=== PATIENT | male | born 1960 ===

== ENCOUNTER 2020-08-31 17:11 | Outpatient (REF) | payer OTHER, SELFPAY ==
[2020-08-31 17:37] LABS: COVID-19 Test Negative (Negative)
== END 2020-08-31 17:12 | disposition home or self-care (01) ==
LOC: HO.LAB 17:11
PROVIDERS: Visit Provider Internal Medicine
DX: Z20.828 Contact with and (suspected) exposure to other viral communicable diseases (principal)
CPT/HCPCS: 87635

== ENCOUNTER → 2020-09-28 10:26 | Outpatient (BNVA) | payer OTHER, SELFPAY | PROVIDERS: PCP Internal Medicine; Referring Provider Internal Medicine; Visit Provider Surgery | DX: K64.8 Other hemorrhoids (principal); K64.4 Residual hemorrhoidal skin tags | CPT/HCPCS: 46600 ==

== ENCOUNTER 2020-09-28 14:41 | Outpatient (REF) | payer OTHER, SELFPAY ==
[2020-09-28 16:36] LABS: Free T4 (Free Thyroxine) 0.94 ng/dL (0.71-1.85)
== END 2020-09-28 14:42 | disposition home or self-care (01) ==
LOC: HO.LAB 14:41
PROVIDERS: Visit Provider Internal Medicine
DX: E03.9 Hypothyroidism, unspecified (principal)
CPT/HCPCS: 84439; 84443

== ENCOUNTER 2020-10-20 07:32 | Day surgery (SDC) | payer OTHER, SELFPAY ==
[2020-10-16 16:02] VITALS: BMI 25.8
--- NOTE | 2020-10-19 10:18 | HO.ANESPROP2 ---
Documented by User: Loan Guevara 10/19/20 10:19 HPI - Anesthesia Eval Consult details Narrative: 59yo M for Colonoscopy [facility] Past Medical History Medical History Colon cancer screening Hypothyroid Prolapsed hemorrhoids Surgical History Surgical History History of amputation of finger Hx of hemorrhoidectomy Social History Social History Alcohol intake: never Smoking Status: Former smoker Smoking Quit Date: 1999 Use of substances other than those prescribed or required for medical reasons: No Advance Directives: No Advance Directives Information Provided: No Advance Directives on File: No Meds Allergies Allergy/AdvReac Type Severity Reaction Status Date / Time No Known Allergies Allergy Mild N/A Verified 10/16/20 16:01 Exam Exam Date and Time: October 19, 2020 1018 Height,Weight and Vital Signs: Height 5 ft 6 in Weight 72.575 kg Assessment and Plan Assessment Anesthesia Assessment: Chart Reviewed Documented by User: Brooke Bush 10/20/20 08:17 [facility] Past Medical History Medical History Colon cancer screening Hypothyroid Prolapsed hemorrhoids Surgical History Surgical History History of amputation of finger Hx of hemorrhoidectomy Social History Social History Alcohol intake: never Smoking Status: Former smoker Smoking Quit Date: 1999 Use of substances other than those prescribed or required for medical reasons: No Advance Directives: No Advance Directives Information Provided: No Advance Directives on File: No Meds Allergies Allergy/AdvReac Type Severity Reaction Status Date / Time No Known Allergies Allergy Mild N/A Verified 10/16/20 16:01 Exam Airway Mallampati Class: II TM Dist: >3cm Neck ROM: Full Assessment and Plan Assessment Anesthesia Assessment: Anesthesia Plan Discussed and Chart Reviewed Final Anesthetic Review NPO: Yes ASA Class: II Final Preanesthetic Review: No Changes in Pt Med Stat, Meds/Allgs Chart Reviewed, Consent Obtained/Reviewed and Anes Risks/Benef Reviewed Patient Risk: Low Procedure Risk: Low Assessment/Block/Sedation in SS: Assess/Block/Sedation-SS Anesthetic Plan Anesthetic Plan: MAC: Disposition: Standard PACU
[2020-10-20 07:47] VITALS: BP 112/69; PULSE 70; RESP 16; TEMP 36.4; O2SAT 99
--- NOTE | 2020-10-20 08:00 | MHC.SHP ---
Pre-Procedural Eval Section B Chief Complaint: Prolapsed hemorrhoids,Colon cancer screening Allergies: Allergies Allergy/AdvReac Type Severity Reaction Status Date / Time No Known Allergies Allergy Mild N/A Verified 10/16/20 16:01 Plan Patient has been examined and remains a candidate for the planned procedure
[2020-10-20 08:55] VITALS: BP 102/52; PULSE 74; RESP 16; TEMP 37; O2SAT 95
--- NOTE | 2020-10-20 08:59 | PM.OP ---
Brief Operative Note Date of Service: 10/20/20 Pre-op diagnosis: rectal bleed, screening Post-op diagnosis: other (multiple polyps; rectal mass) Procedure: colonoscopy, polypectomy with hot snare, colonoscopies with forceps, bx of rectal mass Surgeon: Mack Michel MD Anesthesia: MAC Estimated blood loss (mL): 3 Pathology: other (polyp in trasnverse; polyps at level 18. rectal mass bx) Condition: stable Disposition: PACU
[2020-10-20 09:10] VITALS: BP 105/69; PULSE 66; RESP 16; TEMP 37; O2SAT 96
--- NOTE | 2020-10-20 09:28 | HO.POSTANES ---
Post Anesthesia Evaluation Post Anesthesia Evaluation Vital Signs: Vital Signs Temp Pulse Resp BP Pulse Ox 10/20/20 09:10 98.6 F 66 16 105/69 96 10/20/20 08:55 98.6 F 74 16 102/52 L 95 10/20/20 07:47 97.5 F 70 16 112/69 99 Anesthesia: Monitored Mental Status: Awake Pain Control: Satisfactory Nausea/Vomiting: None Hydration: Adequate Anesthesia-Related Issues: No Anes. Related Issues
--- NOTE | 2020-10-20 10:04 | OP_ITS ---
SURGEON: Mack Michel MD INDICATIONS: The patient is a 59-year-old male, who has had bright red blood per rectum. I have seen him in the office because of what he says was his hemorrhoids coming up. He said he did not have blood per rectum. He wanted his hemorrhoids removed. However, I had told him that since he has never had any colonoscopy, it would be best to proceed this with his age. He understood the technique of procedure. He was aware of the risks, benefits, and alternatives. PREOPERATIVE DIAGNOSIS: POSTOPERATIVE DIAGNOSIS: PROCEDURE PERFORMED: Colonoscopy, with polypectomy using hot snare x1 and polypectomy using cold forceps x3, and biopsy of the rectal mass. ESTIMATED BLOOD LOSS: COMPLICATIONS: ANESTHESIA: ASSISTANTS: SPECIMENS: PREOPERATIVE DIAGNOSES: Colon cancer screening, rectal bleeding. POSTOPERATIVE DIAGNOSES: 1. Polyp 1 cm in the proximal transverse colon, removed using hot snare. 2. Multiple small polyps about 2 to 3 mm, about 3 of these are at level 18 cm. 3. Rectal mass, fungating from about level 8 to 11 cm. 4. Internal and external hemorrhoids. DESCRIPTION OF PROCEDURE: He was brought to the operating room and placed in left lateral decubitus position under monitored anesthesia care. A full digital rectal exam was done. Did have some prominent internal and external hemorrhoids. Otherwise, I did not feel any mass or induration in the anal canal. I proceeded to gently insert the scope through the anal orifice and advanced this with insufflation all the way to the cecum. We immediately had noticed a fungating mass in the rectum. We bypassed this until we were able to reach all the way to the cecum. The cecal mucosa was examined carefully. The cecum was identified by visualization of the ileocecal valve as well as the appendiceal orifice. The cecal mucosa was unremarkable. The scope was gradually withdrawn with careful examination of the entire colonic mucosa being done with scope withdrawal. The patient had good bowel prep, so it was unlikely that any lesion may have been missed. In the proximal transverse colon, there was note of a 1 cm polyp on a small stalk and this was removed using hot snare. This was retrieved by pulling this out via suctioning. We inserted the scope back through the anal orifice all the way to the cecum again. I proceeded to continue to withdraw the scope with careful examination of the entire colonic mucosa being done with scope withdrawal. At level 18 cm, there was note of multiple small polyps about 2 to 3 mm each, but these noted adjacent to each other. These were all removed using multiple bites of cold forceps. At level in the rectum, again was note of the large fungating lesion, friable. This seemed to be starting from around level 8 to 11 cm. Multiple biopsies were done using cold forceps. The appearance of this lesion is consistent with an invasive adenocarcinoma. There were no other lesions in the anal canal except for internal and external hemorrhoids. The scope was then withdrawn completely. The patient tolerated the procedure well. There were no complications noted. I will see him in the office to discuss these findings and plan on managing his care, including workup with imaging. MD GISSELLE Ball/YUSUF / [id number]
== END 2020-10-20 09:27 | disposition home or self-care (01) ==
PROVIDERS: PCP Internal Medicine; Visit Provider Surgery
PROC: 0DJD8ZZ Inspection of Lower Intestinal Tract, Via Natural or Artificial Opening Endoscopic (ICD-10-PCS; CPT 45378; principal; 2020-10-20 08:30)
DX: Z12.11 Encounter for screening for malignant neoplasm of colon (principal); C20 Malignant neoplasm of rectum; D12.3 Benign neoplasm of transverse colon; K63.5 Polyp of colon; K64.8 Other hemorrhoids; K64.4 Residual hemorrhoidal skin tags
CPT/HCPCS: 45385; 45380; 88305; 88341; 88342; J2405; J3010

== ENCOUNTER → 2020-10-31 14:27 | Outpatient (BNVA) | payer OTHER, SELFPAY | PROVIDERS: PCP Internal Medicine; Visit Provider Surgery | DX: Z76.89 Persons encountering health services in other specified circumstances (principal) ==

== ENCOUNTER 2020-11-06 15:14 | Outpatient (REF) | payer OTHER, SELFPAY ==
[2020-11-06 18:14] LABS: Blood Urea Nitrogen 16 mg/dL (9-16); Estimated Glomerular Filt Rate 56
[2020-11-06 18:32] LABS: Free T4 (Free Thyroxine) 0.95 ng/dL (0.71-1.85); Thyroid Stimulating Hormone 42.75 uIU/mL (0.32-4.0)
== END 2020-11-06 15:15 | disposition home or self-care (01) ==
LOC: HO.LAB 15:14
PROVIDERS: PCP Internal Medicine; Visit Provider Surgery
DX: C20 Malignant neoplasm of rectum (principal); E03.9 Hypothyroidism, unspecified
CPT/HCPCS: 82565; 84439; 84443; 84520

== ENCOUNTER 2020-11-16 08:14 | Outpatient (REF) | payer OTHER, SELFPAY ==
--- NOTE | 2020-11-16 08:17 | MR_ITS ---
EXAMINATION: MR PELVIS WITHOUT AND WITH CONTRAST CLINICAL INFORMATION: Rectal cancer. COMPARISON: None TECHNIQUE: Sagittal, axial and coronal sequences through the pelvis with and without contrast. The patient received 7 mL of intravenous Gadavist. FINDINGS: There is mild circumferential wall thickening of the upper rectum. This area is best appreciated on sagittal T2-weighted sequences, for example image 14, 15, 16 series 7, and extends over a length of 5 cm. This is approximately 7.5 cm above the anal verge. No definite signal abnormality in the wall of the bowel is seen. There is question of minimal increased signal in the perirectal fat, greatest to the left and posteriorly from 3:00 - 7:00 o'clock. This would be suggestive of a T2 or possibly very early T3 stage. There are 2 small perirectal lymph nodes measuring 5 mm on the left anterior to the sacrum, for example image 19 postcontrast, and measuring 3 mm posteriorly and on the right, axial image 18 series 9. No enlarged lymph nodes are seen. There is no ascites. The bladder is unremarkable. The prostate gland does not appear enlarged. There are small bilateral inguinal lymph nodes. No hernia is appreciated. Bony structures are unremarkable. MR/MR pelvis wo/w con IMPRESSION: Circumferential wall thickening of the upper rectum extending over a 5 cm length 7.5 cm above the anal verge. There is question of mild infiltration or abnormal signal in the perirectal fat. This is seen greatest to the left and posteriorly. It would be suggestive of a T2 lesion or possibly very early T3 stage lesion.
== END 2020-11-16 08:15 | disposition home or self-care (01) ==
LOC: HO.MRI 08:14
PROVIDERS: Visit Provider Surgery
DX: C20 Malignant neoplasm of rectum (principal)
CPT/HCPCS: 72197; A9585

== ENCOUNTER → 2020-11-27 10:25 | Outpatient (BNVA) | payer OTHER, SELFPAY | PROVIDERS: PCP Internal Medicine; Visit Provider Surgery ==

== ENCOUNTER 2020-11-28 11:57 | Outpatient (REF) | payer OTHER, SELFPAY ==
--- NOTE | 2020-11-28 11:59 | CT_ITS ---
EXAMINATION: CT ABDOMEN AND PELVIS WITH CONTRAST CLINICAL INFORMATION: Malignant neoplasm of rectum COMPARISON: None TECHNIQUE: Multidetector volumetric images were obtained from the superior aspect of the liver through the pubic symphysis following administration 85 mL of Omnipaque 350 intravenous contrast. Sagittal and coronal reformatted images were obtained on the technologist's workstation. Oral contrast: No This CT examination was performed using dose optimization techniques as appropriate, variously including the following: *Automated exposure control *Adjustment of mA and/or kV according to patient size (this includes techniques or standardized protocols for targeted exams where dose is matched to indication/reason for exam; i.e. extremities or head) *Use of iterative reconstruction technique DLP: 394 mGy-cm FINDINGS: LUNG BASES: The visualized lung bases are unremarkable. LIVER, GALLBLADDER, AND BILIARY TREE: The liver is normal in size, shape, and attenuation. There is a small 5 mm low-attenuation lesion in the right lobe of the liver adjacent to the gallbladder axial image 28 series 3. This is difficult to characterize due to small size but probably represents a small cyst. No other focal liver lesion is seen. There is no biliary duct dilatation.. The gallbladder is unremarkable with no evidence of radiopaque gallstones, gallbladder wall thickening, or obvious pericholecystic inflammatory changes. PANCREAS: Unremarkable. SPLEEN: Unremarkable. ADRENAL GLANDS: Unremarkable. KIDNEYS AND URETERS: There is a 1.3 x 1.7 cm minimally complex cyst in the lower pole of the right kidney with a thin septation. There is a 1 cm peripelvic cyst in the upper pole of the right kidney. The kidneys are otherwise unremarkable. BLADDER: Not optimally distended. GASTROINTESTINAL TRACT: There is focal wall thickening of the distal sigmoid colon/rectum from the S2 to S5 levels. A discrete mass is not appreciated. It is difficult to exclude subtle infiltration of the adjacent fat. There is linear high attenuation seen inferiorly along the anterior wall of the rectum to the left of midline questionable for possible biopsy clip. Small and large bowel is otherwise unremarkable. The appendix is unremarkable. The stomach is unremarkable. ABDOMINAL WALL: No significant hernia is appreciated. LYMPH NODES: There are no enlarged lymph nodes. There is no ascites. VASCULAR: There is evidence of mild atherosclerotic disease. No aneurysm is seen. PELVIC VISCERA: Unremarkable. OSSEOUS STRUCTURES: Unremarkable. CT/CT abdomen pelvis w con IMPRESSION: Focal wall thickening of the distal sigmoid colon-rectum. No discrete mass is appreciated. It is difficult to exclude mild infiltration of the adjacent fat. No adenopathy seen. Small liver lesion adjacent to the gallbladder is difficult to definitively characterize size but probably represents a cyst. Small right renal cyst.
== END 2020-11-28 11:58 | disposition home or self-care (01) ==
LOC: HO.CT 11:57
PROVIDERS: Visit Provider Surgery
DX: C20 Malignant neoplasm of rectum (principal)
CPT/HCPCS: 74177

== ENCOUNTER → 2020-11-30 12:54 | Outpatient (BNV) | payer OTHER, SELFPAY | PROVIDERS: PCP Internal Medicine; Referring Provider Surgery; Visit Provider Internal Medicine Medical Oncology | DX: C20 Malignant neoplasm of rectum (principal); Z92.21 Personal history of antineoplastic chemotherapy | CPT/HCPCS: 99204; 99213; 99214 ==

== ENCOUNTER 2020-12-08 06:54 | Day surgery (SDC) | payer OTHER, SELFPAY ==
--- NOTE | 2020-12-08 | IR_ITS ---
PROCEDURE: IR INSERTION OF TUNNEL CATHETER CLINICAL INFORMATION: Colon/rectal cancer COMPARISON: None TECHNIQUE: Procedure and risks and benefits including bleeding, infection and pneumothorax were discussed with the patient and informed consent was obtained. All elements of maximal sterile barrier technique followed including use of cap, mask, sterile gown, sterile gloves, a sterile full body drape and hand hygiene. Also followed skin preparation with 2% chlorhexidine for cutaneous antisepsis, and sterile ultrasound preparation with sterile gel and probe cover when applicable. The right neck and upper chest were prepped and draped in usual sterile fashion. The skin and soft tissues of the right lower neck were anesthetized with 1% lidocaine with epinephrine. A small incision was made. Using ultrasound guidance, and a 5-Northern Irish micropuncture system, right internal jugular vein access was obtained. 5-Northern Irish dilator was positioned in the SVC. The skin and soft tissues of the upper anterior chest were anesthetized with 1% lidocaine with epinephrine. A small incision was made. Using blunt dissection, subcutaneous pocket was created. A subcutaneous tunnel from the chest to the neck incision was anesthetized with 1% lidocaine with epinephrine. Using a tunneler, a 6.6-[place] Irish single-lumen catheter was tunneled from the chest to the neck incision. The catheter was attached to the port. The port and catheter were flushed. The port was positioned in the subcutaneous pocket using two 2-0 nonabsorbable sutures. An 0.035 inch guidewire was advanced through the 5-Northern Irish dilator into the right atrium. 5-Northern Irish dilator was exchanged for a 7-Northern Irish peel-away sheath. Using bent wire technique, catheter length was estimated and the catheter was cut. Catheter length is 22 cm. The catheter was fed through the peel-away sheath. Catheter tip is at the cavoatrial junction. The neck incision was closed using a 4-0 absorbable subcuticular suture. Chest incision was closed using three 3-0 absorbable interrupted sutures followed by a 4-0 running absorbable subcuticular suture. The port was accessed. The port had good blood return, flushed easily and was instilled with 5 mL heparin 100 unit per mL solution. Real-time ultrasound guidance was used to document vein patency and for needle entry. A formal ultrasound picture was recorded. The patient received Versed 1.5 mg and fentanyl 75 mcg intravenously during the procedure. Total sedation time was 35 minutes. 1 fluoroscopic image. Fluoroscopy time 1.9 minutes. FINDINGS: There is a right 6.6-Northern Irish dignity single-lumen Port-A-Cath with tip projecting over the cavoatrial junction. IR/IR cvc insert tunnel w prt/audio visual design engineer IMPRESSION: Right internal jugular 6.6-Northern Irish single-lumen Port-A-Cath placement.
--- NOTE | 2020-12-08 | IR_ITS ---
PROCEDURE: IR INSERTION OF TUNNEL CATHETER CLINICAL INFORMATION: Colon/rectal cancer COMPARISON: None TECHNIQUE: Procedure and risks and benefits including bleeding, infection and pneumothorax were discussed with the patient and informed consent was obtained. All elements of maximal sterile barrier technique followed including use of cap, mask, sterile gown, sterile gloves, a sterile full body drape and hand hygiene. Also followed skin preparation with 2% chlorhexidine for cutaneous antisepsis, and sterile ultrasound preparation with sterile gel and probe cover when applicable. The right neck and upper chest were prepped and draped in usual sterile fashion. The skin and soft tissues of the right lower neck were anesthetized with 1% lidocaine with epinephrine. A small incision was made. Using ultrasound guidance, and a 5-Mongolian micropuncture system, right internal jugular vein access was obtained. 5-Mongolian dilator was positioned in the SVC. The skin and soft tissues of the upper anterior chest were anesthetized with 1% lidocaine with epinephrine. A small incision was made. Using blunt dissection, subcutaneous pocket was created. A subcutaneous tunnel from the chest to the neck incision was anesthetized with 1% lidocaine with epinephrine. Using a tunneler, a 6.6-Mongolian single-lumen catheter was tunneled from the chest to the neck incision. The catheter was attached to the port. The port and catheter were flushed. The port was positioned in the subcutaneous pocket using two 2-0 nonabsorbable sutures. An 0.035 inch guidewire was advanced through the 5-Mongolian dilator into the right atrium. 5-Mongolian dilator was exchanged for a 7-Mongolian peel-away sheath. Using bent wire technique, catheter length was estimated and the catheter was cut. Catheter length is 22 cm. The catheter was fed through the peel-away sheath. Catheter tip is at the cavoatrial junction. The neck incision was closed using a 4-0 absorbable subcuticular suture. Chest incision was closed using three 3-0 absorbable interrupted sutures followed by a 4-0 running absorbable subcuticular suture. The port was accessed. The port had good blood return, flushed easily and was instilled with 5 mL heparin 100 unit per mL solution. Real-time ultrasound guidance was used to document vein patency and for needle entry. A formal ultrasound picture was recorded. The patient received Versed 1.5 mg and fentanyl 75 mcg intravenously during the procedure. Total sedation time was 35 minutes. 1 fluoroscopic image. Fluoroscopy time 1.9 minutes. FINDINGS: There is a right 6.6-Mongolian dignity single-lumen Port-A-Cath with tip projecting over the cavoatrial junction. IR/IR us guide venous access IMPRESSION: Right internal jugular 6.6-Mongolian single-lumen Port-A-Cath placement.
[2020-12-08 07:15] VITALS: BP 117/68; PULSE 59; RESP 14; TEMP 36.9; O2SAT 97; BMI 25.0
[2020-12-08 07:23] LABS: MANUAL DIFF FLAG NO
[2020-12-08 07:25] LABS: Basophils Percent Auto 0.5 % (0-2); Hematocrit 40.4 % (42-52); Hemoglobin 13.3 g/dl (14.0-18.0); Imm Gran Abs Auto 0.01 X10*3/uL (0.00-0.03); Imm Gran Pct Auto 0.1 % (0.0-0.4); Lymphocytes Absolute Auto 1.9 X10*3/uL (1.2-4.9); Lymphocytes Percent Auto 26.4 % (20-40); Mean Corpuscular HGB Conc 32.9 g/dl (31.0-36.0); Mean Corpuscular Hemoglobin 29.8 pg (27.0-33.0); Mean Corpuscular Volume 90.6 fL (80-98); Monocytes Absolute Auto 0.7 X10*3/uL (0.1-1.2); Neutrophils Absolute Auto 3.6 X10*3/uL (2.0-8.3); Platelet Count 329 X10*3/uL (160-400); Red Blood Count 4.46 X10*6/uL (4.60-5.80); Red Cell Distribution Width 13.2 % (11.0-16.0); White Blood Count 7.3 X10*3/uL (4.8-10.8)
[2020-12-08 07:33] LABS: Prothrombin Time 11.9 SEC (10.8-13.0)
[2020-12-08 07:36] LABS: Partial Thromboplastin Time 36.1 SEC (24.1-38.0)
[2020-12-08 07:48] LABS: Anion Gap 10 (12-20); Carbon Dioxide 28 mmol/L (22-29); Chloride 108 mmol/L (96-108); Potassium 4.1 mmol/l (3.3-5.1); Sodium 142 mmol/L (135-145)
[2020-12-08] MEDS: Lidocaine HCl 1 % MPF 5 ML VIAL 10 ML SUBCUT (10:01)
[2020-12-08 10:10] VITALS: BP 126/73; PULSE 54; RESP 16; TEMP 36.6; O2SAT 97
[2020-12-08 10:25] VITALS: BP 111/67; PULSE 55; RESP 16; O2SAT 97
[2020-12-08 10:40] VITALS: BP 118/69; PULSE 63; RESP 16; O2SAT 97
--- NOTE | 2020-12-08 10:42 | HO.RADPN ---
RADIOLOGY Narrative Narrative: Right IJ 6.6 Fr Dingity portacath placed. Tip at cavoatrial junction
[2020-12-08 10:55] VITALS: BP 118/63; PULSE 58; RESP 16; O2SAT 97
[2020-12-08 11:10] VITALS: BP 123/67; PULSE 62; RESP 16; O2SAT 97
== END 2020-12-08 11:00 | disposition home or self-care (01) ==
LOC: HO.SSS 06:55
PROVIDERS: PCP Internal Medicine; Visit Provider Radiology Diagnostic Radiology
DX: C20 Malignant neoplasm of rectum (principal); Z87.891 Personal history of nicotine dependence
CPT/HCPCS: 36415; 36561; 76937; 80051; 85025; 85610; 85730; 99152; 99153; C1769; C1788; J0690; J1642; J2250; J3010

== ENCOUNTER 2020-12-08 22:00 | Emergency (ER) | payer OTHER, SELFPAY ==
[2020-12-08 22:14] VITALS: BP 151/85; PULSE 94; RESP 18; TEMP 38.4; O2SAT 98
--- NOTE | 2020-12-08 23:12 | ECG_ITS ---
Test Reason : CHEST PAIN Blood Pressure : / mmHG Vent. Rate : 094 BPM Atrial Rate : 094 BPM P-R Int : 166 ms QRS Dur : 088 ms QT Int : 328 ms P-R-T Axes : 074 053 071 degrees QTc Int : 410 ms Normal sinus rhythm Normal ECG When compared with ECG of 13-AUG-2013 17:48, T wave amplitude has decreased in Anterior leads Referred By: Zita Hawkins Electronically Signed By:Jony Newton
== END 2020-12-09 00:05 | disposition left against medical advice (07) ==
PROVIDERS: Emergency Provider Emergency Medicine
DX: R07.9 Chest pain, unspecified (principal); R50.9 Fever, unspecified
CPT/HCPCS: 93005; 99281

== ENCOUNTER 2020-12-19 10:28 | Outpatient (REF) | payer OTHER, SELFPAY ==
--- NOTE | ~2020-12-19 | US_ITS ---
EXAMINATION: US ABDOMEN COMPLETE CLINICAL INFORMATION: Liver disease. COMPARISON: Ultrasound abdomen 06/23/2017. TECHNIQUE: Real-time imaging of the abdominal viscera. FINDINGS: PANCREAS: Normal. ABDOMINAL AORTA: The proximal, mid, and distal segments are normal in caliber. INFERIOR VENA CAVA: Visualized portions are normal. LIVER: The liver is normal in size. The liver contour is normal. Parenchymal echogenicity is increased. There is an anechoic cyst in the right hepatic lobe measuring 0.41 x 0.30 x 0.44 cm. There is no intrahepatic biliary duct dilatation seen. GALLBLADDER: The gallbladder is physiologically distended without evidence of stones, sludge, polyps, wall thickening or pericholecystic fluid. COMMON BILE DUCT: Normal in caliber measuring 0.60 cm in diameter. RIGHT KIDNEY: There is an anechoic cyst in the midpole measuring 1.0 x 0.90 x 0.80 cm. The is an anechoic cyst with echogenic anterior wall in the midpole measuring 1.8 x 1.7 x 1.3 cm. No hydronephrosis. No renal calculi or focal parenchymal lesions. The kidney measures 11.1 cm in maximum dimension. LEFT KIDNEY: Normal. No hydronephrosis. No renal calculi or focal parenchymal lesions. The kidney measures 11.6 cm in maximum dimension. SPLEEN: Normal. The spleen measures 8.5 cm in maximum dimension. FREE FLUID: None. US/US abdomen complete IMPRESSION: Simple cyst and a complex cyst midpole right kidney. Anechoic cysts right hepatic lobe. Diffuse hepatic steatosis.
== END 2020-12-19 10:29 | disposition home or self-care (01) ==
LOC: HO.HMGCX 10:28
PROVIDERS: Visit Provider Internal Medicine Medical Oncology
DX: K76.9 Liver disease, unspecified (principal)
CPT/HCPCS: 76700

== ENCOUNTER → 2021-01-03 11:40 | Outpatient (BNVA) | payer OTHER, SELFPAY | PROVIDERS: Visit Provider Surgery | DX: C20 Malignant neoplasm of rectum (principal) ==

== ENCOUNTER 2021-03-07 14:20 | Outpatient (REF) | payer OTHER, SELFPAY ==
--- NOTE | ~2021-03-07 | CT_ITS ---
EXAMINATION: CT ABDOMEN AND PELVIS WITH CONTRAST CLINICAL INFORMATION: Rectal cancer post 3 cycles of chemotherapy. COMPARISON: Previous CT of the abdomen and pelvis November 2020 and MR of the pelvis November 2020 TECHNIQUE: Multidetector volumetric images were obtained from the superior aspect of the liver through the pubic symphysis following administration 85 mL of Omnipaque 350 intravenous contrast. 03/07/2021 Oral contrast: Yes This CT examination was performed using dose optimization techniques as appropriate, variously including the following: *Automated exposure control *Adjustment of mA and/or kV according to patient size (this includes techniques or standardized protocols for targeted exams where dose is matched to indication/reason for exam; i.e. extremities or head) *Use of iterative reconstruction technique DLP: 443 mGy-cm FINDINGS: LUNG BASES: The visualized lung bases are unremarkable. LIVER, GALLBLADDER, AND BILIARY TREE: The liver is normal in size, shape, and attenuation. There is a small 4 mm low-attenuation lesion in the right lobe of the liver adjacent to the gallbladder axial image 27 series 3. This is difficult to characterize due to small size. This is similar to previous exam. No other focal liver lesion is seen. No biliary ductal dilatation is present. The gallbladder is unremarkable with no evidence of radiopaque gallstones, gallbladder wall thickening, or obvious pericholecystic inflammatory changes. PANCREAS: Unremarkable. SPLEEN: Unremarkable. ADRENAL GLANDS: Unremarkable. KIDNEYS AND URETERS: There are right renal cysts that are unchanged. The kidneys are otherwise unremarkable. BLADDER: Unremarkable. GASTROINTESTINAL TRACT: There is interval decrease in wall thickening of the distal sigmoid colon/upper rectum. There is still some stranding of the adjacent pericolic fat. No enlarged lymph nodes are seen. ABDOMINAL WALL: No significant hernia is appreciated. LYMPH NODES: Normal. VASCULAR: Unremarkable. PELVIC VISCERA: Unremarkable. OSSEOUS STRUCTURES: There are mild degenerative changes of the spine. CT/CT abdomen pelvis w con IMPRESSION: There is interval decrease in the wall thickening of the distal sigmoid colon/upper rectum. There is still some stranding of the pericolic fat. No enlarged lymph nodes are seen.
[2021-03-07] MEDS: iohexoL 350 MG/ML 100 ML INFUS..BTL IV (17:18)
[2021-03-07] MEDS: Barium Sulfate Oral (Vanilla) 450 ML ORAL.SUSP 900 ML PO (17:19)
== END 2021-03-07 14:21 | disposition home or self-care (01) ==
LOC: HO.CT 14:20
PROVIDERS: PCP Internal Medicine; Visit Provider Internal Medicine Medical Oncology
DX: C20 Malignant neoplasm of rectum (principal)
CPT/HCPCS: 74177; Q9967

== ENCOUNTER → 2021-04-16 11:41 | Outpatient (BNVA) | payer OTHER, SELFPAY | PROVIDERS: PCP Internal Medicine; Referring Provider Internal Medicine; Visit Provider Surgery ==

== ENCOUNTER → 2021-05-21 11:27 | Outpatient (BNVA) | payer OTHER, SELFPAY | PROVIDERS: PCP Internal Medicine; Referring Provider Internal Medicine; Visit Provider Surgery ==

== ENCOUNTER 2021-06-12 06:52 | Day surgery (SDC) | payer OTHER, SELFPAY ==
[2021-06-05 14:22] VITALS: BMI 29.2
--- NOTE | 2021-06-12 07:26 | MHC.SHP ---
Pre-Procedural Eval Section A Date of Service: 06/12/21 Section B Chief Complaint: Rectal Cancer Allergies: Allergies Allergy/AdvReac Type Severity Reaction Status Date / Time No Known Allergies Allergy Mild N/A Verified 05/21/21 11:29 Plan I have reviewed the history and physical and performed a pertinent physical examination on my patient. No changes have occurred unless specified.
[2021-06-12 07:35] VITALS: BP 116/64; PULSE 64; RESP 16; TEMP 36; O2SAT 97
--- NOTE | 2021-06-12 07:45 | PC.NURSE ---
offerred to access patient port or do an iv and patient verbalized it was ok to use the hand for an iv insertion.
[2021-06-12] MEDS: Sodium Phosphate,Mono-Dibasic 133 ML ENEMA PR (07:46)
--- NOTE | 2021-06-12 07:46 | P.CONAN_ITS ---
HPI - Anesthesia Eval Consult details Narrative: 60 yo male patient for Flexible Sigmoidoscopy PMFSH Active Problems Active Problems: All Active Problems (Updated 06/05/21 @ 14:25 by Jenny Devries) Hypercholesterolemia (Acute) Hypothyroid (Acute) Rectal cancer (Acute) Prolapsed hemorrhoids (Acute) Past Medical History Medical History (Updated 06/05/21 @ 14:25 by Jenny Devries) COVID-19 vaccine administered History of chemotherapy Hx of radiation therapy Hypercholesterolemia Hypothyroid Port-A-Cath in place Prolapsed hemorrhoids Rectal cancer Vitamin D deficiency Family History Family History Father CVD (cardiovascular disease) Mother No problems noted. Family history of problems with anesthesia: No Surgical History Surgical History (Updated 06/05/21 @ 14:18 by Jenny Devries) H/O colonoscopy History of amputation of finger Hx of hemorrhoidectomy History of Problems with Anesthesia: No Social History Social History Household Members: Spouse Housing: House Are you a primary day care center director to a significant other at home: No Alcohol intake: former Patient Tobacco Use Status: Current everyday Tobacco user Tobacco use type: Cigarette Cigarette Packs Per Day: 0.5 Cigarettes Per Day: 10 Advance Directives Information Provided: No Meds Allergies Allergy/AdvReac Type Severity Reaction Status Date / Time No Known Allergies Allergy Mild N/A Verified 05/21/21 11:29 Active Medications: Current Medications Generic Name Dose Route Start Last Admin Trade Name Freq PRN Reason Stop Dose Admin Sodium Biphosphate/Sodium Phosphate 133 ml 06/12/21 07:30 06/12/21 07:46 Sodium Phosphate,[place]-Dibasic 133 Ml Enema AR 133 ml ONCE CHRISTINE Administration Home Medications Medication Instructions Recorded Confirmed Last Taken Type Colace 1 caplet PO DAILY 12/15/20 06/05/21 Unknown History docusate sodium 100 mg capsule 100 mg PO BID PRN 01/29/21 06/05/21 Unknown History (Colace) Exam Exam Date and Time: June 12, 2021 0746 Height,Weight and Vital Signs: Height 5 ft 6 in Weight 82.3 kg Last Vital Signs Temp 96.8 F 06/12/21 07:35 Pulse 64 06/12/21 07:35 Resp 16 06/12/21 07:35 BP 116/64 06/12/21 07:35 Pulse Ox 97 06/12/21 07:35 Airway Mallampati Class: II TM Dist: >3cm Neck ROM: Full Denture: Upper and Lower Heart: RRR Lungs: CTAB Assessment and Plan Assessment Anesthesia Assessment: Anesthesia Plan Discussed and Chart Reviewed Final Anesthetic Review Family History of Problems with Anesthesia: No History of Problems with Anesthesia: No NPO: Yes ASA Class: II Final Preanesthetic Review: No Changes in Pt Med Stat, Meds/Allgs Chart Reviewed, Consent Obtained/Reviewed and Anes Risks/Benef Reviewed Patient Risk: Low Procedure Risk: Low Assessment/Block/Sedation in SS: Assess/Block/Sedation-SS Anesthetic Plan Anesthetic Plan: MAC: Disposition: Standard PACU
--- NOTE | 2021-06-12 07:56 | PC.NURSE ---
fleet enema administered layin on left side marcella well.
[2021-06-12] MEDS: Lactated Ringers 1,000 ML 100 ML IVCONT (08:08)
--- NOTE | 2021-06-12 08:08 | PC.NURSE ---
output yellow with no solids
--- NOTE | 2021-06-12 08:48 | W.PM.OPN ---
Operative Note Operative Note Date of Service: 06/12/21 Narrative: Preop diagnosis: Rectal cancer, status post neoadjuvant chemotherapy and radiation Postop diagnosis: As above, with good response, residual erythema and abnormal mucosa at level 9 cm Procedure: Flexible sigmoidoscopy to 20 cm Surgeon: Mack Michel MD Patient is a 60-year-old male who had been diagnosed to have rectal cancer. He had undergone chemotherapy and radiation as neoadjuvant treatment. I had scheduled him for flexible sigmoidoscopy to determine response He understood the technique of the procedure and he was aware of the risks, benefits, and alternatives. He was brought to the operating room and placed in left lateral decubitus position under monitored anesthesia care. A surgical time-out was done. A full digital rectal was done in the were no palpable anal lesions except for small hemorrhoids. The tip of the Olympus colonoscope was then gently introduced through the anal orifice and advanced with insufflation all the way to about 20 cm. I then proceeded to withdraw the scope withcareful examination of distal sigmoid mucosa and rectal mucosa done with scope withdrawal. I did not see any significant size mass but there was note of residual redness and abdominal mucosa in a short segment of the rectum at level 8-9 cm. This appeared to be represent the area of the previous mass. He therefore had very good response to neoadjuvant treatment. The rest of the distal rectum in the anal canal were unremarkable. The anal shelf did not reveal any lesions. He did have some internal hemorrhoids. The scope was then withdrawn completely. The patient tolerated well. There were no complications noted. I will see him in the office to discuss findings and schedule him for low anterior resection.
[2021-06-12 08:51] VITALS: BP 121/76; PULSE 72; RESP 16; TEMP 36.1; O2SAT 97
--- NOTE | 2021-06-12 08:52 | P.BOP_ITS ---
Brief Operative Note Date of Service: 06/12/21 Pre-op diagnosis: Rectal cancer Status post neoadjuvant chemotherapy and radiation Post-op diagnosis: same Procedure: Flexible sigmoidoscopy Surgeon: Mack Michel MD Anesthesia: MAC Was an Recreation Attendant used for this Procedure?: No Estimated blood loss (mL): 0 Pathology: none sent Condition: stable Disposition: PACU
[2021-06-12 09:06] VITALS: BP 118/71; PULSE 58; RESP 16; TEMP 36.1; O2SAT 95
== END 2021-06-12 09:30 | disposition home or self-care (01) ==
PROVIDERS: PCP Internal Medicine; Visit Provider Surgery
PROC: 0DJD8ZZ Inspection of Lower Intestinal Tract, Via Natural or Artificial Opening Endoscopic (ICD-10-PCS; CPT 45330; principal; 2021-06-12 08:20)
DX: C20 Malignant neoplasm of rectum (principal); Z92.21 Personal history of antineoplastic chemotherapy; Z92.3 Personal history of irradiation; K64.8 Other hemorrhoids; E78.00 Pure hypercholesterolemia, unspecified; E03.9 Hypothyroidism, unspecified; E55.9 Vitamin D deficiency, unspecified; Z87.891 Personal history of nicotine dependence; Z79.1 Long term (current) use of non-steroidal anti-inflammatories (NSAID); Z79.899 Other long term (current) drug therapy
CPT/HCPCS: 45330

== ENCOUNTER → 2021-06-22 14:55 | Outpatient (BNVA) | payer OTHER, SELFPAY | PROVIDERS: PCP Internal Medicine; Visit Provider Surgery ==

== ENCOUNTER 2021-07-24 14:39 | Inpatient (IN) | payer OTHER, SELFPAY ==
--- NOTE | 2021-07-17 13:52 | HO.ANESPROP2 ---
Documented by User: Loan Guevara NP 07/17/21 14:19 HPI - Anesthesia Eval Consult details Narrative: 60yo M for Hand Assisted Laparoscopic Lower Anterior Resection with Diverting Loop Ileostomy, Poss Flexible Sigmoid Intraop Rectal CA s/p chemo and rad Had colo 10/2020 and flex sig 06/2021 with MAC [facility] Active Problems Active Problems: All Active Problems (Updated 07/17/21 @ 09:32 by Stacia Davenoprt MD) Hypercholesterolemia (Acute) Hypothyroid (Acute) Rectal cancer (Acute) Prolapsed hemorrhoids (Acute) Past Medical History Medical History COVID-19 vaccine administered History of chemotherapy History of flexible sigmoidoscopy Hx of radiation therapy Hypercholesterolemia Hypothyroid Port-A-Cath in place Prolapsed hemorrhoids Rectal cancer Vitamin D deficiency Family History Family History Father CVD (cardiovascular disease) Mother No problems noted. Family history of problems with anesthesia: No Surgical History Surgical History H/O colonoscopy History of amputation of finger Hx of hemorrhoidectomy History of Problems with Anesthesia: No Social History Social History Household Members: Spouse Housing: House Are you a primary customer care professional to a significant other at home: No Do you presently have visiting nurse or other home services: No Alcohol intake: former Patient Tobacco Use Status: Former Tobacco user Tobacco use type: Cigarette Years Smoked: 20 yrs ago Second Hand Smoke Exposure: No Use of substances other than those prescribed or required for medical reasons: No Have you been hit, kicked, punched, or otherwise hurt by someone within the past year? If so, by whom?: No Do you feel safe in your current relationship?: No Sabianist Healthcare Practices: Christianity Recently lost weight without trying: No Nutrition Risks: No Nutritional Risk Poor oral hygiene: No Meds Allergies Allergy/AdvReac Type Severity Reaction Status Date / Time No Known Allergies Allergy Mild N/A Verified 07/17/21 14:00 Exam Exam Date and Time: July 17, 2021 1352 Pertinent Lab Results Pertinent Lab Results: Laboratory Tests 07/17/21 07/17/21 09:48 09:48 WBC 5.1 Hgb 14.2 D Hct 41.4 L D Plt Count 245 D Sodium 141 Potassium 4.2 D Chloride 108 Carbon Dioxide 27 BUN 13 Creatinine 1.09 Narrative Narrative: EKG 11/2020 Vent. Rate : 094 BPM ? ? Atrial Rate : 094 BPM ?? P-R Int : 166 ms? QRS Dur : 088 ms ? ? QT Int : 328 ms ? ? ? P-R-T Axes : 074 053 071 degrees ?? QTc Int : 410 ms ? Normal sinus rhythm Normal ECG When compared with ECG of 13-AUG-2013 17:48, T wave amplitude has decreased in Anterior leads Airway Neck ROM: Full Denture: Upper and Lower Heart: RRR Lungs: CTAB Assessment and Plan Final Anesthetic Review Family History of Problems with Anesthesia: No History of Problems with Anesthesia: No Documented by User: Ama Escobar MD 07/24/21 07:24 [facility] Past Medical History Medical History COVID-19 vaccine administered History of chemotherapy History of flexible sigmoidoscopy Hx of radiation therapy Hypercholesterolemia Hypothyroid Port-A-Cath in place Prolapsed hemorrhoids Rectal cancer Vitamin D deficiency Functional capacity: independent ambulation Family History Family History Father CVD (cardiovascular disease) Mother No problems noted. Surgical History Surgical History H/O colonoscopy History of amputation of finger Hx of hemorrhoidectomy Social History Social History Household Members: Spouse Housing: House Are you a primary customer care professional to a significant other at home: No Do you presently have visiting nurse or other home services: No Alcohol intake: former Patient Tobacco Use Status: Former Tobacco user Tobacco use type: Cigarette Years Smoked: 20 yrs ago Second Hand Smoke Exposure: No Use of substances other than those prescribed or required for medical reasons: No Have you been hit, kicked, punched, or otherwise hurt by someone within the past year? If so, by whom?: No Do you feel safe in your current relationship?: No Sabianist Healthcare Practices: Christianity Recently lost weight without trying: No Nutrition Risks: No Nutritional Risk Poor oral hygiene: No Meds Allergies Allergy/AdvReac Type Severity Reaction Status Date / Time No Known Allergies Allergy Mild N/A Verified 07/17/21 14:00 Exam Airway Mallampati Class: II TM Dist: >3cm Neck ROM: Limited Denture: Upper and Lower Loose/Missing/Broken Teeth: No
[2021-07-17 14:01] VITALS: BMI 27.7
[2021-07-17 14:04] VITALS: BP 136/82; PULSE 72; RESP 20; O2SAT 97
[2021-07-24] VITALS (20 sets, daily range): BP systolic 120–162; BP diastolic 64–85; PULSE 55–78; RESP 12–18; TEMP 36.1–37.1; O2SAT 95–100
--- NOTE | ~2021-07-24 | XR_ITS ---
EXAMINATION: XR CHEST CLINICAL INFORMATION: Nasogastric tube placement COMPARISON: Previous chest x-ray August 2013 TECHNIQUE: Frontal view of the chest was obtained. FINDINGS: There is a nasogastric tube that projects over the stomach. There is a right jugular port with tip projecting over the cavoatrial junction. The cardiac and mediastinal contours are stable. There is minimal subsegmental atelectasis at the lung bases. The lungs are otherwise clear. There is no pleural effusion or pneumothorax. No free air is seen. No acute bone abnormality is seen. XR/XR chest 1V IMPRESSION: Nasogastric tube projects over stomach.
--- NOTE | ~2021-07-24 | XR_ITS ---
EXAMINATION: XR CHEST CLINICAL INFORMATION: NG tube COMPARISON: Chest x-ray July 28, 2021 TECHNIQUE: Frontal portable view of the chest was obtained. 11:28 PM FINDINGS: Tubes and lines: 1. Nasogastric tube in stomach. 2. Left PICC line catheter tip in superior vena cava. 3. Right IJ central port catheter tip at cavoatrial junction in superior vena cava. Lungs are normally aerated. There is no pulmonary vascular congestion. There is no pleural effusion. No focal consolidation. Heart size is normal. Cardiac and mediastinal contours are normal. XR/XR chest 1V IMPRESSION: 1. Nasogastric tube in stomach. 2. Left PICC line catheter tip in superior vena cava. 3. Right IJ central port catheter tip at cavoatrial junction in superior vena cava. 4. No acute abnormality of the chest.
--- NOTE | ~2021-07-24 | XR_ITS ---
EXAMINATION: XR ABDOMEN KUB CLINICAL INDICATION: Post low anterior resection. Question ileus. COMPARISON: Previous CT of the abdomen and pelvis February 2021 TECHNIQUE: AP view of the abdomen. FINDINGS: There are distended loops of small and large bowel suggestive of an ileus. There is a nasogastric tube that is partially visualized and projects over the stomach. No definite free air is seen. There are skin kraig over the abdomen and pelvis. No calcifications are seen. There are mild degenerative changes of the spine and hip joints. XR/XR KUB IMPRESSION: Distended small and large bowel probably representing an ileus.
--- NOTE | ~2021-07-24 | CT_ITS ---
EXAMINATION: CT ABDOMEN AND PELVIS WITH CONTRAST CLINICAL INFORMATION: Abdominal distention status post surgery COMPARISON: March 07, 2021 TECHNIQUE: Multidetector volumetric images were obtained from the superior aspect of the liver through the pubic symphysis following administration 85 mL of Omnipaque 350 intravenous contrast. Sagittal and coronal reformatted images were obtained on the technologist's workstation. Oral contrast: No This CT examination was performed using dose optimization techniques as appropriate, variously including the following: *Automated exposure control *Adjustment of mA and/or kV according to patient size (this includes techniques or standardized protocols for targeted exams where dose is matched to indication/reason for exam; i.e. extremities or head) *Use of iterative reconstruction technique DLP: 584 mGy-cm FINDINGS: LUNG BASES: There is bibasilar atelectasis with minimal pleural effusions. Heart normal size. No pericardial effusion. LIVER, GALLBLADDER, AND BILIARY TREE: There is again noted to be a subcentimeter cyst adjacent to the gallbladder. No suspicious focal hepatic mass identified. No intrahepatic bile duct dilatation. The gallbladder is unremarkable with no evidence of radiopaque gallstones, gallbladder wall thickening, or obvious pericholecystic inflammatory changes. PANCREAS: Unremarkable. SPLEEN: Unremarkable. ADRENAL GLANDS: Unremarkable. KIDNEYS AND URETERS: The kidneys are normal in size, shape, and attenuation. No hydronephrosis, hydroureter, or calculi seen. There is perinephric stranding. There are some bilateral renal cysts present. BLADDER: Decompressed with Guallpa catheter in place. GASTROINTESTINAL TRACT: There is small amount of free air present consistent with being recently postop. There is small amount of free fluid seen. Patient status post sigmoid colon surgery. There is a right sided ileostomy. There is an enteric tube seen within the stomach. There is distention of multiple loops of small bowel to greater than 3 cm in diameter. The distal ileum is decompressed with transition point in site of what appears to be ileostomy meeting with mucus fistula without parastomal hernia. The colon is decompressed with stranding about the sigmoid colon wall likely related to recent surgery. Appendix appears unremarkable. ABDOMINAL WALL: There is some postoperative intramuscular and subcutaneous air present. Right sided ostomy. Anterior staple line in place. LYMPH NODES: No lymphadenopathy appreciated. VASCULAR: Mild aortoiliac calcified plaque. No abdominal aortic aneurysm. PELVIC VISCERA: Free pelvic fluid. Postsurgical change. No abnormal mass. OSSEOUS STRUCTURES: No suspicious destructive bony lesions. CT/CT abdomen pelvis w con IMPRESSION: Status post recent surgery with transition in size of distended small bowel at the level of what appears to be ileostomy with mucus fistula in the right anterior abdominal wall. Postoperative air and fluid present within the abdomen.
[2021-07-24 07:00] LABS: COVID-19 Test Negative (Negative)
[2021-07-24] MEDS: Lactated Ringers 1,000 ML 100 ML IVCONT (07:10)
--- NOTE | 2021-07-24 08:57 | MHC.SHP ---
Pre-Procedural Eval Section A Date of Service: 07/24/21 Section B Chief Complaint: Rectal Cancer Allergies: Allergies Allergy/AdvReac Type Severity Reaction Status Date / Time No Known Allergies Allergy Mild N/A Verified 07/17/21 14:00 Plan I have reviewed the history and physical and performed a pertinent physical examination on my patient. No changes have occurred unless specified.
--- NOTE | 2021-07-24 14:32 | P.OP_ITS ---
Operative Note Operative Note Date of Service: 07/24/21 Narrative: Preop Diagnosis: Low rectal cancer, status post neoadjuvant chemotherapy and radiation Postop diagnosis: The same Procedure: Hand assisted laparoscopic low anterior resection, with intraop flexiblesigmoidoscopy, diverting loop ileostomy Surgeon: Mack Michel MD merchandising assistant: STEVEN Mccabe The patient is a 60-year-old male who had been diagnosed late last year with rectal cancer at about level 8 cm. He underwent neoadjuvant chemotherapy and radiation. He I then I had done a repeat flexible sigmoidoscopy last month which showed that there was good response to neoadjuvant chemotherapy and radia tion and the cancer was clearly visible. He understood the technique of hand assisted laparoscopic low anterior resection and he was aware of the risks, benefits, and alternatives. He had given consent Was brought to the operating room placed in modified lithotomy position under general anesthesia via endotracheal tube. The abdomen and the perineum were prepped and draped usual sterile fashion. A surgical time-out was done. The patient received Cefotan 2 g IV preoperatively. I made a low midline incision using blade 15. And through this incision be positioned an Eb wound retractor and the GelPort. With laparoscopic visualization through the GelPort, proceeded to insert a 5/12 mm port in the epigastric area. Removed the laparoscopic with this port. Therefore was able to place my hand through the GelPort and position another 5 status well report and right lower quadrant With laparoscopic mobilization proceeded to then reflect all the small bowel loops away from the pelvis. The patient is placed in a steep Trendelenburg position and right side down. Doing so was able to visualize the sigmoid and file doing this, stable to see the rectum. The left colon is also seen and there were no other palpable lesions. I have asked actually unable to palpate any mass in the rectum either I proceeded to incise the peritoneum of the meso rectum on the right side i using the LigaSure. With this was extended all the way towards the right side with the perirectal area. I then proceeded to also extended into the medial sigmoid. I then proceeded to divide the peritoneum of the reflection anteriorly at the rectum. I then also did same incision on the left side of the rectal area and proceeded to continue to dissect through the peritoneum to connect with the anterior incision I also extended the incision on the left towards the sigmoid and divided some of the attachments of the sigmoid to the left sidewall. By doing so I was able to achieve adequate mobilization the sigmoid more than enough length as there is sigmoid was redundant I proceeded to then pull the sigmoid doing so was able to clearly define the of the rectum I continued to use the LigaSure to gently dissect the mesosigmoid, combining this was blunt dissection to separate the rest of the connective tissues of the mesosigmoid. I was eventually able to find the plane of the medial sigmoid and I followed this with a combination of blunt dissection with the tip of the finger as well as sharp dissection with LigaSure. I proceeded to then extend my dissection on the proximally towards the sigmoid. I then proceeded to choose a point of dissection in the sigmoid. I created a mesenteric window. I used an Endo-ODIN 60 mm stapler to divide this. With the sigmoid divided I proceeded then divided the mesosigmoid using the LigaSure and continued to do the dissection distally all the way to the mesorectum. I continued to circumferentially dissect the mesorectum using the LigaSure, carrying the dissection laterally on both the left and right side and posteriorly to follow the curve of the sacrum to include the name node basin. I continued to do this dissection all the way to just the pelvic floor. Again dissection was achieved using the LigaSure carefully trying to keep the mesorectum intact all around the posterior, left and right surfaces. I also dissected through the planes anteriorly and deepened this division of the mesorectum to the pelvic floor. We were mindful of the area of the ureters on both the left and right side to make sure that we were avoiding these during the entire dissection. Anteriorly, we were also careful about the planed was the prostate as well as the bladder. I then felt that we were low into the pelvic floor. I could actually feel that we were right on the floor of the pelvis. I continued to further define the rectum and then thinned out the distal rectum to allow as to divide this. I initially attempted to divide this with the radial stapler but a with despite multiple maneuvers to get through the rectum, the radial meant stapler could not locked in and fire. I also attempted to use the black, thick tissue 5 Endo-ODIN. We had no success initially with dividing the rectum in view of the poor angle, and the thick tissue. The patient also had of very narrow male pelvis so optimal positioning of the stapler apparatus was difficult. I therefore continued to dissect all the way distally to reach the pelvic floor. At this point I then proceeded to do a flexible sigmoidoscopy to see if we can identify the lesion. We could not see any lesion grossly but I marked the area where it appeared that we were at the level 8 cm. I then proceeded to make sure that we were past this level with transection. Again I attempted to divide the rectum with the very staplers without any initial success because of the angulation. Eventually, I used the do GI 45 mm thick tissue and we were able to reach lower enough by pulling up the rectum and dividing the thick tissue including the mesorectum with multiple firings of the Endo-ODIN stapler to allow transection with a difficult angle. After full transection of the rectum, were able to eventually deliver the rectosigmoid in the rectum and the sent as a specimen. I observed for hemostasis. I then proceeded to open up the staple line of the sigmoid and excised this. I dilated this to 28 mm and a proceeded to do a pursestring stitch using Prolene 2-0 suture. I therefore tightened the pursestring around the anvil of the 28 mm stapler I then proceeded to we placed the GelPort and re-insufflated. With laparoscopic visualization, proceeded to then advance the EEA apparatus through the rectum. This was advanced to the end of the staple line. The spike was activated. I attached the anvil to the spike and this was locked in place. We tightened the EEA apparatus and fired this. We removed the EEA practice and examined the anastomotic rings which appeared to be intact. We then tested the anastomosis by insufflating this multiple times and observing the staple line under a pool of irrigation fluid. There was no bubbling seen. There was no tension on the staple line as well. I therefore then desufflated and suction out all the irrigant fluid. Proceeded to do our diverting loop ileostomy by selecting the segment mobile enough at the distal ileum. This was pulled through a opening on the right lower quadrant where the previous port site was. A [place] drain was used into the field and the stoma bridge was applied We proceeded to then examined the small bowel loops starting from the proximal jejunum all the way to the terminal ileum and there was no evidence of any bowel injury I replaced all the bowel loops to the Eb wound retractor I then proceeded to close the fascia of the low midline incision with a running Maxon 1 stitch I then proceeded to mature the stoma by dividing the anterior wall of the loop of ileum using electrocautery and securing the full-thickness of the wall to the subdermal layer circumferentially using Dexon 3-0 sutures I was able to palpate with the finger through the fascial defect and this was patent on both sides. We examined laparoscopically and there was no bowel wall caught with the sutures. There was no twisting of the stoma. There was note of good hemostasis. I then proceeded to remove all the remaining ports. Skin closure was achieved on all incisions using skin kraig. All incisions were infiltrated with Marcaine 0.5% for postop analgesia. Dressings and a stoma appliance were then applied. Initial and final counts of sponges and instruments were correct. Estimated blood loss was about 300 cc There was note of good urine output throughout the procedure. The urine output was a little blood-tinged towards the end likely from blunt trauma to the bladder with our dissection. The procedure was completed. The patient was then extubated and transferred to the recovery room with stable vital signs
--- NOTE | 2021-07-24 14:45 | P.BOP_ITS ---
Brief Operative Note Date of Service: 07/24/21 <Paulina Mccabe PA-C - Last Filed: 07/24/21 14:49> Pre-op diagnosis: rectal cancer <Paulina Mccabe PA-C - Last Filed: 07/24/21 14:49> Post-op diagnosis: same <Paulina Mccabe PA-C - Last Filed: 07/24/21 14:49> Procedure: hand assisted laparoscopic low anterior resection with diverting loop ileostomy <Paulina Mccabe PA-C - Last Filed: 07/24/21 14:49> Surgeon: ISAMAR CORDERO MD <Paulina Mccabe PA-C - Last Filed: 07/24/21 14:49> Anesthesia: GETA <Paulina Mccabe PA-C - Last Filed: 07/24/21 14:49> Was an Habitat Biologist used for this Procedure?: Yes <Paulina Mccabe PA-C - Last Filed: 07/24/21 14:49> No <Isamar Cordero MD - Last Filed: 07/25/21 09:43> Habitat Biologist: Paulina Mccabe <Paulina Mccabe PA-C - Last Filed: 07/24/21 14:49> Estimated blood loss (mL): 200 <Paulina Mccabe PA-C - Last Filed: 07/24/21 14:49> IV fluids (mL): 1,100 <Paulina Mccabe PA-C - Last Filed: 07/24/21 14:49> Urine output (mL): 600 <Paulina Mccabe PA-C - Last Filed: 07/24/21 14:49> Pathology: other (RECTOSIGMOID; MARGINS) <Paulina Mccabe PA-C - Last Filed: 07/24/21 14:49> Condition: stable <Paulina Mccabe PA-C - Last Filed: 07/24/21 14:49> Disposition: PACU <KATHY Overton Last Filed: 07/24/21 14:49>
[2021-07-24] MEDS: HYDROmorphone HCl 0.5 MG/0.5 ML SYRINGE 0.25 MG IVPUSH ×2 (14:50→14:55)
[2021-07-24] MEDS: fentaNYL citrate/PF 100 MCG/2 ML VIAL 25 MCG IVPUSH ×4 (15:00→15:21)
[2021-07-24] MEDS: HYDROmorphone HCl 0.5 MG/0.5 ML SYRINGE IVPUSH ×3 (15:18→15:40)
[2021-07-24] MEDS: Morphine Sulfate/NS 100 MG/100 ML PLAST..BAG 6 MG IVCONT (15:43)
[2021-07-24] MEDS: Lactated Ringers 1,000 ML 80 ML IVCONT (15:54)
--- NOTE | 2021-07-24 16:41 | P.EN_ITS ---
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
--- NOTE | 2021-07-24 18:18 | PC.NURSE ---
Pt arrived to unit in the bed , Pt has MACHINE CAPTAIN set up by pacu , this rn and Danya Lamb verified MACHINE CAPTAIN when arrival to unit . Pt states pain tolerable at this time
[2021-07-25] VITALS (8 sets, daily range): BP systolic 131–165; BP diastolic 71–86; PULSE 67–78; RESP 16–18; TEMP 36.2–36.9; O2SAT 93–99; BMI 27.7
[2021-07-25] MEDS: Lactated Ringers 1,000 ML 80 ML IVCONT ×2 (04:12→15:20)
[2021-07-25 05:49] LABS: MANUAL DIFF FLAG NO
[2021-07-25 05:53] LABS: Basophils Percent Auto 0.1 % (0-2); Eosinophils Percent Auto 0.1 % (0-4); Hematocrit 42.2 % (42-52); Hemoglobin 14.6 g/dl (14.0-18.0); Imm Gran Abs Auto 0.04 X10*3/uL (0.00-0.03); Imm Gran Pct Auto 0.4 % (0.0-0.4); Lymphocytes Absolute Auto 1.3 X10*3/uL (1.2-4.9); Lymphocytes Percent Auto 13.9 % (20-40); Mean Corpuscular HGB Conc 34.6 g/dl (31.0-36.0); Mean Corpuscular Hemoglobin 30.9 pg (27.0-33.0); Mean Corpuscular Volume 89.4 fL (80-98); Mean Platelet Volume 8.9 fL (9.4-12.4); Monocytes Absolute Auto 0.8 X10*3/uL (0.1-1.2); Monocytes Percent Auto 8.4 % (2-11); Neutrophils Absolute Auto 7.2 X10*3/uL (2.0-8.3); Neutrophils Percent Auto 77.1 % (45-73); Platelet Count 231 X10*3/uL (160-400); Red Blood Count 4.72 X10*6/uL (4.60-5.80); Red Cell Distribution Width 12.9 % (11.0-16.0); White Blood Count 9.3 X10*3/uL (4.8-10.8)
[2021-07-25 06:22] LABS: Anion Gap 13 (12-20); Blood Urea Nitrogen 8 mg/dL (9-16); Calcium 9.1 mg/dL (8.4-10.2); Carbon Dioxide 28 mmol/L (22-29); Chloride 103 mmol/L (96-108); Creatinine Clr Calc Pharmacy 78.1; Estimated Glomerular Filt Rate > 60; Glucose Random 113 mg/dL (60-115); Potassium 4.5 mmol/L (3.3-5.1); Sodium 139 mmol/L (135-145)
--- NOTE | 2021-07-25 06:46 | HO.POSTANES ---
Post Anesthesia Evaluation Post Anesthesia Evaluation Vital Signs: Vital Signs Temp Pulse Resp BP Pulse Ox 07/25/21 03:31 98.5 F 68 17 131/71 96 07/24/21 23:37 98.7 F 67 17 131/68 95 07/24/21 19:26 97 F 70 15 120/64 95 Anesthesia: General Endotracheal-GETA Mental Status: Awake Pain Control: Satisfactory Nausea/Vomiting: None Hydration: Adequate Anesthesia-Related Issues: No Anes. Related Issues
--- NOTE | 2021-07-25 07:47 | P.PNGS_ITS ---
Subjective Subjective Date of Service: 07/25/21 <Paulina Mccabe PA-C - Last Filed: 07/25/21 07:52> 07/25/21 <Mack Michel MD - Last Filed: 07/25/21 09:44> Interval history: Sore this morning at incision sites. Was not able to sleep last night. C/o back pain. <Paulina Mccabe PA-C - Last Filed: 07/25/21 07:52> Physical Exam Vital Signs: Vital Signs: Last Vital Signs Temp 98.3 F 07/25/21 07:41 Pulse 67 07/25/21 07:41 Resp 18 07/25/21 07:41 BP 136/71 07/25/21 07:41 Pulse Ox 96 07/25/21 07:41 Body Mass Index 27.7 <KATHY Overton Last Filed: 07/25/21 07:52> Const: General: healthy appearing, comfortable, no acute distress and alert <Paluina Mccabe PA-C - Last Filed: 07/25/21 07:52> Orientation/consciousness: patient oriented x3 <KATHY Overton Last Filed: 07/25/21 07:52> Limitations: no limitations <KATHY Overton Last Filed: 07/25/21 07:52> Resp: Effort & Inspection: normal respiratory effort <Paulina Mccabe PA-C - Last Filed: 07/25/21 07:52> Cardio: Rate: regular rate <Paulina Mccabe PA-C - Last Filed: 07/25/21 07:52> GI: Other: ileostomy pink, bilious output in appliance, bridge in place <KATHY Overton Last Filed: 07/25/21 07:52> Inspection: Yes distended (mild) and Yes incision (dressing c/d/i) <KATHY Overton Last Filed: 07/25/21 07:52> Palpation (GI): Soft to palpation, Tenderness to palpation present (GI) (mild incisional tenderness), no guarding and not rigid <KATHY Overton Last Filed: 07/25/21 07:52> Percussion: Yes tympanic to percussion <Paulina Mccabe PA-C - Last Filed: 07/25/21 07:52> Skin: General skin exam: no rashes or lesions noted <KATHY Overton Last Filed: 07/25/21 07:52> Neuro: General: patient oriented x3 <Paulina Mccabe PA-C - Last Filed: 07/25/21 07:52> Extrem: General: Yes no clubbing, cyanosis or edema <Paulina Mccabe PA-C - Last Filed: 07/25/21 07:52> Procedures Date of Service Date of Service: 07/25/21 <KATHY Overton Last Filed: 07/25/21 07:52> Progress Note: A&P Assessment and plan (1) Rectal cancer: Status: Acute <KATHY Overton Last Filed: 07/25/21 07:52> (2) Hypothyroid: Status: Acute <KATHY Overton Last Filed: 07/25/21 07:52> Assessment and Plan: Looks well Good pain control Stoma functioning well Will keep Guallpa in place today in view of extensive dissection of the pelvis Diet as tolerated Seen and examined - agree with STEVEN Mccabe <Mack Michel MD - Last Filed: 07/25/21 09:44> Assessment and Plan: 60 year old male with rectal CA now POD #1 s/p TIN low anterior resection with loop ileostomy. He is doing well post op. Pain controlled. Abd benign with appropriate post op tenderness. Ostomy viable appearing with some enteric output. AM labs reviewed. Continue [employer]. Continue clear liquids. Encouraged OOB/ambulation and IS use. Begin ostomy education and care. <Paulina Mccabe PA-C - Last Filed: 07/25/21 07:52> Fall Risk Details Current Medications: Current Medications Generic Name Dose Route Start Last Admin Trade Name Freq PRN Reason Stop Dose Admin Heparin Sodium (Porcine) 5,000 unit 07/25/21 14:45 Heparin Sodium,Porcine 5,000 Unit/Ml Vial SUBCUT Q8H CHRISTINE Hydromorphone HCl 0.5 mg 07/24/21 15:37 07/24/21 15:40 Hydromorphone Hcl 0.5 Mg/0.5 Ml Syringe IVPUSH 0.5 mg Q5M PRN Administration Pain, Severe (Pain Scale 7-10) Protocol Morphine Sulfate 100 mg in 100 mls @ 0 mls/hr 07/24/21 14:45 07/24/21 15:43 IVCONT 6 mg/hr .Q0M CHRISTINE 6 mls/hr Administration Protocol Per Protocol Acetaminophen 1,000 mg in 100 mls @ 400 mls/hr 07/24/21 14:39 07/24/21 17:30 Ofirmev IV Infused Q6H PRN Infusion Pain, Severe (Pain Scale 7-10) Lactated Ringer's 1,000 mls @ 80 mls/hr 07/24/21 14:45 07/25/21 04:12 Lr IVCONT 80 mls/hr .[id number] CHRISTINE Administration Naloxone HCl 0.2 mg 07/24/21 14:39 Naloxone Hcl 0.4 Mg/Ml Vial IVPUSH Q2M PRN Excessive sedation or RR < 8 Ondansetron HCl 4 mg 07/24/21 14:39 Ondansetron Hcl 4 Mg/2 Ml Vial IVPUSH Q8H PRN Nausea and Vomiting Sodium Chloride 3 ml 07/24/21 16:00 07/24/21 20:46 0.9 % Sodium Chloride Flush 3 Ml Syringe IVFLUSH Not Given QSHIFT [facility]RISTINE <Paulina Mccabe PA-C - Last Filed: 07/25/21 07:52> Time Spent With Patient Time: Total time spent is greater than 50% in coordination of care (as documented) at patient's floor/unit and/or counseling patient: <Paulina Mccabe PA-C - Last Filed: 07/25/21 07:52> Time with patient: 15 - 24 minutes <Paulina Mccabe PA-C - Last Filed: 07/25/21 07:52> Quality Stroke Does the patient have a stroke diagnosis?: No <Paulina Mccabe PA-C - Last Filed: 07/25/21 07:52> VTE Prior VTE?: No <Paulina Mccabe PA-C - Last Filed: 07/25/21 07:52> VTE Risk Level:: Surgical - high <KATHY Overton Last Filed: 07/25/21 07:52> VTE Device Contraindication: N/A - Device Ordered <KATHY Overton Last Filed: 07/25/21 07:52> VTE Drug Contraindication: N/A - Med Ordered <KATHY Overton Last Filed: 07/25/21 07:52>
--- NOTE | 2021-07-25 09:54 | MHC.CM.PN ---
pt lives c his in their home . he reports that he is active and independent in his care. 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 during the day he says his will be at work while he recovers, but he says he can manage on his own. he also denies the need for vna svcs despite having a fresh ileostomy c appliance. again he says he can manage this on his own. dc plan is home no svcs. cm to cont. to follow.
[2021-07-25] MEDS: Heparin Sodium,Porcine 5,000 UNIT/ML VIAL 5000 UNIT SUBCUT ×2 (14:05→23:03)
[2021-07-25] MEDS: Morphine Sulfate/NS 100 MG/100 ML PLAST..BAG 6 MG IVCONT (14:14)
--- NOTE | 2021-07-25 19:09 | PC.NURSE ---
PAIN MANAGED WILL WITH MORPHINE B[facility]. VSS. PT WAS UP TO CHAIR DURING THE DAY. AMB IN [facility] LATE AFTERNOON. [place] CATH MAINTAINED PER DR CORDERO
[2021-07-25] MEDS: ondansetron HCL 4 MG/2 ML VIAL IVPUSH (21:07)
[2021-07-25] MEDS: Zolpidem Tartrate 5 MG TABLET PO (21:46)
[2021-07-26] VITALS (8 sets, daily range): BP systolic 128–173; BP diastolic 78–93; PULSE 69–81; RESP 16–19; TEMP 36.1–37.9; O2SAT 93–96
[2021-07-26] MEDS: Lactated Ringers 1,000 ML 80 ML IVCONT ×2 (03:57→15:06)
[2021-07-26] MEDS: ondansetron HCL 4 MG/2 ML VIAL IVPUSH (04:40)
[2021-07-26] MEDS: Levothyroxine Sodium 200 MCG TABLET PO (05:48)
[2021-07-26] MEDS: HYDROmorphone HCl 0.5 MG/0.5 ML SYRINGE IVPUSH ×7 (08:07→22:32)
[2021-07-26 08:17] LABS: MANUAL DIFF FLAG NO
[2021-07-26 08:21] LABS: Basophils Percent Auto 0.2 % (0-2); Hematocrit 45.5 % (42-52); Hemoglobin 15.6 g/dl (14.0-18.0); Imm Gran Abs Auto 0.08 X10*3/uL (0.00-0.03); Imm Gran Pct Auto 0.7 % (0.0-0.4); Lymphocytes Absolute Auto 1.1 X10*3/uL (1.2-4.9); Lymphocytes Percent Auto 9.7 % (20-40); Mean Corpuscular HGB Conc 34.3 g/dl (31.0-36.0); Mean Corpuscular Hemoglobin 31.1 pg (27.0-33.0); Mean Corpuscular Volume 90.6 fL (80-98); Mean Platelet Volume 8.8 fL (9.4-12.4); Monocytes Absolute Auto 0.8 X10*3/uL (0.1-1.2); Monocytes Percent Auto 6.6 % (2-11); Neutrophils Absolute Auto 9.6 X10*3/uL (2.0-8.3); Neutrophils Percent Auto 82.8 % (45-73); Platelet Count 249 X10*3/uL (160-400); Red Blood Count 5.02 X10*6/uL (4.60-5.80); Red Cell Distribution Width 13.2 % (11.0-16.0); White Blood Count 11.6 X10*3/uL (4.8-10.8)
--- NOTE | 2021-07-26 08:29 | PM.PNGS ---
Subjective Subjective Date of Service: 07/26/21 <Paulina Young PA-C - Last Filed: 07/26/21 08:36> 07/26/21 <Mack Michel MD - Last Filed: 07/26/21 10:41> Interval history: Patient complaining of significant pain this morning. SAP PAYROLL CONSULTANT not relieving pain. C/o nausea and bloating. Vomited a little. Has not passed flatus from ostomy. OOB yesterday to chair. <Paulina Young PA-C - Last Filed: 07/26/21 08:36> Physical Exam Vital Signs: Vital Signs: Last Vital Signs Temp 97.0 F 07/26/21 08:00 Pulse 70 07/26/21 08:00 Resp 19 07/26/21 08:00 BP 150/90 H 07/26/21 08:00 Pulse Ox 95 07/26/21 08:00 Body Mass Index 27.7 <KATHY Overton Last Filed: 07/26/21 08:36> Const: General: no acute distress, alert and other (in pain) <Paulina Young PA-C - Last Filed: 07/26/21 08:36> Nutritional Appearance: well nourished <KATHY Overton Last Filed: 07/26/21 08:36> Orientation/consciousness: patient oriented x3 <KATHY Overton Last Filed: 07/26/21 08:36> Resp: Effort & Inspection: normal respiratory effort <Paulina Young PA-C - Last Filed: 07/26/21 08:36> Cardio: Rate: regular rate <KATHY Overton Last Filed: 07/26/21 08:36> GI: Other: ostomy pink, small amount of bilious output in appliance, no gas <KATHY Overton Last Filed: 07/26/21 08:36> Inspection: Yes distended and Yes incision (dressing c/d/i) <KATHY Overton Last Filed: 07/26/21 08:36> Palpation (GI): Soft to palpation, Tenderness to palpation present (GI) (diffuse, incisional), no guarding and not rigid <Paulina Young PA-C - Last Filed: 07/26/21 08:36> Percussion: Yes tympanic to percussion <Paulina Young PA-C - Last Filed: 07/26/21 08:36> Auscultation: Absent bowel sounds <Paulina Young PA-C - Last Filed: 07/26/21 08:36> Skin: General skin exam: no rashes or lesions noted <KATHY Overton Last Filed: 07/26/21 08:36> Neuro: General: patient oriented x3 <Paulina Young PA-C - Last Filed: 07/26/21 08:36> Extrem: General: Yes no clubbing, cyanosis or edema <Paulina Young PA-C - Last Filed: 07/26/21 08:36> Procedures Date of Service Date of Service: 07/26/21 <Paulina Young PA-C - Last Filed: 07/26/21 08:36> Progress Note: A&P Assessment and plan (1) Rectal cancer: Status: Acute <Paulina Young PA-C - Last Filed: 07/26/21 08:36> Assessment and Plan: complaining of uncontrolled pain and distension abd distended but soft I inserted NGT - pt felt some relief SAP PAYROLL CONSULTANT switched to prn meds West - some blood with urine; urine clear yesteday; will consult KUB c/w ileus pain mgt check labs continue IVF, West, NGT to LWS seen and examined with STEVEN Young <Mack Michel MD - Last Filed: 07/26/21 10:41> (2) Hypothyroid: Status: Acute <Paulina Young PA-C - Last Filed: 07/26/21 08:36> Assessment and Plan: 60 year old male with rectal CA now POD #2 s/p TIN low anterior resection with loop ileostomy. Now having significant amount of pain associated with nausea and distention. VSS. Abdomen is distended and tympanitic with absent bowel sounds. Ostomy viable appearing with some bilious output, no gas. Likely developed post op ileus. NGT inserted. KUB, CXR to be obtained. D/c SAP PAYROLL CONSULTANT and changed to dilaudid PRN for pain control. Zofran as needed for nausea. Continue NPO status, IVF. He has also began to have bloody urine. Repeat CBC, BMP today. Keep west. Encouraged OOB/ambulation and IS use. ? <Paulina Young PA-C - Last Filed: 07/26/21 08:36> Fall Risk Details Current Medications: Current Medications Generic Name Dose Route Start Last Admin Trade Name Freq PRN Reason Stop Dose Admin Heparin Sodium (Porcine) 5,000 unit 07/25/21 14:45 07/26/21 06:44 Heparin Sodium,Porcine 5,000 Unit/Ml Vial SUBCUT Not Given Q8H CHRISTINE Hydromorphone HCl 0.5 mg 07/26/21 07:50 07/26/21 08:07 Hydromorphone Hcl 0.5 Mg/0.5 Ml Syringe IVPUSH 0.5 mg Q3H PRN Administration Pain, Severe (Pain Scale 7-10) Protocol Hydromorphone HCl 0.25 mg 07/26/21 07:47 Hydromorphone Hcl 0.5 Mg/0.5 Ml Syringe IVPUSH Q4H PRN Pain, Moderate (Pain Scale 4-6 Protocol Acetaminophen 1,000 mg in 100 mls @ 400 mls/hr 07/24/21 14:39 07/26/21 08:06 Ofirmev IV 400 mls/hr Q6H PRN Administration Pain, Severe (Pain Scale 7-10) Lactated Ringer's 1,000 mls @ 80 mls/hr 07/24/21 14:45 07/26/21 03:57 Lr IVCONT 80 mls/hr .[id number] CHRISTINE Administration Levothyroxine Sodium 200 mcg 07/26/21 06:00 07/26/21 05:48 Levothyroxine Sodium 200 Mcg Tablet PO 200 mcg DAILY@0600 CHRISTINE Administration Naloxone HCl 0.2 mg 07/24/21 14:39 Naloxone Hcl 0.4 Mg/Ml Vial IVPUSH Q2M PRN Excessive sedation or RR < 8 Ondansetron HCl 4 mg 07/24/21 14:39 07/26/21 04:40 Ondansetron Hcl 4 Mg/2 Ml Vial IVPUSH 4 mg Q8H PRN Administration Nausea and Vomiting Sodium Chloride 3 ml 07/24/21 16:00 07/26/21 00:55 0.9 % Sodium Chloride Flush 3 Ml Syringe IVFLUSH Not Given QSHIFT [facility] Zolpidem Tartrate 5 mg 07/25/21 07:47 07/25/21 21:46 Zolpidem Tartrate 5 Mg Tablet PO 5 mg BEDTIME PRN Administration Insomnia <Paulina Young PA-C - Last Filed: 07/26/21 08:36> Time Spent With Patient Time: Total time spent is greater than 50% in coordination of care (as documented) at patient's floor/unit and/or counseling patient: <Paulina Young PA-C - Last Filed: 07/26/21 08:36> Time with patient: 25 - 35 minutes <Paulina Young PA-C - Last Filed: 07/26/21 08:36> Quality Stroke Does the patient have a stroke diagnosis?: No <Paulina Young PA-C - Last Filed: 07/26/21 08:36> VTE Prior VTE?: No <Paulina Young PA-C - Last Filed: 07/26/21 08:36> VTE Risk Level:: Surgical - high <Paulina Young PA-C - Last Filed: 07/26/21 08:36> VTE Device Contraindication: N/A - Device Ordered <KATHY Overton Last Filed: 07/26/21 08:36> VTE Drug Contraindication: N/A - Med Ordered <KATHY Overton Last Filed: 07/26/21 08:36>
[2021-07-26 09:09] LABS: Anion Gap 12 (12-20); Blood Urea Nitrogen 8 mg/dL (9-16); Calcium 8.9 mg/dL (8.4-10.2); Carbon Dioxide 25 mmol/L (22-29); Chloride 101 mmol/L (96-108); Estimated Glomerular Filt Rate > 60; Glucose Fasting 147 mg/dL (60-99); Potassium 3.9 mmol/L (3.3-5.1); Sodium 134 mmol/L (135-145)
--- NOTE | 2021-07-26 13:49 | PM.EVENT ---
Event Note Date of Service: 07/26/21 Event Note: Seen multiple times today He had good pain control after the loaded an NG tube Was sleeping earlier This afternoon, he says that his pain is severe again Abdomen distended Urine output good but bloody Will do stat CT scan Otherwise stable vital signs
[2021-07-26] MEDS: iohexoL 350 MG/ML 100 ML INFUS..BTL 85 ML IV (14:29)
--- NOTE | 2021-07-26 16:04 | P.EN_ITS ---
Event Note Date of Service: 07/26/21 Event Note: CT scan reviewed - dilatation of the stomach and small bowel consi stent with ileus Minimal free fluid NG tube in place but there is still a lot of air and fluid in the stomach itself I repositioned the NG tube to make sure that this is working He has poor pain control - increased Dilaudid to q.2 hours p.r.n. On Ofirmev Await Urology input regarding hematuria - BUN creatinine okay, good urine output otherwise
--- NOTE | 2021-07-26 16:28 | MHC.HEMONC ---
PT IN MORE PAIN TODAY. WAS EVALUATED BY DR CORDERO SEVERAL TIMES. NGT WAS PLACED FOR ILEUS MORPHINE FRANCHISE FIELD CONSULTANT WAS DC'D. DILAUDID 0.5MG Q3HR ORDERED AND GIVEN. PT HAD GOOD PAIN RELIEF X1. BY NOON HE WAS WRITHING IN PAIN BREAKTHROUGH DOSE OF DILAUDID WAS GIVE, ABD VERY FIRM. CT SCAN WAS DONE. NGT WAS ADJUSTED BY . DILAUDID CHANGED TO Q2HR.
[2021-07-26] MEDS: Throat Lozenge, Medicated LOZENGE 1 LOZENGE MUCOUS MEM (23:46)
[2021-07-26] MEDS: Lactated Ringers 1,000 ML 100 ML IVCONT (23:47)
[2021-07-27] VITALS (11 sets, daily range): BP systolic 132–164; BP diastolic 81–91; PULSE 69–85; RESP 16–22; TEMP 34.7–36.6; O2SAT 93–97; BMI 27.3
[2021-07-27] MEDS: HYDROmorphone HCl 0.5 MG/0.5 ML SYRINGE IVPUSH ×4 (00:16→07:32)
--- NOTE | 2021-07-27 09:17 | PM.PNGS ---
Subjective Subjective Date of Service: 07/27/21 <Paulina Mccabe PA-C - Last Filed: 07/27/21 09:25> 07/27/21 <Mack Michel MD - Last Filed: 07/27/21 13:18> Interval history: Continues to c/o significant abdominal pain, distention and throat pain. Now having moderate amount of bilious output from ostomy but no real gas. Has not been OOB. <Paulina Mccabe PA-C - Last Filed: 07/27/21 09:25> Physical Exam Vital Signs: Vital Signs: Last Vital Signs Temp 97.2 F 07/27/21 07:38 Pulse 74 07/27/21 07:38 Resp 18 07/27/21 07:38 BP 145/84 H 07/27/21 07:38 Pulse Ox 95 07/27/21 07:38 Body Mass Index 27.7 <Paulina Mccabe PA-C - Last Filed: 07/27/21 09:25> Const: General: no acute distress, alert and other (uncomfortable appearing) <Paulina Mccabe PA-C - Last Filed: 07/27/21 09:25> Orientation/consciousness: patient oriented x3 <KATHY Overton Last Filed: 07/27/21 09:25> HENMT: Other: NGT in place <Paulina Mccabe PA-C - Last Filed: 07/27/21 09:25> Resp: Effort & Inspection: normal respiratory effort <Paulina Mccabe PA-C - Last Filed: 07/27/21 09:25> Cardio: Rate: regular rate <KATHY Overton Last Filed: 07/27/21 09:25> GI: Other: ileostomy red appearing, a little dusky appearing at inferior aspect; large amount of bilious output <KATHY Overton Last Filed: 07/27/21 09:25> Inspection: Yes distended and Yes incision (clean) <KATHY Overton Last Filed: 07/27/21 09:25> Palpation (GI): Soft to palpation, Tenderness to palpation present (GI) (diffuse), no guarding and not rigid <Pauilna Mccabe PA-C - Last Filed: 07/27/21 09:25> Percussion: Yes tympanic to percussion <Paulina Mccabe PA-C - Last Filed: 07/27/21 09:25> Skin: General skin exam: no rashes or lesions noted <Paulina Mccabe PA-C - Last Filed: 07/27/21 09:25> Neuro: General: patient oriented x3 <KATHY Overton Last Filed: 07/27/21 09:25> Extrem: General: Yes no clubbing, cyanosis or edema <Paulina Mccabe PA-C - Last Filed: 07/27/21 09:25> Procedures Date of Service Date of Service: 07/27/21 <KATHY Overton Last Filed: 07/27/21 09:25> Progress Note: A&P Assessment and plan (1) Rectal cancer: Status: Acute <KATHY Overton Last Filed: 07/27/21 09:25> Assessment and Plan: Status post low anterior resection, ileostomy Still with poor pain control overnight Abdomen still distended Keep NG tube in place Labs okay Switch to AIR TRAFFIC CONTROL SUPERVISOR Dilaudid CT from yesterday reviewed - aside from postop changes, no significant intra-abdominal pathology; no fluid collection. Urine output still blood-tinged although seems wet end supervisor compared to yesterday BUN creatinine okay - awaiting input from Dr. Quijano Patient seen and examined multiple times today - agree with STEVEN the but <Mack Michel MD - Last Filed: 07/27/21 13:18> Assessment and Plan: 60 year old male with rectal CA now POD #3 s/p TIN low anterior resection with loop ileostomy. NGT inserted yesterday for presumed post op ileus with improvement in symptoms. Confirmed via AXR but redeveloped pain later in the day. F/u CT scan yesterday to reeval which showed dilatation of the stomach and small bowel consistent with ileus, minimal free fluid. NG tube in place but there is still a lot of air and fluid in the stomach itself- tube was repositioned to ensure it was working. Patient continues with pain and distention this morning. NGT output moderate but bloody. VSS. Abdomen remains soft but distended and tympanitic with absent bowel sounds. Ostomy viable appearing with bilious output, no gas. No current explanation for continued pain other then distention from ileus. Cont NGT decompression. Will change to dilaudid AIR TRAFFIC CONTROL SUPERVISOR for pain control. Add ativan PRN. Encouraged OOB/ambulation. Will obtain PICC line to begin TPN tomorrow for nutrition. Repeat labs today. Hold heparin given hematuria. Await urology consult for input, keep west in place. Protonix for bloody NGT output. Continue to monitor closely. <Paulina Mccabe PA-C - Last Filed: 07/27/21 09:25> Fall Risk Details Current Medications: Current Medications Generic Name Dose Route Start Last Admin Trade Name Freq PRN Reason Stop Dose Admin Benzocaine 1 lozenge 07/26/21 13:02 07/26/21 23:46 Throat Lozenge, Medicated Lozenge MUCOUS MEM 1 lozenge Q2H PRN Administration Sore Throat Acetaminophen 1,000 mg in 100 mls @ 400 mls/hr 07/24/21 14:39 07/27/21 05:56 Ofirmev IV Infused Q6H PRN Infusion Pain, Severe (Pain Scale 7-10) Lactated Ringer's 1,000 mls @ 100 mls/hr 07/24/21 14:45 07/26/21 23:47 Lr IVCONT 100 mls/hr .Q10H CHRISTINE Administration Hydromorphone HCl 10 mg in 50 mls @ 0 mls/hr 07/27/21 09:15 Dilaudid IV .Q0M [facility] Protocol Per Protocol Levothyroxine Sodium 200 mcg 07/26/21 06:00 07/27/21 05:25 Levothyroxine Sodium 200 Mcg Tablet PO Not Given DAILY@0600 [facility] Naloxone HCl 0.2 mg 07/24/21 14:39 Naloxone Hcl 0.4 Mg/Ml Vial IVPUSH Q2M PRN Excessive sedation or RR < 8 Ondansetron HCl 4 mg 07/24/21 14:39 07/26/21 04:40 Ondansetron Hcl 4 Mg/2 Ml Vial IVPUSH 4 mg Q8H PRN Administration Nausea and Vomiting Pantoprazole Sodium 40 mg 07/27/21 09:15 Pantoprazole Sodium 40 Mg/10 Ml Vial IVPUSH BID@[id number] CHRISTINE Sodium Chloride 3 ml 07/24/21 16:00 07/27/21 07:24 0.9 % Sodium Chloride Flush 3 Ml Syringe IVFLUSH Not Given QSHIFT [facility] Zolpidem Tartrate 5 mg 07/25/21 07:47 07/25/21 21:46 Zolpidem Tartrate 5 Mg Tablet PO 5 mg BEDTIME PRN Administration Insomnia <Paulina Mccabe PA-C - Last Filed: 07/27/21 09:25> Time Spent With Patient Time: Total time spent is greater than 50% in coordination of care (as documented) at patient's floor/unit and/or counseling patient: <Paulina Mccabe PA-C - Last Filed: 07/27/21 09:25> Time with patient: 25 - 35 minutes <Paulina Mccabe PA-C - Last Filed: 07/27/21 09:25> Quality Stroke Does the patient have a stroke diagnosis?: No <Paulina Mccabe PA-C - Last Filed: 07/27/21 09:25> VTE Prior VTE?: No <Paulina Mccabe PA-C - Last Filed: 07/27/21 09:25> VTE Risk Level:: Surgical - high <Paulina Mccabe PA-C - Last Filed: 07/27/21 09:25> VTE Device Contraindication: N/A - Device Ordered <KATHY Overton Last Filed: 07/27/21 09:25> VTE Drug Contraindication: N/A - Med Ordered <KATHY Overton Last Filed: 07/27/21 09:25>
[2021-07-27] MEDS: LORazepam 2 MG/ML VIAL 0.25 MG IVPUSH (09:42)
[2021-07-27] MEDS: Pantoprazole Sodium 40 MG/10 ML VIAL IVPUSH ×2 (09:42→15:33)
[2021-07-27] MEDS: Lactated Ringers 1,000 ML 100 ML IVCONT (09:47)
[2021-07-27 09:57] LABS: MANUAL DIFF FLAG NO
[2021-07-27 10:03] LABS: Basophils Percent Auto 0.1 % (0-2); Eosinophils Percent Auto 0.3 % (0-4); Hematocrit 48.7 % (42-52); Hemoglobin 16.7 g/dl (14.0-18.0); Imm Gran Abs Auto 0.02 X10*3/uL (0.00-0.03); Imm Gran Pct Auto 0.2 % (0.0-0.4); Lymphocytes Absolute Auto 1.9 X10*3/uL (1.2-4.9); Lymphocytes Percent Auto 16.9 % (20-40); Mean Corpuscular HGB Conc 34.3 g/dl (31.0-36.0); Mean Corpuscular Hemoglobin 30.9 pg (27.0-33.0); Mean Platelet Volume 8.8 fL (9.4-12.4); Monocytes Absolute Auto 0.9 X10*3/uL (0.1-1.2); Monocytes Percent Auto 7.8 % (2-11); Neutrophils Absolute Auto 8.2 X10*3/uL (2.0-8.3); Neutrophils Percent Auto 74.7 % (45-73); Platelet Count 299 X10*3/uL (160-400); Red Blood Count 5.41 X10*6/uL (4.60-5.80); Red Cell Distribution Width 13.4 % (11.0-16.0)
[2021-07-27 10:09] LABS: INTERNATIONAL NORM RATIO 1.1 (0.9-1.1); Prothrombin Time 12.2 SEC (9.9-13.0)
[2021-07-27 10:20] LABS: Anion Gap 13 (12-20); Blood Urea Nitrogen 15 mg/dL (9-16); Calcium 9.7 mg/dL (8.4-10.2); Carbon Dioxide 31 mmol/L (22-29); Chloride 98 mmol/L (96-108); Creatinine Clr Calc Pharmacy 75.8; Estimated Glomerular Filt Rate > 60; Glucose Random 139 mg/dL (60-115); Magnesium 2.3 mg/dL (1.6-2.6); Phosphorus 2.9 mg/dL (2.7-4.5); Potassium 4.4 mmol/L (3.3-5.1); Sodium 138 mmol/L (135-145); Triglycerides 150 mg/dL
[2021-07-27] MEDS: HYDROmorphone HCl/NS 10 MG/50 ML PIGGYBACK IV (11:23)
--- NOTE | 2021-07-27 11:40 | MHC.CLN ---
F/U DAY 4 OF NPO OR CLEAR LIQUID DIET. HAS NG TUBE FOR OUTPUT. CONTINUE TO FOLLOW FOR DIET ADVANCEMENT.
--- NOTE | 2021-07-27 13:11 | HO.PICC ---
PICC Line Insertion NPICC Diagnosis: ILEUS, PROLONGED NPO Indication: NEEDS TPN Pertinent Labs: REVIEWED Technique: Following informed consent including risks, benefits and alternatives and using sterile technique including cap and mask, sterile gown, glove and drape, the LEFT arm was prepped and draped in the usual sterile fashion of full barrier technique with CHG. Following completion of [place] Protocol the skin and soft tissues were anesthetized with 1% Lidocaine plain. Using ultrasound guidance, BASILIC vein access was obtained IN SINGLE ATTEMPT BY THIS RN. Over an 0.018 wire through peel-away sheath, a 5-BENINESE, PASV, TRIPLE LUMEN PICC line was positioned. Catheter length is 45 CM internal length, 0 CM external length, for a total trimmed length of 45 CM. The procedure was performed in [place] [address]. Tip verification was performed by Charlotte Austin with Camron 3CG. Tip located in SVC. Ultrasound was used to document vein patency and for needle entry. A formal ultrasound picture and cardiac rhythm strip was recorded. [employer] has released the line for use and it is currently dressed with a StatLock, Tegaderm, and CHG disc. Verification has been performed for blood return and line patency. Arm Circumference: 29.5 CM Equipment: [facility] POWERPICC SOLO Catheter Type: 5-BENINESE, PASV, TRIPLE LUMEN, 45 CM Lot #: [id number]
--- NOTE | 2021-07-27 14:32 | MHC.CLN ---
TPN RECOMMENDATION PICC LINE INSERTED 07/27/21. TPN TO START 07/28. DAY 1: 55 ML/HOUR D15AA5% (937 KCAL, 66 G PROTEIN) REPLETE LYTES NEEDED. DAY 2: 75 ML/HOUR D15AA5% (1278 KCAL, 90 G PROTEIN) REPLETE LYTES NEEDED. CHECK TRIGLYCERIDES. DAY 3: MAX GOAL RATE 95 ML/HOUR D15AA5% (1619 KCAL, 114 G PROTEIN) WITH 28 ML OF 20% LIPIDS (2291 TOTAL KCAL, 114 G PROTEIN) TPN AT MAX GOAL OF 95 ML PER HOUR PLUS LIPIDS PROVIDES 27.8 KCAL/KG; 1.48 G/KG PROTEIN.
[2021-07-27] MEDS: 0.9 % Sodium Chloride Flush 10 ML SYRINGE 5 ML IVFLUSH (15:33)
--- NOTE | 2021-07-27 15:51 | P.EN_ITS ---
Event Note Date of Service: 07/27/21 Event Note: pt seen periodically during the day was able to sleep for a few hours earlier PICC line in abd distended but soft stoma with output good UO, still with blood tinge seems to have better pain control with SENIOR QUALITY ASSURANCE ENGINEER dilaudid was OOB to chair earlier keep NGT KETURAH romero pending
[2021-07-28] VITALS (18 sets, daily range): BP systolic 132–157; BP diastolic 72–89; PULSE 68–86; RESP 16–20; TEMP 36.3–36.9; O2SAT 93–98; BMI 28.7
[2021-07-28] MEDS: LORazepam 2 MG/ML VIAL 0.25 MG IVPUSH ×2 (01:15→23:15)
[2021-07-28] MEDS: Lactated Ringers 1,000 ML 100 ML IVCONT (05:59)
[2021-07-28 06:06] LABS: Calcium 9.2 mg/dL (8.4-10.2)
[2021-07-28] MEDS: Pantoprazole Sodium 40 MG/10 ML VIAL IVPUSH ×2 (06:09→17:11)
[2021-07-28 06:17] LABS: Albumin Level 3.8 g/dL (3.5-5.0); Anion Gap 13 (12-20); Blood Urea Nitrogen 19 mg/dL (9-16); Carbon Dioxide 28 mmol/L (22-29); Chloride 102 mmol/L (96-108); Estimated Glomerular Filt Rate > 60; Magnesium 2.4 mg/dL (1.6-2.6); Phosphorus 3.7 mg/dL (2.7-4.5); Potassium 3.9 mmol/L (3.3-5.1); Sodium 139 mmol/L (135-145); Triglycerides 150 mg/dL
[2021-07-28 09:33] LABS: Glucose, Whole Blood 115 mg/dL (60-115)
[2021-07-28] MEDS: 0.9 % Sodium Chloride Flush 10 ML SYRINGE 5 ML IVFLUSH ×2 (10:03→21:55)
--- NOTE | 2021-07-28 10:51 | PM.PNGS ---
Subjective Subjective Date of Service: 07/28/21 Interval history: Did much better overnight Says he feels much better now Less pain Stoma functioning - liquid output Physical Exam Vital Signs: Vital Signs: Last Vital Signs Temp 98.4 F 07/28/21 07:48 Pulse 76 07/28/21 10:00 Resp 18 07/28/21 10:00 BP 145/86 H 07/28/21 10:00 Pulse Ox 97 07/28/21 10:00 Body Mass Index 28.7 PT 12.2 SEC (9.9-13. 0) 07/27/21 09:52 Const: Other: Appears much more comfortable General: no acute distress Resp: Effort & Inspection: normal respiratory effort Cardio: Rate: regular rate GI: Other: Softer, less distended, stoma with thin liquid output, incisions dry : Other: Urine now clear bloody Procedures Date of Service Date of Service: 07/28/21 Progress Note: A&P Assessment and plan (1) Rectal cancer: Status: Acute Assessment and Plan: Status post low anterior resection, stoma Had severe ileus No much improved Follow NG tube output, see if NG tube can be pulled out tomorrow or later today Stoma has output Keep on DIORAMA MODEL MAKER for now Keep Guallpa in for now Out of bed to chair Much improved since the past 2 days Hold off on TPN for now Fall Risk Details Current Medications: Current Medications Benzocaine (Throat Lozenge, Medicated Lozenge) 1 lozenge MUCOUS MEM Q2H PRN PRN Reason: Sore Throat Last Admin: 07/26/21 23:46 Dose: 1 lozenge Documented by: Acetaminophen (Ofirmev) 1,000 mg in 100 mls @ 400 mls/hr IV Q6H PRN PRN Reason: Pain, Severe (Pain Scale 7-10) Last Infusion: 07/28/21 06:34 Dose: Infused Documented by: Lactated Ringer's (Lr) 1,000 mls @ 100 mls/hr IVCONT .Q10H [facility] Last Admin: 07/28/21 09:47 Dose: Not Given Documented by: Hydromorphone HCl (Dilaudid) 10 mg in 50 mls @ 0 mls/hr IV .Q0M [facility]; Protocol Last Admin: 07/27/21 11:23 Dose: 0.2 mg/hr, 1 mls/hr Documented by: Multivitamins 15 ml/ Trace Metals 1.5 ml/ Amino Acids/Electrolytes 1,320 mls @ 55 mls/hr IV DAILY@1800 [facility] Stop: 07/29/21 17:59 Levothyroxine Sodium (Levothyroxine Sodium 200 Mcg Tablet) 200 mcg PO DAILY@0600 [facility] Last Admin: 07/28/21 06:16 Dose: Not Given Documented by: Lorazepam (Lorazepam 2 Mg/Ml Vial) 0.25 mg IVPUSH Q4H PRN PRN Reason: anxiety Last Admin: 07/28/21 01:15 Dose: 0.25 mg Documented by: Naloxone HCl (Naloxone Hcl 0.4 Mg/Ml Vial) 0.2 mg IVPUSH Q2M PRN PRN Reason: Excessive sedation or RR < 8 Ondansetron HCl (Ondansetron Hcl 4 Mg/2 Ml Vial) 4 mg IVPUSH Q8H PRN PRN Reason: Nausea and Vomiting Last Admin: 07/26/21 04:40 Dose: 4 mg Documented by: Pantoprazole Sodium (Pantoprazole Sodium 40 Mg/10 Ml Vial) 40 mg IVPUSH BID@0630,1630 [facility] Last Admin: 07/28/21 06:09 Dose: 40 mg Documented by: Sodium Chloride (0.9 % Sodium Chloride Flush 3 Ml Syringe) 3 ml IVFLUSH QSHIFT [facility] Last Admin: 07/28/21 09:47 Dose: Not Given Documented by: Sodium Chloride (0.9 % Sodium Chloride Flush 10 Ml Syringe) 5 ml IVFLUSH TID [facility] Last Admin: 07/28/21 10:03 Dose: 5 ml Documented by: Zolpidem Tartrate (Zolpidem Tartrate 5 Mg Tablet) 5 mg PO BEDTIME PRN PRN Reason: Insomnia Last Admin: 07/25/21 21:46 Dose: 5 mg Documented by: Time Spent With Patient Time: Total time spent is greater than 50% in coordination of care (as documented) at patient's floor/unit and/or counseling patient: Time with patient: 15 - 24 minutes Quality Stroke Does the patient have a stroke diagnosis?: No VTE Prior VTE?: No VTE Risk Level:: Surgical - high VTE Device Contraindication: N/A - Device Ordered VTE Drug Contraindication: N/A - Med Ordered
[2021-07-28] MEDS: HYDROmorphone HCl/NS 10 MG/50 ML PIGGYBACK 1.5 MG IV (11:35)
[2021-07-28] MEDS: Throat Lozenge, Medicated LOZENGE 1 LOZENGE MUCOUS MEM (11:53)
[2021-07-28] MEDS: 0.9 % Sodium Chloride Flush 3 ML SYRINGE IVFLUSH (17:15)
--- NOTE | 2021-07-28 20:50 | PM.EVENT ---
Event Note Date of Service: 07/28/21 Event Note: seen earlier tonight he had pulled out NGT, saying his throat was too sore I had explained to him the possibility of abdl bloating and more pain he says he understood
[2021-07-28] MEDS: ondansetron HCL 4 MG/2 ML VIAL IVPUSH (21:55)
[2021-07-29] VITALS (17 sets, daily range): BP systolic 140–150; BP diastolic 77–86; PULSE 64–76; RESP 16–20; TEMP 36.3–37; O2SAT 93–98; BMI 27.6
[2021-07-29] MEDS: Lactated Ringers 1,000 ML 100 ML IVCONT ×3 (01:02→22:24)
[2021-07-29] MEDS: Pantoprazole Sodium 40 MG/10 ML VIAL IVPUSH ×2 (05:53→16:28)
[2021-07-29 06:25] LABS: Hematocrit 41.8 % (42-52); Mean Corpuscular HGB Conc 33.5 g/dl (31.0-36.0); Mean Corpuscular Hemoglobin 30.8 pg (27.0-33.0); Mean Corpuscular Volume 91.9 fL (80-98); Mean Platelet Volume 8.8 fL (9.4-12.4); Platelet Count 265 X10*3/uL (160-400); Red Blood Count 4.55 X10*6/uL (4.60-5.80); Red Cell Distribution Width 13.3 % (11.0-16.0); White Blood Count 3.3 X10*3/uL (4.8-10.8)
[2021-07-29 06:50] LABS: Anion Gap 9 (12-20); Blood Urea Nitrogen 21 mg/dL (9-16); Calcium 8.6 mg/dL (8.4-10.2); Carbon Dioxide 31 mmol/L (22-29); Chloride 104 mmol/L (96-108); Creatinine Clr Calc Pharmacy 91.2; Estimated Glomerular Filt Rate > 60; Glucose Random 119 mg/dL (60-115); Potassium 4.4 mmol/L (3.3-5.1); Sodium 140 mmol/L (135-145)
[2021-07-29 08:06] LABS: Glucose, Whole Blood 133 mg/dL (60-115)
[2021-07-29 08:29] LABS: Albumin Level 3.4 g/dL (3.5-5.0); Magnesium 2.4 mg/dL (1.6-2.6); Triglycerides 128 mg/dL
[2021-07-29] MEDS: 0.9 % Sodium Chloride Flush 10 ML SYRINGE 5 ML IVFLUSH ×2 (08:33→22:26)
--- NOTE | 2021-07-29 12:02 | PM.PNGS ---
Subjective Subjective Date of Service: 08/01/21 Interval history: Patient had complained of distension again last night after he pulled out his NG tube NG tube was therefore reinserted Feels better this morning Much less pain Still using CLE[employer] RICE BROKER although less frequent Complains of discomfort with NG tube Physical Exam Vital Signs: Vital Signs: Last Vital Signs Temp 97.8 F 07/29/21 11:57 Pulse 70 07/29/21 11:57 Resp 16 07/29/21 11:57 BP 141/84 H 07/29/21 11:57 Pulse Ox 95 07/29/21 11:57 Body Mass Index 27.6 Const: Other: Chemistry 07/27/21 07/28/21 07/28/21 09:52 05:09 05:09 Sodium 138 139 Potassium 4.4 3.9 Carbon Dioxide 31 H 28 BUN 15 D 19 H Creatinine 1.03 0.80 Calcium 9.7 D 9.2 Phosphorus 2.9 3.7 07/29/21 07/29/21 05:42 05:42 Sodium Cancelled 140 Potassium Cancelled 4.4 Carbon Dioxide Cancelled 31 H BUN Cancelled 21 H Creatinine Cancelled 0.87 Calcium Cancelled 8.6 D Phosphorus 3.0 Hematology 07/27/21 07/29/21 09:52 05:42 WBC 11.0 H 3.3 L Hgb 16.7 14.0 Plt Count 299 265 General: comfortable and no acute distress Resp: Effort & Inspection: normal respiratory effort Cardio: Rate: regular rate GI: Other: Distended but soft, no guarding rebound, incision clean cane stoma with some thin output and some gas Procedures Date of Service Date of Service: 07/29/21 Progress Note: A&P Assessment and plan (1) Rectal cancer: Status: Acute Assessment and Plan: Status post low anterior resection, stoma Stoma with some output (2) Postoperative ileus: Status: Acute Assessment and Plan: NG tube inserted last night after patient pull it out yesterday Feels better this morning Pain level much improved Labs okay Encourage out of bed and ambulation TPN for nutrition Fall Risk Details Current Medications: Current Medications Benzocaine (Throat Lozenge, Medicated Lozenge) 1 lozenge MUCOUS MEM Q2H PRN PRN Reason: Sore Throat Last Admin: 07/28/21 11:53 Dose: 1 lozenge Documented by: Acetaminophen (Ofirmev) 1,000 mg in 100 mls @ 400 mls/hr IV Q6H PRN PRN Reason: Pain, Severe (Pain Scale 7-10) Last Infusion: 07/28/21 06:34 Dose: Infused Documented by: Lactated Ringer's (Lr) 1,000 mls @ 100 mls/hr IVCONT .Q10H [facility] Last Infusion: 07/29/21 11:57 Dose: Infused Documented by: Hydromorphone HCl (Dilaudid) 10 mg in 50 mls @ 0 mls/hr IV .Q0M [facility]; Protocol Last Admin: 07/28/21 11:35 Dose: 0.3 mg/hr, 1.5 mls/hr Documented by: Multivitamins 15 ml/ Trace Metals 1.5 ml/ Amino Acids/Electrolytes 1,320 mls @ 55 mls/hr IV DAILY@1800 [facility] Stop: 07/29/21 17:59 Last Admin: 07/28/21 18:28 Dose: 55 mls/hr Documented by: Multivitamins 11 ml/ Trace Metals 1.1 ml/ Amino Acids/Electrolytes 1,800 mls @ 75 mls/hr IV DAILY@1800 [facility] Stop: 07/30/21 17:59 Levothyroxine Sodium (Levothyroxine Sodium 200 Mcg Tablet) 200 mcg PO DAILY@0600 [facility] Last Admin: 07/29/21 06:17 Dose: Not Given Documented by: Lorazepam (Lorazepam 2 Mg/Ml Vial) 0.25 mg IVPUSH Q4H PRN PRN Reason: anxiety Last Admin: 07/28/21 23:15 Dose: 0.25 mg Documented by: Naloxone HCl (Naloxone Hcl 0.4 Mg/Ml Vial) 0.2 mg IVPUSH Q2M PRN PRN Reason: Excessive sedation or RR < 8 Ondansetron HCl (Ondansetron Hcl 4 Mg/2 Ml Vial) 4 mg IVPUSH Q8H PRN PRN Reason: Nausea and Vomiting Last Admin: 07/28/21 21:55 Dose: 4 mg Documented by: Pantoprazole Sodium (Pantoprazole Sodium 40 Mg/10 Ml Vial) 40 mg IVPUSH BID@0630,1630 [facility] Last Admin: 07/29/21 05:53 Dose: 40 mg Documented by: Sodium Chloride (0.9 % Sodium Chloride Flush 3 Ml Syringe) 3 ml IVFLUSH QSHIFT [facility] Last Admin: 07/29/21 08:36 Dose: Not Given Documented by: Sodium Chloride (0.9 % Sodium Chloride Flush 10 Ml Syringe) 5 ml IVFLUSH TID [facility] Last Admin: 07/29/21 08:33 Dose: 5 ml Documented by: Zolpidem Tartrate (Zolpidem Tartrate 5 Mg Tablet) 5 mg PO BEDTIME PRN PRN Reason: Insomnia Last Admin: 07/25/21 21:46 Dose: 5 mg Documented by: Time Spent With Patient Time: Total time spent is greater than 50% in coordination of care (as documented) at patient's floor/unit and/or counseling patient: Time with patient: 15 - 24 minutes Quality Stroke Does the patient have a stroke diagnosis?: No VTE Prior VTE?: No VTE Risk Level:: Surgical - high VTE Device Contraindication: N/A - Device Ordered VTE Drug Contraindication: N/A - Med Ordered
[2021-07-29] MEDS: HYDROmorphone HCl/NS 10 MG/50 ML PIGGYBACK 1.5 MG IV (12:23)
--- NOTE | 2021-07-29 16:04 | PM.EVENT ---
Event Note Date of Service: 07/29/21 Event Note: still requiring pain meds periodically Remains distended Pain however much better controlled compared to before Stoma with some gas output and thin liquids Stoma bridge removed Postop ileus - continue NG tube, TPN Labs okay
[2021-07-29] MEDS: 0.9 % Sodium Chloride Flush 3 ML SYRINGE IVFLUSH (16:28)
[2021-07-29] MEDS: LORazepam 2 MG/ML VIAL 0.25 MG IVPUSH ×2 (16:45→22:18)
[2021-07-30] VITALS (13 sets, daily range): BP systolic 130–182; BP diastolic 64–92; PULSE 73–84; RESP 14–20; TEMP 36.3–37.3; O2SAT 94–99; BMI 27.6
[2021-07-30] MEDS: LORazepam 2 MG/ML VIAL 0.25 MG IVPUSH (02:15)
[2021-07-30] MEDS: Pantoprazole Sodium 40 MG/10 ML VIAL IVPUSH ×2 (06:33→16:26)
[2021-07-30] MEDS: HYDROmorphone HCl/NS 10 MG/50 ML PIGGYBACK 1.5 MG IV (07:02)
--- NOTE | 2021-07-30 08:14 | P.PNGS_ITS ---
Subjective Subjective Date of Service: 07/30/21 <Paulina Mccabe PA-C - Last Filed: 07/30/21 08:19> 07/30/21 <Mack Michel MD - Last Filed: 07/30/21 12:56> Interval history: Feels a little better this morning. Had difficulty overnight as NGT stopped working- patient turned the suction up and now functioning again. Pain better controlled. Ostomy passing a little more flatus, continues with liquid output. <Paulina Mccabe PA-C - Last Filed: 07/30/21 08:19> Physical Exam Vital Signs: Vital Signs: Last Vital Signs Temp 98.2 F 07/30/21 04:00 Pulse 80 07/30/21 06:00 Resp 18 07/30/21 06:00 BP 144/85 H 07/30/21 06:00 Pulse Ox 94 07/30/21 06:00 Body Mass Index 27.6 <Paulina Mccabe PA-C - Last Filed: 07/30/21 08:19> Const: General: no acute distress and alert <Paulina Mccabe PA-C - Last Filed: 07/30/21 08:19> Orientation/consciousness: patient oriented x3 <KATHY Overton Last Filed: 07/30/21 08:19> Resp: Effort & Inspection: normal respiratory effort <Paulina Mccabe PA-C - Last Filed: 07/30/21 08:19> GI: Inspection: Yes distended and Yes incision (clean) <Paulina Mccabe PA-C - Last Filed: 07/30/21 08:19> Palpation (GI): Soft to palpation, Tenderness to palpation present (GI) (diffuse, incisional), no guarding and not rigid <KATHY Overton Last Filed: 07/30/21 08:19> Percussion: Yes tympanic to percussion <KATHY Overton Last Filed: 07/30/21 08:19> Skin: General skin exam: no rashes or lesions noted <KATHY Overton Last Filed: 07/30/21 08:19> Neuro: General: patient oriented x3 <Paulina Mccabe PA-C - Last Filed: 07/30/21 08:19> Procedures Date of Service Date of Service: 07/30/21 <Paulina Mccabe PA-C - Last Filed: 07/30/21 08:19> Progress Note: A&P Assessment and plan (1) Postoperative ileus: Status: Acute <Paulina Mccabe PA-C - Last Filed: 07/30/21 08:19> Assessment and Plan: Still distended but abdomen remains soft Pain control better today NG tube output still high Stoma with some gas and liquid Encouraged to ambulate as he has not gotten out of bed at all Urine output clear - okay to DC TPN NG tube Slow improvement Seen and examined with STEVEN Mccabe <Mack Michel MD - Last Filed: 07/30/21 12:56> (2) Rectal cancer: Status: Acute <Paulina Mccabe PA-C - Last Filed: 07/30/21 08:19> Assessment and Plan: 60 year old male with rectal CA now POD #6 s/p TIN low anterior resection with loop ileostomy. Developed post op ileus- NGT remains in place for decompression, PICC line in place and on TPN. Still having pain but a little better, abdomen remains distended. NGT output remains high. Ostomy functioning with slightly more gas output. Cont NGT, NPO, TPN. Strongly encouraged OOB/ambulation today. Await more flatus, resolution of abdominal distention. 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 Hematuria resolved- will double check with urology if ok to d/c west. <Paulina Mccabe PA-C - Last Filed: 07/30/21 08:19> Fall Risk Details Current Medications: Current Medications Benzocaine (Throat Lozenge, Medicated Lozenge) 1 lozenge MUCOUS MEM Q2H PRN PRN Reason: Sore Throat Last Admin: 07/28/21 11:53 Dose: 1 lozenge Documented by: Acetaminophen (Ofirmev) 1,000 mg in 100 mls @ 400 mls/hr IV Q6H PRN PRN Reason: Pain, Severe (Pain Scale 7-10) Last Infusion: 07/28/21 06:34 Dose: Infused Documented by: Lactated Ringer's (Lr) 1,000 mls @ 60 mls/hr IVCONT .[id number] [facility] Last Admin: 07/29/21 22:24 Dose: 100 mls/hr Documented by: Hydromorphone HCl (Dilaudid) 10 mg in 50 mls @ 0 mls/hr IV .Q0M [facility]; Protocol Last Admin: 07/30/21 07:02 Dose: 0.3 mg/hr, 1.5 mls/hr Documented by: Multivitamins 11 ml/ Trace Metals 1.1 ml/ Amino Acids/Electrolytes 1,800 mls @ 75 mls/hr IV DAILY@1800 [facility] Stop: 07/30/21 17:59 Last Admin: 07/29/21 18:01 Dose: 75 mls/hr Documented by: Levothyroxine Sodium (Levothyroxine Sodium 200 Mcg Tablet) 200 mcg PO DAILY@0600 [facility] Last Admin: 07/30/21 06:32 Dose: Not Given Documented by: Lorazepam (Lorazepam 2 Mg/Ml Vial) 0.25 mg IVPUSH Q4H PRN PRN Reason: anxiety Last Admin: 07/30/21 02:15 Dose: 0.25 mg Documented by: Naloxone HCl (Naloxone Hcl 0.4 Mg/Ml Vial) 0.2 mg IVPUSH Q2M PRN PRN Reason: Excessive sedation or RR < 8 Ondansetron HCl (Ondansetron Hcl 4 Mg/2 Ml Vial) 4 mg IVPUSH Q8H PRN PRN Reason: Nausea and Vomiting Last Admin: 07/28/21 21:55 Dose: 4 mg Documented by: Pantoprazole Sodium (Pantoprazole Sodium 40 Mg/10 Ml Vial) 40 mg IVPUSH BID@0630,1630 [facility] Last Admin: 07/30/21 06:33 Dose: 40 mg Documented by: Sodium Chloride (0.9 % Sodium Chloride Flush 3 Ml Syringe) 3 ml IVFLUSH QSHIFT [facility] Last Admin: 07/30/21 00:05 Dose: Not Given Documented by: Sodium Chloride (0.9 % Sodium Chloride Flush 10 Ml Syringe) 5 ml IVFLUSH TID [facility] Last Admin: 07/29/21 22:26 Dose: 5 ml Documented by: Carlitos Mccabe PA-C - Last Filed: 07/30/21 08:19> Time Spent With Patient Time: Total time spent is greater than 50% in coordination of care (as documented) at patient's floor/unit and/or counseling patient: <Paulina Mccabe PA-C - Last Filed: 07/30/21 08:19> Time with patient: 15 - 24 minutes <Paulina Mccabe PA-C - Last Filed: 07/30/21 08:19> Quality Stroke Does the patient have a stroke diagnosis?: No <Paulina Mccabe PA-C - Last Filed: 07/30/21 08:19> VTE Prior VTE?: No <Paulina Mccabe PA-C - Last Filed: 07/30/21 08:19> VTE Risk Level:: Surgical - high <Paulina Mccabe PA-C - Last Filed: 07/30/21 08:19> VTE Device Contraindication: N/A - Device Ordered <Paulina Mccabe PA-C - Last Filed: 07/30/21 08:19> VTE Drug Contraindication: N/A - Med Ordered <Paulina Mccabe PA-C - Last Filed: 07/30/21 08:19>
[2021-07-30 08:29] LABS: Glucose, Whole Blood 127 mg/dL (60-115)
[2021-07-30 08:56] LABS: Alanine Aminotransferase 12 U/L (0-40); Albumin Level 3.6 g/dL (3.5-5.0); Alkaline Phosphatase 51 U/L (39-117); Anion Gap 13 (12-20); Aspartate Amino Transferase 13 U/L (5-37); Bilirubin Total 0.5 mg/dL (0.0-1.0); Blood Urea Nitrogen 18 mg/dL (9-16); Calcium 8.7 mg/dL (8.4-10.2); Carbon Dioxide 26 mmol/L (22-29); Chloride 104 mmol/L (96-108); Creatinine Clr Calc Pharmacy 99.9; Estimated Glomerular Filt Rate > 60; Glucose Random 121 mg/dL (60-115); Magnesium 2.3 mg/dL (1.6-2.6); Phosphorus 3.5 mg/dL (2.7-4.5); Sodium 139 mmol/L (135-145); Total Protein 5.7 g/dL (6.5-8.0)
[2021-07-30] MEDS: Famotidine/PF 20 MG/2 ML VIAL IVPUSH (09:36)
[2021-07-30] MEDS: 0.9 % Sodium Chloride Flush 3 ML SYRINGE IVFLUSH (09:36)
--- NOTE | 2021-07-30 09:44 | MHC.CLN ---
TPN F/U CALLED PHARMACY WITH RECOMMENDATION OF TPN DAY 3 TO MAX GOAL RATE WITH LIPIDS. DAY 3: MAX GOAL RATE 95 ML/HOUR D15AA5% (1619 KCAL, 114 G PROTEIN) WITH 28 ML OF 20% LIPIDS (2291 TOTAL KCAL, 114 G PROTEIN) REPLETE LYTES NEEDED AND CHECK TRIGLYCERIDES. TPN AT MAX GOAL OF 95 ML PER HOUR PLUS LIPIDS PROVIDES 29.5 KCAL/KG; 1.47 G/KG PROTEIN. LABS REVIEWED WITH HYBJA=[id number] 07/29.
[2021-07-30] MEDS: Lactated Ringers 1,000 ML 100 ML IVCONT (11:05)
[2021-07-30] MEDS: ondansetron HCL 4 MG/2 ML VIAL IVPUSH (12:06)
--- NOTE | 2021-07-30 12:18 | MHC.CM.PN ---
EMR REVIEWED, PT IS P/O DAY 6, PT'S NG TUBE NOT WORKING OVER W/E, IS WORKING NOW, PT TO CONT ON NG TUBE, NPO AND TPN, PT ALSO ON STATION TENDER AND PER SURGICAL WILL MOST LIKELY BE D/C'D TOMORROW, CM WILL CONT TO FOLLOW.
--- NOTE | 2021-07-30 15:49 | PM.EVENT ---
Event Note Date of Service: 07/30/21 Event Note: He still had ambulated down the hallway for a long time. He has stayed on the recliner as well He says today was much better day Abdomen remains distended although soft Some gas seen on the ileostomy Await resolution of ileus Continue pain medications Guallpa had been removed Continue current care including TPN
[2021-07-30 16:08] LABS: Glucose, Whole Blood 120 mg/dL (60-115)
[2021-07-30] MEDS: Metoclopramide HCl 10 MG/2 ML VIAL 5 MG IVPUSH (16:26)
--- NOTE | 2021-07-30 16:29 | PC.NURSE ---
P patient c/o heartburn I-positioned patient upright,Dr. Michel notified,Protonix IV reordered and administered E will monitor
[2021-07-30 20:21] LABS: Glucose, Whole Blood 128 mg/dL (60-115)
[2021-07-30] MEDS: 0.9 % Sodium Chloride Flush 10 ML SYRINGE 5 ML IVFLUSH (20:49)
[2021-07-31] VITALS (10 sets, daily range): BP systolic 128–155; BP diastolic 72–83; PULSE 81–90; RESP 15–18; TEMP 36.1–36.5; O2SAT 95–98; BMI 27.6
[2021-07-31] MEDS: Metoclopramide HCl 10 MG/2 ML VIAL 5 MG IVPUSH ×2 (00:27→22:37)
[2021-07-31] MEDS: LORazepam 2 MG/ML VIAL 0.25 MG IVPUSH (02:37)
[2021-07-31] MEDS: Pantoprazole Sodium 40 MG/10 ML VIAL IVPUSH ×2 (05:31→15:45)
[2021-07-31] MEDS: HYDROmorphone HCl/NS 10 MG/50 ML PIGGYBACK 1.5 MG IV (05:45)
[2021-07-31] MEDS: 0.9 % Sodium Chloride Flush 10 ML SYRINGE 5 ML IVFLUSH (07:21)
[2021-07-31 07:30] LABS: Glucose, Whole Blood 132 mg/dL (60-115)
--- NOTE | 2021-07-31 08:27 | P.PNGS_ITS ---
Subjective Subjective Date of Service: 07/31/21 <Paulina Mccabe PA-C - Last Filed: 07/31/21 08:31> 07/31/21 <Mack Michel MD - Last Filed: 07/31/21 12:24> Interval history: Denies incisional pain, only having occasional gas pains. Thinks he has been passing more flatus via ostomy. Was OOB and ambulating halls yesterday. <Paulina Mccabe PA-C - Last Filed: 07/31/21 08:31> Physical Exam Vital Signs: Vital Signs: Last Vital Signs Temp 97.5 F 07/31/21 07:16 Pulse 90 07/31/21 07:16 Resp 17 07/31/21 07:16 BP 151/77 H 07/31/21 07:16 Pulse Ox 96 07/31/21 07:16 Body Mass Index 27.6 <Paulina Mccabe PA-C - Last Filed: 07/31/21 08:31> Const: General: no acute distress and alert <Paulina Mccabe PA-C - Last Filed: 07/31/21 08:31> Orientation/consciousness: patient oriented x3 <Paulina Mccabe PA-C - Last Filed: 07/31/21 08:31> HENMT: Other: NGT in place right nare <KATHY Overton Last Filed: 07/31/21 08:31> Resp: Effort & Inspection: normal respiratory effort <KATHY Overton Last Filed: 07/31/21 08:31> GI: Other: stoma beefy red, gas and liquid bilious output in bag <Paulina Mccabe PA-C - Last Filed: 07/31/21 08:31> Inspection: Yes distended and Yes incision (clean) <KATHY Overton Last Filed: 07/31/21 08:31> Palpation (GI): Soft to palpation, nontender, no guarding and not rigid <KATHY Overton Last Filed: 07/31/21 08:31> Percussion: Yes tympanic to percussion <KATHY Overton Last Filed: 07/31/21 08:31> Skin: General skin exam: no rashes or lesions noted <KATHY Overton Last Filed: 07/31/21 08:31> Neuro: General: patient oriented x3 <KATHY Overton Last Filed: 07/31/21 08:31> Extrem: General: Yes no clubbing, cyanosis or edema <Paulina Mccabe PA-C - Last Filed: 07/31/21 08:31> Procedures Date of Service Date of Service: 07/31/21 <KATHY Overton Last Filed: 07/31/21 08:31> Progress Note: A&P Assessment and plan (1) Postoperative ileus: Status: Acute <KATHY Overton Last Filed: 07/31/21 08:31> Assessment and Plan: more output, bilious and aleisah from stoma pain continues to improve although he still asks for 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 Developed post op ileus- NGT remains in place for decompression, PICC line in place and on TPN. Pain improved. Spirits seem a little better today. NGT output remains high. Ostomy functioning with slightly more gas output but abdomen remains distended and tympanitic. Cont NGT, NPO, TPN. Strongly encouraged OOB/ambulation today. Await more flatus, resolution of abdominal distention. D/c ELECTRICAL TECH/PROJECT MANAGER-transition to PRN analgesics. ? <KATHY Overton Last Filed: 07/31/21 08:31> Fall Risk Details Current Medications: Current Medications Benzocaine (Throat Lozenge, Medicated Lozenge) 1 lozenge MUCOUS MEM Q2H PRN PRN Reason: Sore Throat Last Admin: 07/28/21 11:53 Dose: 1 lozenge Documented by: Famotidine (Famotidine/Pf 20 Mg/2 Ml Vial) 20 mg IVPUSH ONCE ONE Stop: 07/31/21 08:27 Multivitamins 10 ml/ Trace Metals 1 ml/ Amino Acids/Electrolytes 2,011 mls @ 95 mls/hr IV DAILY@1800 [facility] Stop: 07/31/21 15:11 Last Admin: 07/30/21 18:55 Dose: 95 mls/hr Documented by: Fat Emulsion Intravenous (Intralipid) 336 mls @ 28 mls/hr IV DAILY@1800 [facility] Stop: 07/31/21 17:59 Last Admin: 07/31/21 04:10 Dose: 28 mls/hr Documented by: Acetaminophen (Ofirmev) 1,000 mg in 100 mls @ 400 mls/hr IV Q6H PRN PRN Reason: abdominal pain Levothyroxine Sodium (Levothyroxine Sodium 200 Mcg Tablet) 200 mcg PO DAILY@0600 [facility] Last Admin: 07/31/21 05:29 Dose: Not Given Documented by: Lorazepam (Lorazepam 2 Mg/Ml Vial) 0.25 mg IVPUSH Q4H PRN PRN Reason: anxiety Last Admin: 07/31/21 02:37 Dose: 0.25 mg Documented by: Metoclopramide HCl (Metoclopramide Hcl 10 Mg/2 Ml Vial) 5 mg IVPUSH Q6H PRN PRN Reason: Hiccups Last Admin: 07/31/21 00:27 Dose: 5 mg Documented by: Morphine Sulfate (Morphine Sulfate 4 Mg/Ml Cartridge) 4 mg IVPUSH Q4H PRN; Protocol PRN Reason: Pain, Severe (Pain Scale 7-10) Naloxone HCl (Naloxone Hcl 0.4 Mg/Ml Vial) 0.2 mg IVPUSH Q2M PRN PRN Reason: Excessive sedation or RR < 8 Ondansetron HCl (Ondansetron Hcl 4 Mg/2 Ml Vial) 4 mg IVPUSH Q8H PRN PRN Reason: Nausea and Vomiting Last Admin: 07/30/21 12:06 Dose: 4 mg Documented by: Oxycodone HCl (Oxycodone Hcl Immed Release 5 Mg Tablet) 5 mg PO Q4H PRN PRN Reason: Pain, Moderate (Pain Scale 4-6 Pantoprazole Sodium (Pantoprazole Sodium 40 Mg/10 Ml Vial) 40 mg IVPUSH BID@0630,1630 [facility] Last Admin: 07/31/21 05:31 Dose: 40 mg Documented by: Sodium Chloride (0.9 % Sodium Chloride Flush 3 Ml Syringe) 3 ml IVFLUSH QSHIFT [facility] Last Admin: 07/31/21 07:22 Dose: Not Given Documented by: Sodium Chloride (0.9 % Sodium Chloride Flush 10 Ml Syringe) 5 ml IVFLUSH TID [facility] Last Admin: 07/31/21 07:21 Dose: 5 ml Documented by: Zolpidem Tartrate (Zolpidem Tartrate 5 Mg Tablet) 5 mg PO BEDTIME PRN PRN Reason: Insomnia <Paulina Mccabe PA-C - Last Filed: 07/31/21 08:31> Time Spent With Patient Time: Total time spent is greater than 50% in coordination of care (as documented) at patient's floor/unit and/or counseling patient: <Paulina Mccabe PA-C - Last Filed: 07/31/21 08:31> Time with patient: 15 - 24 minutes <Paulina Mccabe PA-C - Last Filed: 07/31/21 08:31> Quality Stroke Does the patient have a stroke diagnosis?: No <Paulina Mccabe PA-C - Last Filed: 07/31/21 08:31> VTE Prior VTE?: No <Paulina Mccabe PA-C - Last Filed: 07/31/21 08:31> VTE Risk Level:: Surgical - high <Paulina Mccabe PA-C - Last Filed: 07/31/21 08:31> VTE Device Contraindication: N/A - Device Ordered <Paulina Mccabe PA-C - Last Filed: 07/31/21 08:31> VTE Drug Contraindication: N/A - Med Ordered <KATHY Overton Last Filed: 07/31/21 08:31>
[2021-07-31] MEDS: Famotidine/PF 20 MG/2 ML VIAL IVPUSH (08:44)
--- NOTE | 2021-07-31 08:55 | PC.NURSE ---
dilaudid PILE DRIVING SUPERINTENDENT pump discontinued by this rn and Rick brown RN , wasted 46mls
[2021-07-31] MEDS: ondansetron HCL 4 MG/2 ML VIAL IVPUSH (10:43)
--- NOTE | 2021-07-31 11:46 | MHC.CLN ---
F/U PT RECEIVING D15AA5% AT 95ML/HR WITH 28 ML OF 20% LIPIDS X12 HRS PROVIDES 2291 TOTAL KCALS (29.5 KCAL/KG), 114 G PROTEIN (1.47 G/KG) REVIEWED LABS, DISCUSSED WITH PHARMACY REPLETE LYTES NEEDED
[2021-07-31] MEDS: Morphine Sulfate 4 MG/ML CARTRIDGE IVPUSH ×3 (12:12→20:33)
[2021-07-31] MEDS: 0.9 % Sodium Chloride Flush 3 ML SYRINGE IVFLUSH (15:52)
[2021-07-31] MEDS: Fat Emulsions 20% 250 ML 28 ML IV (16:42)
[2021-07-31] MEDS: Throat Lozenge, Medicated LOZENGE 1 LOZENGE MUCOUS MEM (20:34)
[2021-07-31] MEDS: Heparin Sodium,Porcine 5,000 UNIT/ML VIAL 5000 UNIT SUBCUT (22:38)
[2021-08-01] MEDS: Morphine Sulfate 4 MG/ML CARTRIDGE IVPUSH ×5 (01:03→22:22)
[2021-08-01] MEDS: Throat Lozenge, Medicated LOZENGE 1 LOZENGE MUCOUS MEM ×2 (01:03→23:31)
[2021-08-01] MEDS: LORazepam 2 MG/ML VIAL 0.25 MG IVPUSH ×2 (03:13→07:50)
[2021-08-01] MEDS: ondansetron HCL 4 MG/2 ML VIAL IVPUSH (03:14)
[2021-08-01] MEDS: Fat Emulsions 20% 250 ML 28 ML IV ×2 (03:14→18:35)
[2021-08-01 04:00] VITALS: BP 125/73; PULSE 88; RESP 16; TEMP 36.1; O2SAT 96
[2021-08-01] MEDS: Pantoprazole Sodium 40 MG/10 ML VIAL IVPUSH ×2 (05:58→16:00)
[2021-08-01] MEDS: Levothyroxine Sodium 200 MCG TABLET PO (05:58)
[2021-08-01 07:30] LABS: Glucose, Whole Blood 146 mg/dL (60-115)
[2021-08-01 07:33] VITALS: BP 133/78; PULSE 85; RESP 18; TEMP 36.4; O2SAT 96
--- NOTE | 2021-08-01 07:39 | PM.PNGS ---
Subjective Subjective Date of Service: 08/01/21 <Paulina Mccabe PA-C - Last Filed: 08/01/21 07:42> 08/01/21 <Mack Michel MD - Last Filed: 08/01/21 15:22> Interval history: Had difficulty with pain overnight due to not receiving pain medication. Also had a little nausea. <Paulina Mccabe PA-C - Last Filed: 08/01/21 07:42> Physical Exam Vital Signs: Vital Signs: Last Vital Signs Temp 97.5 F 08/01/21 07:33 Pulse 85 08/01/21 07:33 Resp 18 08/01/21 07:33 BP 133/78 08/01/21 07:33 Pulse Ox 96 08/01/21 07:33 Body Mass Index 27.6 <Paulina Mccabe PA-C - Last Filed: 08/01/21 07:42> Const: General: comfortable, no acute distress and alert <Paulina Mccabe PA-C - Last Filed: 08/01/21 07:42> Orientation/consciousness: patient oriented x3 <Paulina Mccabe PA-C - Last Filed: 08/01/21 07:42> Resp: Effort & Inspection: normal respiratory effort <Paulina Mccabe PA-C - Last Filed: 08/01/21 07:42> GI: Other: ostomy beefy red, liquid stool in bag <Paulina Mccabe PA-C - Last Filed: 08/01/21 07:42> Inspection: Yes distended and Yes incision (clean) <Paulina Mccabe PA-C - Last Filed: 08/01/21 07:42> Palpation (GI): Soft to palpation, nontender, no guarding and not rigid <Paulina Mccabe PA-C - Last Filed: 08/01/21 07:42> Skin: General skin exam: no rashes or lesions noted <KATHY Overton Last Filed: 08/01/21 07:42> Neuro: General: patient oriented x3 <KATHY Overton Last Filed: 08/01/21 07:42> Extrem: General: Yes no clubbing, cyanosis or edema <Paulina Mccabe PA-C - Last Filed: 08/01/21 07:42> Procedures Date of Service Date of Service: 08/01/21 <Paulina Mccabe PA-C - Last Filed: 08/01/21 07:42> Progress Note: A&P Assessment and plan (1) Postoperative ileus: Status: Acute <Paulina Mccabe PA-C - Last Filed: 08/01/21 07:42> Assessment and Plan: Says he is comfortable today Asking for less pain meds Abdomen distended but soft Seemed to have increasing output from his stoma NG tube remains high Will put on a trial of NG tube clamping today and release after 4 hours Ambulate Improving slowly TPN Seen and examined - agree with STEVEN Mccabe <Mack Michel MD - Last Filed: 08/01/21 15:22> (2) Rectal cancer: Status: Acute <Paulina Mccabe PA-C - Last Filed: 08/01/21 07:42> Assessment and Plan: 60 year old male with rectal CA now POD #8 s/p TIN low anterior resection with loop ileostomy. Developed post op ileus- NGT remains in place for decompression, PICC line in place and on TPN. Persistent ileus- ostomy output appears to be more stool appearing this morning and was passing more flatus yesterday. NGT output remains high. Abdomen remains distended and tympanitic. Cont NGT, NPO, TPN. Strongly encouraged OOB/ambulation today. Await more flatus, resolution of abdominal distention. Continue pain control. <Paulina Mccabe PA-C - Last Filed: 08/01/21 07:42> Fall Risk Details Current Medications: Current Medications Benzocaine (Throat Lozenge, Medicated Lozenge) 1 lozenge MUCOUS MEM Q2H PRN PRN Reason: Sore Throat Last Admin: 08/01/21 01:03 Dose: 1 lozenge Documented by: Heparin Sodium (Porcine) (Heparin Sodium,Porcine 5,000 Unit/Ml Vial) 5,000 unit SUBCUT Q12H [facility] Last Admin: 07/31/21 22:38 Dose: 5,000 unit Documented by: Acetaminophen (Ofirmev) 1,000 mg in 100 mls @ 400 mls/hr IV Q6H PRN PRN Reason: abdominal pain Last Infusion: 07/31/21 16:38 Dose: Infused Documented by: Trace Metals 1 ml/ Amino Acids (/Electrolytes) 2,001 mls @ 95 mls/hr IV DAILY@1600 [facility] Stop: 08/01/21 13:04 Last Admin: 07/31/21 16:42 Dose: 95 mls/hr Documented by: Levothyroxine Sodium (Levothyroxine Sodium 200 Mcg Tablet) 200 mcg PO DAILY@0600 [facility] Last Admin: 08/01/21 05:58 Dose: 200 mcg Documented by: Lorazepam (Lorazepam 2 Mg/Ml Vial) 0.25 mg IVPUSH Q4H PRN PRN Reason: anxiety Last Admin: 08/01/21 03:13 Dose: 0.25 mg Documented by: Metoclopramide HCl (Metoclopramide Hcl 10 Mg/2 Ml Vial) 5 mg IVPUSH Q6H PRN PRN Reason: Hiccups Last Admin: 07/31/21 22:37 Dose: 5 mg Documented by: Morphine Sulfate (Morphine Sulfate 4 Mg/Ml Cartridge) 4 mg IVPUSH Q4H PRN; Protocol PRN Reason: Pain, Severe (Pain Scale 7-10) Last Admin: 08/01/21 06:13 Dose: 4 mg Documented by: Naloxone HCl (Naloxone Hcl 0.4 Mg/Ml Vial) 0.2 mg IVPUSH Q2M PRN PRN Reason: Excessive sedation or RR < 8 Ondansetron HCl (Ondansetron Hcl 4 Mg/2 Ml Vial) 4 mg IVPUSH Q8H PRN PRN Reason: Nausea and Vomiting Last Admin: 08/01/21 03:14 Dose: 4 mg Documented by: Oxycodone HCl (Oxycodone Hcl Immed Release 5 Mg Tablet) 5 mg PO Q4H PRN PRN Reason: Pain, Moderate (Pain Scale 4-6 Pantoprazole Sodium (Pantoprazole Sodium 40 Mg/10 Ml Vial) 40 mg IVPUSH BID@0630,1630 [facility] Last Admin: 08/01/21 05:58 Dose: 40 mg Documented by: Sodium Chloride (0.9 % Sodium Chloride Flush 3 Ml Syringe) 3 ml IVFLUSH QSHIFT [facility] Last Admin: 08/01/21 01:02 Dose: Not Given Documented by: Sodium Chloride (0.9 % Sodium Chloride Flush 10 Ml Syringe) 5 ml IVFLUSH TID [facility] Last Admin: 07/31/21 22:19 Dose: Not Given Documented by: Zolpidem Tartrate (Zolpidem Tartrate 5 Mg Tablet) 5 mg PO BEDTIME PRN PRN Reason: Insomnia <Paulina Mccabe PA-C - Last Filed: 08/01/21 07:42> Time Spent With Patient Time: Total time spent is greater than 50% in coordination of care (as documented) at patient's floor/unit and/or counseling patient: <Paulina Mccabe PA-C - Last Filed: 08/01/21 07:42> Time with patient: 15 - 24 minutes <Paulina Mccabe PA-C - Last Filed: 08/01/21 07:42> Quality Stroke Does the patient have a stroke diagnosis?: No <Paulina Mccabe PA-C - Last Filed: 08/01/21 07:42> VTE Prior VTE?: No <Paulina Mccabe PA-C - Last Filed: 08/01/21 07:42> VTE Risk Level:: Surgical - high <Paulina Mccabe PA-C - Last Filed: 08/01/21 07:42> VTE Device Contraindication: N/A - Device Ordered <Paulina Mccabe PA-C - Last Filed: 08/01/21 07:42> VTE Drug Contraindication: N/A - Med Ordered <Paulina Mccabe PA-C - Last Filed: 08/01/21 07:42>
[2021-08-01 08:00] VITALS: BMI 27.7
[2021-08-01 09:13] LABS: Anion Gap 13 (12-20); Blood Urea Nitrogen 19 mg/dL (9-16); Calcium 8.5 mg/dL (8.4-10.2); Carbon Dioxide 25 mmol/L (22-29); Chloride 101 mmol/L (96-108); Estimated Glomerular Filt Rate > 60; Glucose Random 110 mg/dL (60-115); Sodium 135 mmol/L (135-145)
[2021-08-01 09:51] LABS: Albumin Level 3.7 g/dL (3.5-5.0); Magnesium 2.3 mg/dL (1.6-2.6); Phosphorus 3.5 mg/dL (2.7-4.5); Triglycerides 236 mg/dL
--- NOTE | 2021-08-01 10:23 | MHC.CLN ---
TPN F/U LABS REVIEWED WITH LCIAW=375. CONTINUE TPN D15AA5% AT MAX GOAL RATE OF 95 ML PER HOUR WITH 28 ML OF 20% LIPIDS (2291 TOTAL KCAL, 114 G PROTEIN). COMMUNICATED WITH PHARMACIST. CONTINUE TO FOLLOW.
[2021-08-01] MEDS: 0.9 % Sodium Chloride Flush 10 ML SYRINGE 5 ML IVFLUSH ×3 (11:26→22:35)
[2021-08-01] MEDS: Heparin Sodium,Porcine 5,000 UNIT/ML VIAL 5000 UNIT SUBCUT ×2 (11:27→22:23)
[2021-08-01 11:46] VITALS: BP 118/69; PULSE 76; RESP 16; TEMP 36.2; O2SAT 95
[2021-08-01 15:18] VITALS: BP 157/81; PULSE 75; RESP 20; TEMP 36.3; O2SAT 96
--- NOTE | 2021-08-01 15:22 | PM.EVENT ---
Event Note Date of Service: 08/01/21 Event Note: His NG tube was clamped the most of the day He said he had been doing well, had been ambulating a lot more However, he threw up this afternoon He said he had been comfortable throughout NG tube back to suction Abdomen distended but softer Stoma seemed to have increasing output, bilious Continue NG tube TPN Ambulate Improving slowly with regards to ileus
[2021-08-01] MEDS: 0.9 % Sodium Chloride Flush 3 ML SYRINGE IVFLUSH (16:00)
[2021-08-01 19:07] VITALS: BP 127/75; PULSE 80; RESP 18; TEMP 36.3; O2SAT 95
[2021-08-01 23:46] VITALS: BP 124/76; PULSE 80; RESP 14; TEMP 36.2; O2SAT 95
[2021-08-02] MEDS: Morphine Sulfate 4 MG/ML CARTRIDGE IVPUSH ×3 (02:25→18:30)
[2021-08-02 04:00] VITALS: BP 128/66; PULSE 78; RESP 14; TEMP 36.6; O2SAT 94
[2021-08-02] MEDS: Levothyroxine Sodium 200 MCG TABLET PO (06:14)
[2021-08-02] MEDS: Pantoprazole Sodium 40 MG/10 ML VIAL IVPUSH ×2 (06:27→16:28)
[2021-08-02] MEDS: ondansetron HCL 4 MG/2 ML VIAL IVPUSH ×2 (06:33→18:33)
[2021-08-02 07:46] VITALS: BP 113/71; PULSE 75; RESP 16; TEMP 36.1; O2SAT 97
--- NOTE | 2021-08-02 08:14 | P.PNGS_ITS ---
Subjective Subjective Date of Service: 08/02/21 <Paulina Mccabe PA-C - Last Filed: 08/02/21 08:19> 08/02/21 <Mack Michel MD - Last Filed: 08/02/21 09:04> Interval history: Had trial clamping of NGT yesterday- ended up vomiting. Had nausea overnight with worsening distention. NGT was flushed and began functioning again and he reported improvement. He thinks he is less bloated this morning and ostomy continues with increasing output. <Paulina Mccabe PA-C - Last Filed: 08/02/21 08:19> Physical Exam Vital Signs: Vital Signs: Last Vital Signs Temp 96.9 F 08/02/21 07:46 Pulse 75 08/02/21 07:46 Resp 16 08/02/21 07:46 BP 113/71 08/02/21 07:46 Pulse Ox 97 08/02/21 07:46 Body Mass Index 27.7 <Paulina Mccabe PA-C - Last Filed: 08/02/21 08:19> Const: General: no acute distress and alert <Paulina Mccabe PA-C - Last Filed: 08/02/21 08:19> Orientation/consciousness: patient oriented x3 <Paulina Mccabe PA-C - Last Filed: 08/02/21 08:19> Eyes: Sclerae: sclerae normal <Paulina Mccabe PA-C - Last Filed: 08/02/21 08:19> Resp: Effort & Inspection: normal respiratory effort <Paulina Mccabe PA-C - Last Filed: 08/02/21 08:19> GI: Inspection: Yes distended and Yes incision (clean) <KATHY Overton Last Filed: 08/02/21 08:19> Palpation (GI): Soft to palpation, nontender, no guarding and not rigid <KATHY Overton Last Filed: 08/02/21 08:19> Percussion: Yes tympanic to percussion <KATHY Overton Last Filed: 08/02/21 08:19> Skin: General skin exam: no rashes or lesions noted <Paulina Mccabe PA-C - Last Filed: 08/02/21 08:19> Neuro: General: patient oriented x3 <Paulina Mccabe PA-C - Last Filed: 08/02/21 08:19> Extrem: General: Yes no clubbing, cyanosis or edema <Paulina Mccabe PA-C - Last Filed: 08/02/21 08:19> Procedures Date of Service Date of Service: 08/02/21 <KATHY Overton Last Filed: 08/02/21 08:19> Progress Note: A&P Assessment and plan (1) Postoperative ileus: Status: Acute <KATHY Overton Last Filed: 08/02/21 08:19> Assessment and Plan: Failed clamping trial yesterday Comfortable today Abdomen softer Less need for pain medications Stoma with increasing output, more bilious looking now NG tube TPN Ileus slow to improve but he has made a lot of progress Seen and examined - agree with STEVEN Mccabe <Mack Michel MD - Last Filed: 08/02/21 09:04> (2) Rectal cancer: Status: Acute <KATHY Overton Last Filed: 08/02/21 08:19> Assessment and Plan: 60 year old male with rectal CA now POD #9 s/p TIN low anterior resection with loop ileostomy. Developed post op ileus- NGT remains in place for decompression, PICC line in place and on TPN. Persistent ileus but slowly improving- ostomy output appears to be more stool appearing and continues to increase in volume. He however failed NGT trial clamping yesterday. Abdomen remains distended and tympanitic. Cont NGT, NPO, TPN. On reglan. Strongly encouraged OOB/ambulation today. Await improvement of abdominal distention, decreased NGT output.? ? <Paulina Mccabe PA-C - Last Filed: 08/02/21 08:19> Fall Risk Details Current Medications: Current Medications Benzocaine (Throat Lozenge, Medicated Lozenge) 1 lozenge MUCOUS MEM Q2H PRN PRN Reason: Sore Throat Last Admin: 08/01/21 23:31 Dose: 1 lozenge Documented by: Heparin Sodium (Porcine) (Heparin Sodium,Porcine 5,000 Unit/Ml Vial) 5,000 unit SUBCUT Q12H [facility] Last Admin: 08/01/21 22:23 Dose: 5,000 unit Documented by: Acetaminophen (Ofirmev) 1,000 mg in 100 mls @ 400 mls/hr IV Q6H PRN PRN Reason: abdominal pain Last Infusion: 08/01/21 10:59 Dose: Infused Documented by: Multivitamins 10 ml/ Trace Metals 1 ml/ Amino Acids/Electrolytes 2,011 mls @ 95 mls/hr IV DAILY@1400 [facility] Stop: 08/02/21 11:11 Last Admin: 08/01/21 16:00 Dose: 95 mls/hr Documented by: Fat Emulsion Intravenous (Intralipid) 336 mls @ 28 mls/hr IV DAILY@1800 [facility] Stop: 08/03/21 05:59 Last Infusion: 08/02/21 06:35 Dose: Infused Documented by: Promethazine HCl 12.5 mg/ (Sodium Chloride) 50.5 mls @ 202 mls/hr IV Q6H PRN PRN Reason: Nausea Levothyroxine Sodium (Levothyroxine Sodium 200 Mcg Tablet) 200 mcg PO DAILY@0600 [facility] Last Admin: 08/02/21 06:14 Dose: 200 mcg Documented by: Metoclopramide HCl (Metoclopramide Hcl 10 Mg/2 Ml Vial) 5 mg IVPUSH Q6H PRN PRN Reason: Hiccups Last Admin: 07/31/21 22:37 Dose: 5 mg Documented by: Morphine Sulfate (Morphine Sulfate 4 Mg/Ml Cartridge) 4 mg IVPUSH Q4H PRN; Protocol PRN Reason: Pain, Severe (Pain Scale 7-10) Last Admin: 08/02/21 06:27 Dose: 4 mg Documented by: Naloxone HCl (Naloxone Hcl 0.4 Mg/Ml Vial) 0.2 mg IVPUSH Q2M PRN PRN Reason: Excessive sedation or RR < 8 Ondansetron HCl (Ondansetron Hcl 4 Mg/2 Ml Vial) 4 mg IVPUSH Q8H PRN PRN Reason: Nausea and Vomiting Last Admin: 08/02/21 06:33 Dose: 4 mg Documented by: Oxycodone HCl (Oxycodone Hcl Immed Release 5 Mg Tablet) 5 mg PO Q4H PRN PRN Reason: Pain, Moderate (Pain Scale 4-6 Pantoprazole Sodium (Pantoprazole Sodium 40 Mg/10 Ml Vial) 40 mg IVPUSH BID@0630,1630 [facility] Last Admin: 08/02/21 06:27 Dose: 40 mg Documented by: Sodium Chloride (0.9 % Sodium Chloride Flush 3 Ml Syringe) 3 ml IVFLUSH QSHIFT [facility] Last Admin: 08/02/21 00:11 Dose: Not Given Documented by: Sodium Chloride (0.9 % Sodium Chloride Flush 10 Ml Syringe) 5 ml IVFLUSH TID [facility] Last Admin: 08/01/21 22:35 Dose: 5 ml Documented by: Zolpidem Tartrate (Zolpidem Tartrate 5 Mg Tablet) 5 mg PO BEDTIME PRN PRN Reason: Insomnia <Paulina Mccabe PA-C - Last Filed: 08/02/21 08:19> Time Spent With Patient Time: Total time spent is greater than 50% in coordination of care (as documented) at patient's floor/unit and/or counseling patient: <Paulina Mccabe PA-C - Last Filed: 08/02/21 08:19> Time with patient: 15 - 24 minutes <Paulina Mccabe PA-C - Last Filed: 08/02/21 08:19> Quality Stroke Does the patient have a stroke diagnosis?: No <Paulina Mccabe PA-C - Last Filed: 08/02/21 08:19> VTE Prior VTE?: No <Paulina Mccabe PA-C - Last Filed: 08/02/21 08:19> VTE Risk Level:: Surgical - high <KATHY Overton Last Filed: 08/02/21 08:19> VTE Device Contraindication: N/A - Device Ordered <Paulina Mccabe PA-C - Last Filed: 08/02/21 08:19> VTE Drug Contraindication: N/A - Med Ordered <KATHY Overton Last Filed: 08/02/21 08:19>
[2021-08-02] MEDS: 0.9 % Sodium Chloride Flush 10 ML SYRINGE 5 ML IVFLUSH ×3 (09:47→20:41)
[2021-08-02] MEDS: Heparin Sodium,Porcine 5,000 UNIT/ML VIAL 5000 UNIT SUBCUT ×2 (09:50→20:39)
[2021-08-02] MEDS: Metoclopramide HCl 10 MG/2 ML VIAL 5 MG IVPUSH (09:50)
[2021-08-02 11:06] LABS: Albumin Level 3.7 g/dL (3.5-5.0); Anion Gap 13 (12-20); Blood Urea Nitrogen 22 mg/dL (9-16); Calcium 8.7 mg/dL (8.4-10.2); Carbon Dioxide 26 mmol/L (22-29); Chloride 98 mmol/L (96-108); Creatinine Clr Calc Pharmacy 100.2; Estimated Glomerular Filt Rate > 60; Glucose Random 111 mg/dL (60-115); Magnesium 2.4 mg/dL (1.6-2.6); Phosphorus 3.6 mg/dL (2.7-4.5); Potassium 4.1 mmol/L (3.3-5.1); Sodium 133 mmol/L (135-145); Triglycerides 153 mg/dL
[2021-08-02 11:42] LABS: Glucose, Whole Blood 150 mg/dL (60-115)
[2021-08-02 11:48] VITALS: BP 131/80; PULSE 73; RESP 16; TEMP 36.9; O2SAT 96
--- NOTE | 2021-08-02 12:50 | MHC.CLN ---
F/U PT CONTINUES TO RECEIVE D15AA5% AT 95ML/HR WITH 28 ML OF 20% LIPIDS X12 HRS PROVIDES 2291 TOTAL KCALS (29.5 KCAL/KG), 114 G PROTEIN (1.47 G/KG) REVIEWED LABS NOTED TRIGS 153, DISCUSSED WITH PHARMACY REPLETE LYTES NEEDED
[2021-08-02] MEDS: oxyCODONE HCl Immed Release 5 MG TABLET PO ×2 (13:40→22:56)
[2021-08-02 15:29] VITALS: BP 125/76; PULSE 71; RESP 18; TEMP 36.5; O2SAT 96
[2021-08-02] MEDS: Fat Emulsions 20% 250 ML 28 ML IV (19:04)
[2021-08-02 19:55] VITALS: BP 145/75; PULSE 74; RESP 18; TEMP 36.4; O2SAT 96
[2021-08-02 20:08] LABS: Glucose, Whole Blood 129 mg/dL (60-115)
[2021-08-02 23:17] VITALS: BP 130/86; PULSE 74; RESP 16; TEMP 35.9; O2SAT 96
[2021-08-03] VITALS (7 sets, daily range): BP systolic 127–142; BP diastolic 70–84; PULSE 72–80; RESP 14–18; TEMP 36–36.4; O2SAT 96–97; BMI 26.6
[2021-08-03] MEDS: Metoclopramide HCl 10 MG/2 ML VIAL 5 MG IVPUSH (01:23)
[2021-08-03] MEDS: Morphine Sulfate 4 MG/ML CARTRIDGE IVPUSH ×3 (01:24→20:25)
[2021-08-03] MEDS: ondansetron HCL 4 MG/2 ML VIAL IVPUSH (06:43)
[2021-08-03 08:08] LABS: Glucose, Whole Blood 104 mg/dL (60-115)
[2021-08-03] MEDS: Heparin Sodium,Porcine 5,000 UNIT/ML VIAL 5000 UNIT SUBCUT ×2 (09:24→19:52)
[2021-08-03] MEDS: 0.9 % Sodium Chloride Flush 3 ML SYRINGE IVFLUSH (09:24)
[2021-08-03] MEDS: 0.9 % Sodium Chloride Flush 10 ML SYRINGE 5 ML IVFLUSH ×3 (09:25→20:26)
--- NOTE | 2021-08-03 09:33 | PM.PNGS ---
Subjective Subjective Date of Service: 08/03/21 <Paulina Mccabe PA-C - Last Filed: 08/03/21 09:37> 08/03/21 <Mack Michel MD - Last Filed: 08/03/21 15:17> Interval history: Feels better this morning. Ileostomy continues to put out increasing amounts. NGT output decreasing. Feels a lot less bloated, denies abdominal pain. <Paulina Mccabe PA-C - Last Filed: 08/03/21 09:37> Physical Exam Vital Signs: Vital Signs: Last Vital Signs Temp 97.2 F 08/03/21 07:53 Pulse 74 08/03/21 07:53 Resp 16 08/03/21 07:53 BP 128/70 08/03/21 07:53 Pulse Ox 96 08/03/21 07:53 Body Mass Index 27.7 <Paulina Mccabe PA-C - Last Filed: 08/03/21 09:37> Const: General: comfortable, no acute distress and alert <Paulina Mccabe PA-C - Last Filed: 08/03/21 09:37> Orientation/consciousness: patient oriented x3 <Paulina Mccabe PA-C - Last Filed: 08/03/21 09:37> HENMT: Other: NGT in place right nare <Paulina Mccabe PA-C - Last Filed: 08/03/21 09:37> Resp: Effort & Inspection: normal respiratory effort <Paulina Mccabe PA-C - Last Filed: 08/03/21 09:37> GI: Other: ileostomy with large amount of bilious output <Paulina Mccabe PA-C - Last Filed: 08/03/21 09:37> Inspection: No distended <KATHY Overton Last Filed: 08/03/21 09:37> Palpation (GI): Soft to palpation and nontender <KATHY Overton Last Filed: 08/03/21 09:37> Percussion: Yes normal to percussion <KATHY Overton Last Filed: 08/03/21 09:37> Skin: General skin exam: no rashes or lesions noted <Paulina Mccabe PA-C - Last Filed: 08/03/21 09:37> Neuro: General: patient oriented x3 <Paulina Mccabe PA-C - Last Filed: 08/03/21 09:37> Extrem: General: Yes no clubbing, cyanosis or edema <KATHY Overton Last Filed: 08/03/21 09:37> Procedures Date of Service Date of Service: 08/03/21 <Paulina Mccabe PA-C - Last Filed: 08/03/21 09:37> Progress Note: A&P Assessment and plan (1) Postoperative ileus: Status: Acute <Paulina Mccabe PA-C - Last Filed: 08/03/21 09:37> Assessment and Plan: Feels well No nausea or vomiting Large output from the stoma Abdomen soft NG tube clamped and likely Seen and examined -agree with STEVEN Mccabe <Mack Michel MD - Last Filed: 08/03/21 15:17> (2) Rectal cancer: Status: Acute <Paulina Mccabe PA-C - Last Filed: 08/03/21 09:37> Assessment and Plan: ?60 year old male with rectal CA now POD #10 s/p TIN low anterior resection with loop ileostomy. Developed post op ileus- NGT remains in place for decompression, PICC line in place and on TPN. Ileus seems to be slowly resolving now- ostomy output appears to be more stool appearing and continues to increase in volume. His abdomen is decreasingly distended and non tympanitic today. Clamp NGT for 4 hrs, check residual. Strongly encouraged OOB/ambulation today. Cont TPN until NGT removed and PO intake adequate. <KATHY Overton Last Filed: 08/03/21 09:37> Fall Risk Details Current Medications: Current Medications Benzocaine (Throat Lozenge, Medicated Lozenge) 1 lozenge MUCOUS MEM Q2H PRN PRN Reason: Sore Throat Last Admin: 08/01/21 23:31 Dose: 1 lozenge Documented by: Heparin Sodium (Porcine) (Heparin Sodium,Porcine 5,000 Unit/Ml Vial) 5,000 unit SUBCUT Q12H [facility] Last Admin: 08/03/21 09:24 Dose: 5,000 unit Documented by: Promethazine HCl 12.5 mg/ (Sodium Chloride) 50.5 mls @ 202 mls/hr IV Q6H PRN PRN Reason: Nausea Trace Metals 1 ml/ Amino Acids (/Electrolytes) 2,000 mls @ 83 mls/hr IV DAILY@1800 [facility] Stop: 08/03/21 17:59 Last Admin: 08/02/21 19:04 Dose: 83 mls/hr Documented by: Levothyroxine Sodium (Levothyroxine Sodium 200 Mcg Tablet) 200 mcg PO DAILY@0600 [facility] Last Admin: 08/03/21 06:56 Dose: Not Given Documented by: Metoclopramide HCl (Metoclopramide Hcl 10 Mg/2 Ml Vial) 5 mg IVPUSH Q6H PRN PRN Reason: Hiccups Last Admin: 08/03/21 01:23 Dose: 5 mg Documented by: Morphine Sulfate (Morphine Sulfate 4 Mg/Ml Cartridge) 4 mg IVPUSH Q4H PRN; Protocol PRN Reason: Pain, Severe (Pain Scale 7-10) Last Admin: 08/03/21 06:37 Dose: 4 mg Documented by: Multi-Ingred Medicated Throat [place] (Throat [place], Medicated 20 Ml Bottle) 1 spray MUCOUS MEM Q2H PRN PRN Reason: Dry Mouth Last Admin: 08/02/21 16:25 Dose: 1 spray Documented by: Naloxone HCl (Naloxone Hcl 0.4 Mg/Ml Vial) 0.2 mg IVPUSH Q2M PRN PRN Reason: Excessive sedation or RR < 8 Ondansetron HCl (Ondansetron Hcl 4 Mg/2 Ml Vial) 4 mg IVPUSH Q8H PRN PRN Reason: Nausea and Vomiting Last Admin: 08/03/21 06:43 Dose: 4 mg Documented by: Oxycodone HCl (Oxycodone Hcl Immed Release 5 Mg Tablet) 5 mg PO Q4H PRN PRN Reason: Pain, Moderate (Pain Scale 4-6 Last Admin: 08/02/21 22:56 Dose: 5 mg Documented by: Sodium Chloride (0.9 % Sodium Chloride Flush 3 Ml Syringe) 3 ml IVFLUSH QSHIFT [facility] Last Admin: 08/03/21 09:24 Dose: 3 ml Documented by: Sodium Chloride (0.9 % Sodium Chloride Flush 10 Ml Syringe) 5 ml IVFLUSH TID [facility] Last Admin: 08/03/21 09:25 Dose: 5 ml Documented by: Zolpidem Tartrate (Zolpidem Tartrate 5 Mg Tablet) 5 mg PO BEDTIME PRN PRN Reason: Insomnia <Paulina Mccabe PA-C - Last Filed: 08/03/21 09:37> Time Spent With Patient Time: Total time spent is greater than 50% in coordination of care (as documented) at patient's floor/unit and/or counseling patient: <Paulina Mccabe PA-C - Last Filed: 08/03/21 09:37> Time with patient: 15 - 24 minutes <Paulina Mccabe PA-C - Last Filed: 08/03/21 09:37> Quality Stroke Does the patient have a stroke diagnosis?: No <Paulina Mccabe PA-C - Last Filed: 08/03/21 09:37> VTE Prior VTE?: No <Paulina Mccabe PA-C - Last Filed: 08/03/21 09:37> VTE Risk Level:: Surgical - high <KATHY Overton Last Filed: 08/03/21 09:37> VTE Device Contraindication: N/A - Device Ordered <Paulina Mccabe PA-C - Last Filed: 08/03/21 09:37> VTE Drug Contraindication: N/A - Med Ordered <Paulina Mccabe PA-C - Last Filed: 08/03/21 09:37>
[2021-08-03 09:43] LABS: Hemoglobin 15.1 g/dl (14.0-18.0); Mean Corpuscular HGB Conc 33.6 g/dl (31.0-36.0); Mean Corpuscular Hemoglobin 30.4 pg (27.0-33.0); Mean Corpuscular Volume 90.5 fL (80-98); Mean Platelet Volume 9.1 fL (9.4-12.4); Platelet Count 438 X10*3/uL (160-400); Red Blood Count 4.97 X10*6/uL (4.60-5.80); Red Cell Distribution Width 13.5 % (11.0-16.0); White Blood Count 9.7 X10*3/uL (4.8-10.8)
--- NOTE | 2021-08-03 09:47 | MHC.CLN ---
TPN F/U ORDER CHANGED TO D15AA5% AT 83 ML/HR WITH 28 ML OF 20% LIPIDS X12 HRS. PROVIDES 2092 TOTAL KCALS (29.9 KCAL/KG [facility]), 100 G PROTEIN (1.4 G/KG [facility]) REVIEWED LABS NOTED TRIGS 153. DISCUSSED WITH PHARMACY. REPLETE LYTES NEEDED.
[2021-08-03 09:52] LABS: Prothrombin Time 11.2 SEC (9.9-13.0)
[2021-08-03 09:54] LABS: Triglycerides 172 mg/dL
[2021-08-03 10:01] LABS: Anion Gap 15 (12-20); Blood Urea Nitrogen 21 mg/dL (9-16); Calcium 9.5 mg/dL (8.4-10.2); Carbon Dioxide 28 mmol/L (22-29); Chloride 97 mmol/L (96-108); Estimated Glomerular Filt Rate > 60; Glucose Random 107 mg/dL (60-115); Potassium 4.4 mmol/L (3.3-5.1); Sodium 136 mmol/L (135-145)
[2021-08-03 10:30] LABS: Albumin Level 4.4 g/dL (3.5-5.0); Magnesium 2.5 mg/dL (1.6-2.6); Phosphorus 4.2 mg/dL (2.7-4.5)
[2021-08-03 10:42] LABS: Band Neutrophils Percent 10 % (3-5); Eosinophils Absolute Manual 0.2 X10*3/UL (0.0-0.8); Eosinophils Percent Manual 2 % (0-4); Lymphocytes Absolute Manual 1.3 X10*3/uL (0.6-4.8); Lymphocytes Percent Manual 13 % (20-40); Monocytes Absolute Manual 1.7 X10*3/uL (0.0-1.2); Monocytes Percent Manual 18 % (2-11); Neutrophils Absolute Manual 6.5 X10*3/uL (2.2-7.9); Neutrophils Percent Manual 57 % (45-73)
[2021-08-03 10:43] LABS: Platelet Estimate SLIGHTLY INCREASED (NORMAL); Platelet Morphology Comment NORMAL; RBC Morphology NORMAL
--- NOTE | 2021-08-03 12:54 | MHC.CM.PN ---
Addendum entered by Zehra Bergeron RN 08/03/21 15:08: pt possible d/c over w/e, referral to [facility] sent for new ileostomy, script for supplies in green d/c folder on chart. Original Note: EMR REVIEWED, PT REMAINS ON NPO, PT NGT OUTPUT DECREASING AND ILEOSTOMY OUPUT INCREASING, NO PLAN FOR D/C TODAY.
--- NOTE | 2021-08-03 15:17 | PM.EVENT ---
Event Note Date of Service: 08/03/21 Event Note: NG tube clamped all day No nausea or vomiting Abdomen remained soft Stoma with good bilious output NG-tube placed on suction with minimal output NG tube therefore removed Okay to start on sips of clear liquids and slowly advance as tolerated Clinically looks well
[2021-08-03] MEDS: Fat Emulsions 20% 250 ML 28 ML IV (18:35)
[2021-08-03] MEDS: oxyCODONE HCl Immed Release 5 MG TABLET PO (19:50)
[2021-08-03] MEDS: Zolpidem Tartrate 5 MG TABLET PO (19:51)
[2021-08-04] VITALS (8 sets, daily range): BP systolic 114–160; BP diastolic 76–97; PULSE 76–100; RESP 16–24; TEMP 36–36.9; O2SAT 95–98; BMI 26.7
[2021-08-04] MEDS: Morphine Sulfate 4 MG/ML CARTRIDGE IVPUSH ×4 (00:08→22:43)
[2021-08-04] MEDS: ondansetron HCL 4 MG/2 ML VIAL IVPUSH ×2 (00:15→09:00)
[2021-08-04 08:59] LABS: Glucose, Whole Blood 142 mg/dL (60-115)
[2021-08-04] MEDS: 0.9 % Sodium Chloride Flush 10 ML SYRINGE 5 ML IVFLUSH ×3 (09:00→20:03)
[2021-08-04] MEDS: Heparin Sodium,Porcine 5,000 UNIT/ML VIAL 5000 UNIT SUBCUT ×2 (09:00→20:03)
[2021-08-04] MEDS: Metoclopramide HCl 10 MG/2 ML VIAL 5 MG IVPUSH (12:31)
--- NOTE | 2021-08-04 13:06 | PM.PNGS ---
Subjective Subjective Date of Service: 08/04/21 Interval history: feeling nauseate, only taking in little liquids, getting tpn, did not vomit Physical Exam Vital Signs: Vital Signs: Last Vital Signs Temp 97.0 F 08/04/21 11:35 Pulse 99 08/04/21 11:35 Resp 18 08/04/21 11:35 BP 134/83 08/04/21 11:35 Pulse Ox 95 08/04/21 11:35 Body Mass Index 26.6 Const: General: cooperative, healthy appearing and in distress mild GI: Other: abdo distended, tympanitic, quiet, great ostomy output of stools and gas, nontender Procedures Date of Service Date of Service: 08/04/21 Progress Note: A&P Assessment and plan (1) Postoperative ileus: Status: Acute Assessment and Plan: going on just slow progress on ileus pt understands and agrees with plan Assessment and Plan: pt pod#11 sp LAR with diverting loop ileostomy and ileus- maybe slight improvement as no vomit but is nauseated. quiet BS, abdo distended - plan cont with liquids as tolerated, ambulate, decrease pain meds, cont tpn, check labs/lytes tomorrow, doubt anything bad going on just slow progress on ileus pt understands and agrees with plan Fall Risk Details Current Medications: Current Medications Benzocaine (Throat Lozenge, Medicated Lozenge) 1 lozenge MUCOUS MEM Q2H PRN PRN Reason: Sore Throat Last Admin: 08/01/21 23:31 Dose: 1 lozenge Documented by: Heparin Sodium (Porcine) (Heparin Sodium,Porcine 5,000 Unit/Ml Vial) 5,000 unit SUBCUT Q12H [facility] Last Admin: 08/04/21 09:00 Dose: 5,000 unit Documented by: Promethazine HCl 12.5 mg/ (Sodium Chloride) 50.5 mls @ 202 mls/hr IV Q6H PRN PRN Reason: Nausea Multivitamins 10 ml/ Trace Metals 1 ml/ Amino Acids/Electrolytes 1,999.92 mls @ 83.33 mls/hr IV DAILY@1800 [facility] Stop: 08/04/21 17:59 Last Admin: 08/03/21 18:35 Dose: 83.33 mls/hr Documented by: Trace Metals 1 ml/ Amino Acids (/Electrolytes) 1,999.2 mls @ 83.33 mls/hr IV DAILY@1800 [facility] Stop: 08/05/21 17:59 Fat Emulsion Intravenous (Intralipid) 336 mls @ 28 mls/hr IV DAILY@1800 [facility] Stop: 08/05/21 05:59 Levothyroxine Sodium (Levothyroxine Sodium 200 Mcg Tablet) 200 mcg PO DAILY@0600 [facility] Last Admin: 08/04/21 06:17 Dose: Not Given Documented by: Metoclopramide HCl (Metoclopramide Hcl 10 Mg/2 Ml Vial) 5 mg IVPUSH Q6H PRN PRN Reason: Hiccups Last Admin: 08/04/21 12:31 Dose: 5 mg Documented by: Morphine Sulfate (Morphine Sulfate 4 Mg/Ml Cartridge) 4 mg IVPUSH Q4H PRN; Protocol PRN Reason: Pain, Severe (Pain Scale 7-10) Last Admin: 08/04/21 03:43 Dose: 4 mg Documented by: Multi-Ingred Medicated Throat [place] (Throat [place], Medicated 20 Ml Bottle) 1 spray MUCOUS MEM Q2H PRN PRN Reason: Dry Mouth Last Admin: 08/02/21 16:25 Dose: 1 spray Documented by: Naloxone HCl (Naloxone Hcl 0.4 Mg/Ml Vial) 0.2 mg IVPUSH Q2M PRN PRN Reason: Excessive sedation or RR < 8 Ondansetron HCl (Ondansetron Hcl 4 Mg/2 Ml Vial) 4 mg IVPUSH Q8H PRN PRN Reason: Nausea and Vomiting Last Admin: 08/04/21 09:00 Dose: 4 mg Documented by: Oxycodone HCl (Oxycodone Hcl Immed Release 5 Mg Tablet) 5 mg PO Q4H PRN PRN Reason: Pain, Moderate (Pain Scale 4-6 Last Admin: 08/03/21 19:50 Dose: 5 mg Documented by: Sodium Chloride (0.9 % Sodium Chloride Flush 3 Ml Syringe) 3 ml IVFLUSH QSHIFT [facility] Last Admin: 08/04/21 09:00 Dose: Not Given Documented by: Sodium Chloride (0.9 % Sodium Chloride Flush 10 Ml Syringe) 5 ml IVFLUSH TID [facility] Last Admin: 08/04/21 09:00 Dose: 5 ml Documented by: Zolpidem Tartrate (Zolpidem Tartrate 5 Mg Tablet) 5 mg PO BEDTIME PRN PRN Reason: Insomnia Last Admin: 08/03/21 19:51 Dose: 5 mg Documented by: Time Spent With Patient Time: Total time spent is greater than 50% in coordination of care (as documented) at patient's floor/unit and/or counseling patient: Time with patient: 25 - 35 minutes Quality Stroke Does the patient have a stroke diagnosis?: No VTE Prior VTE?: No VTE Risk Level:: Surgical - high VTE Device Contraindication: N/A - Device Ordered VTE Drug Contraindication: N/A - Med Ordered
[2021-08-04] MEDS: Fat Emulsions 20% 250 ML 28 ML IV (18:17)
[2021-08-05] MEDS: ondansetron HCL 4 MG/2 ML VIAL IVPUSH ×3 (02:03→22:42)
[2021-08-05] MEDS: Morphine Sulfate 4 MG/ML CARTRIDGE IVPUSH ×2 (02:16→05:52)
[2021-08-05] MEDS: Levothyroxine Sodium 200 MCG TABLET PO (05:52)
[2021-08-05 06:27] LABS: Alanine Aminotransferase 209 U/L (0-40); Albumin Level 4.3 g/dL (3.5-5.0); Alkaline Phosphatase 374 U/L (39-117); Anion Gap 15 (12-20); Aspartate Amino Transferase 72 U/L (5-37); Bilirubin Total 0.7 mg/dL (0.0-1.0); Blood Urea Nitrogen 32 mg/dL (9-16); Calcium 9.6 mg/dL (8.4-10.2); Carbon Dioxide 30 mmol/L (22-29); Chloride 91 mmol/L (96-108); Creatinine Clr Calc Pharmacy 63.5; Estimated Glomerular Filt Rate > 60; Glucose Random 132 mg/dL (60-115); Magnesium 2.8 mg/dL (1.6-2.6); Phosphorus 4.7 mg/dL (2.7-4.5); Potassium 4.2 mmol/L (3.3-5.1); Sodium 132 mmol/L (135-145); Total Protein 7.7 g/dL (6.5-8.0)
[2021-08-05 08:00] VITALS: BP 148/93; PULSE 86; RESP 18; TEMP 36.2; O2SAT 96; BMI 26.8
[2021-08-05 08:10] LABS: Glucose, Whole Blood 149 mg/dL (60-115)
[2021-08-05] MEDS: 0.9 % Sodium Chloride Flush 10 ML SYRINGE 5 ML IVFLUSH ×3 (10:12→20:56)
[2021-08-05] MEDS: Heparin Sodium,Porcine 5,000 UNIT/ML VIAL 5000 UNIT SUBCUT ×2 (10:13→20:53)
[2021-08-05] MEDS: Metoclopramide HCl 10 MG/2 ML VIAL IVPUSH ×3 (10:13→20:53)
[2021-08-05 12:00] VITALS: BP 134/86; PULSE 94; RESP 18; TEMP 36.1; O2SAT 97
[2021-08-05] MEDS: Lactated Ringers 500 ML IV (12:48)
[2021-08-05] MEDS: Scopolamine 1.5 MG PATCH.TD.3 EAR-BEHIND (12:48)
[2021-08-05 15:17] VITALS: BP 142/77; PULSE 76; RESP 18; TEMP 36.6; O2SAT 97
[2021-08-05] MEDS: Fat Emulsions 20% 250 ML 28 ML IVCONT (18:02)
[2021-08-05] MEDS: Haloperidol Lactate 5 MG/ML VIAL IV (18:10)
[2021-08-05 20:00] VITALS: BP 149/92; PULSE 73; RESP 18; TEMP 36.3; O2SAT 96
[2021-08-05] MEDS: 0.9 % Sodium Chloride Flush 3 ML SYRINGE IVFLUSH (20:53)
--- NOTE | 2021-08-05 22:54 | P.PNGS_ITS ---
Subjective Subjective Date of Service: 08/05/21 Interval history: feeling nauseated and later in the day feeling pain, hungry though, ostomy working, nausea is very troublesome to him Physical Exam Vital Signs: Vital Signs: Last Vital Signs Temp 97.4 F 08/05/21 20:00 Pulse 73 08/05/21 20:00 Resp 18 08/05/21 20:00 BP 149/92 H 08/05/21 20:00 Pulse Ox 96 08/05/21 20:00 Body Mass Index 26.8 GI: Other: abdo soft mild distension positive bowel sounds, ostomy with gas and stool material incisions are fine Procedures Date of Service Date of Service: 08/05/21 Progress Note: A&P Assessment and plan (1) Postoperative ileus: Status: Acute Assessment and Plan: pt s/p LAR and diverting ileiostomy - postop course complicated by ileus - bowel function returning with good output from ileostomy but intense nausea today -- ? etiology on round the clock reglan, increased zofran to 8 mg, pheneragan prn, trial of haldol (case discussed with anesthesia) tpn ladjusted as labs off and agree with correction of electrolytes bolus of ivf tried iv protonix added doubt any significant problem but frustrating for pt iv toradol for pain and trying to stay away from narcotics (2) Rectal cancer: Status: Acute Fall Risk Details Current Medications: Current Medications Benzocaine (Throat Lozenge, Medicated Lozenge) 1 lozenge MUCOUS MEM Q2H PRN PRN Reason: Sore Throat Last Admin: 08/01/21 23:31 Dose: 1 lozenge Documented by: Heparin Sodium (Porcine) (Heparin Sodium,Porcine 5,000 Unit/Ml Vial) 5,000 unit SUBCUT Q12H [facility] Last Admin: 08/05/21 20:53 Dose: 5,000 unit Documented by: Promethazine HCl 12.5 mg/ (Sodium Chloride) 50.5 mls @ 202 mls/hr IV Q6H PRN PRN Reason: Nausea Last Infusion: 08/05/21 20:16 Dose: Infused Documented by: Potassium Chloride 60 meq/Sodium Chloride 90 meq/Calcium Gluconate 9.3 meq/Trace Metals 1 ml/ Amino Acids /Dextrose 1,999.92 mls @ 83.33 mls/hr IVCONT DAILY@1800 [facility] Stop: 08/06/21 17:59 Last Admin: 08/05/21 18:02 Dose: 83.33 mls/hr Documented by: Fat Emulsion Intravenous (Intralipid) 336 mls @ 28 mls/hr IVCONT DAILY@1800 [facility] Stop: 08/06/21 05:59 Last Admin: 08/05/21 18:02 Dose: 28 mls/hr Documented by: Ketorolac Tromethamine (Ketorolac Tromethamine 15 Mg/Ml Vial) 15 mg IVPUSH Q6H PRN PRN Reason: Pain, Severe (Pain Scale 7-10) Levothyroxine Sodium (Levothyroxine Sodium 200 Mcg Tablet) 200 mcg PO DAILY@0600 [facility] Last Admin: 08/05/21 05:52 Dose: 200 mcg Documented by: Metoclopramide HCl (Metoclopramide Hcl 10 Mg/2 Ml Vial) 5 mg IVPUSH Q6H PRN PRN Reason: Hiccups Last Admin: 08/04/21 12:31 Dose: 5 mg Documented by: Metoclopramide HCl (Metoclopramide Hcl 10 Mg/2 Ml Vial) 10 mg IVPUSH Q6H [facility] Last Admin: 08/05/21 20:53 Dose: 10 mg Documented by: Multi-Ingred Medicated Throat [place] (Throat [place], Medicated 20 Ml Bottle) 1 spray MUCOUS MEM Q2H PRN PRN Reason: Dry Mouth Last Admin: 08/02/21 16:25 Dose: 1 spray Documented by: Naloxone HCl (Naloxone Hcl 0.4 Mg/Ml Vial) 0.2 mg IVPUSH Q2M PRN PRN Reason: Excessive sedation or RR < 8 Ondansetron HCl (Ondansetron Hcl 4 Mg/2 Ml Vial) 4 mg IVPUSH Q8H PRN PRN Reason: Nausea and Vomiting Last Admin: 08/05/21 22:42 Dose: 4 mg Documented by: Pantoprazole Sodium (Pantoprazole Sodium 40 Mg/10 Ml Vial) 40 mg IVPUSH BID@0630,1630 [facility] Sodium Chloride (0.9 % Sodium Chloride Flush 3 Ml Syringe) 3 ml IVFLUSH QSHIFT [facility] Last Admin: 08/05/21 20:53 Dose: 3 ml Documented by: Sodium Chloride (0.9 % Sodium Chloride Flush 10 Ml Syringe) 5 ml IVFLUSH TID [facility] Last Admin: 08/05/21 20:56 Dose: 5 ml Documented by: Time Spent With Patient Time: Total time spent is greater than 50% in coordination of care (as documented) at patient's floor/unit and/or counseling patient: Time with patient: Greater than 35 minutes Quality Stroke Does the patient have a stroke diagnosis?: No VTE Prior VTE?: No VTE Risk Level:: Surgical - high VTE Device Contraindication: N/A - Device Ordered VTE Drug Contraindication: N/A - Med Ordered
[2021-08-05] MEDS: Ketorolac Tromethamine 15 MG/ML VIAL IVPUSH (22:56)
[2021-08-05] MEDS: Pantoprazole Sodium 40 MG/10 ML VIAL IVPUSH (22:56)
--- NOTE | 2021-08-05 23:39 | PC.NURSE ---
pt c/0 nausea and abd pain.pain medication was not renewed so discontinued in pharmacy.Dr.Rambissoon arango ordered toradal 15mg iv given at 2300 also started pt on iv protonix 40mg iv first dose given at 2300.pt was also given phenergan 12.5mg iv at 1930 and zofran 4mg iv at 2245.resting quietly in bed at present time.colostomy emptied at 1930 for 300cc liquid green stool and again at 2300 for 200cc liquid green stool.
[2021-08-05 23:41] VITALS: BP 146/79; PULSE 87; RESP 16; TEMP 36.2; O2SAT 96
[2021-08-06] MEDS: Metoclopramide HCl 10 MG/2 ML VIAL IVPUSH ×4 (03:54→20:17)
[2021-08-06 04:00] VITALS: BP 129/74; PULSE 79; RESP 16; TEMP 36.2; O2SAT 96
[2021-08-06 05:25] LABS: Anion Gap 17 (12-20); Blood Urea Nitrogen 38 mg/dL (9-16); Calcium 9.4 mg/dL (8.4-10.2); Carbon Dioxide 23 mmol/L (22-29); Chloride 93 mmol/L (96-108); Creatinine Clr Calc Pharmacy 52.7; Estimated Glomerular Filt Rate 54; Glucose Random 131 mg/dL (60-115); Potassium 4.4 mmol/L (3.3-5.1); Sodium 129 mmol/L (135-145)
[2021-08-06] MEDS: Levothyroxine Sodium 200 MCG TABLET PO (06:21)
[2021-08-06] MEDS: Pantoprazole Sodium 40 MG/10 ML VIAL IVPUSH ×2 (06:21→16:07)
[2021-08-06 07:59] LABS: Magnesium 2.6 mg/dL (1.6-2.6); Phosphorus 3.6 mg/dL (2.7-4.5)
[2021-08-06 08:00] VITALS: BP 144/86; PULSE 81; RESP 17; TEMP 36.1; O2SAT 97; BMI 27.3
[2021-08-06] MEDS: Ketorolac Tromethamine 15 MG/ML VIAL IVPUSH (08:32)
[2021-08-06] MEDS: Heparin Sodium,Porcine 5,000 UNIT/ML VIAL 5000 UNIT SUBCUT ×2 (08:33→20:17)
[2021-08-06] MEDS: 0.9 % Sodium Chloride Flush 10 ML SYRINGE 5 ML IVFLUSH ×3 (08:33→20:17)
[2021-08-06 08:55] LABS: Glucose, Whole Blood 155 mg/dL (60-115)
--- NOTE | 2021-08-06 09:23 | MHC.CLN ---
TPN F/U ON 08/03 , NG TUBE REMOVED AND PER MD NOTE OK TO START ON SIPS OF CLEAR LIQUIDS. ON 08/05, NAUSEA AND PAIN REPORTED. OSTOMY WORKING. TPN ADJUSTED FOR ELECTROLYTES. CONTINUE TPN D15AA5% AT 83.33 ML/HR WITH 28 ML OF 20% LIPIDS X 12 HRS. PROVIDES 2092 TOTAL KCALS (29.9 KCAL/KG CMW), 100 G PROTEIN (1.4 G/KG CMW) DISCUSSED WITH PHARMACY. REPLETE LYTES NEEDED AND MONITOR TRIGS. .
[2021-08-06 09:40] LABS: Triglycerides 308 mg/dL
--- NOTE | 2021-08-06 10:50 | P.PNGS_ITS ---
Subjective Subjective Date of Service: 08/06/21 <Paulina Mccabe PA-C - Last Filed: 08/06/21 10:54> 08/06/21 <Mack Michel MD - Last Filed: 08/06/21 11:55> Interval history: NGT removed Friday afternoon. He developed nausea over the weekend and vomited this morning. Nausea still present but a little better. Continues to pass flatus, stool from ostomy. Able to tolerate broth. <DEBORAH Overton - Last Filed: 08/06/21 10:54> Physical Exam Vital Signs: Vital Signs: Last Vital Signs Temp 96.9 F 08/06/21 08:00 Pulse 81 08/06/21 08:00 Resp 17 08/06/21 08:00 BP 144/86 H 08/06/21 08:00 Pulse Ox 97 08/06/21 08:00 Body Mass Index 27.3 <KATHY Overton Last Filed: 08/06/21 10:54> Const: General: no acute distress, well developed and alert <Paulina Mccabe PA-C - Last Filed: 08/06/21 10:54> Orientation/consciousness: patient oriented x3 <KATHY Overton Last Filed: 08/06/21 10:54> Resp: Effort & Inspection: normal respiratory effort <KATHY Overton Last Filed: 08/06/21 10:54> GI: Other: ileostomy- gas and bilious output in bag <DEBORAH Overton Last Filed: 08/06/21 10:54> Inspection: Yes distended and Yes incision (clean) <KATHY Overton Last Filed: 08/06/21 10:54> Palpation (GI): Soft to palpation, nontender, no guarding and not rigid <KATHY Overton Last Filed: 08/06/21 10:54> Skin: General skin exam: no rashes or lesions noted <KATHY Overton Last Filed: 08/06/21 10:54> Neuro: General: patient oriented x3 <KATHY Overton Last Filed: 08/06/21 10:54> Extrem: General: Yes no clubbing, cyanosis or edema <Paulina Mccabe PA-C - Last Filed: 08/06/21 10:54> Procedures Date of Service Date of Service: 08/06/21 <Paulina Mccabe PA-C - Last Filed: 08/06/21 10:54> Progress Note: A&P Assessment and plan (1) Postoperative ileus: Status: Acute <Paulina Mccabe PA-C - Last Filed: 08/06/21 10:54> Assessment and Plan: Continues to have periodic nausea Vomited this morning Pain is however much improved Stoma continues to work well with good output, bilious contents as well as gas Clinically not obstructed - question gastroparesis Continue Reglan, TPN He wants to restart diet - I told him we will stay with sips of clears for now Encourage out of bed and ambulation Abdomen remained soft Seen and examined -agree with STEVEN Mccabe <Mack Michel MD - Last Filed: 08/06/21 11:55> (2) Rectal cancer: Status: Acute <KATHY Overton Last Filed: 08/06/21 10:54> Assessment and Plan: ??60 year old male with rectal CA now POD #13 s/p TIN low anterior resection with loop ileostomy. Developed prolonged post op ileus- NGT removed friday, he however has since developed nausea with some abdominal distention. Continue antiemetics PRN, TPN. Encouraged OOB/ambulation of halls a lot today. Clear liquids as tolerated. May require NGT reinsertion if nausea/vomiting/distention persists, possible repeat CT scan. Will hold off for now. <Paulina Mccabe PA-C - Last Filed: 08/06/21 10:54> Fall Risk Details Current Medications: Current Medications Benzocaine (Throat Lozenge, Medicated Lozenge) 1 lozenge MUCOUS MEM Q2H PRN PRN Reason: Sore Throat Last Admin: 08/01/21 23:31 Dose: 1 lozenge Documented by: Heparin Sodium (Porcine) (Heparin Sodium,Porcine 5,000 Unit/Ml Vial) 5,000 unit SUBCUT Q12H [facility] Last Admin: 08/06/21 08:33 Dose: 5,000 unit Documented by: Promethazine HCl 12.5 mg/ (Sodium Chloride) 50.5 mls @ 202 mls/hr IV Q6H PRN PRN Reason: Nausea Last Infusion: 08/06/21 03:07 Dose: Infused Documented by: Potassium Chloride 60 meq/Sodium Chloride 90 meq/Calcium Gluconate 9.3 meq/Trace Metals 1 ml/ Amino Acids /Dextrose 1,999.92 mls @ 83.33 mls/hr IVCONT DAILY@1800 [facility] Stop: 08/06/21 17:59 Last Admin: 08/05/21 18:02 Dose: 83.33 mls/hr Documented by: Ketorolac Tromethamine (Ketorolac Tromethamine 15 Mg/Ml Vial) 15 mg IVPUSH Q6H PRN PRN Reason: Pain, Severe (Pain Scale 7-10) Last Admin: 08/06/21 08:32 Dose: 15 mg Documented by: Levothyroxine Sodium (Levothyroxine Sodium 200 Mcg Tablet) 200 mcg PO MARIA INES Y@0600 [facility] Last Admin: 08/06/21 06:21 Dose: 200 mcg Documented by: Metoclopramide HCl (Metoclopramide Hcl 10 Mg/2 Ml Vial) 5 mg IVPUSH Q6H PRN PRN Reason: Hiccups Last Admin: 08/04/21 12:31 Dose: 5 mg Documented by: Metoclopramide HCl (Metoclopramide Hcl 10 Mg/2 Ml Vial) 10 mg IVPUSH Q6H [facility] Last Admin: 08/06/21 08:32 Dose: 10 mg Documented by: Multi-Ingred Medicated Throat [place] (Throat [place], Medicated 20 Ml Bottle) 1 spray MUCOUS MEM Q2H PRN PRN Reason: Dry Mouth Last Admin: 08/02/21 16:25 Dose: 1 spray Documented by: Naloxone HCl (Naloxone Hcl 0.4 Mg/Ml Vial) 0.2 mg IVPUSH Q2M PRN PRN Reason: Excessive sedation or RR < 8 Ondansetron HCl (Ondansetron Hcl 4 Mg/2 Ml Vial) 4 mg IVPUSH Q8H PRN PRN Reason: Nausea and Vomiting Last Admin: 08/05/21 22:42 Dose: 4 mg Documented by: Pantoprazole Sodium (Pantoprazole Sodium 40 Mg/10 Ml Vial) 40 mg IVPUSH BID@0630,6920 [facility] Last Admin: 08/06/21 06:21 Dose: 40 mg Documented by: Sodium Chloride (0.9 % Sodium Chloride Flush 3 Ml Syringe) 3 ml IVFLUSH QSHIFT [facility] Last Admin: 08/06/21 08:33 Dose: Not Given Documented by: Sodium Chloride (0.9 % Sodium Chloride Flush 10 Ml Syringe) 5 ml IVFLUSH TID [facility] Last Admin: 08/06/21 08:33 Dose: 5 ml Documented by: <Paulina Mccabe PA-C - Last Filed: 08/06/21 10:54> Time Spent With Patient Time: Total time spent is greater than 50% in coordination of care (as documented) at patient's floor/unit and/or counseling patient: <Paulina Mccabe PA-C - Last Filed: 08/06/21 10:54> Time with patient: 15 - 24 minutes <Paulina Mccabe PA-C - Last Filed: 08/06/21 10:54> Quality Stroke Does the patient have a stroke diagnosis?: No <Paulina Mccabe PA-C - Last Filed: 08/06/21 10:54> VTE Prior VTE?: No <Paulina Mccabe PA-C - Last Filed: 08/06/21 10:54> VTE Risk Level:: Surgical - high <Paulina Mccabe PA-C - Last Filed: 08/06/21 10:54> VTE Device Contraindication: N/A - Device Ordered <Paulina Mccabe PA-C - Last Filed: 08/06/21 10:54> VTE Drug Contraindication: N/A - Med Ordered <Paulina Mccabe PA-C - Last Filed: 08/06/21 10:54>
[2021-08-06 12:00] VITALS: BP 137/84; PULSE 80; RESP 16; TEMP 36.1; O2SAT 96
[2021-08-06] MEDS: ondansetron HCL 4 MG/2 ML VIAL IVPUSH (12:27)
[2021-08-06 15:32] VITALS: BP 126/74; PULSE 74; RESP 18; TEMP 36.2; O2SAT 97
[2021-08-06] MEDS: Throat Lozenge, Medicated LOZENGE 1 LOZENGE MUCOUS MEM (16:17)
[2021-08-06] MEDS: Fat Emulsions 20% 250 ML 28 ML IV (18:22)
[2021-08-06 19:18] VITALS: BP 124/79; PULSE 83; RESP 16; TEMP 36.4; O2SAT 95
[2021-08-06] MEDS: 0.9 % Sodium Chloride Flush 3 ML SYRINGE IVFLUSH (20:18)
[2021-08-06 23:56] VITALS: BP 124/83; PULSE 85; RESP 16; TEMP 36.1; O2SAT 96
[2021-08-07] MEDS: Metoclopramide HCl 10 MG/2 ML VIAL IVPUSH ×3 (03:15→15:14)
[2021-08-07 03:20] VITALS: BP 129/86; PULSE 88; RESP 16; TEMP 36.2; O2SAT 97
[2021-08-07] MEDS: Ketorolac Tromethamine 15 MG/ML VIAL IVPUSH ×3 (04:08→23:13)
[2021-08-07] MEDS: Levothyroxine Sodium 200 MCG TABLET PO (05:37)
[2021-08-07] MEDS: Pantoprazole Sodium 40 MG/10 ML VIAL IVPUSH ×2 (05:37→15:13)
[2021-08-07] MEDS: ondansetron HCL 4 MG/2 ML VIAL IVPUSH (06:05)
[2021-08-07 07:14] VITALS: BP 120/76; PULSE 85; RESP 18; TEMP 36.6; O2SAT 98
[2021-08-07 07:48] LABS: Glucose, Whole Blood 165 mg/dL (60-115)
[2021-08-07 08:00] VITALS: BMI 26.3
[2021-08-07] MEDS: Heparin Sodium,Porcine 5,000 UNIT/ML VIAL 5000 UNIT SUBCUT ×2 (08:40→19:46)
[2021-08-07] MEDS: 0.9 % Sodium Chloride Flush 3 ML SYRINGE IVFLUSH (08:51)
[2021-08-07] MEDS: 0.9 % Sodium Chloride Flush 10 ML SYRINGE 5 ML IVFLUSH (08:52)
[2021-08-07 11:22] VITALS: BP 121/75; PULSE 89; RESP 18; TEMP 36.6; O2SAT 97
[2021-08-07 12:17] LABS: Albumin Level 4.9 g/dL (3.5-5.0); Anion Gap 19 (12-20); Blood Urea Nitrogen 62 mg/dL (9-16); Calcium 9.9 mg/dL (8.4-10.2); Carbon Dioxide 23 mmol/L (22-29); Chloride 92 mmol/L (96-108); Creatinine Clr Calc Pharmacy 36.8; Estimated Glomerular Filt Rate 35; Glucose Random 109 mg/dL (60-115); Phosphorus 6.3 mg/dL (2.7-4.5); Potassium 4.9 mmol/L (3.3-5.1); Sodium 129 mmol/L (135-145); Triglycerides 177 mg/dL
--- NOTE | 2021-08-07 14:01 | PM.PNGS ---
Subjective Subjective Date of Service: 08/07/21 Interval history: was asking for toast says he does not have abdominal pain does not like clear broth - says this actually makes him nauseous stoma with very good output says he has cramps on arms,legs and back Physical Exam Vital Signs: Vital Signs: Last Vital Signs Temp 97.8 F 08/07/21 11:22 Pulse 89 08/07/21 11:22 Resp 18 08/07/21 11:22 BP 121/75 08/07/21 11:22 Pulse Ox 97 08/07/21 11:22 Body Mass Index 26.3 Const: Other: anxious General: no acute distress Resp: Effort & Inspection: normal respiratory effort Cardio: Rate: regular rate GI: Other: sto,a with good bilious output and gas Palpation (GI): Soft to palpation, not firm, nontender and no guarding Procedures Date of Service Date of Service: 08/07/21 Progress Note: A&P Assessment and plan (1) Postoperative ileus: Status: Acute Assessment and Plan: s/p LAR with prolonged ileus stoma has been functioning well pt still with occasional nausea clinically not obstructed - gastroparesis? try erythromycin TID OOB give extra NS - Na 129, creatinine and BUn elevated ok to have toast Fall Risk Details Current Medications: Current Medications Benzocaine (Throat Lozenge, Medicated Lozenge) 1 lozenge MUCOUS MEM Q2H PRN PRN Reason: Sore Throat Last Admin: 08/06/21 16:17 Dose: 1 lozenge Documented by: Heparin Sodium (Porcine) (Heparin Sodium,Porcine 5,000 Unit/Ml Vial) 5,000 unit SUBCUT Q12H [facility] [place] Last Admin: 08/07/21 08:40 Dose: 5,000 unit Documented by: Promethazine HCl 12.5 mg/ (Sodium Chloride) 50.5 mls @ 202 mls/hr IV Q6H PRN PRN Reason: Nausea Last Infusion: 08/07/21 10:16 Dose: Infused Documented by: Multivitamins 10 ml/ Trace Metals 1 ml/ Amino Acids/Electrolytes 1,999.92 mls @ 83.33 mls/hr IV DAILY@1800 [facility] Stop: 08/07/21 17:59 Last Admin: 08/06/21 18:17 Dose: 83.33 mls/hr Documented by: Potassium Chloride 20 meq/Sodium Chloride 90 meq/Calcium Gluconate 9.3 meq/Trace Metals 1.4 ml/ Amino Acids/Dextrose 1,440 mls @ 60 mls/hr IVCONT DAILY@1800 [facility] Stop: 08/08/21 17:59 Fat Emulsion Intravenous (Intralipid) 336 mls @ 28 mls/hr IVCONT DAILY@1800 [facility] [place] Stop: 08/09/21 05:59 Sodium Chloride (Ns) 1,000 mls @ 75 mls/hr IVCONT .[id number] [facility] [place] Ketorolac Tromethamine (Ketorolac Tromethamine 15 Mg/Ml Vial) 15 mg IVPUSH Q6H PRN PRN Reason: Pain, Severe (Pain Scale 7-10) Last Admin: 08/07/21 04:08 Dose: 15 mg Documented by: Levothyroxine Sodium (Levothyroxine Sodium 200 Mcg Tablet) 200 mcg PO DAILY@0600 [facility] Last Admin: 08/07/21 05:37 Dose: 200 mcg Documented by: Metoclopramide HCl (Metoclopramide Hcl 10 Mg/2 Ml Vial) 5 mg IVPUSH Q6H PRN PRN Reason: Hiccups Last Admin: 08/04/21 12:31 Dose: 5 mg Documented by: Metoclopramide HCl (Metoclopramide Hcl 10 Mg/2 Ml Vial) 10 mg IVPUSH Q6H [facility] Last Admin: 08/07/21 08:42 Dose: 10 mg Documented by: Multi-Ingred Medicated Throat [place] (Throat [place], Medicated 20 Ml Bottle) 1 spray MUCOUS MEM Q2H PRN PRN Reason: Dry Mouth Last Admin: 08/02/21 16:25 Dose: 1 spray Documented by: Naloxone HCl (Naloxone Hcl 0.4 Mg/Ml Vial) 0.2 mg IVPUSH Q2M PRN PRN Reason: Excessive sedation or RR < 8 Ondansetron HCl (Ondansetron Hcl 4 Mg/2 Ml Vial) 4 mg IVPUSH Q8H PRN PRN Reason: Nausea and Vomiting Last Admin: 08/07/21 06:05 Dose: 4 mg Documented by: Pantoprazole Sodium (Pantoprazole Sodium 40 Mg/10 Ml Vial) 40 mg IVPUSH BID@0630,1630 [facility] [place] Last Admin: 08/07/21 05:37 Dose: 40 mg Documented by: Sodium Chloride (0.9 % Sodium Chloride Flush 3 Ml Syringe) 3 ml IVFLUSH QSHIFT [facility] [place] Last Admin: 08/07/21 08:51 Dose: 3 ml Documented by: Sodium Chloride (0.9 % Sodium Chloride Flush 10 Ml Syringe) 5 ml IVFLUSH TID [facility] Last Admin: 08/07/21 08:52 Dose: 5 ml Documented by: Time Spent With Patient Time: Total time spent is greater than 50% in coordination of care (as documented) at patient's floor/unit and/or counseling patient: Time with patient: 15 - 24 minutes Quality Stroke Does the patient have a stroke diagnosis?: No VTE Prior VTE?: No VTE Risk Level:: Surgical - high VTE Device Contraindication: N/A - Device Ordered VTE Drug Contraindication: N/A - Med Ordered
--- NOTE | 2021-08-07 14:14 | MHC.CLN ---
F/U PT CONTINUES WITH CLEAR LIQUID DIET REVIEWED LABS AND DISCUSSED WITH PHARMACY NOTED INCREASE IN RENAL INDICES RECOMMEND TO DECREASE TPN D15AA5% AT 60ML/HR WITH 28 ML OF 20% LIPIDS X 12 HRS TO PROVIDE 1694 TOTAL KCALS (24 KCAL/KG BASED ON CMW), 72G PROTEIN (1.03 G/KG BASED ON CMW) REPLETE LYTES NEEDED .
[2021-08-07] MEDS: 0.9 % Sodium Chloride 1,000 ML 75 ML IVCONT (14:19)
[2021-08-07 15:31] VITALS: BP 118/76; PULSE 83; RESP 17; TEMP 36.2; O2SAT 97
[2021-08-07] MEDS: Fat Emulsions 20% 250 ML 28 ML IVCONT (18:17)
[2021-08-07 19:19] VITALS: BP 131/73; PULSE 88; RESP 18; TEMP 36.1; O2SAT 97
[2021-08-07 23:23] VITALS: BP 106/81; PULSE 87; RESP 17; TEMP 36.4; O2SAT 96
[2021-08-08] MEDS: 0.9 % Sodium Chloride 1,000 ML 75 ML IVCONT (02:31)
[2021-08-08 04:00] VITALS: BP 124/68; PULSE 75; RESP 17; TEMP 36.2; O2SAT 95
[2021-08-08] MEDS: Pantoprazole Sodium 40 MG/10 ML VIAL IVPUSH ×2 (05:50→18:24)
[2021-08-08] MEDS: Levothyroxine Sodium 200 MCG TABLET PO (05:50)
[2021-08-08 06:40] LABS: Glucose Random 260 mg/dL (60-115)
[2021-08-08 06:51] LABS: Anion Gap 11 (12-20); Blood Urea Nitrogen 62 mg/dL (9-16); Calcium 7.9 mg/dL (8.4-10.2); Carbon Dioxide 17 mmol/L (22-29); Chloride 90 mmol/L (96-108); Creatinine Clr Calc Pharmacy 32.1; Estimated Glomerular Filt Rate 30; Magnesium 2.1 mg/dL (1.6-2.6); Potassium 4.2 mmol/L (3.3-5.1); Sodium 114 mmol/L (135-145)
[2021-08-08 07:28] VITALS: BP 132/76; PULSE 78; RESP 18; TEMP 36.6; O2SAT 98
[2021-08-08 08:10] LABS: Glucose, Whole Blood 213 mg/dL (60-115)
--- NOTE | 2021-08-08 08:10 | P.PNGS_ITS ---
Subjective Subjective Date of Service: 08/08/21 Interval history: Continues to feel better he states Wants to have more food today Tolerated toast yesterday Stoma functioning well I was called for critical lab of Na 114 this morning Patient says he feels well and denies significant complaints Says he had a good night Physical Exam Vital Signs: Vital Signs: Last Vital Signs Temp 97.9 F 08/08/21 07:28 Pulse 78 08/08/21 07:28 Resp 18 08/08/21 07:28 BP 132/76 08/08/21 07:28 Pulse Ox 98 08/08/21 07:28 Body Mass Index 26.3 Chemistry 08/06/21 08/07/21 08/08/21 04:37 11:30 05:32 Sodium 129 L 129 L 114 L* Potassium 4.4 4.9 4.2 Carbon Dioxide 23 23 17 L BUN 38 H 62 H D 62 H Creatinine 1.36 1.95 H 2.23 H Calcium 9.4 9.9 7.9 L D Phosphorus 3.6 6.3 H Const: Other: Looks well General: comfortable and no acute distress Resp: Effort & Inspection: normal respiratory effort Cardio: Rate: regular rate GI: Other: Stoma functioning well, good output Palpation (GI): Soft to palpation, not firm, nontender and no guarding Procedures Date of Service Date of Service: 08/08/21 Progress Note: A&P Assessment and plan (1) Postoperative ileus: Status: Acute Assessment and Plan: Status post low anterior resection Stoma functioning well now Patient feels much better Likely advance diet later today Repeat sodium - may be falsely low, probably drawn near infusion site Hold TPN temporarily Continue normal saline Clinically much improved Hyponatremia discussed with hospitalist and Nephrology Service Fall Risk Details Current Medications: Current Medications Benzocaine (Throat Lozenge, Medicated Lozenge) 1 lozenge MUCOUS MEM Q2H PRN PRN Reason: Sore Throat Last Admin: 08/06/21 16:17 Dose: 1 lozenge Documented by: Heparin Sodium (Porcine) (Heparin Sodium,Porcine 5,000 Unit/Ml Vial) 5,000 unit SUBCUT Q12H [facility] Last Admin: 08/07/21 19:46 Dose: 5,000 unit Documented by: Promethazine HCl 12.5 mg/ (Sodium Chloride) 50.5 mls @ 202 mls/hr IV Q6H PRN PRN Reason: Nausea Last Infusion: 08/07/21 10:16 Dose: Infused Documented by: Potassium Chloride 20 meq/Sodium Chloride 90 meq/Calcium Gluconate 9.3 meq/Trace Metals 1.4 ml/ Amino Acids/Dextrose 1,440 mls @ 60 mls/hr IVCONT DAILY@1800 [facility] Stop: 08/08/21 17:59 Last Admin: 08/07/21 18:19 Dose: 60 mls/hr Documented by: Fat Emulsion Intravenous (Intralipid) 336 mls @ 28 mls/hr IVCONT DAILY@1800 [facility] Stop: 08/09/21 05:59 Last Infusion: 08/08/21 05:25 Dose: 0 mls/hr Documented by: Sodium Chloride (Ns) 1,000 mls @ 75 mls/hr IVCONT .[id number] [facility] Last Admin: 08/08/21 02:31 Dose: 75 mls/hr Documented by: Ketorolac Tromethamine (Ketorolac Tromethamine 15 Mg/Ml Vial) 15 mg IVPUSH Q6H PRN PRN Reason: Pain, Severe (Pain Scale 7-10) Last Admin: 08/07/21 23:13 Dose: 15 mg Documented by: Levothyroxine Sodium (Levothyroxine Sodium 200 Mcg Tablet) 200 mcg PO DAILY@0600 [facility] Last Admin: 08/08/21 05:50 Dose: 200 mcg Documented by: Metoclopramide HCl (Metoclopramide Hcl 10 Mg/2 Ml Vial) 10 mg IVPUSH Q6H PRN PRN Reason: nausea Last Admin: 08/07/21 15:14 Dose: 10 mg Documented by: Multi-Ingred Medicated Throat [place] (Throat [place], Medicated 20 Ml Bottle) 1 spray MUCOUS MEM Q2H PRN PRN Reason: Dry Mouth Last Admin: 08/02/21 16:25 Dose: 1 spray Documented by: Naloxone HCl (Naloxone Hcl 0.4 Mg/Ml Vial) 0.2 mg IVPUSH Q2M PRN PRN Reason: Excessive sedation or RR < 8 Ondansetron HCl (Ondansetron Hcl 4 Mg/2 Ml Vial) 4 mg IVPUSH Q8H PRN PRN Reason: Nausea and Vomiting Last Admin: 08/07/21 06:05 Dose: 4 mg Documented by: Pantoprazole Sodium (Pantoprazole Sodium 40 Mg/10 Ml Vial) 40 mg IVPUSH BID@0630,1630 [facility] Last Admin: 08/08/21 05:50 Dose: 40 mg Documented by: Sodium Chloride (0.9 % Sodium Chloride Flush 3 Ml Syringe) 3 ml IVFLUSH QSHIFT [facility] Last Admin: 08/08/21 02:15 Dose: Not Given Documented by: Sodium Chloride (0.9 % Sodium Chloride Flush 10 Ml Syringe) 5 ml IVFLUSH TID [facility] Last Admin: 08/07/21 23:41 Dose: Not Given Documented by: Time Spent With Patient Time: Total time spent is greater than 50% in coordination of care (as documented) at patient's floor/unit and/or counseling patient: Time with patient: 15 - 24 minutes Quality Stroke Does the patient have a stroke diagnosis?: No VTE Prior VTE?: No VTE Risk Level:: Surgical - high VTE Device Contraindication: N/A - Device Ordered VTE Drug Contraindication: N/A - Med Ordered
[2021-08-08 08:21] LABS: Anion Gap 15 (12-20); Blood Urea Nitrogen 71 mg/dL (9-16); Calcium 9.2 mg/dL (8.4-10.2); Carbon Dioxide 26 mmol/L (22-29); Chloride 93 mmol/L (96-108); Creatinine Clr Calc Pharmacy 37.7; Estimated Glomerular Filt Rate 36; Glucose Random 112 mg/dL (60-115); Potassium 4.7 mmol/L (3.3-5.1); Sodium 129 mmol/L (135-145)
[2021-08-08 08:57] LABS: Osmolality, Serum 298 mosm/kg (281-305)
[2021-08-08] MEDS: Heparin Sodium,Porcine 5,000 UNIT/ML VIAL 5000 UNIT SUBCUT ×2 (10:00→20:22)
[2021-08-08] MEDS: 0.9 % Sodium Chloride Flush 10 ML SYRINGE 5 ML IVFLUSH ×2 (10:01→18:25)
[2021-08-08 10:46] LABS: Sodium Urine Random < 20.0 mmol/L
--- NOTE | 2021-08-08 11:12 | MHC.CLN ---
Addendum entered by Deanne Sigala, ZOFIA 08/08/21 11:48: VISITED WITH PATIENT. WILLING TO TRY ENSURE CLEAR TID. WILL PROVIDE 720 KCAL, 24 G PROTEIN. Original Note: F/U PT CONTINUES WITH CLEAR LIQUID DIET AND TAKING 50-100%. REVIEWED LABS AND DISCUSSED WITH PHARMACY. CONTINUES WITH ELEVATED BUN/Cr. RECOMMEND D15AA5% AT 50 ML/HR WITH 11 ML OF 20% LIPIDS X 12 HRS TO PROVIDE 1116 TOTAL KCALS (15.08 KCAL/KG BASED ON ABW), 59 G PROTEIN (.81 G/KG BASED ON ABW). REPLETE LYTES NEEDED . REDUCED CALORIE AND PROTEIN GOALS DUE TO LABS AND TAKING PO. CONTINUE TO MONITOR DIET UPGRADE, LABS, TPN.
[2021-08-08 11:30] VITALS: BP 119/71; PULSE 84; RESP 18; TEMP 36.3; O2SAT 96
[2021-08-08 12:01] LABS: Phosphorus 4.5 mg/dL (2.7-4.5)
--- NOTE | 2021-08-08 12:53 | MHC.CLN ---
F/U COMMUNICATED WITH Gm BETANCOURT. SURGEON WOULD LIKE TO STOP TPN. THIS FREELANCE DESIGNER COMMUNICATED WITH PHARMACY.
[2021-08-08] MEDS: Throat Lozenge, Medicated LOZENGE 1 LOZENGE MUCOUS MEM (13:30)
[2021-08-08] MEDS: 0.9 % Sodium Chloride 1,000 ML 125 ML IVCONT ×2 (14:13→22:19)
[2021-08-08 15:05] VITALS: BP 125/75; PULSE 75; RESP 18; TEMP 36.3; O2SAT 96
--- NOTE | 2021-08-08 17:15 | CONS_ITS ---
DATE OF SERVICE: 08/08/2021 REASON FOR CONSULTATION: I was asked to see patient to assist in evaluation and management of patient's hyponatremia with a serum sodium this morning of 114, but it was drawn off his TPN line, along with acute kidney injury with an increase in his serum creatinine. HISTORY OF PRESENT ILLNESS: In summary, the patient is a 60-year-old gentleman, status post bowel surgery for rectal cancer and has an ileostomy loop, which was done on July 24. He has been getting TPN and actually he has been advanced to some p.o. food as well. Nurses report high output from his ileostomy. PAST MEDICAL HISTORY: Notable for hyperlipidemia, hypothyroidism, hemorrhoids, rectal cancer. As mentioned, his serum sodium this morning was 114, but that was drawn off the TPN line, and a repeat stat serum sodium is 129. He is also noted to have an increase in serum creatinine this morning at 2.23, a repeat was 1.90. In reviewing his serum creatinines, they typically run 0.8 to 1.0, but were noted to have increased yesterday up to 1.95. His past medical history as mentioned includes rectal cancer, hyperlipidemia, hypothyroidism. MEDICATIONS: Include Synthroid, subcutaneous heparin. He is on TPN and Protonix. ALLERGIES: HE HAS NO KNOWN DRUG ALLERGIES. SOCIAL HISTORY: He is a nonsmoker, nondrinker. No illicit drug use. REVIEW OF SYSTEMS: As noted above. PHYSICAL EXAMINATION: VITAL SIGNS: Blood pressure of 120/70 with a heart rate in the 80s. He is afebrile. HEENT: Head is atraumatic and normocephalic. LUNGS: Clear. CARDIAC: Regular rate and rhythm. ABDOMEN: Soft. EXTREMITIES: Show no edema. LABORATORY DATA: Labs from the show a hemoglobin of 15.1, hematocrit 45, white blood cell count 9.7. From this morning at 8 a.m., sodium 129, potassium 4.7, chloride 93, bicarb 26, BUN 71, creatinine 1.90. As mentioned, there was a sodium of 114, but that was drawn off the TPN line. His serum sodiums have been in the 129-133 range. His creatinines, as mentioned, typically have been in the 0.7 to 1.0 range; just in the past 48 hours, it has increased up to 1.9. IMPRESSION: Acute kidney injury in a patient status post bowel surgery with an ileostomy and high output from his ileostomy. 1. Acute kidney injury. This is most consistent with renal hypoperfusion. He most likely has gotten dehydrated from high output from his ileostomy. Other possibilities seem less likely given his clinical presentation. We have a urine sodium already back that was less than 20, consistent with decreased renal perfusion from intravascular volume depletion. 2. Hyponatremia. This is multifactorial. His blood sugars have been running a bit on the high side, so there is a component of pseudohyponatremia. He most likely has a component of hyponatremia. SUGGESTIONS: At this time include increase his fluids with some normal saline. May need to adjust his TPN, so fluids which can worsen the hyponatremia. We will follow the patient closely with the team. MD ISHAN Strickland/YUSUF / [id number]
[2021-08-08 18:56] VITALS: BP 141/78; PULSE 79; RESP 18; TEMP 36.2; O2SAT 99
[2021-08-08 23:43] VITALS: BP 115/67; PULSE 71; RESP 17; TEMP 36.2; O2SAT 96
[2021-08-09] MEDS: ondansetron HCL 4 MG/2 ML VIAL IVPUSH (01:08)
[2021-08-09 02:38] LABS: MANUAL DIFF FLAG NO
[2021-08-09 02:39] LABS: Basophils Percent Auto 0.4 % (0-2); Eosinophils Absolute Auto 0.2 X10*3/uL (0.0-0.4); Eosinophils Percent Auto 1.5 % (0-4); Hematocrit 42.2 % (42-52); Hemoglobin 14.6 g/dl (14.0-18.0); Imm Gran Abs Auto 0.51 X10*3/uL (0.00-0.03); Imm Gran Pct Auto 4.9 % (0.0-0.4); Lymphocytes Absolute Auto 1.8 X10*3/uL (1.2-4.9); Lymphocytes Percent Auto 16.8 % (20-40); Mean Corpuscular HGB Conc 34.6 g/dl (31.0-36.0); Mean Corpuscular Hemoglobin 30.8 pg (27.0-33.0); Mean Platelet Volume 8.7 fL (9.4-12.4); Monocytes Absolute Auto 0.8 X10*3/uL (0.1-1.2); Monocytes Percent Auto 7.6 % (2-11); Neutrophils Absolute Auto 7.2 X10*3/uL (2.0-8.3); Neutrophils Percent Auto 68.8 % (45-73); Platelet Count 475 X10*3/uL (160-400); Red Blood Count 4.74 X10*6/uL (4.60-5.80); Red Cell Distribution Width 13.8 % (11.0-16.0); White Blood Count 10.5 X10*3/uL (4.8-10.8)
[2021-08-09 02:56] LABS: Anion Gap 17 (12-20); Blood Urea Nitrogen 47 mg/dL (9-16); Carbon Dioxide 18 mmol/L (22-29); Chloride 101 mmol/L (96-108); Creatinine Clr Calc Pharmacy 56.9; Estimated Glomerular Filt Rate 59; Potassium 4.1 mmol/L (3.3-5.1); Sodium 132 mmol/L (135-145)
[2021-08-09 03:48] VITALS: BP 109/65; PULSE 73; RESP 18; TEMP 36.5; O2SAT 96
[2021-08-09] MEDS: 0.9 % Sodium Chloride 1,000 ML 125 ML IVCONT ×2 (04:46→14:10)
[2021-08-09] MEDS: Levothyroxine Sodium 200 MCG TABLET PO (06:31)
[2021-08-09] MEDS: 0.9 % Sodium Chloride Flush 10 ML SYRINGE 5 ML IVFLUSH ×3 (07:53→20:38)
[2021-08-09] MEDS: 0.9 % Sodium Chloride Flush 3 ML SYRINGE IVFLUSH (07:53)
[2021-08-09 07:57] VITALS: BP 109/70; PULSE 71; RESP 18; TEMP 36.5; O2SAT 97
[2021-08-09 08:00] VITALS: BMI 27.0
[2021-08-09 08:13] LABS: Glucose, Whole Blood 112 mg/dL (60-115)
--- NOTE | 2021-08-09 09:04 | PM.PNGS ---
Subjective Subjective Date of Service: 08/09/21 <Paulina Mccabe PA-C - Last Filed: 08/09/21 09:10> 08/09/21 <Mack Michel MD - Last Filed: 08/09/21 12:15> Interval history: Feeling better- tolerated dinner and breakfast this morning without nausea/vomiting or worsening abdominal pain/bloating. Does have some throat discomfort that has been present for multiple days. <Paulina Mccabe PA-C - Last Filed: 08/09/21 09:10> Physical Exam Vital Signs: Vital Signs: Last Vital Signs Temp 97.7 F 08/09/21 07:57 Pulse 71 08/09/21 07:57 Resp 18 08/09/21 07:57 BP 109/70 08/09/21 07:57 Pulse Ox 97 08/09/21 07:57 Body Mass Index 27.0 <Paulina Mccabe PA-C - Last Filed: 08/09/21 09:10> Const: General: comfortable, no acute distress and alert <Paulina Mccabe PA-C - Last Filed: 08/09/21 09:10> Orientation/consciousness: patient oriented x3 <Paulina Mccabe PA-C - Last Filed: 08/09/21 09:10> Resp: Effort & Inspection: normal respiratory effort <Paulina Mccabe PA-C - Last Filed: 08/09/21 09:10> GI: Other: ileostomy beefy red, enteric output in appliance <Paulina Mccabe PA-C - Last Filed: 08/09/21 09:10> Inspection: Yes distended (mild) and Yes incision (clean) <Paulina Mccabe PA-C - Last Filed: 08/09/21 09:10> Skin: General skin exam: no rashes or lesions noted <KATHY Overton Last Filed: 08/09/21 09:10> Neuro: General: patient oriented x3 <KATHY Overton Last Filed: 08/09/21 09:10> Extrem: General: Yes no clubbing, cyanosis or edema <Paulina Mccabe PA-C - Last Filed: 08/09/21 09:10> Procedures Date of Service Date of Service: 08/09/21 <Paulina Mccabe PA-C - Last Filed: 08/09/21 09:10> Progress Note: A&P Assessment and plan (1) Postoperative ileus: Status: Acute <Paulina Mccabe PA-C - Last Filed: 08/09/21 09:10> Assessment and Plan: now with good GI function tolerating diet abd remains soft no pain Na, creatinine much better ileostomy output a little high push PO fluids dc planning when lytes remain stable seen and examined - agree with STEVEN Mccabe <Mack Michel MD - Last Filed: 08/09/21 12:15> (2) Rectal cancer: Status: Acute <Paulina Mccabe PA-C - Last Filed: 08/09/21 09:10> (3) Hyponatremia: Status: Acute <Paulina Mccabe PA-C - Last Filed: 08/09/21 09:10> Assessment and Plan: 60 year old male who is 16 days s/p TIN low anterior resection with loop ileostomy for rectal CA. Had prolonged ileus which is now resolved. He has had electrolyte abnormalties- seen by renal who started on 0.9% NS IVF with improvement in hyponatremia and Cr this morning. He is tolerating a solid diet. His ostomy is functioning well but with high output. VSS. Abd exam benign- decreasingly distended, NT, kraig removed yesterday. Will start on metamucil to bulk up stools as the high output may be contributing to his electrolyte abnl. TPN has been stopped. Hopefully ready for discharge with VNA in the next 1-2 days when electrolytes remain stable. Appreciate nephrology and hospitalist input. <Paulina Mccabe PA-C - Last Filed: 08/09/21 09:10> Fall Risk Details Current Medications: Current Medications Acetaminophen (Acetaminophen 325 Mg Tablet) 650 mg PO Q6H PRN PRN Reason: Pain, Mild (Pain Scale 1-3) Benzocaine (Throat Lozenge, Medicated Lozenge) 1 lozenge MUCOUS MEM Q2H PRN PRN Reason: Sore Throat Last Admin: 08/08/21 13:30 Dose: 1 lozenge Documented by: Heparin Sodium (Porcine) (Heparin Sodium,Porcine 5,000 Unit/Ml Vial) 5,000 unit SUBCUT Q12H [facility] Last Admin: 08/08/21 20:22 Dose: 5,000 unit Documented by: Promethazine HCl 12.5 mg/ (Sodium Chloride) 50.5 mls @ 202 mls/hr IV Q6H PRN PRN Reason: Nausea Last Infusion: 08/07/21 10:16 Dose: Infused Documented by: Sodium Chloride (Ns) 1,000 mls @ 125 mls/hr IVCONT .Q8H [facility] Last Admin: 08/09/21 04:46 Dose: 125 mls/hr Documented by: Levothyroxine Sodium (Levothyroxine Sodium 200 Mcg Tablet) 200 mcg PO DAILY@0600 [facility] Last Admin: 08/09/21 06:31 Dose: 200 mcg Documented by: Metoclopramide HCl (Metoclopramide Hcl 10 Mg/2 Ml Vial) 10 mg IVPUSH Q6H PRN PRN Reason: nausea Last Admin: 08/07/21 15:14 Dose: 10 mg Documented by: Multi-Ingred Medicated Throat [place] (Throat [place], Medicated 20 Ml Bottle) 1 spray MUCOUS MEM Q2H PRN PRN Reason: Dry Mouth Last Admin: 08/02/21 16:25 Dose: 1 spray Documented by: Naloxone HCl (Naloxone Hcl 0.4 Mg/Ml Vial) 0.2 mg IVPUSH Q2M PRN PRN Reason: Excessive sedation or RR < 8 Ondansetron HCl (Ondansetron Hcl 4 Mg/2 Ml Vial) 4 mg IVPUSH Q8H PRN PRN Reason: Nausea and Vomiting Last Admin: 08/09/21 01:08 Dose: 4 mg Documented by: Oxycodone HCl (Oxycodone Hcl Immed Release 5 Mg Tablet) 5 mg PO Q4H PRN PRN Reason: Pain, Moderate (Pain Scale 4-6 Sodium Chloride (0.9 % Sodium Chloride Flush 3 Ml Syringe) 3 ml IVFLUSH QSHIFT [facility] Last Admin: 08/09/21 07:53 Dose: 3 ml Documented by: Sodium Chloride (0.9 % Sodium Chloride Flush 10 Ml Syringe) 5 ml IVFLUSH TID [facility] Last Admin: 08/09/21 07:53 Dose: 5 ml Documented by: <Paulina Mccabe PA-C - Last Filed: 08/09/21 09:10> Time Spent With Patient Time: Total time spent is greater than 50% in coordination of care (as documented) at patient's floor/unit and/or counseling patient: <Paulina Mccabe PA-C - Last Filed: 08/09/21 09:10> Time with patient: 15 - 24 minutes <Paulina Mccabe PA-C - Last Filed: 08/09/21 09:10> Quality Stroke Does the patient have a stroke diagnosis?: No <Paulina Mccabe PA-C - Last Filed: 08/09/21 09:10> VTE Prior VTE?: No <Paulina Mccabe PA-C - Last Filed: 08/09/21 09:10> VTE Risk Level:: Surgical - high <Paulina Mccabe PA-C - Last Filed: 08/09/21 09:10> VTE Device Contraindication: N/A - Device Ordered <Paulina Mccabe PA-C - Last Filed: 08/09/21 09:10> VTE Drug Contraindication: N/A - Med Ordered <Paulina Mccabe PA-C - Last Filed: 08/09/21 09:10>
[2021-08-09] MEDS: Heparin Sodium,Porcine 5,000 UNIT/ML VIAL 5000 UNIT SUBCUT ×2 (09:37→20:37)
[2021-08-09 11:36] VITALS: BP 110/70; PULSE 74; RESP 17; TEMP 36.2; O2SAT 98
--- NOTE | 2021-08-09 14:07 | PM.PNNEP ---
Subjective Subjective Date of Service: 08/09/21 Principal diagnosis: truman Interval history: seen and examined, events noted Physical Exam Vital Signs: Vital Signs: Last Vital Signs Temp 97.1 F 08/09/21 11:36 Pulse 74 08/09/21 11:36 Resp 17 08/09/21 11:36 BP 110/70 08/09/21 11:36 Pulse Ox 98 08/09/21 11:36 Body Mass Index 27.0 Const: Other: Looks well General: cooperative, healthy appearing, comfortable, no acute distress, well developed, alert, in distress mild and other (uncomfortable appearing) Nutritional Appearance: well nourished Orientation/consciousness: patient oriented x3 Limitations: no limitations and No language barrier HENMT: Other: NGT in place right nare Eyes: Sclerae: sclerae normal Resp: Effort & Inspection: normal respiratory effort Cardio: Rate: regular rate GI: Other: ileostomy beefy red, enteric output in appliance Inspection: Yes distended (mild) and Yes incision (clean) Palpation (GI): Soft to palpation, not firm, nontender, no guarding and not rigid Percussion: Yes normal to percussion and Yes tympanic to percussion Auscultation: Absent bowel sounds : Other: Urine now clear bloody Skin: General skin exam: no rashes or lesions noted Neuro: General: patient oriented x3 Extrem: General: Yes no clubbing, cyanosis or edema Objective Data Labs CBC & Chem 7: 08/09/21 02:33 08/09/21 02:33 Labs: Laboratory Results - last 24 hr 08/09/21 08/09/21 08/09/21 02:33 02:33 08:00 WBC 10.5 RBC 4.74 Hgb 14.6 Hct 42.2 MCV 89.0 MCH 30.8 MCHC 34.6 RDW 13.8 Plt Count 475 H MPV 8.7 L Immature Gran % (Auto) 4.9 H Neut % (Auto) 68.8 Lymph % (Auto) 16.8 L [place] % (Auto) 7.6 Eos % (Auto) 1.5 Baso % (Auto) 0.4 Lymph # (Auto) 1.8 [place] # (Auto) 0.8 Eos # (Auto) 0.2 Baso # (Auto) 0.0 Abs Immat Gran (auto) 0.51 H Absolute Neuts (auto) 7.2 Absolute Nucleated RBC 0.000 Nucleated RBC % (auto) 0.0 Sodium 132 L Potassium 4.1 Chloride 101 Carbon Dioxide 18 L Anion Gap 17 BUN 47 H Creatinine 1.26 Estim Creat Clear Calc 56.9 Estimated GFR 59 POC Glucose 112 Procedures Date of Service Date of Service: 08/09/21 Assessment & Plan Assessment and plan (1) Rectal cancer: Status: Acute (2) Hyponatremia: Start date: 08/09/21 Start time: 14:09 Status: Acute Assessment and Plan: 1. TRUMAN: resovedwIVF c/w dehydration/pre-renal 2. HypoNA: lab erro for the 114; SNaimprovingwith IV NS REC: decr IVF to 50 ml/hrandd/c once taking adequate PO Time Spent With Patient Time: Total time spent is greater than 50% in coordination of care (as documented) at patient's floor/unit and/or counseling patient: Progress Note: Quality Stroke Does the patient have a stroke diagnosis?: No
[2021-08-09 15:24] VITALS: BP 118/68; PULSE 74; RESP 18; TEMP 36.8; O2SAT 97
[2021-08-09] MEDS: 0.9 % Sodium Chloride 1,000 ML 50 ML IVCONT (16:00)
[2021-08-09 19:24] VITALS: BP 134/73; PULSE 74; RESP 18; TEMP 36.7; O2SAT 99
[2021-08-09] MEDS: Famotidine/PF 20 MG/2 ML VIAL IVPUSH (21:10)
[2021-08-09 23:27] VITALS: BP 115/71; PULSE 70; RESP 17; TEMP 36.2; O2SAT 97
[2021-08-10 03:34] VITALS: BP 103/63; PULSE 69; RESP 17; TEMP 36.2; O2SAT 97
[2021-08-10] MEDS: Levothyroxine Sodium 200 MCG TABLET PO (05:39)
[2021-08-10 06:43] LABS: Anion Gap 13 (12-20); Blood Urea Nitrogen 26 mg/dL (9-16); Calcium 8.8 mg/dL (8.4-10.2); Carbon Dioxide 20 mmol/L (22-29); Chloride 106 mmol/L (96-108); Creatinine Clr Calc Pharmacy 72.5; Estimated Glomerular Filt Rate > 60; Glucose Fasting 95 mg/dL (60-99); Potassium 4.6 mmol/L (3.3-5.1); Sodium 134 mmol/L (135-145)
[2021-08-10 08:00] VITALS: BP 135/73; PULSE 71; RESP 16; TEMP 36.4; O2SAT 98
[2021-08-10 08:45] LABS: Glucose, Whole Blood 95 mg/dL (60-115)
[2021-08-10] MEDS: Heparin Sodium,Porcine 5,000 UNIT/ML VIAL 5000 UNIT SUBCUT (10:20)
[2021-08-10] MEDS: 0.9 % Sodium Chloride Flush 10 ML SYRINGE 5 ML IVFLUSH (10:21)
--- NOTE | 2021-08-10 11:06 | P.PNNP_ITS ---
Subjective Subjective Date of Service: 08/10/21 Principal diagnosis: truman Interval history: seen and examined, events noted Physical Exam Vital Signs: Vital Signs: Last Vital Signs Temp 97.6 F 08/10/21 08:00 Pulse 71 08/10/21 08:00 Resp 16 08/10/21 08:00 BP 135/73 08/10/21 08:00 Pulse Ox 98 08/10/21 08:00 Body Mass Index 27.0 Const: Other: Looks well General: cooperative, healthy appearing, comfort able, no acute distress, well developed, alert, in distress mild and other (uncomfortable appearing) Nutritional Appearance: well nourished Orientation/consciousness: patient oriented x3 Limitations: no limitations and No language barrier HENMT: Other: NGT in place right nare Eyes: Sclerae: sclerae normal Resp: Effort & Inspection: normal respiratory effort Cardio: Rate: regular rate GI: Other: ileostomy beefy red, enteric output in appliance Inspection: Yes distended (mild) and Yes incision (clean) Palpation (GI): Soft to palpation, not firm, nontender, no guarding and not rigid Percussion: Yes normal to percussion and Yes tympanic to percussion Auscultation: Absent bowel sounds : Other: Urine now clear bloody Skin: General skin exam: no rashes or lesions noted Neuro: General: patient oriented x3 Extrem: General: Yes no clubbing, cyanosis or edema Objective Data Labs CBC & Chem 7: 08/09/21 02:33 08/10/21 05:49 Labs: Laboratory Results - last 24 hr 08/10/21 08/10/21 05:49 08:07 Sodium 134 L Potassium 4.6 Chloride 106 Carbon Dioxide 20 L Anion Gap 13 BUN 26 H Creatinine 0.99 Estim Creat Clear Calc 72.5 Estimated GFR > 60 POC Glucose 95 Fasting Glucose 95 D Calcium 8.8 Procedures Date of Service Date of Service: 08/10/21 Assessment & Plan Assessment and plan (1) Hyponatremia: Status: Acute Assessment and Plan: 1. TRUMAN: resovedwIVF c/w dehydration/pre-renal 2. HypoNA: lab erro for the 114; SNa improved now and incr BS causing a component of psuedohypoNa REC: d/c ivf; ok tod/c from renal standpoint now that he is taking po; get labs next week; I will arrange f/u with me in 3-4 monthsfor ques risk of CKD given h/o TRUMAN event Time Spent With Patient Time: Total time spent is greater than 50% in coordination of care (as documented) at patient's floor/unit and/or counseling patient: Progress Note: Quality Stroke Does the patient have a stroke diagnosis?: No
--- NOTE | 2021-08-10 11:11 | P.PNGS_ITS ---
Subjective Subjective Date of Service: 08/10/21 <Paulina Mccabe PA-C - Last Filed: 08/10/21 11:17> 08/10/21 <Mack Michel MD - Last Filed: 08/10/21 13:01> Interval history: Feels well. Tolerating solid food. Denies nausea, vomiting, increased abdominal pain or bloating. Ostomy output bulking up. OOB and ambulating. <Paulina Mccabe PA-C - Last Filed: 08/10/21 11:17> Physical Exam Vital Signs: Vital Signs: Last Vital Signs Temp 97.6 F 08/10/21 08:00 Pulse 71 08/10/21 08:00 Resp 16 08/10/21 08:00 BP 135/73 08/10/21 08:00 Pulse Ox 98 08/10/21 08:00 Body Mass Index 27.0 <KATHY Overton Last Filed: 08/10/21 11:17> Const: General: comfortable, no acute distress and alert <Paulina Mccabe PA-C - Last Filed: 08/10/21 11:17> Orientation/consciousness: patient oriented x3 <KATHY Overton Last Filed: 08/10/21 11:17> Eyes: Sclerae: sclerae normal <KATHY Overton Last Filed: 08/10/21 11:17> Resp: Effort & Inspection: normal respiratory effort <Paulina Mccabe PA-C - Last Filed: 08/10/21 11:17> Cardio: Rate: regular rate <KATHY Overton Last Filed: 08/10/21 11:17> GI: Other: ostomy beefy red, output becoming less liquidy <KATHY Overton Last Filed: 08/10/21 11:17> Inspection: No distended and Yes incision (clean) <KATHY Overton Last Filed: 08/10/21 11:17> Palpation (GI): Soft to palpation, nontender, no guarding and not rigid <KATHY Overton Last Filed: 08/10/21 11:17> Percussion: Yes normal to percussion <Paulina Mccabe PA-C - Last Filed: 08/10/21 11:17> Skin: General skin exam: no rashes or lesions noted <Paulina Mccabe PA-C - Last Filed: 08/10/21 11:17> Neuro: General: patient oriented x3 <KATHY Overton Last Filed: 08/10/21 11:17> Extrem: General: Yes no clubbing, cyanosis or edema <Paulina Mccabe PA-C - Last Filed: 08/10/21 11:17> Procedures Date of Service Date of Service: 08/10/21 <Paulina Mccabe PA-C - Last Filed: 08/10/21 11:17> Progress Note: A&P Assessment and plan (1) Hyponatremia: Status: Acute <KATHY Overton Last Filed: 08/10/21 11:17> (2) Postoperative ileus: Status: Acute <KATHY Overton Last Filed: 08/10/21 11:17> (3) Rectal cancer: Status: Acute <KATHY Overton Last Filed: 08/10/21 11:17> Assessment and Plan: 60 year old male who is over two weeks s/p TIN low anterior resection with loop ileostomy for rectal CA. Had prolonged ileus which is now resolved. He had electrolyte abnormalties- seen by renal who started on 0.9% NS IVF with improvement in hyponatremia and Cr. He is tolerating a solid diet. His ostomy is functioning well- output slowing. VSS. Abd exam benign- NTND, kraig removed. Continue metamucil for ileostomy output. Na improved and almost normal. Stable for discharge to home with repeat labs next week per nephrology. Discharge with VNA services. Patient comfortable with plan. <Paulina Mccabe PA-C - Last Filed: 08/10/21 11:17> 60 year old male who is over two weeks s/p TIN low anterior resection with loop ileostomy for rectal CA. Had prolonged ileus which is now resolved. He had electrolyte abnormalties- seen by renal who started on 0.9% NS IVF with improvement in hyponatremia and Cr. He is tolerating a solid diet. His ostomy is functioning well- output slowing. VSS. Abd exam benign- NTND, kraig removed. Continue metamucil for ileostomy output. Na improved and almost normal. Stable for discharge to home with repeat labs next week per nephrology. Discharge with VNA services. Patient comfortable with plan. Patient remains comfortable Good p.o. intake Tolerating diet well Stoma functioning well - less watery Abdomen remained soft Patient doing very well Okay to DC home Repeat lytes next week Discussed with nephrology Discharge instructions explained Seen and examined independently <Mack Michel MD - Last Filed: 08/10/21 13:01> Fall Risk Details Current Medications: Current Medications Acetaminophen (Acetaminophen 325 Mg Tablet) 650 mg PO Q6H PRN PRN Reason: Pain, Mild (Pain Scale 1-3) Benzocaine (Throat Lozenge, Medicated Lozenge) 1 lozenge MUCOUS MEM Q2H PRN PRN Reason: Sore Throat Last Admin: 08/08/21 13:30 Dose: 1 lozenge Documented by: Heparin Sodium (Porcine) (Heparin Sodium,Porcine 5,000 Unit/Ml Vial) 5,000 unit SUBCUT Q12H [facility] Last Admin: 08/10/21 10:20 Dose: 5,000 unit Documented by: Promethazine HCl 12.5 mg/ (Sodium Chloride) 50.5 mls @ 202 mls/hr IV Q6H PRN PRN Reason: Nausea Last Infusion: 08/07/21 10:16 Dose: Infused Documented by: Sodium Chloride (Ns) 1,000 mls @ 50 mls/hr IVCONT .Q20H [facility] Last Admin: 08/10/21 10:31 Dose: Not Given Documented by: Levothyroxine Sodium (Levothyroxine Sodium 200 Mcg Tablet) 200 mcg PO DAILY@0600 [facility] Last Admin: 08/10/21 05:39 Dose: 200 mcg Documented by: Metoclopramide HCl (Metoclopramide Hcl 10 Mg/2 Ml Vial) 10 mg IVPUSH Q6H PRN PRN Reason: nausea Last Admin: 08/07/21 15:14 Dose: 10 mg Documented by: Multi-Ingred Medicated Throat Miller (Throat Miller, Medicated 20 Ml Bottle) 1 spray MUCOUS MEM Q2H PRN PRN Reason: Dry Mouth Last Admin: 08/02/21 16:25 Dose: 1 spray Documented by: Naloxone HCl (Naloxone Hcl 0.4 Mg/Ml Vial) 0.2 mg IVPUSH Q2M PRN PRN Reason: Excessive sedation or RR < 8 Ondansetron HCl (Ondansetron Hcl 4 Mg/2 Ml Vial) 4 mg IVPUSH Q8H PRN PRN Reason: Nausea and Vomiting Last Admin: 08/09/21 01:08 Dose: 4 mg Documented by: Oxycodone HCl (Oxycodone Hcl Immed Release 5 Mg Tablet) 5 mg PO Q4H PRN PRN Reason: Pain, Moderate (Pain Scale 4-6 Psyllium Hydrophilic Mucilloid (Psyllium Seed 3.4 Gm Powd.Pack) 3.4 gm PO DAILY [facility] Last Admin: 08/10/21 10:20 Dose: 3.4 gm Documented by: Sodium Chloride (0.9 % Sodium Chloride Flush 3 Ml Syringe) 3 ml IVFLUSH QSHIFT [facility] Last Admin: 08/10/21 09:29 Dose: Not Given Documented by: Sodium Chloride (0.9 % Sodium Chloride Flush 10 Ml Syringe) 5 ml IVFLUSH TID [facility] Last Admin: 08/10/21 10:21 Dose: 5 ml Documented by: <Paulina Mccabe PA-C - Last Filed: 08/10/21 11:17> Time Spent With Patient Time: Total time spent is greater than 50% in coordination of care (as documented) at patient's floor/unit and/or counseling patient: <Paulina Mccabe PA-C - Last Filed: 08/10/21 11:17> Time with patient: 15 - 24 minutes <Paulina Mccabe PA-C - Last Filed: 08/10/21 11:17> Quality Stroke Does the patient have a stroke diagnosis?: No <Paulina Mccabe PA-C - Last Filed: 08/10/21 11:17> VTE Prior VTE?: No <KATHY Overton Last Filed: 08/10/21 11:17> VTE Risk Level:: Surgical - high <Paulina Mccabe PA-C - Last Filed: 08/10/21 11:17> VTE Device Contraindication: N/A - Device Ordered <Paulina Mccabe PA-C - Last Filed: 08/10/21 11:17> VTE Drug Contraindication: N/A - Med Ordered <Paulina Mccabe PA-C - Last Filed: 08/10/21 11:17>
--- NOTE | 2021-08-10 11:18 | P.DS_ITS ---
DS: Providers Provider Date of Service: 08/10/21 Date of admission: 07/24/21 14:39 Primary care physician: Chica Law MD Attending physician on admission: Mack Michel Consults: 07/26/21 08:21 Consult to Urology Routine Consulting Provider: Julian Quijano Reason for consultation: hematuria postop 07/27/21 09:17 Consult to Urology Routine Consulting Provider: Julian Quijano Reason for consultation: hematuria 08/08/21 07:30 Consult to Nephrology Routine Consulting Provider: Jayesh Bernal Reason for consultation: hyponatremia Has provider been notified: No DS: Diagnosis Discharge Diagnosis (1) Hyponatremia: Status: Acute (2) Postoperative ileus: Status: Acute (3) Rectal cancer: Status: Acute DS: Summary Hospital Course Hospital Course: BRIEF HPI: The patient is a 60-year-old male who had been diagnosed last year with rectal cancer at about level 8 cm.? He underwent neoadjuvant chemotherapy and radiation.? He had a repeat flexible sigmoidoscopy last month which showed that there was good response to neoadjuvant chemotherapy and radiation.? He now presents for hand assisted laparoscopic low anterior resection with possible loop ileostomy. HOSPITAL COURSE: On 07/24/21, a hand assisted laparoscopic low anterior resection, with intraop flexible sigmoidoscopy, diverting loop ileostomy was performed by Dr. Mack Michel without complication. The patient tolerated the procedure well and completed routine recovery in PACU. He was admitted to the medical/surgical floor for observation. The patient had a long recovery course complicated by a prolonged post operative ileus, hyponatremia and TRUMAN. 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 He did have some bilious output from his ileostomy even on POD #1. From there, his pain worsened along with nausea/vomiting and increasing abdominal distention on POD#2. An NGT was inserted and placed on low intermittent suction with improvement in symptoms. ABD Xray showed dilated small bowel loops consistent with post operative ileus. He was kept NPO with NGT decompression for over a week due to persistent distention. He however did have ileostomy output during this time but only a small amount of flatus from the ostomy. Also during the first few post operative days, his west was kept in place as he had hematuria. Heparin was held and this eventually resolved on its own. Urology was consulted and said it was ok to remove west and it was discontinued. He began to void on his own. His ileostomy output gradually increased and NGT output gradually decreased. A PICC line was placed and TPN initiated given the prolonged NPO. His NGT was eventually removed and started on sips of clears. He however had persistent nausea for a couple days but was tolerating a small amount of clear liquids. His nausea and distention improved and his ostomy output became high. He was advanced to a low residue diet. He developed an TRUMAN and hyponatremia. Nephrology was consulted and at this point his TPN was discontinued and started on NS IVF. It was possibly secondary to hypovolemia due to the high ostomy output and pseudohyponatremia with an elevated blood glucose. His labs improved and Cr normalized and sodium almost normalized at the time of discharge. He was started on metamucil to bulk up his ostomy output and his output began to decrease. On the day of discharge, he was tolerating a solid diet without N/V, worsening abdominal pain or distention and ambulating without difficulty. His abdomen was benign with clean incision (kraig removed), NTND, viable ostomy with good output. HE was discharged to home on 08/10/21 in stable condition with VNA services. He is to follow up with Dr. Bernal of nephrology in 3-[address] Michel in the office in 1 week. He is to have an outpatient BMP next week. Status at Discharge Functional status at discharge: independent ambulation Overall status at discharge: patient is progressing back to baseline Time Spent with Patient Time attestation: Total time spent providing and/or coordinating discharge services: Discharge coordination time: Greater than 30 minutes Quality: Stroke Does the patient have a stroke diagnosis?: No Physical Exam Vital Signs: Vital Signs: Last Vital Signs Temp 97.6 F 08/10/21 08:00 Pulse 71 08/10/21 08:00 Resp 16 08/10/21 08:00 BP 135/73 08/10/21 08:00 Pulse Ox 98 08/10/21 08:00 Body Mass Index 27.0 Const: General: comfortable, no acute distress and alert Orientation/consciousness: patient oriented x3 Resp: Effort & Inspection: normal respiratory effort GI: Other: ostomy beefy red, large amount of enteric output Inspection: No distended and Yes incision (clean) Palpation (GI): Soft to palpation, nontender, no guarding and not rigid Skin: General skin exam: no rashes or lesions noted Neuro: General: patient oriented x3 Extrem: General: Yes no clubbing, cyanosis or edema DS: Data Data Completed and Pending Completed studies during hospitalization [Text1]: 07/24/21 13:34 Surgical [PTH] Routine A.? Colon, rectosigmoid, resection: - Colonic tissue with patchy ulceration and architectural changes consistent with neoadjuvant treatment. - No residual adenocarcinoma seen. - One lymph node negative for metastatic carcinoma. B.? Rectum, distal margin, excision: - Benign fibrovascular and adipose tissue; no carcinoma seen. - One lymph node negative for metastatic carcinoma. Labs on day of discharge: Laboratory Results - last 24 hr 08/10/21 08/10/21 05:49 08:07 Sodium 134 L Potassium 4.6 Chloride 106 Carbon Dioxide 20 L Anion Gap 13 BUN 26 H Creatinine 0.99 Estim Creat Clear Calc 72.5 Estimated GFR > 60 POC Glucose 95 Fasting Glucose 95 D Calcium 8.8 Discharge Plan Discharge Patient Disposition: Home Health Service Discharge Diagnosis: s/p TIN low anterior resection with loop ileostomy Referrals: [facility] [Outside] - 1 Day Mack Michel MD [Physician] - 08/13/21 Po,Chica Howard MD [Primary Care Provider] - 1 Week Jayesh Bernal MD [Physician] - 3 Months Discharge Medications: New oxycodone 5 mg tablet 5 mg PO Q4H PRN (Reason: pain (scale score 7-10)) Qty: 24 RF: 0 Metamucil 3.4 gram/5.4 gram powder 3.4 g PO DAILY Qty: 660 RF: 0 Continued levothyroxine 200 mcg tablet 200 mcg PO DAILY Qty: 90 RF: 1 Discharge Orders: Discharge Order (Routine); Ordered 08/10/21 Ordered By: Paulina Mccabe Diet: other Activity on Discharge: No heavy lifting Stand Alone Forms: Patient Portal Discharge page Other Ambulatory Orders: Basic Metabolic Panel (Routine) Timeframe: [id number] Facility: [facility] - Location: Laboratory Ordered By: Paulina Mccabe Activity Restrictions/Additional Instructions: If the incision area is tender, you may apply an ice pack for short intervals (No more than 20 minutes on, followed by at least 20 minutes off). Do not apply heat. Do not use creams, lotions, or topical antibiotics unless instructed to do so by your surgeon. These can cause infection or allergic reaction. Ok to shower. NO HEAVY LIFTING (>10lbs). Follow up in office. ([phone]) Appointment on 08/13. COLOSTOMY APPLIANCE: [facility] #[id number] Call Your Doctor If: -Your temperature exceeds 101.5? F -You experience excessive pain or swelling -You have an unexpected reaction to medication -You have excessive bleeding -You experience continued vomiting/nausea -Your incision begins to separate -Your incision shows signs of infection such as increased redness, swelling, excessive pain, drainage (light blood or clear fluid is normal) or heat Care Plan Goals: Return to baseline health and gradual return to activity following recovery period. Health Concerns: s/p TIN low anterior resection with loop ileostomy Plan of Treatment: discharge to home with VNA services, f/u in office Assessment: Doing well post op Discharge Date/Time: 08/10/21 13:10
--- NOTE | 2021-08-10 11:37 | W.MHC.F2F ---
Documented by User: Paulina Mccabe PA-C 08/10/21 11:39 Service Date Service Date: 08/10/21 Encounter Date of encounter: 08/10/21 Reasons for Services Signs and symptoms assessed: Abdominal pain, ileostomy output, electrolytes Reason for shelter: other (ileostomy care) Homebound: Leaving the home is medically contraindicated at this time without the asist of a device and/or another person due the the listed conditions above and below. Reason homebound: weakness related to hospital stay and unable to drive Homebound supporting statement: Mr. Juan is two weeks s/p TIN low anterior resection with diverting loop ileostomy. His recovery course was complicated by a prolonged post op ileus, electrolyte abnormalities and TRUMAN. He is weak due to the prolonged hospital stay and will need home services to assist in his ileostomy care. Certification: Based on the above findings, I certify that this patient is confined to the home and needs intermittent shelter care, physical therapy and/or speech therapy, or continues to need occupational therapy. The patient is under my care, and I have initiated the establishment of the plan of care. The patient will be followed by a physician who will periodically review the plan of care.
--- NOTE | 2021-08-10 12:12 | HO.PICC ---
PICC Line Insertion Removal of NPICC Diagnosis: [Ileus prolonged NPO] Indication: [Needs TPN] Pertinent Labs: [Reviewed] Removal Of Picc Line DATE: 08/10/21 REASON OF REMOVAL: NO LONGER NEEDED INSERTED LENGTH: 45CM TRIPLE LUMEN PICC REMOVAL LENGTH: 45CM INTACT TRIPLE LUMEN PICC A DRESSING OF 2X2 GAUZE WITH XEROFORM AND TEGADERM WAS APPLIED TO THE LEFT UPPER ARM. NO BLEEDING,EDEMATOUS OR S/S OF INFECTION WERE NOTED.
--- NOTE | 2021-08-10 12:39 | MHC.CM.PN ---
PT DISCHARGING HOME TODAY W/[facility] FOR NEW ILEOSTOMY, PT WILL BE SENT HOME W/SUPPLIES, FAMILY FOR TRANSPORT
--- NOTE | 2021-08-14 15:26 | MHC.CM.PN ---
CM was informed by Residential Property Tax Appraiser that Patient was dc last week and left w/o his dc paperwork/green folder. CM attempted to reach Patient at [phone], but was only able to leave a detailed message, encouraging Patient to call CM to set up a plan for Patient to get his dc paperwork. CM attempted to reach Spouse/Laine at [phone] but the mailbox is full.
== END 2021-08-10 13:10 | disposition home health service (06) | DRG 221 ==
LOC: HO.SSSA 14:53 → HO.S3 16:49
PROVIDERS: Hospitalist; Internal Medicine Nephrology; Physician Assistant Surgical; Surgery; Urology; Admitting Provider Surgery; PCP Internal Medicine; Visit Provider Surgery
PROC: 0DBP0ZZ Excision of Rectum, Open Approach (ICD-10-PCS; principal; 2021-07-24 08:20)
DX: C20 Malignant neoplasm of rectum (principal); N17.9 Acute kidney failure, unspecified; K56.7 Ileus, unspecified; E87.1 Hypo-osmolality and hyponatremia; E86.0 Dehydration; Z20.822 Contact with and (suspected) exposure to COVID-19; Z79.890 Hormone replacement therapy; Z87.891 Personal history of nicotine dependence
CPT/HCPCS: 36415; 36573; 71045; 74018; 74177; 80048; 80051; 80053; 82040; 82310; 82565; 82947; 83735; 83930; 84100; 84300; 84478; 84520; 85007; 85025; 85027; 85610; 86850; 86900; 86901; 87635; 88305; 88309; 99024; C1751; C1758; J0131; J0610; J0690; J1100; J1170; J1885; J2060; J2250; J2270; J2405; J2550; J2765; J3010; Q9967

== ENCOUNTER 2021-08-13 10:03 | Outpatient (REF) | payer OTHER, SELFPAY ==
[2021-08-13 10:21] LABS: MANUAL DIFF FLAG NO
[2021-08-13 10:39] LABS: Basophils Percent Auto 0.4 % (0-2); Eosinophils Absolute Auto 0.2 X10*3/uL (0.0-0.4); Eosinophils Percent Auto 1.5 % (0-4); Hematocrit 40.6 % (42-52); Hemoglobin 13.8 g/dl (14.0-18.0); Imm Gran Abs Auto 0.12 X10*3/uL (0.00-0.03); Imm Gran Pct Auto 1.2 % (0.0-0.4); Lymphocytes Absolute Auto 1.9 X10*3/uL (1.2-4.9); Lymphocytes Percent Auto 19.4 % (20-40); Mean Corpuscular Hemoglobin 30.5 pg (27.0-33.0); Mean Corpuscular Volume 89.6 fL (80-98); Mean Platelet Volume 8.6 fL (9.4-12.4); Monocytes Absolute Auto 0.6 X10*3/uL (0.1-1.2); Neutrophils Percent Auto 71.5 % (45-73); Platelet Count 393 X10*3/uL (160-400); Red Blood Count 4.53 X10*6/uL (4.60-5.80); White Blood Count 9.8 X10*3/uL (4.8-10.8)
[2021-08-13 11:02] LABS: Alanine Aminotransferase 46 U/L (0-40); Albumin Level 4.2 g/dL (3.5-5.0); Alkaline Phosphatase 189 U/L (39-117); Anion Gap 12 (12-20); Aspartate Amino Transferase 18 U/L (5-37); Bilirubin Total 0.4 mg/dL (0.0-1.0); Blood Urea Nitrogen 15 mg/dL (9-16); Calcium 9.5 mg/dL (8.4-10.2); Carbon Dioxide 18 mmol/L (22-29); Chloride 113 mmol/L (96-108); Estimated Glomerular Filt Rate > 60; Glucose Random 117 mg/dL (60-115); Potassium 4.4 mmol/L (3.3-5.1); Sodium 139 mmol/L (135-145); Total Protein 7.1 g/dL (6.5-8.0)
[2021-08-13 11:03] LABS: Anion Gap 12 (12-20); Blood Urea Nitrogen 15 mg/dL (9-16); Calcium 9.4 mg/dL (8.4-10.2); Carbon Dioxide 19 mmol/L (22-29); Chloride 111 mmol/L (96-108); Estimated Glomerular Filt Rate > 60; Glucose Random 114 mg/dL (60-115); Potassium 4.4 mmol/L (3.3-5.1); Sodium 138 mmol/L (135-145)
[2021-08-13 11:25] LABS: Free T4 (Free Thyroxine) 0.99 ng/dL (0.71-1.85); Prostate Specific Antigen Scr 0.16 ng/mL (<0.05-4.0); Thyroid Stimulating Hormone 60.25 uIU/mL (0.32-4.0)
[2021-08-13 11:46] LABS: Folate 11.6 ng/mL (> or = 4.0); Vitamin B12 411 pg/mL (200-900)
== END 2021-08-13 10:04 | disposition home or self-care (01) ==
LOC: HO.LAB 10:03
PROVIDERS: PCP Internal Medicine; Visit Provider Physician Assistant Surgical
DX: Z12.5 Encounter for screening for malignant neoplasm of prostate (principal); E87.1 Hypo-osmolality and hyponatremia; E03.9 Hypothyroidism, unspecified; E78.00 Pure hypercholesterolemia, unspecified; C20 Malignant neoplasm of rectum
CPT/HCPCS: 36415; 80048; 80053; 82378; 82607; 82746; 84153; 84439; 84443; 85025

== ENCOUNTER 2021-08-14 06:52 | Outpatient (REF) | payer OTHER, SELFPAY ==
[2021-08-14 07:58] LABS: Cholesterol 161 mg/dL; HDL Cholesterol 33 mg/dL; LDL Cholesterol Calculated 104 mg/dl; Triglycerides 122 mg/dL
[2021-08-14 08:25] LABS: Free T4 (Free Thyroxine) 0.81 ng/dL (0.71-1.85)
[2021-08-14 11:51] LABS: Thyroid Stimulating Hormone < 100.00 uIU/mL (0.32-4.0)
== END 2021-08-14 06:53 | disposition home or self-care (01) ==
LOC: HO.LAB 06:52
PROVIDERS: PCP Internal Medicine; Visit Provider Internal Medicine
DX: E78.00 Pure hypercholesterolemia, unspecified (principal); E03.9 Hypothyroidism, unspecified
CPT/HCPCS: 36415; 80061; 84439; 84443

== ENCOUNTER → 2021-08-22 11:28 | Outpatient (BNVA) | payer OTHER, SELFPAY | PROVIDERS: PCP Internal Medicine; Referring Provider Internal Medicine; Visit Provider Surgery ==

== ENCOUNTER → 2021-09-24 11:46 | Outpatient (BNVA) | payer OTHER, SELFPAY | PROVIDERS: PCP Internal Medicine; Referring Provider Internal Medicine; Visit Provider Surgery ==

== ENCOUNTER 2021-09-27 12:45 | Outpatient (REF) | payer OTHER, SELFPAY ==
--- NOTE | ~2021-09-27 | FL_ITS ---
EXAMINATION: XR FLUOROSCOPY CLINICAL INFORMATION: Port check. No blood return. COMPARISON: None TECHNIQUE: Port check. FINDINGS: Informed consent was obtained from the patient prior to the procedure. During this process, the procedure and potential alternatives were explained, along with the intended outcome and benefits. The risks of the procedure, as well as the risk of not doing the procedure, were discussed. The patient was given the opportunity to ask questions regarding the procedure and appeared competent to make medical decisions. A signed consent form which documents this discussion was placed in the medical record. The right internal jugular port catheter was accessed sterilely. No blood could be aspirated. Contrast injection demonstrated a fibrin sheath about the distal few centimeters of the catheter but with the catheter being patent and would flow into the superior vena cava and right atrium. No extravasation of contrast was identified. The port was flushed and locked with Heparin Lock Solution of 100 units of heparin per millimeter. FLUOROSCOPY TIME: 0.2 minutes DOSE AREA PRODUCT: 0.512 Gy-cm2 (corrigan-centimeter squared) FL/FL fluoroscopy <1hr IMPRESSION: Fibrin sheath on port catheter without ability to aspirate blood but with ability to inject port.
== END 2021-09-27 12:46 | disposition home or self-care (01) ==
LOC: HO.XRAY 12:45
PROVIDERS: PCP Internal Medicine; Visit Provider Internal Medicine Medical Oncology
DX: Z45.2 Encounter for adjustment and management of vascular access device (principal)
CPT/HCPCS: 76000

== ENCOUNTER 2021-10-30 06:01 | Day surgery (SDC) | payer OTHER, SELFPAY ==
--- NOTE | 2021-10-29 11:37 | P.CONAN_ITS ---
Documented by User: Loan Guevara NP 10/29/21 11:39 HPI - Anesthesia Eval Consult details Narrative: 60yo M for Sigmoidoscopy Flexible rectal ca - chemo and rad completed 03/2021, ileostomy in situ PMFSH Active Problems Active Problems: All Active Problems (Updated 10/08/21 @ 14:46 by Debo Hammer PA-C) Hyponatremia (Acute) Postoperative ileus (Acute ~07/2021) Hypercholesterolemia (Acute) Hypothyroid (Acute) Rectal cancer (Acute ~10/2020) Prolapsed hemorrhoids (Acute) Past Medical History Medical History COVID-19 vaccine administered History of chemotherapy (~2020) History of radiation therapy (~2020) Hypercholesterolemia Hypothyroid Port-A-Cath in place Postoperative ileus (~07/2021) Prolapsed hemorrhoids Rectal cancer (~10/2020) Vitamin D deficiency Family History Family History Father CVD (cardiovascular disease) Mother No problems noted. Family history of problems with anesthesia: No Surgical History Surgical History History of amputation of finger History of colon resection History of colonoscopy History of flexible sigmoidoscopy History of hemorrhoidectomy History of Problems with Anesthesia: No Social History Social History Household Members: Spouse Housing: House Are you a primary nurse behavioral health care to a significant other at home: No Do you presently have visiting nurse or other home services: No Alcohol intake: former Patient Tobacco Use Status: Former Tobacco user Tobacco use type: Cigarette Cigarettes Per Day: 10 Years Smoked: 20 yrs ago Second Hand Smoke Exposure: No Use of substances other than those prescribed or required for medical reasons: No Are you DNR?: No Advance Directives: No Advance Directives Information Provided: No service: No Current occupational status: employed Meds Allergies Allergy/AdvReac Type Severity Reaction Status Date / Time No Known Allergies Allergy Mild N/A Verified 10/23/21 12:26 Exam Exam Date and Time: October 29, 2021 1137 Pertinent Lab Results Pertinent Lab Results: Laboratory Tests 09/24/21 09/24/21 16:05 16:05 WBC 7.5 Hgb 13.6 L Hct 40.1 L Plt Count 350 Sodium 141 Potassium 4.1 Chloride 108 Carbon Dioxide 26 BUN 16 Creatinine 1.17 Narrative Narrative: EKG 11/2020 Vent. Rate : 094 BPM ? ? Atrial Rate : 094 BPM ?? P-R Int : 166 ms? QRS Dur : 088 ms ? ? QT Int : 328 ms ? ? ? P-R-T Axes : 074 053 071 degrees ?? QTc Int : 410 ms ? Normal sinus rhythm Normal ECG When compared with ECG of 13-AUG-2013 17:48, T wave amplitude has decreased in Anterior leads Assessment and Plan Assessment Anesthesia Assessment: Chart Reviewed Final Anesthetic Review Family History of Problems with Anesthesia: No History of Problems with Anesthesia: No Documented by User: Ama Escobar MD 10/30/21 07:20 [facility] Past Medical History Medical History COVID-19 vaccine administered History of chemotherapy (~2020) History of radiation therapy (~2020) Hypercholesterolemia Hypothyroid Port-A-Cath in place Postoperative ileus (~07/2021) Prolapsed hemorrhoids Rectal cancer (~10/2020) Vitamin D deficiency Functional capacity: independent ambulation Family History Family History Father CVD (cardiovascular disease) Mother No problems noted. Surgical History Surgical History History of amputation of finger History of colon resection History of colonoscopy History of flexible sigmoidoscopy History of hemorrhoidectomy History of Problems with Anesthesia: No Social History Social History Household Members: Spouse Housing: House Are you a primary nurse behavioral health care to a significant other at home: No Do you presently have visiting nurse or other home services: No Alcohol intake: former Patient Tobacco Use Status: Former Tobacco user Tobacco use type: Cigarette Cigarettes Per Day: 10 Years Smoked: 20 yrs ago Second Hand Smoke Exposure: No Use of substances other than those prescribed or required for medical reasons: No Are you DNR?: No Advance Directives: No Advance Directives Information Provided: No service: No Current occupational status: employed Meds Allergies Allergy/AdvReac Type Severity Reaction Status Date / Time No Known Allergies Allergy Mild N/A Verified 10/23/21 12:26 Exam Airway Mallampati Class: II TM Dist: >3cm Neck ROM: Full Heart: RRR Lungs: CTA Assessment and Plan Assessment Anesthesia Assessment: Anesthesia Plan Discussed Final Anesthetic Review History of Problems with Anesthesia: No ASA Class: II Final Preanesthetic Review: No Changes in Pt Med Stat Patient Risk: Low Procedure Risk: Low Anesthetic Plan Anesthetic Plan: MAC: Disposition: Standard PACU
[2021-10-30 06:16] VITALS: BP 121/75; PULSE 62; RESP 16; TEMP 36.7; O2SAT 99; BMI 26.1
[2021-10-30] MEDS: Lactated Ringers 1,000 ML 100 ML IVCONT (06:54)
--- NOTE | 2021-10-30 07:18 | MHC.SHP ---
Pre-Procedural Eval Section A Date of Service: 10/30/21 Section B Chief Complaint: Ileostomy status Details of Present Illness: hx of low anterior resection , ileostomy for rectal cancer; now for flex sig prior to planned reversal of stoma Relevant Family History (Specify if Yes): No Relevant Social History: None Present Medications: see Short Stay Collaborative assessment Medical History: Significant History (thyroid ds) History of Previous Operations: Relevant previous surgery/procedure and date(s) (low anterior resection, 07/31) Allergies: Allergies Allergy/AdvReac Type Severity Reaction Status Date / Time No Known Allergies Allergy Mild N/A Verified 10/23/21 12:26 Review of Systems Sugical H&P ROS: Negative: Constitution, Cardiovascular, Respiratory, Neurological, Psychiatric, Hem-Onc, Allergic/Immunologic, Gastrointestinal, Genitourinary, Musculoskeletal, Integumentary, Endocrine and Eyes/Ears/Nose/Throat Exam Surgical H&P Exam: Normal: HEENT, Normal: Heart, Normal: Lungs, Normal: Extremities, Normal: Skin and Normal: Neurological and Significant Findings: Abdomen (has ileostomy) Plan Diagnosis/Plan: Unchanged I have reviewed the history and physical and performed a pertinent physical examination on my patient. No changes have occurred unless specified.
[2021-10-30 07:55] VITALS: BP 101/65; PULSE 75; RESP 16; TEMP 36.2; O2SAT 95
--- NOTE | 2021-10-30 07:59 | P.OP_ITS ---
Operative Note Operative Note Date of Service: 10/30/21 Narrative: Preop diagnosis: History of rectal cancer, status post neoadjuvant therapy and radiation, and low anterior resection Postop diagnosis: The same, with patent anastomosis although tight, is still with diffuse erythema of the rectum the way to the anus Procedure: Flexible sigmoidoscopy surgeon: Mack Michel MD The patient is a 60-year-old male who had recently undergone low anterior resection in July, for rectal cancer after neoadjuvant chemotherapy and radiation. I did not see any lesion grossly on intraop flexible sigmoidoscopy. Path report showed radiation changes without cancer, suggestive of complete pathologic response. He is here for flexible sigmoidoscopy to evaluate the anastomotic site prior to reversal of his ileostomy. He understood the technique of the procedure as well as the risks, benefits, and alternatives. He was brought to the operating room placed in left lateral decubitus position under monitored anesthesia care. Full digital rectal was done and there were no palpable anal lesions or rectal lesions within reach of the index finger. I proceeded to gently introduced the colonoscope through the anal orifice and advanced with insufflation there was note of some diffuse erythema of the anal canal all the way to what appeared to be the anastomotic site. Anastomotic site appeared to be tight but is very beta eventually passed the scope through. I a dvanced the scope all the way to level 25 cm. I then proceeded to withdraw the slowly to examine the rest of the distal sigmoid and rectum. I examined the anastomotic site carefully. Note of some edema of the area along with redness but no obvious present lesion. The staple line appeared intact without visual defect but again there seemed to be tightness and stricture ring of the area. I continued to withdraw the scope carefully examine most distal some anal canal and there was note of some diffuse erythema All the way to the anus. I then withdrew the scope completely The patient tolerated procedure well. There were no complication noted. Have to schedule him for study to check for the tightness of the anastomosis.
[2021-10-30 08:12] VITALS: BP 129/76; PULSE 72; RESP 16; O2SAT 96
--- NOTE | 2021-10-30 10:36 | HO.POSTANES ---
Post Anesthesia Evaluation Post Anesthesia Evaluation Vital Signs: Vital Signs Temp Pulse Resp BP Pulse Ox 10/30/21 08:12 72 16 129/76 96 10/30/21 07:55 97.2 F 75 16 101/65 95 10/30/21 06:16 98.1 F 62 16 121/75 99 Anesthesia: Monitored Mental Status: Awake Pain Control: Satisfactory Nausea/Vomiting: None Hydration: Adequate Anesthesia-Related Issues: No Anes. Related Issues
== END 2021-10-30 09:18 | disposition home or self-care (01) ==
PROVIDERS: PCP Internal Medicine; Visit Provider Surgery
PROC: 0DJD8ZZ Inspection of Lower Intestinal Tract, Via Natural or Artificial Opening Endoscopic (ICD-10-PCS; CPT 45330; principal; 2021-10-30 07:30)
DX: Z12.12 Encounter for screening for malignant neoplasm of rectum (principal); Z85.048 Personal history of other malignant neoplasm of rectum, rectosigmoid junction, and anus; Z93.2 Ileostomy status; Z92.21 Personal history of antineoplastic chemotherapy; Z92.3 Personal history of irradiation; Z98.0 Intestinal bypass and anastomosis status; K62.89 Other specified diseases of anus and rectum; E55.9 Vitamin D deficiency, unspecified; Z90.49 Acquired absence of other specified parts of digestive tract
CPT/HCPCS: 45330

== ENCOUNTER → 2021-11-12 14:29 | Outpatient (BNVA) | payer OTHER, SELFPAY | PROVIDERS: PCP Internal Medicine; Visit Provider Surgery ==

== ENCOUNTER 2021-11-14 03:24 | Inpatient (IN) | payer OTHER, SELFPAY ==
[2021-11-14] VITALS (7 sets, daily range): BP systolic 109–145; BP diastolic 78–88; PULSE 65–98; RESP 14–20; TEMP 37.1; O2SAT 95–100; BMI 26.1
--- NOTE | ~2021-11-14 | XR_ITS ---
EXAMINATION: XR CHEST CLINICAL INFORMATION: Covid COMPARISON: 07.28.2021 TECHNIQUE: Frontal view of the chest was obtained. FINDINGS: Normal symmetric lung volumes. No parenchymal consolidation. No pleural effusion. No pneumothorax. Cardiomediastinal silhouette and pulmonary vascularity are within normal limits. Right chest wall Mediport catheter stably positioned. No acute osseous abnormalities. XR/XR chest 1V IMPRESSION: No acute findings
--- NOTE | ~2021-11-14 | CT_ITS ---
EXAMINATION: CT ABDOMEN AND PELVIS WITHOUT CONTRAST CLINICAL INFORMATION: Abdominal pain and overflying colostomy COMPARISON: Multiple priors, most recently 07/26/2021 TECHNIQUE: Multidetector volumetric imaging was performed from the superior aspect of the liver through the pubic symphysis. Sagittal and coronal reformatted images were obtained on the technologist's workstation. This CT examination was performed using dose optimization techniques as appropriate, variously including the following: *Automated exposure control *Adjustment of mA and/or kV according to patient size (this includes techniques or standardized protocols for targeted exams where dose is matched to indication/reason for exam; i.e. extremities or head) *Use of iterative reconstruction technique DLP: 445 mGy-cm FINDINGS: LUNG BASES: The visualized lung bases are unremarkable. LIVER, GALLBLADDER, AND BILIARY TREE: The liver is normal in size, shape, and attenuation. Stable subcentimeter cyst within the gallbladder fossa. No suspicious liver lesions. No intra or extrahepatic biliary ductal dilatation is present. Gallbladder unremarkable. PANCREAS: Unremarkable. SPLEEN: Unremarkable. ADRENAL GLANDS: Unremarkable. KIDNEYS AND URETERS: The kidneys are normal in size, shape, and attenuation. Benign right renal cyst requires no further follow-up. No hydronephrosis, hydroureter, or calculi seen. No perinephric stranding. BLADDER: Unremarkable. GASTROINTESTINAL TRACT: Rectosigmoid anastomosis within the pelvis. Remainder of the colon largely collapsed. Normal appendix. Submucosal fat deposition throughout the colon is nonspecific but unchanged. Diverting loop ileostomy present in the right lower quadrant. No dilated loops of small bowel. Stomach unremarkable. ABDOMINAL WALL: No significant hernia is appreciated. LYMPH NODES: Normal. VASCULAR: Aorta mildly atherosclerotic but normal caliber. PELVIC VISCERA: Unremarkable. OSSEOUS STRUCTURES: Unremarkable. CT/CT abdomen pelvis wo con IMPRESSION: * Stable postsurgical changes of previous upper rectal/distal sigmoid colonic resection with intact rectosigmoid anastomosis within the pelvis, and diverting loop ileostomy within right lower quadrant. * No bowel obstruction. * Nonspecific intramural fatty deposition throughout the colon. This can be seen as a variant finding in the setting of obesity, but can also been seen in association with chronic inflammatory bowel diseases. * No lymphadenopathy or evidence of metastatic disease.
--- NOTE | 2021-11-14 03:51 | ECG_ITS ---
Test Reason : SOB Blood Pressure : / mmHG Vent. Rate : 084 BPM Atrial Rate : 084 BPM P-R Int : 150 ms QRS Dur : 086 ms QT Int : 376 ms P-R-T Axes : 079 078 078 degrees QTc Int : 444 ms Normal sinus rhythm Possible Left atrial enlargement Borderline ECG When compared with ECG of 08-DEC-2020 22:03, No significant change was found Referred By: Iza Duong Electronically Signed By:STELLA MARTINEZ MD
--- NOTE | 2021-11-14 03:58 | ED_ITS ---
HPI - General Adult General Chief complaint: Abdominal Pain Stated complaint: cramping throughout body; COVID+ 11/12/21 Time Seen by Provider: 11/14/21 03:50 Source: patient Mode of arrival: ambulatory Limitations: no limitations History of Present Illness HPI narrative: 60-year-old male history of rectal cancer with low anterior abdominal resection and ileostomy, patient was diagnosed positive for COVID yesterday, patient has been noticing increase ileostomy output with watery stool did not notice any blood in it, patient normally changed bag once a day today he had to change it 6 times full of brownish watery stool. patient also been having diffuse cramps in his body, patient complain of vomiting, no abdominal pain, no chest pain, no difficulty breathing. Related Data Previous Rx's Medication Instructions Recorded levothyroxine 200 mcg tablet 200 mcg PO DAILY #90 tab 07/19/21 psyllium husk 3.4 gram/5.4 gram 3.4 g PO DAILY #660 g 08/10/21 oral powder (Metamucil) Allergies Allergy/AdvReac Type Severity Reaction Status Date / Time No Known Allergies Allergy Mild N/A Verified 11/12/21 14:32 Review of Systems Review of Systems: All other systems are reviewed and are negative Constitutional: Reports as per HPI and Reports no additional constitutional complaints Eyes: Reports as per HPI and Reports no additional eye complaints Reports system reviewed and no additional complaints, except as documented Cardiovascular: Reports as per HPI and Reports no additional cardiovascular complaints Respiratory: Reports as per HPI and Reports no additional respiratory complaints Gastrointestinal: Reports as per HPI and Reports no additional gastrointestinal complaints Genitourinary: Reports no additional female genitourinary complaints Musculoskeletal: Reports no additional musculoskeletal complaints Skin/Breast: Reports system reviewed and no additional complaints, except as docu Psychiatric: Reports no additional psychiatric complaints Endocrine: Reports no additional endocrine complaints Hematologic/Lymphatic: Reports no additional hematologic/lymphatic complaints Allergic/Immunologic: Reports no additional allergic/immunologic complaints Reports system reviewed and no additional complaints, except as documented and Reports Abnormal speech present [facility] Past Medical History Medical History COVID-19 vaccine administered History of chemotherapy (~2020) History of radiation therapy (~2020) Hypercholesterolemia Hypothyroid Port-A-Cath in place Postoperative ileus (~07/2021) Prolapsed hemorrhoids Rectal cancer (~10/2020) Vitamin D deficiency Surgical History History of amputation of finger History of colon resection History of colonoscopy History of flexible sigmoidoscopy History of hemorrhoidectomy Family History Family History Father CVD (cardiovascular disease) Mother No problems noted. Social History Social History Household Members: Spouse Housing: House Are you a primary critical care nurse specialist to a significant other at home: No Do you presently have visiting nurse or other home services: No Alcohol intake: never Patient Tobacco Use Status: Former Tobacco user Tobacco use type: Cigarette Cigarettes Per Day: 10 Years Smoked: 20 yrs ago Second Hand Smoke Exposure: No Use of substances other than those prescribed or required for medical reasons: No Advance Directives: No service: No Current occupational status: employed Physical Exam Vital Signs: Vital Signs: Last Vital Signs Pulse 84 11/14/21 06:04 Resp 16 11/14/21 06:04 BP 133/79 11/14/21 06:04 Pulse Ox 97 11/14/21 06:04 BMI result Body Mass Index 26.1 Vital signs have been reviewed as appeared to be correct. Blood pressure normal. Heart rate normal. Respiration rate normal. Temperature normal. Oxygen saturation normal. Appearance: Alert. Oriented X3. No acute distress. Patient is anxious oral Head: Normal external exam. Normocephalic. Atraumatic. No Brandon signs noted. No raccoon eyes noted Eyes: PERRLA. EOMI. Conjunctiva and sclera normal. Eyelids normal. ENT: TM's Normal. Pharynx normal. Uvula midline. Moist mucous membranes. No trismus noted. No drooling noted. No muffled voice noted. Neck: Normal inspection. Neck supple. FROM. No adenopathy. Thyroid Normal. No meningeal signs. No neck mass noted. CVS: Normal heart rate and rhythm. Heart sound normal. No murmurs noted. Pulses normal throughout. Respiratory: No respiratory distress. Painless inspiration. Breath sounds normal. No wheezes/rales/rhonchi noted. Chest nontender. No accessory muscle usage noted or decreased air movement noted. Abdomen: Soft and nontender. Bowel sounds normal in all 4 quadrants. No distention noted. No organomegaly noted. No visible injury noted. Back: No CVA tenderness. Full range of motion noted. Skin: Skin warm and dry. Normal skin color. Normal skin turgor. No rashes/lesions/lacerations noted. Extremities: No lower extremity edema. Extremities exhibit normal range of motion. Extremities nontender. Neuro: Oriented X 3. Cranial nerve exam: II-XII are grossly intact No motor deficit. No sensory deficit. Reflexes normal. Course Course Course Narrative: Assessment and plan. 60-year-old male with history of rectal cancer require anterior no resection with ileostomy, patient was tested positive for COVID yesterday, symptoms started with vomiting and high output flow of the ileostomy, with diffuse body cramps. Patient now feels better this cramps, no ileostomy output since he has been in the hospital. 1. Labs consistent with acute renal insufficiency. 2. COVID positive but no respiratory symptoms with O2 sat of 97%. 3. High output flow of the ileostomy closing dehydration with prerenal insufficiency. The case discussed with Dr. Avelar who will discuss with Dr. Michel to see the patient in the a.m.. Medical Decision Making Lab Data Lab results reviewed: Yes I reviewed the patient's lab results. Result diagrams: 11/14/21 04:05 11/14/21 05:22 Labs: Lab Results 11/14/21 11/14/21 11/14/21 Range/Units 04:05 04:05 04:05 WBC 8.5 (4.8-10.8) X10*3/uL RBC 5.69 D (4.60-5.80) X10*6/uL Hgb 18.0 D (14.0-18.0) g/dl Hct 52.0 D (42.0-52.0) % MCV 91.4 (80.0-98.0) fL MCH 31.6 (27.0-33.0) pg MCHC 34.6 (31.0-36.0) g/dl RDW 14.2 (11.0-16.0) % Plt Count 300 (160-400) X10*3/uL MPV 10.9 (9.4-12.4) fL Immature Gran % (Auto) 0.2 (0.0-0.4) % Neut % (Auto) 74.3 H (45-73) % Lymph % (Auto) 18.6 L (20-40) % [place] % (Auto) 6.5 (2-11) % Eos % (Auto) 0.0 (0-4) % Baso % (Auto) 0.4 (0-2) % Lymph # (Auto) 1.6 (1.2-4.9) X10*3/uL [place] # (Auto) 0.6 (0.1-1.2) X10*3/uL Eos # (Auto) 0.0 (0.0-0.4) X10*3/uL Baso # (Auto) 0.0 (0.0-0.2) X10*3/uL Abs Immat Gran (auto) 0.02 (0.00-0.03) X10*3/uL Absolute Neuts (auto) 6.3 (2.0-8.3) x10*3/uL Absolute Nucleated RBC 0.000 (0.0-0.012) X10*3/uL Nucleated RBC % (auto) 0.0 (0.0-0.2) /100WBC Sodium (135-145) mmol/L Potassium (3.3-5.1) mmol/L Chloride (96-108) mmol/L Carbon Dioxide (22-29) mmol/L Anion Gap (12-20) BUN (9-16) mg/dL Creatinine (0.5-1.4) mg/dL Estim Creat Clear Calc Estimated GFR Random Glucose (60-115) mg/dL Lactic Acid 3.1 H* (0.5-2.0) mmol/L Calcium (8.4-10.2) mg/dL Total Bilirubin (0.0-1.0) mg/dL Direct Bilirubin (0.0-0.5) mg/dL AST (5-37) U/L ALT (0-40) U/L Alkaline Phosphatase (39-117) U/L Troponin I High Sens 4.1 (<3.5-35.0) ng/L B-Natriuretic Peptide < 10 (<100) pg/mL Total Protein (6.5-8.0) g/dL Albumin (3.5-5.0) g/dL Lipase (8-78) U/L COVID-19 (BRIGIDA) (Negative) COVID-19 Clin Com 11/14/21 11/14/21 Range/Units 04:05 05:22 WBC (4.8-10.8) X10*3/uL RBC (4.60-5.80) X10*6/uL Hgb (14.0-18.0) g/dl Hct (42.0-52.0) % MCV (80.0-98.0) fL MCH (27.0-33.0) pg MCHC (31.0-36.0) g/dl RDW (11.0-16.0) % Plt Count (160-400) X10*3/uL MPV (9.4-12.4) fL Immature Gran % (Auto) (0.0-0.4) % Neut % (Auto) (45-73) % Lymph % (Auto) (20-40) % [place] % (Auto) (2-11) % Eos % (Auto) (0-4) % Baso % (Auto) (0-2) % Lymph # (Auto) (1.2-4.9) X10*3/uL [place] # (Auto) (0.1-1.2) X10*3/uL Eos # (Auto) (0.0-0.4) X10*3/uL Baso # (Auto) (0.0-0.2) X10*3/uL Abs Immat Gran (auto) (0.00-0.03) X10*3/uL Absolute Neuts (auto) (2.0-8.3) x10*3/uL Absolute Nucleated RBC (0.0-0.012) X10*3/uL Nucleated RBC % (auto) (0.0-0.2) /100WBC Sodium 138 (135-145) mmol/L Potassium 3.5 (3.3-5.1) mmol/L Chloride 107 (96-108) mmol/L Carbon Dioxide 18 L (22-29) mmol/L Anion Gap 17 (12-20) BUN 25 H (9-16) mg/dL Creatinine 2.80 H (0.5-1.4) mg/dL Estim Creat Clear Calc 25.6 Estimated GFR 23 Random Glucose 130 H D (60-115) mg/dL Lactic Acid (0.5-2.0) mmol/L Calcium 10.1 (8.4-10.2) mg/dL Total Bilirubin 0.6 (0.0-1.0) mg/dL Direct Bilirubin 0.2 (0.0-0.5) mg/dL AST 28 (5-37) U/L ALT 28 (0-40) U/L Alkaline Phosphatase 110 (39-117) U/L Troponin I High Sens (<3.5-35.0) ng/L B-Natriuretic Peptide (<100) pg/mL Total Protein 9.0 H D (6.5-8.0) g/dL Albumin 5.3 H (3.5-5.0) g/dL Lipase 12 (8-78) U/L COVID-19 (BRIGIDA) Positive A (Negative) COVID-19 Clin Com See Note Imaging Data Chest x-ray: Attestation: I personally reviewed and interpreted this imaging study as follows: Radiologist's impression: No acute finding. CT scan - abdomen: Attestation: I personally reviewed and interpreted this imaging study as follows: Radiologist's impression: *? Stable postsurgical changes of previous upper rectal/distal sigmoid colonic resection with intact rectosigmoid anastomosis within the pelvis, and diverting loop ileostomy within right lower quadrant. *? No bowel obstruction. *? Nonspecific intramural fatty deposition throughout the colon. This can be seen as a variant finding in the setting of obesity, but can also been seen in association with chronic inflammatory bowel diseases. *? No lymphadenopathy or evidence of metastatic disease. Discharge Plan Discharge Clinical Impression: High output ileostomy, COVID-19 virus infection, Acute renal insufficiency Patient Disposition: Admitted As Inpatient Prescriptions: No Action levothyroxine 200 mcg tablet 200 mcg PO DAILY Qty: 90 RF: 1 Metamucil 3.4 gram/5.4 gram powder 3.4 g PO DAILY Qty: 660 RF: 0
[2021-11-14] MEDS: 0.9 % Sodium Chloride 1,000 ML 999 ML IV ×2 (04:09→06:02)
[2021-11-14 04:15] LABS: MANUAL DIFF FLAG NO
[2021-11-14] MEDS: LORazepam 2 MG/ML VIAL 1 MG IVPUSH (04:16)
[2021-11-14 04:18] LABS: Basophils Percent Auto 0.4 % (0-2); Imm Gran Abs Auto 0.02 X10*3/uL (0.00-0.03); Imm Gran Pct Auto 0.2 % (0.0-0.4); Lymphocytes Absolute Auto 1.6 X10*3/uL (1.2-4.9); Lymphocytes Percent Auto 18.6 % (20-40); Mean Corpuscular HGB Conc 34.6 g/dl (31.0-36.0); Mean Corpuscular Hemoglobin 31.6 pg (27.0-33.0); Mean Corpuscular Volume 91.4 fL (80.0-98.0); Mean Platelet Volume 10.9 fL (9.4-12.4); Monocytes Absolute Auto 0.6 X10*3/uL (0.1-1.2); Monocytes Percent Auto 6.5 % (2-11); Neutrophils Absolute Auto 6.3 x10*3/uL (2.0-8.3); Neutrophils Percent Auto 74.3 % (45-73); Platelet Count 300 X10*3/uL (160-400); Red Blood Count 5.69 X10*6/uL (4.60-5.80); Red Cell Distribution Width 14.2 % (11.0-16.0); White Blood Count 8.5 X10*3/uL (4.8-10.8)
[2021-11-14 04:19] LABS: COVID-19 Test Positive (Negative)
[2021-11-14 04:29] LABS: Lactic Acid 3.1 mmol/L (0.5-2.0)
--- NOTE | 2021-11-14 04:34 | PC.NURSE ---
pt yellow necklace was placed in his coat pocked by [facility] dept. pt has been told this a couple of time. pt is back from rad. sat 96% on room air. pt is sleepy. hr 83 nsr. bp stable 133/84
[2021-11-14 04:37] LABS: B Type Natriuretic Peptide < 10 pg/mL (<100); Troponin-I High Sensitivity 4.1 ng/L (<3.5-35.0)
[2021-11-14 05:48] LABS: Alanine Aminotransferase 28 U/L (0-40); Albumin Level 5.3 g/dL (3.5-5.0); Alkaline Phosphatase 110 U/L (39-117); Anion Gap 17 (12-20); Aspartate Amino Transferase 28 U/L (5-37); Bilirubin Direct 0.2 mg/dL (0.0-0.5); Bilirubin Total 0.6 mg/dL (0.0-1.0); Blood Urea Nitrogen 25 mg/dL (9-16); Calcium 10.1 mg/dL (8.4-10.2); Carbon Dioxide 18 mmol/L (22-29); Chloride 107 mmol/L (96-108); Creatinine Clr Calc Pharmacy 25.6; Estimated Glomerular Filt Rate 23; Glucose Random 130 mg/dL (60-115); Lipase 12 U/L (8-78); Potassium 3.5 mmol/L (3.3-5.1); Sodium 138 mmol/L (135-145)
[2021-11-14 06:12] LABS: Reflex Lactate? Lactic Acid Added
[2021-11-14 08:45] LABS: ~Lactic Acid-LAB USE ONLY 1.3 mmol/L (0.5-2.0)
[2021-11-14 09:04] LABS: Anion Gap 14 (12-20); Blood Urea Nitrogen 23 mg/dL (9-16); Calcium 9.2 mg/dL (8.4-10.2); Carbon Dioxide 22 mmol/L (22-29); Chloride 109 mmol/L (96-108); Creatinine Clr Calc Pharmacy 31.3; Estimated Glomerular Filt Rate 29; Glucose Random 118 mg/dL (60-115); Potassium 4.8 mmol/L (3.3-5.1); Sodium 140 mmol/L (135-145)
[2021-11-14] MEDS: 0.9 % Sodium Chloride 1,000 ML 200 ML IVCONT (09:24)
--- NOTE | 2021-11-14 09:54 | PM.IMHP ---
History of Present Illness Date of Service: 11/14/21 Chief Complaint: muscle aches and pain, cough The patient is a 60 yo M with a PMH of rectal cancer - s/p resection now with a diverting loop ileostomy who presents to [facility] with complaints of muscle aches and cramps along with abdominal discomfort. The patient reports that 3-4 days prior to arrival he began having a sore throat and about 2 days prior to arrival he had a non-productive cough. He reported that he tested positive for COVID since then but did not have any significant shortness of breath. Only minor non-productive cough. He reports that over the 1-2 days since, he has begun having nausea with no oral intake as he was afraid to eat. He had some mild epigastric/mid abd discomfort. He attempted to drink a augie maame, which he vomited back up. He reports that over the last 24 hours, his ileostomy has had 6 episodes of watery stool (typically his stools are formed). Due to these reasons, he presented to the ED. In the ED, his work up revealed TRUMAN with a Serum Cr of 2.8 (baseline around 1). His COVID testing was positive, but cxr negative and no hypoxia on exam. A CT scan of the abdomen and pelvis revealed stable post-surgical findings, no bowel obstruction, no lymphadenopathy or evidence of metastatic disease; there were non-specific findings in the colon (see full details under radiology below). He was given several litres of normal saline with minimal improvement in his renal function. He will now be admitted for further care. Review of Systems Review of Systems: negative except HPI [facility] Medical History COVID-19 vaccine administered History of chemotherapy (~2020) History of radiation therapy (~2020) Hypercholesterolemia Hypothyroid Port-A-Cath in place Postoperative ileus (~07/2021) Prolapsed hemorrhoids Rectal cancer (~10/2020) Vitamin D deficiency Family History Father CVD (cardiovascular disease) Mother No problems noted. Surgical History History of amputation of finger History of colon resection History of colonoscopy History of flexible sigmoidoscopy History of hemorrhoidectomy Social History Household Members: Spouse Housing: House Are you a primary wild animal caretaker to a significant other at home: No Do you presently have visiting nurse or other home services: No Alcohol intake: never Patient Tobacco Use Status: Former Tobacco user Tobacco use type: Cigarette Cigarettes Per Day: 10 Years Smoked: 20 yrs ago Second Hand Smoke Exposure: No Use of substances other than those prescribed or required for medical reasons: No Advance Directives: No service: No Current occupational status: employed Meds Allergies Allergy/AdvReac Type Severity Reaction Status Date / Time No Known Allergies Allergy Mild N/A Verified 11/12/21 14:32 Active Medications: Current Medications Acetaminophen (Acetaminophen 325 Mg Tablet) 650 mg PO Q6H PRN PRN Reason: Pain, Mild (Pain Scale 1-3) Enoxaparin Sodium (Enoxaparin Sodium 40 Mg/0.4 Ml Syringe) 40 mg SUBCUT Q24H CHRISTINE Lactated Ringer's (Lr) 1,000 mls @ 125 mls/hr IVCONT .Q8H CHRISTINE Ondansetron HCl (Ondansetron Hcl 4 Mg/2 Ml Vial) 4 mg IVPUSH Q8H PRN PRN Reason: Nausea and Vomiting Pharmacy Consult (Consult Rx Perform Med Rec) 1 each MISCELLANE ONCE PRN PRN Reason: Consult order Pharmacy Consult (Consult Rx Perform Med Rec) 1 each MISCELLANE ONCE PRN PRN Reason: Consult order Sodium Chloride (0.9 % Sodium Chloride Flush 3 Ml Syringe) 3 ml IVFLUSH QSHIFT CHRISTINE Physical Exam Vital Signs and Narrative: Vital Signs: Last Vital Signs Temp 98.7 F 11/14/21 07:31 Pulse 76 11/14/21 07:31 Resp 16 11/14/21 07:31 BP 109/86 11/14/21 07:31 Pulse Ox 97 11/14/21 07:31 BMI result Body Mass Index 26.1 Const: Other: Constitutional - Awake and Alert, No apparent distress Eyes - PERRLA, EOMI Cardiovascular - S1S2, RRR, No edema Respiratory - Normal lung expansion, Normal respiratory effort, No respiratory distress, CTA bilaterally Gastrointestinal - NT / ND; +BS; No rebound or guarding; ilesotomy bag in place, no stool at this time - No CVA tenderness Extremities - no calf tenderness bilaterally, no swelling Musculoskeletal - Normal inspection, normal ROM Skin - Warm/Dry Neurological - Alert & oriented x3, No focal deficit Psychological - Appropriate affect Results Labs CBC and Chem 7: 11/14/21 04:05 11/14/21 08:29 Labs: Laboratory Results - last 24 hr 11/14/21 11/14/21 11/14/21 04:05 04:05 04:05 MCV 91.4 MCH 31.6 MCHC 34.6 RDW 14.2 Plt Count 300 MPV 10.9 Immature Gran % (Auto) 0.2 Neut % (Auto) 74.3 H Lymph % (Auto) 18.6 L [place] % (Auto) 6.5 Eos % (Auto) 0.0 Baso % (Auto) 0.4 Lymph # (Auto) 1.6 [place] # (Auto) 0.6 Eos # (Auto) 0.0 Baso # (Auto) 0.0 Abs Immat Gran (auto) 0.02 Absolute Neuts (auto) 6.3 Absolute Nucleated RBC 0.000 Nucleated RBC % (auto) 0.0 Anion Gap Estim Creat Clear Calc Estimated GFR Random Glucose Lactic Acid 3.1 H* Lactic Acid F/U @ 2Hr Calcium Total Bilirubin Direct Bilirubin AST ALT Alkaline Phosphatase Troponin I High Sens 4.1 B-Natriuretic Peptide < 10 Total Protein Albumin Lipase COVID-19 (BRIGIDA) COVID-19 HALKAR Com 11/14/21 11/14/21 11/14/21 04:05 05:22 08:29 MCV MCH MCHC RDW Plt Count MPV Immature Gran % (Auto) Neut % (Auto) Lymph % (Auto) [place] % (Auto) Eos % (Auto) Baso % (Auto) Lymph # (Auto) [place] # (Auto) Eos # (Auto) Baso # (Auto) Abs Immat Gran (auto) Absolute Neuts (auto) Absolute Nucleated RBC Nucleated RBC % (auto) Anion Gap 17 Estim Creat Clear Calc 25.6 Estimated GFR 23 Random Glucose 130 H D Lactic Acid Lactic Acid F/U @ 2Hr 1.3 Calcium 10.1 Total Bilirubin 0.6 Direct Bilirubin 0.2 AST 28 ALT 28 Alkaline Phosphatase 110 Troponin I High Sens B-Natriuretic Peptide Total Protein 9.0 H D Albumin 5.3 H Lipase 12 COVID-19 (BRIGIDA) Positive A COVID-19 Clin Com See Note 11/14/21 08:29 MCV MCH MCHC RDW Plt Count MPV Immature Gran % (Auto) Neut % (Auto) Lymph % (Auto) [place] % (Auto) Eos % (Auto) Baso % (Auto) Lymph # (Auto) [place] # (Auto) Eos # (Auto) Baso # (Auto) Abs Immat Gran (auto) Absolute Neuts (auto) Absolute Nucleated RBC Nucleated RBC % (auto) Anion Gap 14 Estim Creat Clear Calc 31.3 Estimated GFR 29 Random Glucose 118 H Lactic Acid Lactic Acid F/U @ 2Hr Calcium 9.2 D Total Bilirubin Direct Bilirubin AST ALT Alkaline Phosphatase Troponin I High Sens B-Natriuretic Peptide Total Protein Albumin Lipase COVID-19 (BRIGIDA) COVID-19 Clin Com Imaging Radiologist's Impressions: Impressions Chest X-Ray 11/14/21 04:18 IMPRESSION: No acute findings Abdomen/Pelvis CT 11/14/21 04:30 IMPRESSION: * Stable postsurgical changes of previous upper rectal/distal sigmoid colonic resection with intact rectosigmoid anastomosis within the pelvis, and diverting loop ileostomy within right lower quadrant. * No bowel obstruction. * Nonspecific intramural fatty deposition throughout the colon. This can be seen as a variant finding in the setting of obesity, but can also been seen in association with chronic inflammatory bowel diseases. * No lymphadenopathy or evidence of metastatic disease. Assessment and Plan (1) COVID-19 virus infection: Status: Acute (2) TRUMAN (acute kidney injury): Status: Acute This is a 60 yo M with a PMH of rectal cancer - s/p resection with diverting loop ilestomy, double vaccinated for COVID (no booster yet) who presents with a 3 to 4 day history of symptoms which began with a sore throat, followed by non-productive cough and now have progressed to GI symptoms with watery diarrhea, nausea, abdominal discomfort and poor oral intake. He will now be admitted for further treatment. 1. Acute Kidney Injury with dehydration Due to dehydration and poor oral intake SCr is improving with IVF; Has received >3L of NS, will oil change technician to LR monitor I/O repeat chem tomorrow 2. COVID-19 no respiratory symptoms other than cough; CXR without infiltrates and no hyopxia Question if his GI symptoms are COVID related 3. 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 diff; will check studies 4. Hypothyroid continue synthroid Full Code DVT pptx, Lovenox Quality Stroke Does the patient have a stroke diagnosis?: No VTE Prior VTE?: No VTE Risk Level:: Medical - moderate - high VTE Device Contraindication: Treatment Not Indicated VTE Drug Contraindication: N/A - Med Ordered
--- NOTE | 2021-11-14 10:03 | PHA.MEDREC ---
Pharmacy Consult ? Medication Reconciliation Pharmacy has completed the medication reconciliation. Patient reports he only takes thyvladimir medicaiton. Adilene Krause, NigelD
[2021-11-14] MEDS: Enoxaparin Sodium 40 MG/0.4 ML SYRINGE SUBCUT (11:07)
[2021-11-14] MEDS: Lactated Ringers 1,000 ML 125 ML IVCONT ×2 (11:08→21:55)
[2021-11-14] MEDS: Levothyroxine Sodium 200 MCG TABLET PO (13:50)
--- NOTE | 2021-11-14 15:03 | P.CONGS_ITS ---
History of Present Illness Consult details Consult date: 11/14/21 Narrative: 60-year-old male referred to me for high output ileostomy. He had undergone low anterior section diverting loop ileostomy last July,. He had been doing well since then. He has actually been back to work since over a month ago. He however says that he started to have some cough and congestion 2 days ago. He got tested for COVID any turned out to be positive. He says that since yesterday he had noticed his ileostomy to have higher output. He said he had to empty this several times. He started to have cramping as well so he came to the emergency room. Review of Systems Constitutional: Constitutional: Reports body ache(s), Denies chills and Denies fever(s) Cardiovascular: Cardiovascular: Denies chest pain, Denies dyspnea and Denies dyspnea on exertion Respiratory: Respiratory: Denies cough, Denies dyspnea and Denies dyspnea on exertion Gastrointestinal: Gastrointestinal: Denies hematochezia and Denies change in bowel habits Genitourinary: Genitourinary: Denies hematuria and Denies difficulty urinating Musculoskeletal: Musculoskeletal: Denies back pain and Denies limited range of motion Neurologic: Denies focal weakness and Denies convulsions Psychiatric: Psychiatric: Denies depression and Denies mood swings PMFSH Past Medical History Medical History TRUMAN (acute kidney injury) COVID-19 vaccine administered COVID-19 virus infection History of chemotherapy (~2020) History of radiation therapy (~2020) Hypercholesterolemia Hypothyroid Port-A-Cath in place Postoperative ileus (~07/2021) Prolapsed hemorrhoids Rectal cancer (~10/2020) Vitamin D deficiency Family History Family History Father CVD (cardiovascular disease) Mother No problems noted. Surgical History Surgical History History of amputation of finger History of colon resection History of colonoscopy History of flexible sigmoidoscopy History of hemorrhoidectomy Social History Social History Household Members: Spouse Housing: House Are you a primary palliative care nurse to a significant other at home: No Do you presently have visiting nurse or other home services: No Alcohol intake: never Patient Tobacco Use Status: Former Tobacco user Tobacco use type: Cigarette Cigarettes Per Day: 10 Years Smoked: 20 yrs ago Second Hand Smoke Exposure: No service: No Current occupational status: employed Meds Allergies Allergy/AdvReac Type Severity Reaction Status Date / Time No Known Allergies Allergy Mild N/A Verified 11/12/21 14:32 Active Medications: Current Medications Acetaminophen (Acetaminophen 325 Mg Tablet) 650 mg PO Q6H PRN PRN Reason: Pain, Mild (Pain Scale 1-3) Enoxaparin Sodium (Enoxaparin Sodium 40 Mg/0.4 Ml Syringe) 40 mg SUBCUT Q24H [facility] Last Admin: 11/14/21 11:07 Dose: 40 mg Documented by: Lactated Ringer's (Lr) 1,000 mls @ 125 mls/hr IVCONT .Q8H [facility] Last Admin: 11/14/21 11:08 Dose: 125 mls/hr Documented by: Levothyroxine Sodium (Levothyroxine Sodium 200 Mcg Tablet) 200 mcg PO DAILY [facility] Last Admin: 11/14/21 13:50 Dose: 200 mcg Documented by: Ondansetron HCl (Ondansetron Hcl 4 Mg/2 Ml Vial) 4 mg IVPUSH Q8H PRN PRN Reason: Nausea and Vomiting Pharmacy Consult (Consult Rx Perform Med Rec) 1 each MISCELLANE ONCE PRN PRN Reason: Consult order Sodium Chloride (0.9 % Sodium Chloride Flush 3 Ml Syringe) 3 ml IVFLUSH QSHIFT [facility] Physical Exam Vital Signs: Vital Signs: Last Vital Signs Temp 98.7 F 11/14/21 07:31 Pulse 65 11/14/21 11:11 Resp 19 11/14/21 11:11 BP 121/78 11/14/21 11:11 Pulse Ox 99 11/14/21 11:11 BMI result Body Mass Index 26.1 Const: Other: He looks well and comfortable now General: comfortable and no acute distress Orientation/consciousness: patient oriented x3 Neck: Neck: Yes no lymphadenopathy Resp: Auscultation: clear to auscultation bilaterally Cardio: Rhythm: regular rhythm GI: Other: Ileostomy functioning well, stoma output has decreased Palpation (GI): Soft to palpation, nontender and no guarding Neuro: General: patient oriented x3 Results Labs Result diagrams: 11/14/21 04:05 01/06/22 07:29 Labs: Abnormal lab results 11/14/21 11/14/21 11/14/21 Range/Units 04:05 04:05 04:05 Neut % (Auto) 74.3 H (45-73) % Lymph % (Auto) 18.6 L (20-40) % Chloride (96-108) mmol/L Carbon Dioxide (22-29) mmol/L BUN (9-16) mg/dL Creatinine (0.5-1.4) mg/dL Random Glucose (60-115) mg/dL Lactic Acid 3.1 H* (0.5-2.0) mmol/L Total Protein (6.5-8.0) g/dL Albumin (3.5-5.0) g/dL COVID-19 (BRIGIDA) Positive A (Negative) 11/14/21 11/14/21 Range/Units 05:22 08:29 Neut % (Auto) (45-73) % Lymph % (Auto) (20-40) % Chloride 109 H (96-108) mmol/L Carbon Dioxide 18 L (22-29) mmol/L BUN 25 H 23 H (9-16) mg/dL Creatinine 2.80 H 2.29 H (0.5-1.4) mg/dL Random Glucose 130 H D 118 H (60-115) mg/dL Lactic Acid (0.5-2.0) mmol/L Total Protein 9.0 H D (6.5-8.0) g/dL Albumin 5.3 H (3.5-5.0) g/dL COVID-19 (BRIGIDA) (Negative) Short CBC 11/14/21 Range/Units 04:05 WBC 8.5 (4.8-10.8) X10*3/uL Hgb 18.0 D (14.0-18.0) g/dl Hct 52.0 D (42.0-52.0) % Plt Count 300 (160-400) X10*3/uL BMP 11/14/21 11/14/21 05:22 08:29 Sodium 138 140 Potassium 3.5 4.8 D Chloride 107 109 H Carbon Dioxide 18 L 22 BUN 25 H 23 H Creatinine 2.80 H 2.29 H Calcium 10.1 9.2 D Liver Function 11/14/21 Range/Units 05:22 Total Bilirubin 0.6 (0.0-1.0) mg/dL Direct Bilirubin 0.2 (0.0-0.5) mg/dL AST 28 (5-37) U/L ALT 28 (0-40) U/L Alkaline Phosphatase 110 (39-117) U/L Albumin 5.3 H (3.5-5.0) g/dL All other labs normal. Imaging Abdomen CT scan report/results: report reviewed and image reviewed CT scan - pelvis: report reviewed and image reviewed Assessment and Plan (1) High output ileostomy: Status: Resolved He describes high output from his ileostomy since yesterday. His creatinine is elevated from baseline. He says that he had been doing very well the other day until he started to have some upper respiratory symptoms along with testing positive for COVID. I am uncertain if is high output ileostomy is related to his diagnosis of COVID infection. I have reviewed his CAT scan and this does not reveal any surgical issue. I agree with aggressively hydrating him. He otherwise has a benign exam. His electrolytes will be followed while is in the hospital. Procedures Date of Service Date of Service: 11/14/21
--- NOTE | 2021-11-14 17:21 | MHC.CM.PN ---
CM met with admitted patient with bed assignment pending. A&Ox3. No IMM necessary. HCP on file. HCP/S.O. Laine Hung ([phone]). Fully vaccinated with Pfizer. No booster. PCP Dr. Law. Employed at [employer]. Lives with S.O. Has ileostomy s/p rectal CA. D/C plan is home without services. Pt to arrange transportation home. CM to follow for d/c needs.
[2021-11-14 19:48] LABS: CDiff Gene PCR NEGATIVE (Negative)
[2021-11-14 22:01] LABS: Appearance Urine CLEAR; Color Urine YELLOW; Glucose Urine UA 100 MG/DL (NEG); Leukocyte Esterase Urine NEG (NEG); Nitrite Urine NEG (NEG); Specific Gravity - Urine 1.025 (1.005-1.025); UACC Culture Trigger NO; Urine Blood 1+ (NEG); Urine Ketones NEG (NEG); Urine Protein 1+ MG/DL (NEG-TRACE)
[2021-11-14 22:21] LABS: Bacteria Urine TRACE /LPF; Hyaline Casts Urine >50 /LPF; Mucus Urine 4+ /LPF; RBC Urine 0 /HPF (0); Renal Epithelial Cells Urine TRACE /LPF; Squamous Epithelial Cell Urine TRACE /LPF; UACC CULT YES
[2021-11-15] MEDS: Lactated Ringers 1,000 ML 125 ML IVCONT ×2 (03:06→08:01)
[2021-11-15 03:46] VITALS: BP 123/62; PULSE 71; RESP 18; O2SAT 96
[2021-11-15 06:00] VITALS: BP 114/73; PULSE 73; RESP 16; TEMP 37.7; O2SAT 97
--- NOTE | 2021-11-15 06:27 | PC.NURSE ---
Pt sleeping throughout the night without difficulty. Pt denies pain/discomfort at this time. Pt medicated per JAN. Pt awaiting room assignment at this time.
[2021-11-15 07:55] LABS: Anion Gap 10 (12-20); Blood Urea Nitrogen 20 mg/dL (9-16); Calcium 9.1 mg/dL (8.4-10.2); Carbon Dioxide 22 mmol/L (22-29); Chloride 109 mmol/L (96-108); Creatinine Clr Calc Pharmacy 59.8; Estimated Glomerular Filt Rate > 60; Glucose Random 99 mg/dL (60-115); Potassium 3.7 mmol/L (3.3-5.1); Sodium 137 mmol/L (135-145)
[2021-11-15] MEDS: Levothyroxine Sodium 200 MCG TABLET PO (08:02)
[2021-11-15 10:15] VITALS: BP 120/71; PULSE 67; RESP 16; TEMP 36.8; O2SAT 97
--- NOTE | 2021-11-15 11:03 | P.DS_ITS ---
DS: Providers Provider Date of Service: 11/15/21 Date of admission: 11/14/21 09:50 Primary care physician: Unknown Physician DS: Diagnosis Discharge Diagnosis (1) TRUMAN (acute kidney injury): Status: Acute (2) High output ileostomy: Status: Acute (3) COVID-19 virus infection: Status: Acute DS: Summary Hospital Course Hospital Course: Hpi from admission H&P: 'The patient is a 60 yo M with a PMH of rectal cancer - s/p resection now with a diverting loop ileostomy who presents to [facility] with complaints of muscle aches and cramps along with abdominal discomfort. The patient reports that 3-4 days prior to arrival he began having a sore throat and about 2 days prior to arrival he had a non-productive cough. He reported that he tested positive for COVID since then but did not have any significant shortness of breath. Only minor non- productive cough. He reports that over the 1-2 days since, he has begun having nausea with no oral intake as he was afraid to eat. He had some mild epig astric/mid abd discomfort. He attempted to drink a augie maame, which he vomited back up. He reports that over the last 24 hours, his ileostomy has had 6 episodes of watery stool (typically his stools are formed). Due to these reasons, he presented to the ED. In the ED, his work up revealed TRUMAN with a Serum Cr of 2.8 (baseline around 1). His COVID testing was positive, but cxr negative and no hypoxia on exam. A CT scan of the abdomen and pelvis revealed stable post-surgical findings, no bowel obstruction, no lymphadenopathy or evidence of metastatic disease; there were non-specific findings in the colon (see full details under radiology below). He was given several litres of normal saline with minimal improvement in his renal function. He will now be admitted for further care.? Hospital Course: Patient presented with a combination of GI and respiratory symptoms. He was diagnosed with TRUMAN due to high output ostomy and had known COVID+. He remained normoxic throughout his hospitalization and his chest xr did not have evidence of pneumonia. He had a mild cough and no exertional shortness of breath nor hypoxia. In regards to his TRUMAN, he was treated with aggressive IVF with normaliz ation of his SCr. His diarrhea is resolved and is still is starting to form. He was ruled out for c. diff. Patient is eager to be discharged home. Suspected diarrhea from his COVID causing dehydration and Truman. He is advised to follow COVID isolation guidelines and instructed to drink pleny of fluids. Time Spent with Patient Time attestation: Total time spent providing and/or coordinating discharge services: Discharge coordination time: Greater than 30 minutes Quality: Stroke Does the patient have a stroke diagnosis?: No Physical Exam Vital Signs: Vital Signs: Last Vital Signs Temp 98.2 F 11/15/21 10:15 Pulse 67 11/15/21 10:15 Resp 16 11/15/21 10:15 BP 120/71 11/15/21 10:15 Pulse Ox 97 11/15/21 10:15 BMI result Body Mass Index 26.1 Const: Other: General - no acute distress, appears comfortable Cardiovascular - regular rate and rhythm, S1-S2 Lungs - normal respiratory effort, clear to auscultation bilaterally, no wheezing Abdomen - soft, nontender, no rebound or guarding Extremities - no edema bilaterally Neuro - awake and alert, no focal deficits DS: Data Data Completed and Pending Completed studies during hospitalization [Text1]: Procedures Bypass Ileum to Cutaneous, Open Approach (07/24/21) Excision of Rectum, Open Approach (07/24/21) Excision of Sigmoid Colon, Open Approach (07/24/21) Insertion of Infusion Device into Superior Vena Cava, Percutaneous Approach (07/24/21) Labs on day of discharge: Laboratory Results - last 24 hr 11/14/21 11/14/21 11/15/21 18:51 21:48 07:29 Sodium 137 Potassium 3.7 D Chloride 109 H Carbon Dioxide 22 Anion Gap 10 L BUN 20 H Creatinine 1.20 Estim Creat Clear Calc 59.8 Estimated GFR > 60 Random Glucose 99 Calcium 9.1 Urine Color YELLOW Urine Appearance CLEAR Urine pH 6.0 Ur Specific Quentin 1.025 Urine Protein 1+ H Urine Glucose (UA) 100 H Urine Ketones NEG Urine Blood 1+ H Urine Nitrite NEG Ur Leukocyte Esterase NEG Urine RBC 0 Urine WBC 1-4 Ur Squamous Epith Cells TRACE Ur Renal Epithelial Cell TRACE Urine Bacteria TRACE Hyaline Casts >50 Granular Casts 1-4 Urine Mucus 4+ C. difficile Tox B Gene NEGATIVE Preliminary micro results at discharge 11/14/21 04:05 Blood Culture - Preliminary Blood - Venous No growth after 24 hours. 11/14/21 04:05 Blood Culture - Preliminary Blood - Venous No growth after 24 hours. Discharge Plan Discharge Patient Disposition: Home, Self-Care Discharge Diagnosis: TRUMAN, Diarrhea, COVID 19 Referrals: Physician,Unknown J [Primary Care Provider] - 1 Week Discharge Medications: Continued levothyroxine 200 mcg tablet 200 mcg PO DAILY Qty: 90 RF: 1 Discharge Orders: Discharge Order (Routine); Ordered 11/15/21 Ordered By: Clayton Dickerson Diet: advance to usual diet Activity on Discharge: As tolerated Stand Alone Forms: Patient Portal Discharge page Care Plan Goals: To stay healthy and out of the hospital. Health Concerns: Acute Kidney Injury COVID Diarrhea Plan of Treatment: You kidney function has improved. Drink plenty of fluids For your covid, keep isolation per CDC guidelines Assessment: See Hospital Course.
--- NOTE | 2021-11-15 11:26 | MHC.CM.PN ---
Patient has been medically cleared for dc to home today, self care.
[2021-11-15 11:42] VITALS: BP 128/68; PULSE 78; RESP 16; TEMP 36.5; O2SAT 99
== END 2021-11-15 12:52 | disposition home or self-care (01) | DRG 137 ==
LOC: HO.ED 08:13 → HO.EDOVER 09:59 → HO.IMC 11-15 08:45
PROVIDERS: Emergency Medicine; Admitting Provider Family Medicine; Emergency Provider Emergency Medicine; PCP Internal Medicine; Visit Provider Family Medicine
DX: U07.1 COVID-19 (principal); N17.9 Acute kidney failure, unspecified; E03.9 Hypothyroidism, unspecified; E86.0 Dehydration; Z85.048 Personal history of other malignant neoplasm of rectum, rectosigmoid junction, and anus; Z93.2 Ileostomy status; Z79.890 Hormone replacement therapy; Z87.891 Personal history of nicotine dependence
CPT/HCPCS: 36415; 71045; 74176; 80048; 80076; 81001; 81003; 83605; 83690; 83880; 84484; 85025; 87040; 87086; 87493; 87635; 93005; 96361; 96374; 99285; J1650; J2060

== ENCOUNTER 2021-12-28 08:56 | Outpatient (REF) | payer OTHER, SELFPAY ==
--- NOTE | ~2021-12-28 | FL_ITS ---
EXAMINATION: FL BARIUM ENEMA CLINICAL INFORMATION: Ileostomy status. Rectal anastomosis status. COMPARISON: CT scan of 11/14/2021. TECHNIQUE: Single-contrast barium enema performed through ileostomy. FINDINGS: The terminal ileum appears unremarkable. There are some filling defects seen within the colon. At the level of the anastomosis, there is some narrowing of the lumen with some mild mucosal irregularity and some contrast filling a small cylindrical region at the level of the anastomosis without extravasation. FLUOROSCOPY TIME: 2.9 minutes DOSE AREA PRODUCT: 23.882 Gy-cm2 (corrigan-centimeter squared) FL/FL barium enema IMPRESSION: Contrast injected in the terminal ileum flows freely to the rectum with rectal anastomosis appearing intact without extravasation with some mucosal irregularity and filling of a small blind-ending region. This region of filling extends to what would be normal with bowel in that location.
== END 2021-12-28 08:57 | disposition home or self-care (01) ==
LOC: HO.XRAY 08:56
PROVIDERS: PCP Internal Medicine; Visit Provider Surgery
DX: Z93.2 Ileostomy status (principal)
CPT/HCPCS: 74270

== ENCOUNTER → 2022-01-09 13:51 | Outpatient (BNVA) | payer OTHER, SELFPAY | PROVIDERS: PCP Internal Medicine; Referring Provider Internal Medicine; Visit Provider Surgery ==

== ENCOUNTER 2022-01-17 06:23 | Day surgery (SDC) | payer OTHER, SELFPAY ==
[2022-01-17 06:33] VITALS: BMI 27.1
[2022-01-17 06:46] VITALS: BP 125/67; PULSE 64; RESP 16; TEMP 36.8; O2SAT 100
--- NOTE | 2022-01-17 07:07 | HO.ANESPROP2 ---
HPI - Anesthesia Eval Consult details Narrative: Rectal Cancer [facility] Active Problems Active Problems: All Active Problems (Updated 01/03/22 @ 13:48 by Stacia Davenport MD) Ileostomy in place (Acute) COVID-19 virus infection (Acute) Hyponatremia (Acute) Postoperative ileus (Acute ~07/2021) Hypercholesterolemia (Acute) Hypothyroid (Acute) Rectal cancer (Acute ~10/2020) Prolapsed hemorrhoids (Acute) Past Medical History Medical History TRUMAN (acute kidney injury) COVID-19 vaccine administered COVID-19 virus infection History of chemotherapy (~2020) History of radiation therapy (~2020) Hypercholesterolemia Hypothyroid Ileostomy in place Port-A-Cath in place Postoperative ileus (~07/2021) Prolapsed hemorrhoids Rectal cancer (~10/2020) Vitamin D deficiency Family History Family History Father CVD (cardiovascular disease) Mother No problems noted. Family history of problems with anesthesia: No Surgical History Surgical History History of amputation of finger History of colon resection History of colonoscopy History of flexible sigmoidoscopy History of hemorrhoidectomy History of Problems with Anesthesia: No Social History Social History Household Members: Spouse Housing: House Are you a primary day care provider to a significant other at home: No Do you presently have visiting nurse or other home services: No Alcohol intake: never Patient Tobacco Use Status: Former Tobacco user Tobacco use type: Cigarette Years Smoked: 30 Smoked in Last 30 Days: No Second Hand Smoke Exposure: No Use of substances other than those prescribed or required for medical reasons: No Are you DNR?: No Advance Directives: No Advance Directives Information Provided: Yes service: No Current occupational status: employed Meds Allergies Allergy/AdvReac Type Severity Reaction Status Date / Time No Known Allergies Allergy Mild N/A Verified 01/17/22 06:33 Exam Exam Date and Time: January 17, 2022 0707 Height,Weight and Vital Signs: Height 5 ft 6 in Weight 76.204 kg Last Vital Signs Temp 98.2 F 01/17/22 06:46 Pulse 64 01/17/22 06:46 Resp 16 01/17/22 06:46 BP 125/67 01/17/22 06:46 Pulse Ox 100 01/17/22 06:46 Airway Mallampati Class: II TM Dist: >3cm Denture: Upper and Lower Heart: [id number] Lungs: cta b/l Assessment and Plan Assessment Anesthesia Assessment: Anesthesia Plan Discussed and Chart Reviewed Final Anesthetic Review Family History of Problems with Anesthesia: No History of Problems with Anesthesia: No NPO: Yes ASA Class: III Final Preanesthetic Review: No Changes in Pt Med Stat, Meds/Allgs Chart Reviewed, Consent Obtained/Reviewed and Anes Risks/Benef Reviewed Patient Risk: Intermediate Procedure Risk: Low Assessment/Block/Sedation in SS: Assess/Block/Sedation-SS Anesthetic Plan Anesthetic Plan: MAC: and Agree w/ Assess. and Plan Disposition: Standard PACU
--- NOTE | 2022-01-17 07:22 | MHC.SHP ---
Pre-Procedural Eval Section A Date of Service: 01/17/22 The patient is an INPATIENT: No Changes since office visit: No Cold of Flu in the past 2 weeks, No New Medical Problems, No Changes in Medication and No Patient answered all questions The History & Physical has been completed within 30 days and I have reviewed it.: Yes Section B Chief Complaint: Ileostomy in place Allergies: Allergies Allergy/AdvReac Type Severity Reaction Status Date / Time No Known Allergies Allergy Mild N/A Verified 01/17/22 06:33 Plan I have reviewed the history and physical and performed a pertinent physical examination on my patient. No changes have occurred unless specified.
[2022-01-17] MEDS: Lactated Ringers 1,000 ML 50 ML IVCONT (07:24)
[2022-01-17 07:44] VITALS: BP 126/73; PULSE 77; RESP 16; TEMP 36.1; O2SAT 99
--- NOTE | 2022-01-17 07:50 | W.PM.OPN ---
Operative Note Operative Note Date of Service: 01/17/22 Narrative: Preop diagnosis: S/P low anterior resection/diverting ileostomy for rectal cancer Postop diagnosis: S/P low anterior resection/diverting ileostomy - with irregular mucosa, some stricturing of anastomosis Procedure: Flexible sigmoidoscopy Surgeon: Mack Michel M.D. The patient is a 61-year-old male undergone low anterior resection with diverting loop ileostomy after neoadjuvant chemotherapy and radiation, for a rectal cancer last year. He is here to have a flexible sigmoidoscopy in view of irregular looking anastomosis on enema study . He understood the technique of the procedure. He is aware of the risks, benefits, and alternatives. He was brought to the endoscopy suite and placed in left lateral decubitus position under monitored anesthesia care. A full digital rectal exam was done and there were no palpable anal canal lesions. The tip of the Olympus scope was gently introduced through the anal orifice and advanced with some inflation. we immediately encountered the anastomosis. This did appear to have irregular looking mucosa and strictured. Unable to pass the scope through this. There is no obvious mass. There was significant erythema and induration. Since patient had radiation treatment, I decided not to do biopsies at this time. There were no lesions distal to this anastomosis . The scope was then withdrawn completely. The patient tolerated procedure well. There were no immediate complications. I may have to refer the patient for opinion with regards to further management of his anastomosis because of the stricture in some irregular mucosal lining. This will be discussed with him.
[2022-01-17 08:00] VITALS: BP 124/71; PULSE 61; RESP 18; TEMP 36.1; O2SAT 98
== END 2022-01-17 08:20 | disposition home or self-care (01) ==
PROVIDERS: PCP Internal Medicine; Visit Provider Surgery
PROC: 0DJD8ZZ Inspection of Lower Intestinal Tract, Via Natural or Artificial Opening Endoscopic (ICD-10-PCS; CPT 45330; principal; 2022-01-17 07:30)
DX: K91.89 Other postprocedural complications and disorders of digestive system (principal); K56.699 Other intestinal obstruction unspecified as to partial versus complete obstruction; Z93.2 Ileostomy status; E78.00 Pure hypercholesterolemia, unspecified; E03.9 Hypothyroidism, unspecified; E55.9 Vitamin D deficiency, unspecified; Z85.048 Personal history of other malignant neoplasm of rectum, rectosigmoid junction, and anus; Z92.3 Personal history of irradiation; Z92.21 Personal history of antineoplastic chemotherapy; Z79.899 Other long term (current) drug therapy; Z87.891 Personal history of nicotine dependence; Z86.16 Personal history of COVID-19
CPT/HCPCS: 45330

== ENCOUNTER → 2022-01-31 14:41 | Outpatient (BNVA) | payer OTHER, SELFPAY | PROVIDERS: PCP Internal Medicine; Referring Provider Internal Medicine; Visit Provider Surgery | DX: C20 Malignant neoplasm of rectum (principal); Z87.891 Personal history of nicotine dependence | CPT/HCPCS: 99212 ==

== ENCOUNTER → 2022-08-29 12:10 | Outpatient (RCR) | payer OTHER, SELFPAY ==
[2020-09-22 14:33] LABS: COVID-19 Test Negative (Negative)
[2020-09-29 14:35] LABS: COVID-19 Test Negative (Negative); IDNOW Serial# 55D5AD1C
== END | disposition home or self-care (01) ==
LOC: HO.EMPCOV 09-22 14:04
PROVIDERS: Visit Provider Internal Medicine
DX: Z20.828 Contact with and (suspected) exposure to other viral communicable diseases (principal)
CPT/HCPCS: 87635; C9803

== ENCOUNTER 2022-10-16 08:58 | Outpatient (REF) | payer OTHER, SELFPAY ==
[2022-10-16 11:03] LABS: Thyroid Stimulating Hormone 0.04 uIU/mL (0.32-4.0)
[2022-10-17 09:43] LABS: Thyroid Peroxidase Antibodies 25 IU/mL (<9)
== END 2022-10-16 08:59 | disposition home or self-care (01) ==
LOC: HO.LAB 08:58
PROVIDERS: PCP Internal Medicine; Visit Provider Internal Medicine Endocrinology, Diabetes & Metabolism
DX: E03.9 Hypothyroidism, unspecified (principal)
CPT/HCPCS: 36415; 84439; 84443; 86376

== ENCOUNTER 2022-11-25 09:31 | Outpatient (REF) | payer OTHER, SELFPAY ==
[2022-11-25 11:31] LABS: Free T4 (Free Thyroxine) 1.48 ng/dL (0.71-1.85); Thyroid Stimulating Hormone 0.02 uIU/mL (0.32-4.0)
== END 2022-11-25 09:32 | disposition home or self-care (01) ==
LOC: HO.LAB 09:31
PROVIDERS: PCP Internal Medicine; Visit Provider Internal Medicine Endocrinology, Diabetes & Metabolism
DX: E03.9 Hypothyroidism, unspecified (principal)
CPT/HCPCS: 36415; 84439; 84443

== ENCOUNTER → 2022-12-11 08:35 | Outpatient (BNVA) | payer OTHER, SELFPAY | PROVIDERS: PCP Internal Medicine; Visit Provider Internal Medicine Endocrinology, Diabetes & Metabolism | DX: E03.9 Hypothyroidism, unspecified (principal) ==

== ENCOUNTER 2023-01-13 11:25 | Outpatient (REF) | payer OTHER, SELFPAY ==
[2023-01-13 13:03] LABS: Free T4 (Free Thyroxine) 1.29 ng/dL (0.71-1.85); Thyroid Stimulating Hormone 0.02 uIU/mL (0.32-4.0)
== END 2023-01-13 11:26 | disposition home or self-care (01) ==
LOC: HO.LAB 11:25
PROVIDERS: PCP Internal Medicine; Visit Provider Internal Medicine Endocrinology, Diabetes & Metabolism
DX: E03.9 Hypothyroidism, unspecified (principal)
CPT/HCPCS: 36415; 84439; 84443

== ENCOUNTER 2023-02-27 11:08 | Outpatient (REF) | payer OTHER, SELFPAY ==
[2023-02-27 12:40] LABS: Free T4 (Free Thyroxine) 1.35 ng/dL (0.71-1.85); Thyroid Stimulating Hormone 0.56 uIU/mL (0.32-4.0)
== END 2023-02-27 11:09 | disposition home or self-care (01) ==
LOC: HO.LAB 11:08
PROVIDERS: PCP Internal Medicine; Visit Provider Internal Medicine Endocrinology, Diabetes & Metabolism
DX: E03.9 Hypothyroidism, unspecified (principal)
CPT/HCPCS: 36415; 84439; 84443

== ENCOUNTER 2023-06-11 08:31 | Outpatient (AMB) | payer OTHER, SELFPAY ==
--- NOTE | 2023-06-11 08:33 | A.OFFVIS_ITS ---
Intake Vital Signs 06/11/23 08:35 Height 5 ft 6 in Weight 172 lb 13.478 oz BMI 27.9 BP 112/66 Pulse 60 Intake Visit Reasons: f/u hypothyroidism Intake Note: Patient present for Hypothyroidism follow up visit. Shoe Shanker Required: No Accompanied by: Self / Same As Patient Allergies No Known Allergies Allergy (Mild, Verified 06/11/23 08:39) N/A HPI HPI Comments History of Present Illness Details 62 YO M with PMHx hypothyroidism who is seen in consultation at the request of his PCP for Hyothyroidism. First diagnosed with Hypothyroidism >10 yrs with labs revealing hypothyroidism . Currently using [id number] ug . Now compliant with levothyroxine. Was on 175 mcg Denies fatigue, weight gain, cold intolerance, dry skin, hair loss, constipation. There is no hx of hyperlipidemia . Denies obstructive sx of goiter . Denies consuming any kelp or seaweed. Denies taking amiodarone. Biotin: No Family hx of thyroid dx : Labs: [facility] Medical History TRUMAN (acute kidney injury) COVID-19 vaccine administered COVID-19 virus infection History of chemotherapy (~2020) History of radiation therapy (~2020) Hypercholesterolemia Hypothyroid Ileostomy in place Port-A-Cath in place Postoperative ileus (~07/2021) Prolapsed hemorrhoids Rectal cancer (~10/2020) Vitamin D deficiency Surgical History History of amputation of finger History of colon resection History of colonoscopy History of flexible sigmoidoscopy History of hemorrhoidectomy History of reversal of ileostomy Family History Father CVD (cardiovascular disease) Mother No problems noted. Social History Household Members: Spouse Housing: House Are you a primary resident care director to a significant other at home: No Do you presently have visiting nurse or other home services: No Alcohol intake: never Patient Tobacco Use Status: Former Tobacco user Tobacco use type: Cigarette Cigarettes Per Day: 10 Years Smoked: 30 Second Hand Smoke Exposure: No service: No Current occupational status: employed Physical Exam Vital Signs: Last Vital Signs Pulse 60 06/11/23 08:35 BP 112/66 06/11/23 08:35 BMI result Body Mass Index 27.9 HEENT reveals absence of lid lag , stare or proptosis or eyebrow loss. Thyroid gland measure 15 gms . No nodules or tenderness palpated. There is no cervical adenopathy palpated. Lungs CTA. Heart S1, S2 Reg R/R -M/R/G. Abdominal exam benign. Skin exam reveals absence of dryness or thyroid dermopathy or vitiligo. Nail exam reveals absence of thyroid acropachy or oncholysis. Neurologic exam reveals 2+ reflexes . Muscle Strength is 5/5 proximally. There are no tremors in upper extremities. Assessment & Plan Assessment & Plan (1) Hypothyroid: Code(s): E03.9 - Hypothyroidism, unspecified Qualifiers: Hypothyroidism type: acquired Qualified Code(s): E03.9 - Hypothyroidism, unspecified Plan: This 61-year-old male with a history of hypothyroidism being treated [id number] ug mcg levothyroxine. He appears to be clinically and biochemically euthyroid Plan is to continue the current treatment. At this time, patient will return to the care of his primary care provider. He returned to endocrinology as needed Coding Level of Care Code Est Pt Level 3 (55030) Diagnoses Hypothyroid E03.9 Hypothyroidism type: acquired
[2023-06-11 08:35] VITALS: BP 112/66; PULSE 60; BMI 27.9
== END 2023-06-11 08:47 | disposition home or self-care (01) ==
PROVIDERS: PCP Internal Medicine; Visit Provider Internal Medicine Endocrinology, Diabetes & Metabolism
DX: E03.9 Hypothyroidism, unspecified (principal)
CPT/HCPCS: 99213

== ENCOUNTER → 2023-06-11 08:31 | Outpatient (BNVA) | payer OTHER, SELFPAY | PROVIDERS: Visit Provider Internal Medicine Endocrinology, Diabetes & Metabolism ==

== ENCOUNTER 2023-09-15 11:05 | Outpatient (AMB) | payer OTHER, SELFPAY ==
[2023-09-15 11:07] VITALS: BP 140/68; PULSE 63; BMI 27.6
--- NOTE | 2023-09-15 11:07 | A.OFFVIS_ITS ---
Intake Vital Signs 09/15/23 11:07 Height 5 ft 6 in Weight 171 lb BMI 27.6 BP 140/68 H Blood Pressure Location Rt brachial Position Sitting Pulse 63 Intake Visit Reasons: rectal bleeding, anoscopy* Intake Note: This patient presents for an assessment for rectal bleeding. *anoscopy* Patient c/o; reports was experiencing rectal bleeding and it has stopped, report no rectal pain or pressure, reports occasional itchiness. Chief Psychologist Required: No Accompanied by: Self / Same As Patient Allergies No Known Allergies Allergy (Mild, Verified 09/15/23 11:15) N/A Medication List - Last Reconciled 09/15/23 by Mack Michel MD levothyroxine 150 mcg PO DAILY HPI rectal bleeding, anoscopy* HPI Details 62-year-old male referred for passage of bright blood per rectum. He had undergone low anterior section in July,. He had neoadjuvant chemotherapy and radiation prior to that. He had a diverting loop ileostomy at that time. He developed a stricture in the anastomosis. I had referred him to [facility] and after multiple up, he had 20 had the diverting loop ileostomy reversed there July, He has been doing well since then. He is following Dr. Davenport and had mentioned his last visit that he had been noticing small amounts of bright blood with bowel movements for about a week. He was referred to me therefore He says that he has not noticed this for about 3 days now. He denies any pain in his rectum with bowel movements. He says he feels well overall. He denies being constipated [facility] Medical History (Updated 09/15/23 @ 11:40 by Mack Michel MD) Blood per rectum Ileostomy in place TRUMAN (acute kidney injury) COVID-19 virus infection History of radiation therapy (~2020) Postoperative ileus (~07/2021) COVID-19 vaccine administered History of chemotherapy (~2020) Port-A-Cath in place Hypercholesterolemia Vitamin D deficiency Rectal cancer (~10/2020) Hypothyroid Prolapsed hemorrhoids Surgical History History of reversal of ileostomy History of colonoscopy History of hemorrhoidectomy History of colon resection History of flexible sigmoidoscopy History of amputation of finger Family History Father CVD (cardiovascular disease) Mother No problems noted. Social History Household Members: Spouse Housing: House Are you a primary pediatric acute care unit nurse to a significant other at home: No Do you presently have visiting nurse or other home services: No Alcohol intake: never Patient Tobacco Use Status: Former Tobacco user Tobacco use type: Cigarette Cigarettes Per Day: 10 Years Smoked: 30 Second Hand Smoke Exposure: No service: No Current occupational status: employed Review of Systems Const Denies chills and Denies fever(s) Card Denies chest pain, Denies dyspnea and Denies dyspnea on exertion Resp Denies cough, Denies dyspnea and Denies dyspnea on exertion GI Reports hematochezia and Denies change in bowel habits Denies hematuria and Denies difficulty urinating Musc Denies back pain and Denies limited range of motion Neuro Denies focal weakness and Denies convulsions Psych Denies depression and Denies mood swings Physical Exam Vital Signs: Last Vital Signs Pulse 63 09/15/23 11:07 BP 140/68 H 09/15/23 11:07 BMI result Body Mass Index 27.6 Const General: comfortable and no acute distress Orientation/consciousness: patient oriented x3 Neck Neck: Yes no lymphadenopathy Resp Auscultation: clear to auscultation bilaterally Cardio Rhythm: regular rhythm GI Other: Rectal exam shows small external hemorrhoids, anoscopy done Palpation (GI): Soft to palpation, nontender and no guarding Neuro General: patient oriented x3 Office Procedures Anoscopy He was in jessie-knife position. The anoscope was gently inserted. A full examination of the anal canal was done I did not see any lesions. He did have small internal and external hemorrhoids. I did not see any bleeding. Digital exam did not reveal any induration. There was no fissure or ulceration. [id number] Assessment & Plan Assessment & Plan (1) Blood per rectum: Code(s): K62.5 - Hemorrhage of anus and rectum Plan: He has a history of low anterior resection for rectal cancer with neoadjuvant chemotherapy and radiation prior to that . He had noted passage of bright blood per rectum with bowel movements for several days last week. This has since resolved for about 3 days now Digital exam as well as anoscopy does not reveal any lesions bleeding currently. He did have some small internal hemorrhoids. His CEA level has been low. His bleeding is likely secondary to hemorrhoidal bleed. I did tell him that if this becomes recurrent and persistent, should come back to the office so we can do a sigmoidoscopy. He said that he is supposed to have a colonoscopy next year. He is to continue to follow with Dr. Davenport. Coding Level of Care Code Est Pt Level 3 (10399) Diagnoses Blood per rectum K62.5 CPT Codes Details - CPT: 17297-Ucuxkvuw ([id number])
== END 2023-09-15 11:50 | disposition home or self-care (01) ==
PROVIDERS: PCP Internal Medicine; Visit Provider Surgery
DX: K62.5 Hemorrhage of anus and rectum (principal); K64.8 Other hemorrhoids
CPT/HCPCS: 46600; 99213

== ENCOUNTER → 2023-09-15 11:05 | Outpatient (BNVA) | payer OTHER, SELFPAY | PROVIDERS: PCP Internal Medicine; Visit Provider Surgery | DX: K62.5 Hemorrhage of anus and rectum (principal); C20 Malignant neoplasm of rectum; K91.89 Other postprocedural complications and disorders of digestive system; K56.7 Ileus, unspecified; Z92.3 Personal history of irradiation; Z93.2 Ileostomy status | CPT/HCPCS: 46600 ==

== ENCOUNTER 2023-09-23 15:34 | Outpatient (AMB) | payer OTHER, SELFPAY ==
[2023-09-23 15:40] VITALS: BP 118/66; PULSE 67; O2SAT 98; BMI 26.8
--- NOTE | 2023-09-23 15:40 | A.OFFPC_ITS ---
Vital Signs 09/23/23 15:40 Height 5 ft 6 in Weight 166 lb BMI 26.8 BP 118/66 Blood Pressure Location Rt brachial Position Sitting Pulse 67 Pulse Source Pulse Oximeter Temp Source Skin Pulse Oximetry (%) 98 Oxygen Delivery Method Room Air Intake Visit Reasons: R shoulder pain Intake Note: pt states alf bilateral shoulder pain with no relief. pt states no fall, no injury Lease Administrator Required: No Allergies No Known Allergies Allergy (Mild, Verified 09/23/23 15:56) N/A Medication List - Last Reconciled 09/23/23 by POP Nunes levothyroxine 150 mcg PO DAILY Tobacco use date assessed: 09/23/23 Dental Screening Dental Screen Date: 09/23/23 Did you have a dental visit in the last 12 months?: No Did you have a dental problem in the last 6 months where you did not have access to dental care?: No HPI R shoulder pain HPI Details Patient is a 62-year-old male who presents today with bilateral shoulder pain left greater than right for over [address] of [address] Law. He denies any shoulder injury. Reports taking aspirin with no much improvement in pain. Reports pain with range of motion, also reports clicking sensation in both of his shoulders. Reports intermittent numbness/tingling in his right arm. No shortness of breath or chest pain. [facility], [facility] Medical History COVID-19 virus infection Blood per rectum Ileostomy in place TRUMAN (acute kidney injury) COVID-19 virus infection History of radiation therapy (~2020) Postoperative ileus (~07/2021) COVID-19 vaccine administered History of chemotherapy (~2020) Port-A-Cath in place Hypercholesterolemia Vitamin D deficiency Rectal cancer (~10/2020) Hypothyroid Prolapsed hemorrhoids Surgical History History of reversal of ileostomy History of colonoscopy History of hemorrhoidectomy History of colon resection History of flexible sigmoidoscopy History of amputation of finger Family History Father CVD (cardiovascular disease) Mother No problems noted. Social History Household Members: Spouse Housing: House Are you a primary senior caregiver to a significant other at home: No Do you presently have visiting nurse or other home services: No Alcohol intake: never Patient Tobacco Use Status: Former Tobacco user Tobacco use type: Cigarette Cigarettes Per Day: 10 Years Smoked: 30 Second Hand Smoke Exposure: No service: No Current occupational status: employed Cognitive needs: No Hearing needs: No Vision needs: No Questionnaire AUDIT C Alcohol Use Questionnaire (AUDIT-C) 1. How often do you have a drink containing alcohol?: Never 3. How often do you have six or more drinks on one occasion?: Never Total Score: 0 Score Reviewed/Action Taken: No Review of Systems Const Denies body aches, Denies chills, Denies fever(s) and Denies headache(s) ENT Denies dizziness, Denies otalgia, Denies headache(s), Denies nasal discharge, Denies sinus pain and Denies sore throat Card Denies chest pain, Denies edema, Denies lightheadedness and Denies dyspnea Resp Denies cough, Denies dyspnea and Denies wheezing GI Denies abdominal pain, Denies hematochezia, Denies constipation, Denies diarrhea, Denies nausea and Denies vomiting Denies dysuria Musc Reports as per HPI, Denies myalgias and Reports arthralgias Skin/Breast Denies rash Neuro Denies dizziness and Denies headache(s) Aller/Immun Denies wheezing Physical exam (Primary Care) Vital Signs: Last Vital Signs Pulse 67 09/23/23 15:40 BP 118/66 09/23/23 15:40 Pulse Ox 98 09/23/23 15:40 Oxygen Delivery Method Room Air 09/23/23 15:40 BMI result Body Mass Index 26.8 Tobacco/Smoking Status: Tobacco use Status Tobacco use date assessed 09/23/23 09/23/23 15:49 Patient Tobacco Use Status Former Tobacco user 09/23/23 15:42 Tobacco use type Cigarette 09/23/23 15:42 Const General: cooperative and no acute distress Orientation/consciousness: patient oriented x3 HENMT Head: Yes normocephalic and Yes atraumatic Throat: Yes posterior oropharynx normal Eyes General: appearance normal, both eyes and all related structures Neck Neck: Yes normal visual inspection and Yes full ROM Resp Effort & Inspection: normal respiratory effort and able to speak in complete sentences Auscultation: clear to auscultation bilaterally, no crackles, no rales, no rhonchi and no wheezes Cardio Rate: regular rate Rhythm: regular rhythm Heart sounds: S1 normal heart sound present and S2 normal heart sound present GI Auscultation: normal bowel sounds Skin General skin exam: no rashes or lesions noted Neuro General: patient oriented x3 Gait exam (Neuro): Normal gait present Motor exam (neuro): 5/5 motor strength present throughout Extrem Other: Bilateral shoulder normal to inspection, anterior aspects tender, pain with range of motion L>R, clicking sounds noted in both shoulders General: Yes full ROM and No edema Assessment and Plan Assessment & Plan (1) Bilateral shoulder pain: Code(s): M25.511 - Pain in right shoulder; M25.512 - Pain in left shoulder Plan: Patient presents with bilateral shoulders pain for long time now. No injury. Suspect musculoskeletal in origin. Will obtain x-rays, will refer to physical therapy. Start ibuprofen 400 mg every 8 hours as needed. Encouraged heat/cold packs p.r.n.. Follow-up in the office if no improvement after physical therapy. Patient agreed with the plan. Orders: Orders XR shoulder LT min 2V Today M25.511 - Pain in right shoulder, M25.512 - Pain in left shoulder XR shoulder RT min 2V Today M25.511 - Pain in right shoulder, M25.512 - Pain in left shoulder PT Evaluation and Treatment Today M25.511 - Pain in right shoulder, M25.512 - Pain in left shoulder Medications: New ibuprofen 400 mg PO Q8H PRN 20 tabs 0RF pain M25.511 - Pain in right shoulder, M25.512 - Pain in left shoulder Coding Level of Care Code Est Pt Level 3 (36604) Diagnoses Bilateral shoulder pain M25.511; M25.512
== END 2023-09-23 16:07 | disposition home or self-care (01) ==
PROVIDERS: PCP Internal Medicine; Visit Provider Nurse Practitioner Family
DX: M25.511 Pain in right shoulder (principal); M25.512 Pain in left shoulder
CPT/HCPCS: 99213

== ENCOUNTER 2023-09-24 13:05 | Outpatient (REF) | payer OTHER, SELFPAY ==
--- NOTE | ~2023-09-24 | XR_ITS ---
EXAMINATION: XR SHOULDER, RIGHT CLINICAL INFORMATION: Pain COMPARISON: None available. TECHNIQUE: 5 views of the right shoulder. FINDINGS: No evidence of fracture or dislocation. Mild acromioclavicular arthritis. Glenohumeral and acromioclavicular alignment is anatomic with normal joint space. No abnormal soft tissue calcifications. Right chest wall port catheter tip estimated in the distal SVC. XR/XR shoulder RT min 2V IMPRESSION: Mild acromioclavicular arthritis.
--- NOTE | ~2023-09-24 | XR_ITS ---
EXAMINATION: XR SHOULDER, LEFT CLINICAL INFORMATION: Pain COMPARISON: None available. TECHNIQUE: AP external rotation, Grashey, scapular Y, and axillary views of the left shoulder. FINDINGS: Mild acromioclavicular arthritis. No fracture. Glenohumeral and acromioclavicular alignment is anatomic with normal joint space. No abnormal soft tissue calcifications. The previously seen calcification superior to the greater tuberosity is not visualized in today's study. XR/XR shoulder LT min 2V IMPRESSION: Mild acromioclavicular arthritis.
== END 2023-09-24 13:06 | disposition home or self-care (01) ==
LOC: HO.XRAY 13:05
PROVIDERS: Visit Provider Nurse Practitioner Family
DX: M25.511 Pain in right shoulder (principal); M25.512 Pain in left shoulder
CPT/HCPCS: 73030

== ENCOUNTER 2023-10-22 08:50 | Outpatient (AMB) | payer OTHER, SELFPAY ==
--- NOTE | 2023-10-22 08:53 | MHC.OFFVIS ---
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 The patient describes his left shoulder pain as sharp and severe in nature. He did injure his shoulder approximately 1 year ago while lifting a heavy object. Since that time his symptoms have gotten worse in spite of continued non operative treatments. He has done physical therapy which aggravated his pain. He has also tried Tylenol and anti-inflammatory medicines which gave him minimal relief. The patient has had injections in the past which gave him no relief. Allergies No Known Allergies Allergy (Mild, Verified 10/22/23 08:59) N/A Medication List - Last Reconciled 10/22/23 by Christiano Peng MD ibuprofen 600 mg PO Q8H PRN levothyroxine 150 mcg PO DAILY lidocaine 4% (Aspercreme (lidocaine)) 2 patches topical DAILY PRN PFSH Medical History COVID-19 virus infection Blood per rectum Ileostomy in place TRUMAN (acute kidney injury) COVID-19 virus infection History of radiation therapy (~2020) Postoperative ileus (~07/2021) COVID-19 vaccine administered History of chemotherapy (~2020) Port-A-Cath in place Hypercholesterolemia Vitamin D deficiency Rectal cancer (~10/2020) Hypothyroid Prolapsed hemorrhoids Surgical History History of reversal of ileostomy History of colonoscopy History of hemorrhoidectomy History of colon resection History of flexible sigmoidoscopy History of amputation of finger Family History Father CVD (cardiovascular disease) Mother No problems noted. Social History Household Members: Spouse Housing: House Are you a primary reproductive healthcare assistant to a significant other at home: No Do you presently have visiting nurse or other home services: No Alcohol intake: never Patient Tobacco Use Status: Former Tobacco user Tobacco use type: Cigarette Cigarettes Per Day: 10 Years Smoked: 30 Second Hand Smoke Exposure: No service: No Current occupational status: employed Cognitive needs: No Hearing needs: No Vision needs: No Physical Exam Const Other: Well-nourished well-developed very friendly male awake alert and oriented x3 in no acute distress Extrem Other: Bilateral upper extremity examination shows good capillary refill, no skin lesions noted, normal sensation light touch Left shoulder examination shows decreased range of motion when compared to his right shoulder, 4+ out of 5 strength with supraspinatus testing, positive impingement signs, tenderness over his acromioclavicular joint, no instability Right shoulder examination shows positive impingement signs, tenderness over his acromioclavicular joint, no instability Results Reviewed Results Reviewed: X-rays of the patient's bilateral shoulders taken today show severe acromioclavicular joint narrowing, type 2 acromion, no acute bony abnormalities Assessment & Plan Assessment & Plan (1) Left shoulder pain: Code(s): M25.512 - Pain in left shoulder Plan Mr. Juan presents with bilateral shoulder pains and weakness, left greater than right, most likely due to impingement syndrome, acromioclavicular joint arthritis and possible rotator cuff tearing. Thus, I will send the patient for an MRI of his left shoulder to further evaluate the status of his rotator cuff tendons. I will see him back once the MRI is completed to discuss the findings and treatment options. He will continue with his activity modifications in the meantime. Feel free to call me at any time should questions regarding his orthopedic management arise. Thank you very much for asking me to see this very friendly gentleman. I spent 22 minutes in reviewing the patient's records and imaging studies, seeing the patient and documenting in the medical record. Coding Level of Care Code New Pt Level 2 (11340) Diagnoses Left shoulder pain M25.512
== END 2023-10-22 09:09 | disposition home or self-care (01) ==
PROVIDERS: PCP Internal Medicine; Visit Provider Orthopaedic Surgery
DX: M25.512 Pain in left shoulder (principal)
CPT/HCPCS: 99202

== ENCOUNTER → 2023-10-22 08:50 | Outpatient (BNVA) | payer OTHER, SELFPAY | PROVIDERS: PCP Internal Medicine; Visit Provider Orthopaedic Surgery ==

== ENCOUNTER 2023-11-18 07:28 | Outpatient (REF) | payer OTHER, SELFPAY ==
--- NOTE | ~2023-11-18 | MR_ITS ---
EXAMINATION: MR SHOULDER WITHOUT CONTRAST, LEFT CLINICAL INFORMATION: Left shoulder pain. COMPARISON: Most recent left shoulder radiographs dated 09/24/2023. TECHNIQUE: MRI of the shoulder was performed using routine sequences on a high-field scanner. FINDINGS: ROTATOR CUFF: Mild supraspinatus and infraspinatus tendinosis. Minimal bursal surface fraying of the supraspinatus tendon measuring up to 0.7 cm in AP dimension. No full-thickness rotator cuff tendon tear. No muscle atrophy or fatty infiltration. BICEPS: Trace fluid within the proximal long head biceps tendon sheath which could indicate joint fluid or represent minimal tenosynovitis. No measurable tear. CORACOACROMIAL ARCH: The undersurface of the acromion is curved with small subchondral spurs. [id number] acromioclavicular osteoarthritis. Associated marrow and capsular edema. Edema could be degenerative or indicate overuse injury. Given the degree of findings, this could represent the source of the patient's pain. Trace fluid within the subacromial-subdeltoid bursa, consistent with minimal bursitis. LABRUM/CAPSULE: No labral tear. Intact joint capsule. GLENOHUMERAL JOINT/MARROW: Unremarkable. MR/MR shoulder LT wo con IMPRESSION: 1. Mild supraspinatus and infraspinatus tendinosis with minimal bursal surface fraying of the supraspinatus tendon. No full-thickness rotator cuff tendon tear. 2. Trace fluid within the proximal long head biceps tendon sheath which could indicate joint fluid or represent minimal tenosynovitis. No measurable tendon tear. 3. Rfzsqvsi-yf-crnjga acromioclavicular osteoarthritis with associated marrow and capsular edema. Edema could be degenerative or indicate overuse injury. Given the degree of findings, this could represent the source of the patient's pain. 4. Minimal subacromial-subdeltoid bursitis.
== END 2023-11-18 07:29 | disposition home or self-care (01) ==
LOC: HO.MRI 07:28
PROVIDERS: PCP Internal Medicine; Visit Provider Orthopaedic Surgery
DX: M25.512 Pain in left shoulder (principal)
CPT/HCPCS: 73221

== ENCOUNTER 2023-11-25 08:41 | Outpatient (AMB) | payer OTHER, SELFPAY ==
[2023-11-25 08:42] VITALS: BMI 27.6
--- NOTE | 2023-11-25 08:42 | MHC.OFFVIS ---
Intake Vital Signs 11/25/23 08:42 Height 5 ft 6 in Weight 171 lb BMI 27.6 Intake Visit Reasons: Bilateral shoulder pain Intake Note: Flynn is a 62 year old Right handed male who presents with complaints of bilateral shoulder pains, right greater than left. The patient states that his left shoulder pain was more bothersome than was his right several weeks ago. At this point his right shoulder is bothering him more. He denies any weakness. Has done physical therapy exercises which aggravated his pain. He did have a cortisone injection given into his shoulder approximately 10 years ago which gave him fairly good relief. He has tried Tylenol and anti-inflammatory medicines which gave him minimal relief. Would like to hold off on surgery for as long as possible. Allergies No Known Allergies Allergy (Mild, Verified 11/25/23 08:46) N/A [facility] Medical History COVID-19 virus infection Blood per rectum Ileostomy in place TRUMAN (acute kidney injury) COVID-19 virus infection History of radiation therapy (~2020) Postoperative ileus (~07/2021) COVID-19 vaccine administered History of chemotherapy (~2020) Port-A-Cath in place Hypercholesterolemia Vitamin D deficiency Rectal cancer (~10/2020) Hypothyroid Prolapsed hemorrhoids Surgical History History of reversal of ileostomy History of colonoscopy History of hemorrhoidectomy History of colon resection History of flexible sigmoidoscopy History of amputation of finger Family History Father CVD (cardiovascular disease) Mother No problems noted. Social History Household Members: Spouse Housing: House Are you a primary landcare facilitator to a significant other at home: No Do you presently have visiting nurse or other home services: No Alcohol intake: never Patient Tobacco Use Status: Former Tobacco user Tobacco use type: Cigarette Cigarettes Per Day: 10 Years Smoked: 30 Second Hand Smoke Exposure: No service: No Current occupational status: employed Cognitive needs: No Hearing needs: No Vision needs: No Physical Exam Vital Signs: BMI result Body Mass Index 27.6 Const Other: Well-nourished well-developed very friendly male awake alert and oriented x3 in no acute distress Extrem Other: Bilateral upper extremity examination shows good capillary refill, no skin lesions noted, normal sensation light touch Bilateral shoulder examination shows forward flexion to 160 degrees, external rotation of 50 degrees, internal rotation to level L4, 4+ out of 5 strength with supraspinatus testing, positive impingement signs, tenderness over his acromioclavicular joints, no instability Office Procedures Joint Injection/Drain Joint Injection/Drain Primary Site: right shoulder Prep: site was prepped using aseptic technique Injected: 40 mg of, DepoMedrol and 1% plain lidocaine Procedure: The patient tolerated the procedure well Coding 91426 - Large joint Procedure code (CPT) selection complete Results Reviewed Results Reviewed: MRI of the patient's left shoulder shows severe acromioclavicular joint narrowing, a type 3 acromion, signal change within the supraspinatus tendon due to rotator cuff tendinosis versus partial-thickness tearing Assessment & Plan Assessment & Plan (1) Impingement of right shoulder: Code(s): M25.811 - Other specified joint disorders, right shoulder (2) Bilateral shoulder pain: Code(s): M25.511 - Pain in right shoulder; M25.512 - Pain in left shoulder (3) Bilateral shoulder pain: Code(s): M25.511 - Pain in right shoulder; M25.512 - Pain in left shoulder Plan Mr. Juan presents with bilateral shoulder pains, right greater than left, due to acromioclavicular joint arthritis, impingement syndrome and rotator cuff tendinosis versus partial-thickness tearing. I had a lengthy discussion with the patient regarding the treatment options. He wishes to hold off on surgery for as long as possible. I agree with this plan. The risks and benefits of a right shoulder cortisone injection were discussed length with the patient. The patient wished to proceed tolerated the injection well. He will continue with his activity modifications. I will see him back in 3-4 weeks' time for possible left shoulder injection. Feel free to call me at any time should questions regarding his orthopedic management arise. I spent 22 minutes in reviewing the patient's records and imaging studies, seeing the patient and documenting in the medical record. Orders: Orders AMB Joint Injection/Aspiration Today M25.811 - Other specified joint disorders, right shoulder Coding Level of Care Code Est Pt Level 2 (09946) Diagnoses Impingement of right shoulder M25.811 Bilateral shoulder pain M25.511; M25.512 CPT Codes Coding - 11152 Large joint: 39583 - Large joint ([id number])
== END 2023-11-25 09:12 | disposition home or self-care (01) ==
PROVIDERS: PCP Internal Medicine; Visit Provider Orthopaedic Surgery
DX: M25.811 Other specified joint disorders, right shoulder (principal); M25.512 Pain in left shoulder
CPT/HCPCS: 20610; 99213

== ENCOUNTER → 2023-11-25 08:41 | Outpatient (BNVA) | payer OTHER, SELFPAY | PROVIDERS: PCP Internal Medicine; Visit Provider Orthopaedic Surgery | DX: M25.811 Other specified joint disorders, right shoulder (principal); M25.512 Pain in left shoulder | CPT/HCPCS: 20610; J1020 ==

== ENCOUNTER 2023-12-01 14:56 | Emergency (ER) | payer OTHER, SELFPAY ==
[2023-12-01] VITALS (7 sets, daily range): BP systolic 118–177; BP diastolic 64–91; PULSE 50–65; RESP 13–18; TEMP 36.6; O2SAT 95–99; BMI 27.6; BMI 27.7
--- NOTE | ~2023-12-01 | XR_ITS ---
EXAMINATION: XR CHEST CLINICAL INFORMATION: Chest pain COMPARISON: Chest 11/14/2021 TECHNIQUE: 2 views of the chest were obtained. FINDINGS: Right chest wall MediPort catheter with its tip in the superior vena cava is unchanged in position. No significant abnormality is noted involving the heart, lungs, mediastinum, bony thorax or soft tissues. XR/XR chest 2V IMPRESSION: No acute cardiopulmonary disease.
--- NOTE | ~2023-12-01 | CT_ITS ---
EXAMINATION: CT ANGIOGRAM CHEST CLINICAL INFORMATION: Evaluate for dissection. Chest pain. COMPARISON: None available. TECHNIQUE: Multiple axial images were obtained through the chest after the administration of 50 mL of Omnipaque 350 intravenous contrast. Extensive vascular post-processing including two-dimensional and three-dimensional reformatted images were created and reviewed on an independent workstation. This CT examination was performed using dose optimization techniques as appropriate, variously including the following: *Automated exposure control *Adjustment of mA and/or kV according to patient size (this includes techniques or standardized protocols for targeted exams where dose is matched to indication/reason for exam; i.e. extremities or head) *Use of iterative reconstruction technique DLP: 167 mGy-cm FINDINGS: Vascular: There is good opacification of pulmonary artery and its branches without any intraluminal filling defect or narrowing. The thoracic aorta is of normal caliber without aneurysm or dissection. Normal three-vessel branching of the aorta is noted. Nonvascular: Mediastinum: Thyroid lobes are symmetrical and normal. Central trachea and the bronchi are widely patent. There is a 1.2 cm anterior mediastinal lymph node. There is no pericardial effusion. Mild coronary artery calcifications are present. LUNGS: There is 4 mm calcification right upper lobe. Otherwise rest of lungs are well-expanded and clear. Pleura: There is no pleural effusion or thickening. Axilla: No abnormal abnormal size axillary lymph nodes seen. The chest wall is unremarkable. Osseous structures: No aggressive lytic or sclerotic process seen. Upper abdomen: Visualized liver, spleen, pancreas, bilateral adrenal glands are unremarkable. CT/CT angio chest aorta IMPRESSION: No evidence of aortic aneurysm or dissection. No evidence of PE Nonspecific 1.2 cm anterior mediastinal lymph node. Fleischner guidelines were followed.
--- NOTE | 2023-12-01 14:59 | ECG_ITS ---
Test Reason : CX PAIN Blood Pressure : / mmHG Vent. Rate : 058 BPM Atrial Rate : 058 BPM P-R Int : 154 ms QRS Dur : 096 ms QT Int : 426 ms P-R-T Axes : 072 060 069 degrees QTc Int : 418 ms Sinus bradycardia Minimal voltage criteria for LVH, may be normal variant ( Blaine product ) Borderline ECG When compared with ECG of 14-NOV-2021 04:01, No significant change was found Referred By: Generic ED Physician Electronically Signed By:Jony Newton
[2023-12-01 15:19] LABS: MANUAL DIFF FLAG NO
[2023-12-01 15:23] LABS: Basophils Percent Auto 0.3 % (0-2); Eosinophils Absolute Auto 0.1 X10*3/uL (0.0-0.4); Eosinophils Percent Auto 1.2 % (0-4); Hematocrit 44.8 % (42.0-52.0); Imm Gran Abs Auto 0.03 X10*3/uL (0.00-0.03); Imm Gran Pct Auto 0.3 % (0.0-0.4); Lymphocytes Absolute Auto 1.4 X10*3/uL (1.2-4.9); Lymphocytes Percent Auto 15.8 % (20-40); Mean Corpuscular HGB Conc 33.5 g/dl (31.0-36.0); Mean Corpuscular Hemoglobin 30.4 pg (27.0-33.0); Mean Corpuscular Volume 90.9 fL (80.0-98.0); Mean Platelet Volume 8.7 fL (9.4-12.4); Monocytes Absolute Auto 0.6 X10*3/uL (0.1-1.2); Monocytes Percent Auto 6.6 % (2-11); Neutrophils Absolute Auto 6.5 x10*3/uL (2.0-8.3); Neutrophils Percent Auto 75.8 % (45-73); Platelet Count 277 X10*3/uL (160-400); Red Blood Count 4.93 X10*6/uL (4.60-5.80); Red Cell Distribution Width 12.7 % (11.0-16.0); White Blood Count 8.6 X10*3/uL (4.8-10.8)
--- NOTE | 2023-12-01 15:29 | ED.CHESTPAIN ---
HPI - Chest Pain General Chief Complaint: Chest Pain Stated Complaint: Chest pain Time Seen by Provider: 12/01/23 16:00 Related Data Previous Rx's Medication Instructions Recorded levothyroxine 150 mcg tablet 150 mcg PO DAILY #90 tabs 10/10/23 ibuprofen 600 mg tablet 600 mg PO Q8H PRN pain #20 tabs 10/16/23 lidocaine 4 % topical patch 2 patch topical DAILY PRN pain #30 10/16/23 (Aspercreme (lidocaine)) ea Allergies Allergy/AdvReac Type Severity Reaction Status Date / Time No Known Allergies Allergy Mild N/A Verified 12/01/23 15:24 [facility] Past Medical History Medical History COVID-19 virus infection Blood per rectum Ileostomy in place TRUMAN (acute kidney injury) COVID-19 virus infection History of radiation therapy (~2020) Postoperative ileus (~07/2021) COVID-19 vaccine administered History of chemotherapy (~2020) Port-A-Cath in place Hypercholesterolemia Vitamin D deficiency Rectal cancer (~10/2020) Hypothyroid Prolapsed hemorrhoids Surgical History History of reversal of ileostomy History of colonoscopy History of hemorrhoidectomy History of colon resection History of flexible sigmoidoscopy History of amputation of finger Family History Family History Father CVD (cardiovascular disease) Mother No problems noted. Social History Social History Household Members: Spouse Housing: House Are you a primary career technology teacher to a significant other at home: No Do you presently have visiting nurse or other home services: No Alcohol intake: never Patient Tobacco Use Status: Former Tobacco user Tobacco use type: Cigarette Cigarettes Per Day: 10 Years Smoked: 30 Second Hand Smoke Exposure: No Advance Directives: No Advance Directives Information Provided: No service: No Current occupational status: employed Cognitive needs: No Hearing needs: No Vision needs: No Physical Exam Vital Signs: Vital Signs: Last Vital Signs Temp 98 F 12/01/23 16:10 Pulse 53 12/01/23 18:46 Resp 18 12/01/23 18:46 BP 146/76 H 12/01/23 18:46 Pulse Ox 98 12/01/23 18:46 O2 Del Method Room Air 12/01/23 18:46 BMI result Body Mass Index 27.7 Course Course Course Narrative: RME performed by Kierra Curry PA-C. Patient is a 62 year old assigned male at presenting to the emergency department with chest pain. Detailed physical exam and review of systems are deferred to the cable technician. Labs ordered. Patient placed back in the waiting room pending room availability and results. Patient evaluated and dispositioned by Dr. De La Paz. Please refer to her note from 12/01/2023. Medications Administered Generic Name Dose Route Start Last Admin Trade Name Freq PRN Reason Stop Dose Admin Heparin Sodium/Sodium Chloride 25,000 unit in 250 mls @ 0 mls/hr 12/01/23 19:00 12/01/23 19:09 Heparin Sodium,Porcine/1/2ns IVCONT 14 units/kg/hr .Q0M CHRISTINE 10.89 mls/hr Administration Protocol Per Protocol Discontinued Medications Generic Name Dose Route Start Last Admin Trade Name Freq PRN Reason Stop Dose Admin Aspirin 325 mg 12/01/23 16:14 12/01/23 16:32 Aspirin Enteric Coated 325 Mg Tablet.Dr MARQUEZ 12/01/23 16:15 325 mg ONCE ONE Administration Nitroglycerin 0.4 mg 12/01/23 16:14 12/01/23 16:33 Nitroglycerin 0.4 Mg Tab.Subl SUBLINGUAL 12/01/23 16:15 0.4 mg ONCE ONE Administration Nitroglycerin 1 inch 12/01/23 19:17 12/01/23 19:28 Nitroglycerin 2 % Oint 1 Gm Packet TRANSDERMA 12/01/23 19:18 1 inch ONCE ONE Administration Nitroglycerin 0.4 mg 12/01/23 19:18 12/01/23 19:27 Nitroglycerin 0.4 Mg Tab.Subl SUBLINGUAL 12/01/23 19:19 0.4 mg ONCE ONE Administration Medical Decision Making Lab Data 12/01/23 15:13 12/01/23 15:13 Labs: Lab Results 12/01/23 12/01/23 12/01/23 Range/Units 15:13 18:05 18:44 WBC 8.6 (4.8-10.8) X10*3/uL RBC 4.93 (4.60-5.80) X10*6/uL Hgb 15.0 (14.0-18.0) g/dl Hct 44.8 (42.0-52.0) % MCV 90.9 (80.0-98.0) fL MCH 30.4 (27.0-33.0) pg MCHC 33.5 (31.0-36.0) g/dl RDW 12.7 (11.0-16.0) % Plt Count 277 (160-400) X10*3/uL MPV 8.7 L (9.4-12.4) fL Immature Gran % (Auto) 0.3 (0.0-0.4) % Neut % (Auto) 75.8 H (45-73) % Lymph % (Auto) 15.8 L (20-40) % [place] % (Auto) 6.6 (2-11) % Eos % (Auto) 1.2 (0-4) % Baso % (Auto) 0.3 (0-2) % Lymph # (Auto) 1.4 (1.2-4.9) X10*3/uL [place] # (Auto) 0.6 (0.1-1.2) X10*3/uL Eos # (Auto) 0.1 (0.0-0.4) X10*3/uL Baso # (Auto) 0.0 (0.0-0.2) X10*3/uL Abs Immat Gran (auto) 0.03 (0.00-0.03) X10*3/uL Absolute Neuts (auto) 6.5 (2.0-8.3) x10*3/uL Absolute Nucleated RBC 0.000 (0.0-0.012) X10*3/uL Nucleated RBC % (auto) 0.0 (0.0-0.2) /100WBC PT 11.3 (11.1-13.3) SEC INR 0.9 (0.9-1.1) APTT 30.1 (26.0-36.4) SEC Sodium 139 (135-145) mmol/L Potassium 3.9 (3.3-5.1) mmol/L Chloride 104 (96-108) mmol/L Carbon Dioxide 28 (22-29) mmol/L Anion Gap 11 L (12-20) BUN 18 H (9-16) mg/dL Creatinine 1.26 (0.5-1.4) mg/dL Estim Creat Clear Calc 60.3 Estimated GFR 58 Random Glucose 113 (60-115) mg/dL Calcium 9.4 (8.4-10.2) mg/dL Magnesium 1.9 (1.6-2.6) mg/dL Total Bilirubin 0.4 (0.0-1.0) mg/dL AST 33 (5-37) U/L ALT 37 (0-40) U/L Alkaline Phosphatase 81 (39-117) U/L Total Creatine Kinase 733 H 890 H (38-174) U/L Troponin I High Sens 103.0 H* 1041.8 H* D (<3.5-35.0) ng/L B-Natriuretic Peptide 12 (<100) pg/mL Total Protein 7.4 (6.5-8.0) g/dL Albumin 4.3 (3.5-5.0) g/dL TSH 7.47 H (0.32-4.0) uIU/mL Free T4 1.01 (0.71-1.85) ng/dL COVID-19 (BRIGIDA) Negative (Negative) COVID-19 Clin Com See Note Discharge Plan Discharge Clinical Impression: Chest pain Prescriptions: No Action levothyroxine 150 mcg tablet 150 mcg PO DAILY Qty: 90 1RF ibuprofen 600 mg tablet 600 mg PO Q8H PRN (Reason: pain) Qty: 20 0RF lidocaine [Aspercreme (lidocaine)] 4 % adhesive patch,medicated 2 patch topical DAILY PRN (Reason: pain) Qty: 30 0RF
[2023-12-01 15:35] LABS: Alanine Aminotransferase 37 U/L (0-40); Albumin Level 4.3 g/dL (3.5-5.0); Alkaline Phosphatase 81 U/L (39-117); Anion Gap 11 (12-20); Aspartate Amino Transferase 33 U/L (5-37); Bilirubin Total 0.4 mg/dL (0.0-1.0); Blood Urea Nitrogen 18 mg/dL (9-16); Calcium 9.4 mg/dL (8.4-10.2); Carbon Dioxide 28 mmol/L (22-29); Chloride 104 mmol/L (96-108); Creatinine Clr Calc Pharmacy 60.3; Estimated Glomerular Filt Rate 58; Glucose Random 113 mg/dL (60-115); Magnesium 1.9 mg/dL (1.6-2.6); Potassium 3.9 mmol/L (3.3-5.1); Sodium 139 mmol/L (135-145); Total Protein 7.4 g/dL (6.5-8.0)
[2023-12-01 15:39] LABS: B Type Natriuretic Peptide 12 pg/mL (<100)
[2023-12-01 15:46] LABS: COVID-19 Test Negative (Negative); IDNOW Serial# 152EDE1D
--- NOTE | 2023-12-01 16:10 | ECG_ITS ---
Test Reason : CHEST PAIN Blood Pressure : / mmHG Vent. Rate : 058 BPM Atrial Rate : 058 BPM P-R Int : 166 ms QRS Dur : 086 ms QT Int : 430 ms P-R-T Axes : 063 019 034 degrees QTc Int : 422 ms Sinus bradycardia T wave abnormality, consider lateral ischemia Abnormal ECG When compared with ECG of 01-DEC-2023 18:38, No significant change was found Referred By: Jennifer De La Paz Electronically Signed By:Jony Newton
--- NOTE | 2023-12-01 16:12 | ED.CHESTPAIN ---
HPI - Chest Pain General Chief Complaint: Chest Pain Stated Complaint: Chest pain Time Seen by Provider: 12/01/23 16:00 Source: patient Mode of arrival: ambulatory Limitations: no limitations History of Present Illness HPI narrative: Patient comes to the emergency room complaining of intermittent chest pain. Patient states that yesterday at 01:00, afterwards patient went to the gym, started having chest pain radiating towards the jaw and left arm. Lasted for about an hour, patient took a hot shower and then the patient's pain subsided. Today, at noon, patient was working out again, patient states that he started having chest pain again radiating towards the left arm and jaw and having GERD. Patient states that it has been constant for about 4 hours now. Related Data Previous Rx's Medication Instructions Recorded levothyroxine 150 mcg tablet 150 mcg PO DAILY #90 tabs 10/10/23 ibuprofen 600 mg tablet 600 mg PO Q8H PRN pain #20 tabs 10/16/23 lidocaine 4 % topical patch 2 patch topical DAILY PRN pain #30 10/16/23 (Aspercreme (lidocaine)) ea Allergies Allergy/AdvReac Type Severity Reaction Status Date / Time No Known Allergies Allergy Mild N/A Verified 12/01/23 15:24 Review of Systems Review of Systems: Constitutional : No Weight loss, No Fever, No Chills, No Night Sweats, No Fatigue, No Malaise ENT/Mouth : No Hearing loss, No Ear Pain, No Nasal Congestion, No Sinus Pain, No Hoarseness, No sore throat, No Rhinorrhea, No Swallowing Difficulty Eyes: No Eye Pain, No Swelling, No Redness, No Foreign Body, No Discharge, No Vision Changes Cardiovascular : Complaining of intermittent chest pain, worsened after working out/cardio and weightlifting,, No SOB, No Dyspnea on Exertion, No Orthopnea, No Edema, No Palpitations Respiratory : No Cough, No Sputum, No Wheezing, No Smoke Exposure, No Dyspnea Gastrointestinal : No Nausea, No Vomiting, No Diarrhea, No Constipation, No abdominal Pain, No Hematochezia, No Melena Genitourinary : no irregular bleeding, No Dysuria, No Urinary Frequency, No Hematuria, No Urinary Incontinence, No Urgency, No Flank Pain, No Urinary Flow Changes, No Hesitancy Musculoskeletal : No joint pain, No Myalgias, No Joint Swelling Skin : No Skin Lesions, No rash Neuro : No Weakness, No Numbness, No Paresthesias, No Loss of Consciousness, No Dizziness, No Headache Psych : No Anxiety/Panic, No Depression, No SI/HI/AH/VH, No Social Issues, Heme/Lymph: No Bruising, No Bleeding,No Lymphadenopathy Endocrine : No Polyuria, No Polydipsia, No Temperature Intolerance [facility] Past Medical History Medical History COVID-19 virus infection Blood per rectum Ileostomy in place TRUMAN (acute kidney injury) COVID-19 virus infection History of radiation therapy (~2020) Postoperative ileus (~07/2021) COVID-19 vaccine administered History of chemotherapy (~2020) Port-A-Cath in place Hypercholesterolemia Vitamin D deficiency Rectal cancer (~10/2020) Hypothyroid Prolapsed hemorrhoids Surgical History History of reversal of ileostomy History of colonoscopy History of hemorrhoidectomy History of colon resection History of flexible sigmoidoscopy History of amputation of finger Family History Family History Father CVD (cardiovascular disease) Mother No problems noted. Social History Social History Household Members: Spouse Housing: House Are you a primary respiratory care program director to a significant other at home: No Do you presently have visiting nurse or other home services: No Alcohol intake: never Patient Tobacco Use Status: Former Tobacco user Tobacco use type: Cigarette Cigarettes Per Day: 10 Years Smoked: 30 Second Hand Smoke Exposure: No Advance Directives: No Advance Directives Information Provided: No service: No Current occupational status: employed Cognitive needs: No Hearing needs: No Vision needs: No Physical Exam Vital Signs: Vital Signs: Last Vital Signs Temp 97.9 F 12/01/23 20:43 Pulse 54 12/01/23 20:43 Resp 13 12/01/23 20:43 BP 126/64 12/01/23 20:43 Pulse Ox 96 12/01/23 20:43 O2 Del Method Room Air 12/01/23 20:43 BMI result Body Mass Index 27.7 Medications Administered Generic Name Dose Route Start Last Admin Trade Name Freq PRN Reason Stop Dose Admin Heparin Sodium/Sodium Chloride 25,000 unit in 250 mls @ 0 mls/hr 12/01/23 19:00 12/01/23 19:09 Heparin Sodium,Porcine/1/2ns IVCONT 14 units/kg/hr .Q0M CHRISTINE 10.89 mls/hr Administration Protocol Per Protocol Discontinued Medications Generic Name Dose Route Start Last Admin Trade Name Breana PRN Reason Stop Dose Admin Aspirin 325 mg 12/01/23 16:14 12/01/23 16:32 Aspirin Enteric Coated 325 Mg Tablet. PO 12/01/23 16:15 325 mg ONCE ONE Administration Iohexol 70 ml 12/01/23 21:22 12/01/23 21:22 Iohexol 350 Mg/Ml 100 Ml Infus..Btl IV 12/01/23 21: 70 ml ONCE ONE Administration Metoprolol Tartrate 5 mg 12/01/23 20:29 12/01/23 20:41 Metoprolol Tartrate 5 Mg/5 Ml Vial IVPUSH 12/01/23 20:30 5 mg ONCE ONE Administration Nitroglycerin 0.4 mg 12/01/23 16:14 12/01/23 16:33 Nitroglycerin 0.4 Mg Tab.Subl SUBLINGUAL 12/01/23 16:15 0.4 mg ONCE ONE Administration Nitroglycerin 1 inch 12/01/23 19:17 12/01/23 19:28 Nitroglycerin 2 % Oint 1 Gm Packet TRANSDERMA 12/01/23 19:18 1 inch ONCE ONE Administration Nitroglycerin 0.4 mg 12/01/23 19:18 12/01/23 19:27 Nitroglycerin 0.4 Mg Tab.Subl SUBLINGUAL 12/01/23 19:19 0.4 mg ONCE ONE Administration Medical Decision Making Medical Decision Making MDM Narrative: -my interpretation of EKG: Sinus bradycardia, no ST segment depression or elevation, no T-wave inversion, QTC 418. -my interpretation of labs: Normal hematology, troponin 1. 103. Possible creatinine kinase 7033. -patient was given aspirin and sublingual nitroglycerin. Patient continues having chest pain. Patient's blood pressure stable. -my interpretation of EKG 2., sinus rhythm, heart rate 54, no ST segment depression or elevation, no T-wave inversion, QTC 390, U-waves jail in leads V2 through V6 -my interpretation of labs: 2nd troponin is 1042 -my interpretation of EKG 3: Normal sinus rhythm, heart rate 48, patient has no new T-wave inversions in lateral leads especially V5 V6. -patient already received aspirin and sublingual nitroglycerin, now patient is receiving IV heparin. I discussed the patient with Dr. Newton from Cardiology, recommendations: 1 more sublingual nitroglycerin and nitro paste. -my interpretation of EKG 4.: No significant change from EKG 3. -I discussed the patient again with Dr. Newton, pt states he feels a bit better but still having chest pain. Patient will be started on nitroglycerin drip. Patient will be transferred to [facility] -I discussed the patient with from [facility] Cardiology, patient was accepted -patient was also given metoprolol IV 5 mg. -partner at bedside, has been informed the plan, both patient and partner agree. -before transferring the patient to [facility], we will get a CT scan of chest/abdomen to rule out aortic dissection. -my interpretation of CT scan of the chest: No obvious dissection. Radiology report pending. -patient states that he feels much better. Still having chest pain /10. No headache. - Differential Diagnosis Differential Diagnoses: The differential diagnosis associated with the presentation includes (ACS, STEMI, NSTEMI, unstable angina) Admission/Observation Consideration of admission/observation: Escalation of care including admission/observation considered Consult Healthcare Provider Management of the patient was discussed with: Pet Supplies Salesperson Lab Data MDM Lab Attestation statement: I reviewed the patient's lab results. 12/01/23 15:13 12/01/23 15:13 Labs: Lab Results 12/01/23 12/01/23 12/01/23 Range/Units 15:13 18:05 18:44 WBC 8.6 (4.8-10.8) X10*3/uL RBC 4.93 (4.60-5.80) X10*6/uL Hgb 15.0 (14.0-18.0) g/dl Hct 44.8 (42.0-52.0) % MCV 90.9 (80.0-98.0) fL MCH 30.4 (27.0-33.0) pg MCHC 33.5 (31.0-36.0) g/dl RDW 12.7 (11.0-16.0) % Plt Count 277 (160-400) X10*3/uL MPV 8.7 L (9.4-12.4) fL Immature Gran % (Auto) 0.3 (0.0-0.4) % Neut % (Auto) 75.8 H (45-73) % Lymph % (Auto) 15.8 L (20-40) % [place] % (Auto) 6.6 (2-11) % Eos % (Auto) 1.2 (0-4) % Baso % (Auto) 0.3 (0-2) % Lymph # (Auto) 1.4 (1.2-4.9) X10*3/uL [place] # (Auto) 0.6 (0.1-1.2) X10*3/uL Eos # (Auto) 0.1 (0.0-0.4) X10*3/uL Baso # (Auto) 0.0 (0.0-0.2) X10*3/uL Abs Immat Gran (auto) 0.03 (0.00-0.03) X10*3/uL Absolute Neuts (auto) 6.5 (2.0-8.3) x10*3/uL Absolute Nucleated RBC 0.000 (0.0-0.012) X10*3/uL Nucleated RBC % (auto) 0.0 (0.0-0.2) /100WBC PT 11.3 (11.1-13.3) SEC INR 0.9 (0.9-1.1) APTT 30.1 (26.0-36.4) SEC Sodium 139 (135-145) mmol/L Potassium 3.9 (3.3-5.1) mmol/L Chloride 104 (96-108) mmol/L Carbon Dioxide 28 (22-29) mmol/L Anion Gap 11 L (12-20) BUN 18 H (9-16) mg/dL Creatinine 1.26 (0.5-1.4) mg/dL Estim Creat Clear Calc 60.3 Estimated GFR 58 Random Glucose 113 (60-115) mg/dL Calcium 9.4 (8.4-10.2) mg/dL Magnesium 1.9 (1.6-2.6) mg/dL Total Bilirubin 0.4 (0.0-1.0) mg/dL AST 33 (5-37) U/L ALT 37 (0-40) U/L Alkaline Phosphatase 81 (39-117) U/L Total Creatine Kinase 733 H 890 H (38-174) U/L Troponin I High Sens 103.0 H* 1041.8 H* D (<3.5-35.0) ng/L B-Natriuretic Peptide 12 (<100) pg/mL Total Protein 7.4 (6.5-8.0) g/dL Albumin 4.3 (3.5-5.0) g/dL TSH 7.47 H (0.32-4.0) uIU/mL Free T4 1.01 (0.71-1.85) ng/dL COVID-19 (BRIGIDA) Negative (Negative) COVID-19 Clin Com See Note Independent Interpretation I performed an independent interpretation of an: Plain X-Ray (My interpretation of chest x-ray: No infiltrates or obvious rib fractures) Radiology Impression Discussion of test interpretation with radiology: I have reviewed the radiologist's reading. Radiologist Impression: Right chest wall MediPort catheter with its tip in the superior vena cava is unchanged in position. No significant abnormality is noted involving the heart, lungs, mediastinum, bony thorax or soft tissues. XR/XR chest 2V IMPRESSION: No acute cardiopulmonary disease. Critical Care Time Critical Care Time Critical Care Time: Yes Total Critical Care Time: 90 Attestation: I have personally provided critical care time. Time includes review of lab data, radiology results, discussion with consultants, and monitoring for potential decompensation. Intervention performed as documented. Discharge Plan Discharge Clinical Impression: Chest pain, Non-ST elevation [place] (NSTEMI) Patient Disposition: [facility] Transfer Details: [facility] CCU , Dr. Alonzo Prescriptions: No Action levothyroxine 150 mcg tablet 150 mcg PO DAILY Qty: 90 1RF ibuprofen 600 mg tablet 600 mg PO Q8H PRN (Reason: pain) Qty: 20 0RF lidocaine [Aspercreme (lidocaine)] 4 % adhesive patch,medicated 2 patch topical DAILY PRN (Reason: pain) Qty: 30 0RF
[2023-12-01] MEDS: Aspirin Enteric Coated 325 MG TABLET.DR PO (16:32)
[2023-12-01] MEDS: Nitroglycerin 0.4 MG TAB.SUBL SUBLINGUAL ×2 (16:33→19:27)
--- NOTE | 2023-12-01 17:37 | ECG_ITS ---
Test Reason : CHEST PAIN Blood Pressure : / mmHG Vent. Rate : 054 BPM Atrial Rate : 054 BPM P-R Int : 154 ms QRS Dur : 090 ms QT Int : 412 ms P-R-T Axes : 066 036 052 degrees QTc Int : 390 ms Sinus bradycardia Otherwise normal ECG When compared with ECG of 01-DEC-2023 15:04, No significant change was found Referred By: Jennifer De La Paz Electronically Signed By:Jony Newton
--- NOTE | 2023-12-01 17:50 | PC.NURSE ---
Alert and orinted, reports chest pain that started around 1am on friday after working out. Reports has been taking creatnine for 6 months and recently increased the dose. nsr on monitor, vss
[2023-12-01 18:31] LABS: Troponin-I High Sensitivity 1041.8 ng/L (<3.5-35.0)
[2023-12-01 18:44] LABS: TSH reflex Free T4 7.47 uIU/mL (0.32-4.0)
--- NOTE | 2023-12-01 18:47 | PC.NURSE ---
Patient reports continued left chest and arm pain, 2nd troponin elevated. Provider aware and at bedside
[2023-12-01 18:54] LABS: INTERNATIONAL NORM RATIO 0.9 (0.9-1.1); Prothrombin Time 11.3 SEC (11.1-13.3)
[2023-12-01 18:57] LABS: Partial Thromboplastin Time 30.1 SEC (26.0-36.4)
[2023-12-01] MEDS: Heparin Sodium,Porcine/1/2NS 25,000 UNIT/250 ML IV.SOLN 10.89 UNIT IVCONT (19:09)
[2023-12-01] MEDS: Nitroglycerin 2 % Oint 1 GM Packet 1 INCH TRANSDERMA (19:28)
[2023-12-01 19:30] LABS: Free T4 (Free Thyroxine) 1.01 ng/dL (0.71-1.85)
--- NOTE | 2023-12-01 19:34 | PC.NURSE ---
Assumed care of the pt at 1900. Pt has been started on a heparin drip and given nitro per JAN. Pt reporting 6/10 chest pain at this time. Next PTT is due at 0109, repeat EKG to be obtained around 1999.
--- NOTE | 2023-12-01 19:58 | ECG_ITS ---
Test Reason : ELEVATED TROP Blood Pressure : / mmHG Vent. Rate : 048 BPM Atrial Rate : 048 BPM P-R Int : 164 ms QRS Dur : 088 ms QT Int : 454 ms P-R-T Axes : 074 027 039 degrees QTc Int : 405 ms Sinus bradycardia Otherwise normal ECG When compared with ECG of 01-DEC-2023 16:17, T wave inversion now evident in Lateral leads Referred By: Jennifer De La Paz Electronically Signed By:Jony Newton
--- NOTE | 2023-12-01 20:40 | PC.NURSE ---
Placed 20g IV in the right wrist
[2023-12-01] MEDS: Metoprolol Tartrate 5 MG/5 ML VIAL IVPUSH (20:41)
[2023-12-01] MEDS: iohexoL 350 MG/ML 100 ML INFUS..BTL 70 ML IV (21:22)
--- NOTE | 2023-12-01 21:32 | PC.NURSE ---
Pt was brought to CT scan. PAUL Negron paused heparin for scans, resumed as soon as he got back. Pt states he is still having 6/10 chest pain. Bilateral 20g IV's. Pt is in no apparent distress at this time.
--- NOTE | 2023-12-01 22:02 | PC.NURSE ---
Called nurse to nurse to [facility] construction laborer
== END 2023-12-01 22:44 | disposition short-term general hospital (02) ==
PROVIDERS: Physician Assistant Medical; Emergency Provider Emergency Medicine; PCP Internal Medicine
DX: R07.9 Chest pain, unspecified (principal); I21.4 Non-ST elevation (NSTEMI) myocardial infarction; Z11.52 Encounter for screening for COVID-19; E78.00 Pure hypercholesterolemia, unspecified; C20 Malignant neoplasm of rectum; Z93.2 Ileostomy status
CPT/HCPCS: 36415; 71046; 71275; 80053; 82550; 83735; 83880; 84439; 84443; 84484; 85025; 85610; 85730; 87635; 93005; 96374; 96375; 99285; J1644; Q9967

== ENCOUNTER → 2023-12-01 14:59 | Outpatient (BNV) | payer OTHER, SELFPAY | PROVIDERS: Emergency Provider Emergency Medicine; PCP Internal Medicine; Visit Provider Internal Medicine Cardiovascular Disease | DX: R07.9 Chest pain, unspecified (principal) | CPT/HCPCS: 93010 ==

== ENCOUNTER 2023-12-17 10:25 | Outpatient (AMB) | payer OTHER, SELFPAY ==
--- NOTE | 2023-12-17 10:34 | MHC.PC.OV ---
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 Accompanied by: Self / Same As Patient Allergies No Known Allergies Allergy (Mild, Verified 12/18/23 10:29) N/A Tobacco use date assessed: 12/17/23 Dental Screening Dental Screen Date: 12/17/23 Did you have a dental visit in the last 12 months?: No Did you have a dental problem in the last 6 months where you did not have access to dental care?: No Was dental information given to patient?: Patient has dentist HPI HPI Comments History of Present Illness Details 63-year-old male with history of hypothyroidism, history of rectal cancer s/p resection now with diverting loop ileostomy presents to the office today for hospital discharge follow-up. He was recently admitted to [facility] from 11/14-11/15 for management of COVID-19 complicated by acute kidney injury. The patient had been experiencing muscle cramping and abdominal discomfort with limited p.o. intake and vomiting. Given concerns given his ileostomy history, patient was admitted for further management. On admission, serum creatinine 2.8, baseline around 1. Chest x-ray negative and was not hypoxic. CT of the abdomen/pelvis revealed stable postsurgical findings, no bowel obstructions, lymphadenopathy, evidence of metastatic disease. He was resuscitated with 2 L of IV fluids with normalization of creatinine. COVID-19 was managed with symptomatic treatment and not require any steroids or antiviral therapy. C diff was evaluated given diarrhea but was negative. He was discharged home. He reports he is feeling well and denies any ongoing fevers, chills, sore throat, congestion, abdominal pain, nausea, vomiting, diarrhea, melena, hematochezia, cough, headache, shortness of breath, or chest pains. Unfortunately, patient again return to the ER on 12/01 due to chest pains that had started earlier that day while at the gym. Pain was described as retrosternal pressure radiating toward the jaw and left arm and lasted for about 1 hour before resolving. However pain recurred and had been constant for 4 hours prompting him to present to the ED for further evaluation. EKG in the ED showed sinus bradycardia without any ST depression or elevation or T-wave inversion. Initial troponin 103 with total CK 7033. Second EKG showed sinus bradycardia, rate [address] elevation or depression or inversions but did show U waves in leads V2-V6. Second troponin 1042. Third EKG showed sinus bradycardia, rate 48 with T wave inversions in V5-V6. In the ED, was given 325 mg aspirin, nitroglycerin, 5 mg metoprolol. Case discussed with cardiology and was transferred to [facility]. CT abd/pelvis negative for aortic dissection. He was transferred to [facility] on heparin drip and admitted from from 12/01-12/03 for further management of NSTEMI. He had recurrence of chest pain requiring nitroglycerin drip and underwent cardiac catheterization which showed severe mid RCA lesion s/p PCI with 1 stent and was also found to have severe OM2 stenosis s/p PCI with 1 stent, moderate proximal LCX disease, moderate LAD disease, and severe diagonal disease. He was started on aspirin, atorvastatin, Brilinta, and metoprolol. Echocardiogram at [facility] showed normal systolic function EF 60-65%, LV wall thickness upper limit of normal and probable apical hypokinesis. He was discharged home and advised to continue aspirin 81 mg daily, Brilinta 90 mg b.i.d., atorvastatin 80 mg daily, and metoprolol 25 mg XL. Follow-up with drawing operator on 01/05 at [facility]. NO further episodes of chest pain. Has not returned to the gym fully and is looking for referral to cardiac rehab once he sees cardiology. Inicidentlly found to have prediabetes with a1c of 5.8% at [facility]. [facility] Medical History (Updated 12/25/23 @ 16:14 by STEVEN Teonrio) Prediabetes H/O non-ST elevation myocardial infarction (NSTEMI) Coronary artery disease COVID-19 virus infection Blood per rectum Ileostomy in place TRUMAN (acute kidney injury) COVID-19 virus infection History of radiation therapy (~2020) Postoperative ileus (~07/2021) COVID-19 vaccine administered History of chemotherapy (~2020) Port-A-Cath in place Hypercholesterolemia Vitamin D deficiency Rectal cancer (~10/2020) Hypothyroid Prolapsed hemorrhoids Surgical History History of coronary artery stent placement History of reversal of ileostomy History of colonoscopy History of hemorrhoidectomy History of colon resection History of flexible sigmoidoscopy History of amputation of finger Family History Father CVD (cardiovascular disease) Mother No problems noted. Social History Household Members: Spouse Housing: House Are you a primary animal caregiver to a significant other at home: No Do you presently have visiting nurse or other home services: No Alcohol intake: never Patient Tobacco Use Status: Former Tobacco user Tobacco use type: Cigarette Cigarettes Per Day: 10 Years Smoked: 30 e-Cigarette/Vaping Use: Never Used Second Hand Smoke Exposure: No service: No Current occupational status: employed Cognitive needs: No Hearing needs: No Vision needs: No Questionnaire PHQ-9 Over the last 2 weeks, how often have you been bothered by any of the following problems? 1. Little interest or pleasure in doing things: not at all 2. Feeling down, depressed, or hopeless: not at all 3. Trouble falling or staying asleep, or sleeping too much: not at all 4. Feeling tired or having little energy: not at all 5. Poor appetite or overeating: not at all 6. Feeling bad about yourself - or that you are a failure or have let yourself or your family down: not at all 7. Trouble concentrating on things, such as reading the newspaper or watching television: not at all 8. Moving or speaking so slowly that other people could have noticed. Or the opposite - being so fidgety or restless that you have been moving around a lot more than usual: not at all 9. Thoughts that you would be better off or of hurting yourself in some way: not at all Total score: 0 Source: Developed by Drs. Lee Ceron, Loretta Davies, Jose Alejandro Wren and colleagues, with an educational lizbeth from [employer]. Thrive Questionnaire Date Thrive assessed: 02/07/24 I am a: Patient What is your living situation today?: I have a steady place to live Within the past 12 months, did the food you bought not last and you didn't have the money to get more?: Never true Within the past 12 months, did you worry whether your food would run out before you got money to buy more?: Never true Do you have trouble paying for medicines?: No Do you have trouble getting transportation to medical appointments?: No Do you have trouble paying your heating and electricity bill?: No Do you have trouble taking care of your child, family member or friend?: No Do you have trouble with day-to-day activities such as bathing, preparing meals, shopping, managing finances, etc.?: No Are you currently unemployed and looking for a job?: No Are you interested in more education?: No Please select the resources that you would like help with: None Currently or been in a relationship where the following occur: no concerns reported THRIVE Score: 0 AUDIT C Alcohol Use Questionnaire (AUDIT-C) 1. How often do you have a drink containing alcohol?: Never Total Score: 0 JERICA-7 AMB Questionnaire JERICA-7 Date JERICA - 7 assessed: 12/17/23 Feeling nervous, anxious, or on edge: 0 = Not at all Not being able to stop or control worryin = Not at all Worrying too much about different things: 0 = Not at all Trouble relaxin = Not at all Being so restless that it is hard to sit still: 0 = Not at all Becoming easily annoyed or irritable: 0 = Not at all Feeling afraid as if something awful might happen: 0 = Not at all Total JERICA-7 score (0-4 normal; 5-9 mild; 10-14 moderate; 15-21 severe): 0 Source: Developed by Drs. Lee Ceron, Loretta Davies, Jose Alejandro Wren and colleagues, with an educational lizbeth from [employer]. Physical exam (Primary Care) Vital Signs: Last Vital Signs Pulse 66 12/17/23 10:35 BP 110/64 12/17/23 10:35 Pulse Ox 99 12/17/23 10:35 Oxygen Delivery Method Room Air 12/17/23 10:35 BMI result Body Mass Index 27.6 Tobacco/Smoking Status: Tobacco use Status Tobacco use date assessed 12/17/23 12/17/23 10:44 Patient Tobacco Use Status Former Tobacco user 12/17/23 10:44 Tobacco use type Cigarette 12/17/23 10:44 e-Cigarette/Vaping Use Never Used 12/17/23 10:44 PHQ-9: PHQ-9 Score PHQ-9: Total score 0 12/17/23 11:12 Thrive Assessment: Date of Thrive Assessment Date Thrive assessed 12/17/23 12/17/23 10:44 Currently or been in a relationship where the following occur: no concerns reported Const Other: Constitutional - Awake and Alert, No apparent distress Eyes - PERRLA, EOMI Cardiovascular - S1S2, RRR, No edema Respiratory - Normal lung expansion, Normal respiratory effort, No respiratory distress, CTA bilaterally Gastrointestinal - NT / ND; +BS; No rebound or guarding Extremities - no calf tenderness bilaterally, no swelling Skin - Warm/Dry Neurological - Alert & oriented x3 Psychological - Appropriate affect Results Reviewed Results Reviewed: [facility] admission: cbc, bmp, covid 19 serology, cxr, h&p, discharge summary [facility] ED provider note, trop x 2, EKG x3. [facility] discharge summary, cardiac cath report, cbc, bmp, trop, bnp, a1c, echo Assessment and Plan Assessment & Plan (1) Non-ST elevation MN (NSTEMI): Code(s): I21.4 - Non-ST elevation (NSTEMI) myocardial infarction Plan: s/p PCI with stent placement to mid RCA and OM 2. No recurrent chest pain. Follow up with Dr. Groves 01/05 as scheduled. Advised against returning normal gym routine until seen by cardiology and will discuss referral to cardiac rehab. Continue asa 81mg, brillinta 90mg bid, atorvastatin 80mg daily, and toprol 25mg daily. (2) COVID-19 virus infection: Comment: November 12 2021, Nov 2023 Code(s): U07.1 - COVID-19 Plan: Resolved without complication. Did not require steroids or antiviral therapy. Acute kidney injury 2/2 to hypovolemia due to poor PO intake/GI losses resolved and tolerating po. (3) Prediabetes: Code(s): R73.03 - Prediabetes Plan: A1c 5.8% during [facility] admission. Educated on prediabetes and risk of progression to type 2 diabetes without lifestyle modification with A1c 6.5%. Discussed diet lower in carbohydrates including simple sugar, processed and refined foods, and starches. Discussed that pre diabetes is reversible and can prevent complications associated with type 2 diabetes. Coding Level of Care Code Est Pt Level 5 (10653) Diagnoses Non-ST elevation MN (NSTEMI) I21.4 COVID-19 virus infection U07.1 Prediabetes R73.03 Time Spent (min) 45 Comment time reviewing above, with patient, documentation time
[2023-12-17 10:35] VITALS: BP 110/64; PULSE 66; O2SAT 99; BMI 27.6
== END 2023-12-17 11:18 | disposition home or self-care (01) ==
PROVIDERS: PCP Internal Medicine; Visit Provider Physician Assistant
DX: I25.2 Old myocardial infarction (principal); Z86.16 Personal history of COVID-19; R73.03 Prediabetes
CPT/HCPCS: 99215

== ENCOUNTER 2023-12-23 08:38 | Outpatient (AMB) | payer OTHER, SELFPAY ==
[2023-12-23 08:46] VITALS: BMI 27.9
--- NOTE | 2023-12-23 08:46 | MHC.OFFVIS ---
Intake Vital Signs 12/23/23 08:46 Height 5 ft 6 in Weight 173 lb BMI 27.9 Intake Visit Reasons: OV-Left shoulder injection Intake Note: Flynn is a 63 year old Right handed male who presents for Left shoulder pain. Patient reports that he would like to get a cortisone injection in his Left shoulder. Paients also states that he is still having pain and cracking in his Right shoulder, he did get a small amount of releif from the injecition in his Right shoulder. He also reports that he had heart attack 12/01/2023 and had stents placed on 12/02/2023 at [facility]. He has taken Tylenol which gives him only mild relief. He has also done physical therapy exercises which aggravated his pain. He wishes to hold off on surgery for as long as possible. Allergies No Known Allergies Allergy (Mild, Verified 12/18/23 10:29) N/A Medication List - Last Reconciled 12/23/23 by Christiano Peng MD aspirin 81 mg PO DAILY atorvastatin 80 mg PO DAILY levothyroxine 150 mcg PO DAILY metoprolol succinate ER 25 mg PO DAILY ticagrelor (Brilinta) 90 mg PO BID [facility] Medical History COVID-19 virus infection Blood per rectum Ileostomy in place TRUMAN (acute kidney injury) COVID-19 virus infection History of radiation therapy (~2020) Postoperative ileus (~07/2021) COVID-19 vaccine administered History of chemotherapy (~2020) Port-A-Cath in place Hypercholesterolemia Vitamin D deficiency Rectal cancer (~10/2020) Hypothyroid Prolapsed hemorrhoids Surgical History History of coronary artery stent placement History of reversal of ileostomy History of colonoscopy History of hemorrhoidectomy History of colon resection History of flexible sigmoidoscopy History of amputation of finger Family History Father CVD (cardiovascular disease) Mother No problems noted. Social History Household Members: Spouse Housing: House Are you a primary career services coordinator to a significant other at home: No Do you presently have visiting nurse or other home services: No Alcohol intake: never Patient Tobacco Use Status: Former Tobacco user Tobacco use type: Cigarette Cigarettes Per Day: 10 Years Smoked: 30 e-Cigarette/Vaping Use: Never Used Second Hand Smoke Exposure: No service: No Current occupational status: employed Cognitive needs: No Hearing needs: No Vision needs: No Physical Exam Vital Signs: BMI result Body Mass Index 27.9 Const Other: Well-nourished well-developed very friendly male awake alert and oriented x3 in no acute distress Extrem Other: Bilateral upper extremity examination shows good capillary refill, no skin lesions noted, normal sensation light touch Left shoulder examination shows slightly decreased range of motion when compared to his right shoulder, 4+ out of 5 strength with supraspinatus testing, positive impingement signs, tenderness over his acromioclavicular joint, no instability Office Procedures Joint Injection/Drain Joint Injection/Drain Primary Site: left shoulder Prep: site was prepped using aseptic technique Injected: 40 mg of, DepoMedrol and 1% plain lidocaine Procedure: The patient tolerated the procedure well Coding 19382 - Large joint Procedure code (CPT) selection complete Results Reviewed Results Reviewed: MRI of the patient's left shoulder show severe acromioclavicular joint narrowing, a type 3 acromion, signal change within the supraspinatus tendon most likely due to rotator cuff tendinosis Assessment & Plan Assessment & Plan (1) Impingement syndrome of left shoulder: Code(s): M75.42 - Impingement syndrome of left shoulder Plan Mr. Juan presents with left shoulder pain due to impingement syndrome. I had a lengthy discussion with the patient regarding the treatment options. The patient wishes to hold off on surgery for as long as possible. I agree with this plan. The risks and benefits of a left shoulder cortisone injection were discussed at length with the patient. The patient wished to proceed. Tolerated the injection well. He will continue with his home stretching program to prevent stiffness. Will follow up with me on an as-needed basis should his symptoms not plateau at an unacceptable level over the next few months. Feel free to call me at any time should questions regarding his orthopedic management arise. I spent 22 minutes in reviewing the patient's records and imaging studies, seeing the patient and documenting in the medical record. Orders: Orders AMB Joint Injection/Aspiration Today M75.42 - Impingement syndrome of left shoulder Coding Level of Care Code Est Pt Level 2 (66798) Diagnoses Impingement syndrome of left shoulder M75.42 CPT Codes Coding - 77216 Large joint: 45026 - Large joint ([id number])
== END 2023-12-23 09:33 | disposition home or self-care (01) ==
PROVIDERS: PCP Internal Medicine; Visit Provider Orthopaedic Surgery
DX: M75.42 Impingement syndrome of left shoulder (principal)
CPT/HCPCS: 20610; 99213

== ENCOUNTER → 2023-12-23 08:38 | Outpatient (BNVA) | payer OTHER, SELFPAY | PROVIDERS: PCP Internal Medicine; Visit Provider Orthopaedic Surgery | DX: M75.42 Impingement syndrome of left shoulder (principal) | CPT/HCPCS: 20610; J1020 ==

== ENCOUNTER → 2024-01-06 11:31 | Day surgery (SDC) | payer OTHER, SELFPAY ==
--- NOTE | ~2024-01-06 | IR_ITS ---
Port removal History: Patient no longer requires access for chemotherapy. Referring physicians request removal. Procedure: The risks and benefits were discussed the patient and the consent was signed. The right anterior chest was prepped and draped in routine sterile fashion. The skin was anesthetized with 1% lidocaine. An incision was made over the previous scar. Utilizing blunt dissection, the port was removed from the chest with the catheter intact. The pocket was irrigated with 50 mL of normal saline. The port pocket was closed with interrupted 3-0 Vicryl sutures in the deep layer and surgical glue to close the skin. The patient tolerated the procedure well. A sterile dressing was applied. This procedure was performed by Adam Gray PA-C, and supervised by Dr. Wilson. IR/IR cvc remove tunnel w prt/punch machine hand Impression: Right port removal
[2024-01-06 11:52] VITALS: BMI 27.1
== END ==
PROVIDERS: Physician Assistant Surgical; PCP Internal Medicine; Visit Provider Internal Medicine Medical Oncology
PROC: (CPT 36590; principal; 2024-01-06 13:00)
DX: Z45.2 Encounter for adjustment and management of vascular access device (principal); Z95.828 Presence of other vascular implants and grafts; Z85.048 Personal history of other malignant neoplasm of rectum, rectosigmoid junction, and anus; Z92.3 Personal history of irradiation; Z92.21 Personal history of antineoplastic chemotherapy; Z87.891 Personal history of nicotine dependence; E03.9 Hypothyroidism, unspecified; E78.00 Pure hypercholesterolemia, unspecified; I25.2 Old myocardial infarction; Z79.01 Long term (current) use of anticoagulants; Z79.82 Long term (current) use of aspirin; Z79.899 Other long term (current) drug therapy; Z98.890 Other specified postprocedural states
CPT/HCPCS: 36590

== ENCOUNTER → 2024-01-06 13:51 | Outpatient (BNV) | payer OTHER, SELFPAY | PROVIDERS: PCP Internal Medicine; Visit Provider Physician Assistant Surgical | DX: Z95.828 Presence of other vascular implants and grafts (principal) | CPT/HCPCS: 36590 ==

== ENCOUNTER 2024-01-28 10:29 | Outpatient (AMB) | payer OTHER, SELFPAY ==
[2024-01-28 10:43] VITALS: BP 112/68; PULSE 56; O2SAT 100; BMI 27.3
--- NOTE | 2024-01-28 10:43 | MHC.PC.OV ---
Vital Signs 01/28/24 10:43 Height 5 ft 6 in Weight 169 lb 0.4 oz BMI 27.3 BP 112/68 Blood Pressure Location Lt brachial Position Sitting Pulse 56 Pulse Source Pulse Oximeter Pulse Oximetry (%) 100 Oxygen Delivery Method Room Air Intake Visit Reasons: pe Intake Note: Patient is here today for a physical. Chlorine Cells Operator Required: No Allergies No Known Allergies Allergy (Mild, Verified 01/28/24 10:43) N/A Medication List - Last Reconciled 01/28/24 by Chica Law MD aspirin 81 mg PO DAILY atorvastatin 80 mg PO DAILY levothyroxine 150 mcg PO DAILY metoprolol succinate ER 25 mg PO DAILY ticagrelor (Brilinta) 90 mg PO BID Tobacco use date assessed: 01/28/24 Dental Screening Dental Screen Date: 01/28/24 Did you have a dental visit in the last 12 months?: No Did you have a dental problem in the last 6 months where you did not have access to dental care?: No HPI pe HPI Details 63-year-old overweight male with a history of rectal cancer hypothyroid hypercholesterolemia coming in for physical exam last seen in February 2021. Review of the notes had cardiac catheterization done in November 2023 due to and STEMI with normal left ventricular ejection fraction by echocardiogram showing severe mid RCA stenosis status post IV you S guided PCI drug-eluting stent severe OM 2 stenosis status post IVUS guided PCI drug-eluting stent moderate LAD disease severe D to stenosis medical management. Placed on Brilinta 90 mg twice a day patient also follows up with orthopedics December 2023 left shoulder pain impingement syndrome surgery held off cortisone injection done. As for the rectal cancer follows up with Hematology-Oncology had chest pain November [id number] Port-A-Cath removed recently review of the notes patient was recently in the hospital in November for COVID-19 infection with acute kidney injury ? burning sensation on throat no dysphagia [facility] Medical History (Updated 01/28/24 @ 11:02 by Chica Law MD) Prediabetes H/O non-ST elevation myocardial infarction (NSTEMI) Coronary artery disease COVID-19 virus infection Blood per rectum Ileostomy in place TRUMAN (acute kidney injury) COVID-19 virus infection History of radiation therapy (~2020) Postoperative ileus (~07/2021) COVID-19 vaccine administered History of chemotherapy (~2020) Port-A-Cath in place Hypercholesterolemia Vitamin D deficiency Rectal cancer (~10/2020) Hypothyroid Prolapsed hemorrhoids Surgical History History of coronary artery stent placement History of reversal of ileostomy History of colonoscopy History of hemorrhoidectomy History of colon resection History of flexible sigmoidoscopy History of amputation of finger Family History Father CVD (cardiovascular disease) Mother No problems noted. Social History Household Members: Spouse Housing: House Are you a primary career advisor to a significant other at home: No Do you presently have visiting nurse or other home services: No Alcohol intake: never Patient Tobacco Use Status: Former Tobacco user Tobacco use type: Cigarette Cigarettes Per Day: 10 Years Smoked: 30 Packs per year/per ci.00 e-Cigarette/Vaping Use: Never Used Second Hand Smoke Exposure: No service: No Current occupational status: employed Cognitive needs: No Hearing needs: No Vision needs: No Questionnaire PHQ-9 Over the last 2 weeks, how often have you been bothered by any of the following problems? 1. Little interest or pleasure in doing things: not at all 2. Feeling down, depressed, or hopeless: not at all 3. Trouble falling or staying asleep, or sleeping too much: not at all 4. Feeling tired or having little energy: not at all 5. Poor appetite or overeating: not at all 6. Feeling bad about yourself - or that you are a failure or have let yourself or your family down: not at all 7. Trouble concentrating on things, such as reading the newspaper or watching television: not at all 8. Moving or speaking so slowly that other people could have noticed. Or the opposite - being so fidgety or restless that you have been moving around a lot more than usual: not at all 9. Thoughts that you would be better off or of hurting yourself in some way: not at all Total score: 0 Source: Developed by Drs. Lee Ceron, Loretta Davies, Jose Alejandro Wren and colleagues, with an educational lizbeth from [employer]. Thrive Questionnaire Date Thrive assessed: 12/17/23 I am a: Patient What is your living situation today?: I have a steady place to live Within the past 12 months, did the food you bought not last and you didn't have the money to get more?: Never true Within the past 12 months, did you worry whether your food would run out before you got money to buy more?: Never true Do you have trouble paying for medicines?: No Do you have trouble getting transportation to medical appointments?: No Do you have trouble paying your heating and electricity bill?: No Do you have trouble taking care of your child, family member or friend?: No Do you have trouble with day-to-day activities such as bathing, preparing meals, shopping, managing finances, etc.?: No Are you currently unemployed and looking for a job?: No Are you interested in more education?: No Please select the resources that you would like help with: None Currently or been in a relationship where the following occur: no concerns reported THRIVE Score: 0 AUDIT C Alcohol Use Questionnaire (AUDIT-C) 1. How often do you have a drink containing alcohol?: Never 2. How many drinks containing alcohol do you have on a typical day when you are drinking?: 1 or 2 (0) 3. How often do you have six or more drinks on one occasion?: Never Total Score: 0 JERICA-7 AMB Questionnaire JERICA-7 Date JERICA - 7 assessed: 01/28/24 Feeling nervous, anxious, or on edge: 0 = Not at all Not being able to stop or control worryin = Not at all Worrying too much about different things: 0 = Not at all Trouble relaxin = Not at all Being so restless that it is hard to sit still: 0 = Not at all Becoming easily annoyed or irritable: 0 = Not at all Feeling afraid as if something awful might happen: 0 = Not at all Total JERICA-7 score (0-4 normal; 5-9 mild; 10-14 moderate; 15-21 severe): 0 Source: Developed by Drs. Lee Ceron, Loretta Davies, Jose Alejandro Wren and colleagues, with an educational lizbeth from [employer]. Review of Systems Const Denies poor appetite and Denies weakness Eyes Denies no additional complaints ENT Reports Normal hearing present, Denies dizziness, Denies nasal congestion, Denies tinnitus and Denies sore throat Card Denies chest pain, Denies syncope, Denies rapid heart rate and Denies dyspnea Resp Denies cough and Denies dyspnea GI Denies change in stool character, Reports constipation, Denies diarrhea, Denies nausea and Denies vomiting Denies dysuria and Denies urinary frequency Neuro Reports Normal hearing present, Denies confusion, Denies dizziness, Denies syncope and Denies weakness Psych Denies confusion Physical exam (Primary Care) Vital Signs: Last Vital Signs Pulse 56 01/28/24 10:43 BP 112/68 01/28/24 10:43 Pulse Ox 100 01/28/24 10:43 Oxygen Delivery Method Room Air 01/28/24 10:43 BMI result Body Mass Index 27.3 Tobacco/Smoking Status: Tobacco use Status Tobacco use date assessed 01/28/24 01/28/24 10:48 Patient Tobacco Use Status Former Tobacco user 01/28/24 10:48 Tobacco use type Cigarette 01/28/24 10:48 e-Cigarette/Vaping Use Never Used 01/28/24 10:48 PHQ-9: PHQ-9 Score PHQ-9: Total score 0 01/28/24 10:50 Thrive Assessment: Date of Thrive Assessment Date Thrive assessed 12/17/23 01/28/24 10:48 Currently or been in a relationship where the following occur: no concerns reported Const General: No confusion Orientation/consciousness: No confusion HENMT Head: Yes normocephalic Ears: external ears normal and TM's normal bilaterally Face and sinus: Yes normal facial exam Mouth: moist mucous membranes Throat: Yes tonsils normal Eyes Conjunctivae: conjunctivae normal Pupils: Equal, round and reactive pupils present and Pupil accommodation reflex normal Direct Ophthalmoscopy: normal light reflex Neck Neck: No lymphadenopathy Thyroid: Thyroid normal Chest Chest palpation & inspection: normal inspection of the chest Resp Effort & Inspection: normal respiratory effort and no audible wheezes Auscultation: clear to auscultation bilaterally, no crackles, no wheezes and lung sounds not diminished Cardio Rate: regular rate Rhythm: regular rhythm Peripheral pulses: radial pulses present and dorsalis pedis present GI Palpation (GI): no masses Auscultation: normal bowel sounds and normoactive bowel sounds Rectal Exam - Male: Yes deferred Male General Exam: Yes normal external exam Skin General skin exam: no rashes or lesions noted Rashes: no rashes Neuro General: No confusion Cranial nerves: Yes Equal, round and reactive pupils present and Yes Normal hearing present Cognition (Neuro): normal cognition Gait exam (Neuro): Normal gait present Motor exam (neuro): 5/5 motor strength present throughout Deep tendon reflexes (DTR's): Right brachioradialis reflex intensity grade: 2+, Left brachioradialis reflex intensity grade: 2+, Right patellar reflex intensity grade: 2+ and Left patellar reflex intensity grade: 2+ Extrem General: No edema Assessment and Plan Assessment & Plan (1) Annual physical exam: Code(s): Z00.00 - Encounter for general adult medical examination without abnormal findings (2) Impaired glucose tolerance: Code(s): R73.02 - Impaired glucose tolerance (oral) Plan: Decrease the amount of carbohydrate intake, pasta, bread, rice and potatoes are all sugar and that is aside from all the sweet stuff, remember that fruits are good but they are Sweet also. Hemoglobin A1c in November was 5.9 (3) Hypercholesterolemia: Code(s): E78.00 - Pure hypercholesterolemia, unspecified Plan: Avoid fried foods, chicken skin, eggs, butter margarine, pastries and meat. Be it pork or beef they have a lot of cholesterol LDL goal of less than 70 and triglyceride of less than 150 on atorvastatin 80 mg once a day (4) Hypothyroid: Code(s): E03.9 - Hypothyroidism, unspecified Qualifiers: Hypothyroidism type: acquired Qualified Code(s): E03.9 - Hypothyroidism, unspecified Plan: Continue with thyroid medication (5) Rectal cancer: Onset Date: ~10/2020 Comment: (Adenocarcinoma of rectum dx 10/2020 - s/p chemo/radiation & rectosigmoid resection with loop ileostomy 07/2021 - Rad Onc = Dr. Breann Dawn, Onc = Dr. Davenport, ) Code(s): C20 - Malignant neoplasm of rectum Plan: Patient continues to follow-up with Hematology-Oncology and gastroenterology (6) Coronary artery disease: Comment: November 2023 drug-eluting stent x2 Code(s): I25.10 - Atherosclerotic heart disease of [place] coronary artery without angina pectoris Plan: Control the cholesterol, weight, blood pressure, continue with aspirin 81 mg once a day continue with metoprolol 25 mg once a day Brilinta 90 mg twice a day for 1 year. Orders: Orders Free T4 (Free Thyroxine) Today I25.10 - Atherosclerotic heart disease of [place] coronary artery without angina pectoris Prostate Specific Antigen Scr Today I25.10 - Atherosclerotic heart disease of [place] coronary artery without angina pectoris Cardiac Rehab Today I25.10 - Atherosclerotic heart disease of [place] coronary artery without angina pectoris Complete Blood Count Auto Diff Today I25.10 - Atherosclerotic heart disease of [place] coronary artery without angina pectoris Comprehensive Met. Panel Today I25.10 - Atherosclerotic heart disease of [place] coronary artery without angina pectoris Thyroid Stimulating Hormone Today I25.10 - Atherosclerotic heart disease of [place] coronary artery without angina pectoris Lipid Panel Today E78.00 - Pure hypercholesterolemia, unspecified, I25.10 - Atherosclerotic heart disease of [place] coronary artery without angina pectoris Vitamin B12 and Folate Today I25.10 - Atherosclerotic heart disease of [place] coronary artery without angina pectoris Hemoglobin A1c Today R73.02 - Impaired glucose tolerance (oral) Referrals Cardiology Referral I25.10 - Atherosclerotic heart disease of [place] coronary artery without angina pectoris Coding Level of Care Code Est Pt Prev Care 40-64y(63140) Diagnoses Annual physical exam Z00.00 Impaired glucose tolerance R73.02 Hypercholesterolemia E78.00 Acquired hypothyroidism E03.9 Hypothyroidism type: acquired Rectal cancer C20 Coronary artery disease I25.10
== END 2024-01-28 11:30 | disposition home or self-care (01) ==
PROVIDERS: PCP Internal Medicine; Visit Provider Internal Medicine
DX: Z00.00 Encounter for general adult medical examination without abnormal findings (principal); C20 Malignant neoplasm of rectum; R73.02 Impaired glucose tolerance (oral); E78.00 Pure hypercholesterolemia, unspecified; E03.9 Hypothyroidism, unspecified; I25.10 Atherosclerotic heart disease of native coronary artery without angina pectoris
CPT/HCPCS: 99396

== ENCOUNTER 2024-02-09 11:14 | Outpatient (REF) | payer OTHER, SELFPAY ==
[2024-02-09 11:31] LABS: MANUAL DIFF FLAG NO
[2024-02-09 12:36] LABS: Basophils Percent Auto 0.5 % (0-2); Eosinophils Absolute Auto 0.2 X10*3/uL (0.0-0.4); Eosinophils Percent Auto 3.2 % (0-4); Hematocrit 41.6 % (42.0-52.0); Hemoglobin 14.1 g/dl (14.0-18.0); Imm Gran Abs Auto 0.02 X10*3/uL (0.00-0.03); Imm Gran Pct Auto 0.3 % (0.0-0.4); Lymphocytes Absolute Auto 1.8 X10*3/uL (1.2-4.9); Lymphocytes Percent Auto 30.3 % (20-40); Mean Corpuscular HGB Conc 33.9 g/dl (31.0-36.0); Mean Corpuscular Hemoglobin 30.9 pg (27.0-33.0); Mean Corpuscular Volume 91.2 fL (80.0-98.0); Mean Platelet Volume 9.7 fL (9.4-12.4); Monocytes Absolute Auto 0.6 X10*3/uL (0.1-1.2); Monocytes Percent Auto 9.4 % (2-11); Neutrophils Absolute Auto 3.3 x10*3/uL (2.0-8.3); Neutrophils Percent Auto 56.3 % (45-73); Platelet Count 256 X10*3/uL (160-400); Red Blood Count 4.56 X10*6/uL (4.60-5.80); Red Cell Distribution Width 13.2 % (11.0-16.0); White Blood Count 5.9 X10*3/uL (4.8-10.8)
[2024-02-09 12:48] LABS: Estimated Average Glucose 117 mg/dL; Hemoglobin A1c % 5.7 % (<6.0)
[2024-02-09 13:10] LABS: Alanine Aminotransferase 61 U/L (0-40); Albumin Level 4.1 g/dL (3.5-5.0); Alkaline Phosphatase 100 U/L (39-117); Anion Gap 11 (12-20); Aspartate Amino Transferase 51 U/L (5-37); Bilirubin Total 0.7 mg/dL (0.0-1.0); Blood Urea Nitrogen 15 mg/dL (9-16); Calcium 9.6 mg/dL (8.4-10.2); Carbon Dioxide 27 mmol/L (22-29); Chloride 108 mmol/L (96-108); Cholesterol 128 mg/dL (<200); Estimated Glomerular Filt Rate > 60; Glucose Random 98 mg/dL (60-115); HDL Cholesterol 39 mg/dL (>40); LDL Cholesterol Calculated 71 mg/dL (<100); Potassium 4.3 mmol/L (3.3-5.1); Sodium 142 mmol/L (135-145); Total Protein 7.1 g/dL (6.5-8.0); Triglycerides 92 mg/dL (<150)
[2024-02-09 13:26] LABS: Free T4 (Free Thyroxine) 1.24 ng/dL (0.71-1.85); Thyroid Stimulating Hormone 0.28 uIU/mL (0.32-4.0)
[2024-02-09 13:31] LABS: Prostate Specific Antigen Scr 0.11 ng/mL (<0.05-4.0); Vitamin B12 377 pg/mL (200-900)
== END 2024-02-09 11:15 | disposition home or self-care (01) ==
LOC: HO.LAB 11:14
PROVIDERS: PCP Internal Medicine; Visit Provider Internal Medicine
DX: Z12.5 Encounter for screening for malignant neoplasm of prostate (principal); I25.10 Atherosclerotic heart disease of native coronary artery without angina pectoris; E78.00 Pure hypercholesterolemia, unspecified; R73.02 Impaired glucose tolerance (oral)
CPT/HCPCS: 36415; 80053; 80061; 82607; 82746; 83036; 84153; 84439; 84443; 85025

== ENCOUNTER 2024-02-09 14:16 | Outpatient (AMB) | payer OTHER, SELFPAY ==
[2024-02-09 14:21] VITALS: BP 130/60; PULSE 62; BMI 27.8
--- NOTE | 2024-02-09 14:21 | A.OFFVIS_ITS ---
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 He recently presented to [facility] in November 2023 with chest pain. He was exercising and developed some burning sensation in his chest and left arm discomfort. Came to the emergency department and ruled in for NSTEMI and was transferred to [facility]. He underwent cardiac catheterization there where severe OM and RCA stenosis was noted any was treated with 2 drug- eluting stents with intravascular ultrasound guidance. He had moderate LAD and 70% diagonal stenosis which was medically managed. He has been doing well since then and has no chest discomfort. He has been exercising on his own. He has not heard from cardiac rehabilitation yet. He has a former smoker. He is prediabetic. [facility] Medical History (Updated 01/28/24 @ 11:02 by Chica Law MD) Prediabetes H/O non-ST elevation myocardial infarction (NSTEMI) Coronary artery disease COVID-19 virus infection Blood per rectum Ileostomy in place TRUMAN (acute kidney injury) COVID-19 virus infection History of radiation therapy (~2020) Postoperative ileus (~07/2021) COVID-19 vaccine administered History of chemotherapy (~2020) Port-A-Cath in place Hypercholesterolemia Vitamin D deficiency Rectal cancer (~10/2020) Hypothyroid Prolapsed hemorrhoids Surgical History (Updated 02/09/24 @ 14:52 by Jony Newton MD) Status post angioplasty History of coronary artery stent placement History of reversal of ileostomy History of colonoscopy History of hemorrhoidectomy History of colon resection History of flexible sigmoidoscopy History of amputation of finger Family History Father CVD (cardiovascular disease) Mother No problems noted. Social History Household Members: Spouse Housing: House Are you a primary healthcare liaison to a significant other at home: No Do you presently have visiting nurse or other home services: No Alcohol intake: never Patient Tobacco Use Status: Former Tobacco user Tobacco use type: Cigarette Cigarettes Per Day: 10 Years Smoked: 30 e-Cigarette/Vaping Use: Never Used Second Hand Smoke Exposure: No service: No Current occupational status: employed Cognitive needs: No Hearing needs: No Vision needs: No Review of Systems Const Denies chills, Denies fatigue, Denies fever(s), Denies frequent falls, Denies weakness, Denies weight gain and Denies weight loss ENT Denies dizziness Card Denies chest pain, Denies leg edema, Denies lightheadedness, Denies palpitatio ns, Denies dyspnea, Denies dyspnea on exertion and Denies orthopnea Resp Denies cough, Denies dyspnea and Denies dyspnea on exertion GI Denies bloating and Denies change in bowel habits Musc Denies muscle weakness, Denies numbness and Denies tingling Neuro Denies dizziness, Denies frequent falls, Denies numbness, Denies tingling and Denies weakness Endo Denies fatigue and Denies palpitations Physical Exam Vital Signs: Last Vital Signs Pulse 62 02/09/24 14:21 BP 130/60 02/09/24 14:21 BMI result Body Mass Index 27.8 GENERAL APPEARANCE: in no acute distress, pleasant. NECK: no carotid bruit, no jugular venous distention. SKIN: no suspicious lesions, warm and dry. HEART: no murmurs, regular rate and rhythm. LUNGS: clear to auscultation bilaterally. ABDOMEN: soft, nontender. EXTREMITIES: no edema. PERIPHERAL PULSES: equal. NEUROLOGIC: No gross deficits, AAO X 3 Assessment & Plan Assessment & Plan (1) Coronary artery disease: Comment: November 2023 drug-eluting stent x2 Code(s): I25.10 - Atherosclerotic heart disease of [place] coronary artery without angina pectoris Plan Very pleasant 63 year gentleman who is here for 1st office visit. He has background history of hyperlipidemia and underwent cardiac catheterization in November 2023 for NSTEMI and received 2 drug-eluting stents to right coronary artery and OM. He has moderate LAD stenosis. She has been doing well. Clinically stable and tolerating medications well. He will be on aspirin and ticagrelor for at least 1 year. After 1 year we will discuss whether we should put him on Plavix monotherapy. His recent LDL cholesterol was 71, total cholesterol 128, triglyceride 92 and HDL 39. No changes in medications currently. Cardiac rehabilitation. Follow-up in 4 months. Thank you for allowing me to participate in the care of your patient. Please feel free to contact me if you have any questions. Coding Level of Care Code New Pt Level 4 (96340) Diagnoses Coronary artery disease I25.10
== END 2024-02-09 15:00 | disposition home or self-care (01) ==
PROVIDERS: PCP Internal Medicine; Visit Provider Internal Medicine Cardiovascular Disease
DX: I25.10 Atherosclerotic heart disease of native coronary artery without angina pectoris (principal); Z95.5 Presence of coronary angioplasty implant and graft
CPT/HCPCS: 99214

== ENCOUNTER 2024-03-23 08:42 | Outpatient (AMB) | payer OTHER, SELFPAY ==
[2024-03-23 08:56] VITALS: BMI 27.6
--- NOTE | 2024-03-23 08:56 | A.OFFVIS_ITS ---
Vital Signs 03/23/24 08:56 Height 5 ft 6 in Weight 171 lb BMI 27.6 Intake Visit Reasons: Right shoulder pain Intake Note: Flynn is a 63 year old male who presents with complaints of progressively worsening right shoulder pain. The patient's has had cortisone injections in the past which gave him fairly good relief. He denies any weakness. He wishes to hold off on surgery for as long as possible. He has tried Tylenol and anti- inflammatory medicines which gave him minimal relief. He has also done physical therapy exercises which aggravated his pain. Allergies No Known Allergies Allergy (Mild, Verified 03/23/24 08:58) N/A Medication List - Last Reconciled 03/24/24 by Christiano Peng MD aspirin 81 mg PO DAILY atorvastatin 80 mg PO DAILY levothyroxine 150 mcg PO DAILY metoprolol succinate ER 25 mg PO DAILY ticagrelor (Brilinta) 90 mg PO BID [facility] Medical History Prediabetes H/O non-ST elevation myocardial infarction (NSTEMI) Coronary artery disease COVID-19 virus infection Blood per rectum Ileostomy in place TRUMAN (acute kidney injury) COVID-19 virus infection History of radiation therapy (~2020) Postoperative ileus (~07/2021) COVID-19 vaccine administered History of chemotherapy (~2020) Port-A-Cath in place Hypercholesterolemia Vitamin D deficiency Rectal cancer (~10/2020) Hypothyroid Prolapsed hemorrhoids Surgical History Status post angioplasty History of coronary artery stent placement History of reversal of ileostomy History of colonoscopy History of hemorrhoidectomy History of colon resection History of flexible sigmoidoscopy History of amputation of finger Family History Father CVD (cardiovascular disease) Mother No problems noted. Social History Household Members: Spouse Housing: House Are you a primary health care assistant to a significant other at home: No Do you presently have visiting nurse or other home services: No Alcohol intake: never Patient Tobacco Use Status: Former Tobacco user Tobacco use type: Cigarette Cigarettes Per Day: 10 Years Smoked: 30 e-Cigarette/Vaping Use: Never Used Second Hand Smoke Exposure: No service: No Current occupational status: employed Cognitive needs: No Hearing needs: No Vision needs: No Physical Exam Vital Signs: BMI result Body Mass Index 27.6 Const Other: Well-nourished well-developed very friendly male awake alert and oriented x3 in no acute distress Extrem Other: Bilateral upper extremity examination shows good capillary refill, no skin lesions noted, normal sensation light touch Right shoulder examination shows full range of motion when compared to his left shoulder, 4+ out of 5 strength with supraspinatus testing, positive impingement signs, no instability Office Procedures Joint Injection/Drain Joint Injection/Drain Primary Site: right shoulder Prep: site was prepped using aseptic technique Injected: 40 mg of, DepoMedrol and 1% plain lidocaine Procedure: The patient tolerated the procedure well Coding 73370 - Large joint Procedure code (CPT) selection complete Assessment & Plan Assessment & Plan (1) Impingement of right shoulder: Code(s): M25.811 - Other specified joint disorders, right shoulder Category: Medical (2) Right shoulder pain: Code(s): M25.511 - Pain in right shoulder Plan Mr. Juan presents with right shoulder pain due to impingement syndrome and rotator cuff tendinosis. I had a lengthy discussion with the patient regarding the treatment options. The risks and benefits of a right shoulder cortisone injection were discussed at length with the patient. The patient wished to proceed. He tolerated the injection well. He will continue with his home exercise program. He will follow up with me on an as-needed basis should his symptoms not plateau at an unacceptable level over the next few months. Feel free to call me at any time should questions regarding his orthopedic management arise. I spent 22 minutes in reviewing the patient's records and imaging studies, seeing the patient and documenting in the medical record. Orders: Orders AMB Joint Injection/Aspiration 03/23/24 M25.811 - Other specified joint disorders, right shoulder Coding Level of Care Code Est Pt Level 3 (39567) Diagnoses Impingement of right shoulder M25.811 Right shoulder pain M25.511 CPT Codes Coding - Large joint: 21992 - Large joint ([id number])
== END 2024-03-23 09:17 | disposition home or self-care (01) ==
PROVIDERS: PCP Internal Medicine; Visit Provider Orthopaedic Surgery
DX: M25.811 Other specified joint disorders, right shoulder (principal); M25.511 Pain in right shoulder
CPT/HCPCS: 20610; 99213

== ENCOUNTER → 2024-03-23 08:42 | Outpatient (BNVA) | payer OTHER, SELFPAY | PROVIDERS: PCP Internal Medicine; Visit Provider Orthopaedic Surgery | DX: M25.811 Other specified joint disorders, right shoulder (principal); M75.101 Unspecified rotator cuff tear or rupture of right shoulder, not specified as traumatic | CPT/HCPCS: 20610; J1010 ==

== ENCOUNTER 2024-04-20 08:24 | Outpatient (AMB) | payer OTHER, SELFPAY ==
--- NOTE | 2024-04-20 08:43 | MHC.OFFVIS ---
Vital Signs 04/20/24 08:46 Height 5 ft 6 in Weight 160 lb BMI 25.8 Intake Visit Reasons: Low back pain radiating to right leg Intake Note: Flynn culp 63 year old male presents to the office with complaints of progressively worsening low back pain which radiates down the posterior aspect of his right hip into his right leg. The patient states that his symptoms have gotten worse over the last year in spite of continued non operative treatments. Has done physical therapy which aggravated his pain. The patient has failed the last 6 weeks of conservative treatment. He has tried Tylenol and anti-inflammatory medicines which gave him minimal relief. Also reports intermittent weakness in his right leg. He denies any groin pain. Allergies No Known Allergies Allergy (Mild, Verified 04/20/24 08:46) N/A Medication List - Last Reconciled 04/20/24 by Christiano Peng MD aspirin 81 mg PO DAILY atorvastatin 80 mg PO DAILY levothyroxine 150 mcg PO DAILY metoprolol succinate ER 25 mg PO DAILY ticagrelor (Brilinta) 90 mg PO BID [facility] Medical History Prediabetes H/O non-ST elevation myocardial infarction (NSTEMI) Coronary artery disease COVID-19 virus infection Blood per rectum Ileostomy in place TRUMAN (acute kidney injury) COVID-19 virus infection History of radiation therapy (~2020) Postoperative ileus (~07/2021) COVID-19 vaccine administered History of chemotherapy (~2020) Port-A-Cath in place Hypercholesterolemia Vitamin D deficiency Rectal cancer (~10/2020) Hypothyroid Prolapsed hemorrhoids Surgical History Status post angioplasty History of coronary artery stent placement History of reversal of ileostomy History of colonoscopy History of hemorrhoidectomy History of colon resection History of flexible sigmoidoscopy History of amputation of finger Family History Father CVD (cardiovascular disease) Mother No problems noted. Social History Household Members: Spouse Housing: House Are you a primary patient care assistant to a significant other at home: No Do you presently have visiting nurse or other home services: No Alcohol intake: never Patient Tobacco Use Status: Former Tobacco user Tobacco use type: Cigarette Cigarettes Per Day: 10 Years Smoked: 30 e-Cigarette/Vaping Use: Never Used Second Hand Smoke Exposure: No service: No Current occupational status: employed Cognitive needs: No Hearing needs: No Vision needs: No Physical Exam Vital Signs: BMI result Body Mass Index 25.8 Const Other: Well-nourished well-developed very friendly male awake alert and oriented x3 in no acute distress Back/Spine/Pelvis Other: Low back examination shows right-sided paraspinal muscle tenderness, pain with range of motion, positive straight leg raise test on the right at 70 degrees, 4/5 strength with testing of his right hip flexors and knee extensors when compared to 5/5 strength on his left side Extrem Other: Right hip examination shows full range of motion. His left hip, no tenderness over his bursa Results Reviewed Results Reviewed: X-rays of the patient's lumbar spine show moderate diffuse degenerative disc disease, no acute bony abnormalities X-rays of the patient's right hip show mild diffuse joint space narrowing, no acute bony abnormalities Assessment & Plan Assessment & Plan (1) Low back pain radiating to right leg: Code(s): M54.50 - Low back pain, unspecified; M79.604 - Pain in right leg Category: Medical Plan Mr. Juan presents with progressively worsening low back pain which radiates into his right leg most likely due to lumbar stenosis or a disc herniation. Thus, I will order an MRI of his lumbar spine for further evaluation. I will see the patient back once the MRI is completed to discuss the findings and treatment options. Will contact me prior to the MRI should his symptoms worsen in any way. Feel free to call me at any time should questions regarding his orthopedic management arise. I spent 20 minutes in reviewing the patient's records and imaging studies, seeing the patient and documenting in the medical record. Orders: Orders XR lumbar spine 2-3V 04/20/24 M54.50 - Low back pain, unspecified XR hip RT min 2V 04/20/24 M25.551 - Pain in right hip MR lumbar spine wo con 04/20/24 M54.50 - Low back pain, unspecified, M79.604 - Pain in right leg Coding Level of Care Code Est Pt Level 3 (45872) Diagnoses Low back pain radiating to right leg M54.50; M79.785
[2024-04-20 08:46] VITALS: BMI 25.8
== END 2024-04-20 09:20 | disposition home or self-care (01) ==
PROVIDERS: PCP Internal Medicine; Visit Provider Orthopaedic Surgery
DX: M54.50 Low back pain, unspecified (principal); M79.604 Pain in right leg
CPT/HCPCS: 99213

== ENCOUNTER 2024-04-20 08:24 | Outpatient (REF) | payer OTHER, SELFPAY ==
--- NOTE | ~2024-04-20 | XR_ITS ---
EXAM: X-RAY LUMBAR SPINE X-RAY RIGHT HIP CLINICAL INFORMATION: Pain in right hip, low back pain unspecified. COMPARISON: CT abdomen and pelvis of 07/26/2021. TECHNIQUE: AP view of the pelvis and frog-lateral view of the right hip. 3 views of the lumbar spine. FINDINGS: Right hip: Moderate degenerative changes in the right hip with hypertrophic change and joint space narrowing. Right hip alignment preserved. Single AP view of the left hip demonstrates moderate superior joint space narrowing and lateral acetabular hypertrophic change. Surgical material in the pelvis. Bones are diffusely demineralized. Pubic symphysis is maintained. Lumbar spine: Mild levoscoliosis of the lumbar spine. Bones are diffusely demineralized. Facet arthritis in the lower lumbar spine. Moderate multilevel lumbar spondylosis with moderate loss of disc space height at L4-L5 and L5-S1. Atherosclerotic aortoiliac calcifications. XR/XR lumbar spine 2-3V IMPRESSION: 1. Moderate degenerative changes bilateral hips. 2. Moderate multilevel lumbar spondylosis with moderate loss of disc space height at L4-L5 and L5-S1.
--- NOTE | ~2024-04-20 | XR_ITS ---
EXAM: X-RAY LUMBAR SPINE X-RAY RIGHT HIP CLINICAL INFORMATION: Pain in right hip, low back pain unspecified. COMPARISON: CT abdomen and pelvis of 07/26/2021. TECHNIQUE: AP view of the pelvis and frog-lateral view of the right hip. 3 views of the lumbar spine. FINDINGS: Right hip: Moderate degenerative changes in the right hip with hypertrophic change and joint space narrowing. Right hip alignment preserved. Single AP view of the left hip demonstrates moderate superior joint space narrowing and lateral acetabular hypertrophic change. Surgical material in the pelvis. Bones are diffusely demineralized. Pubic symphysis is maintained. Lumbar spine: Mild levoscoliosis of the lumbar spine. Bones are diffusely demineralized. Facet arthritis in the lower lumbar spine. Moderate multilevel lumbar spondylosis with moderate loss of disc space height at L4-L5 and L5-S1. Atherosclerotic aortoiliac calcifications. XR/XR hip RT min 2V IMPRESSION: 1. Moderate degenerative changes bilateral hips. 2. Moderate multilevel lumbar spondylosis with moderate loss of disc space height at L4-L5 and L5-S1.
== END 2024-04-20 08:25 | disposition home or self-care (01) ==
LOC: HO.HOSX 08:24
PROVIDERS: PCP Internal Medicine; Visit Provider Orthopaedic Surgery
DX: M24.152 Other articular cartilage disorders, left hip (principal); M47.26 Other spondylosis with radiculopathy, lumbar region; M47.27 Other spondylosis with radiculopathy, lumbosacral region; M24.151 Other articular cartilage disorders, right hip
CPT/HCPCS: 72100; 73502; J1010

== ENCOUNTER 2024-05-19 15:55 | Outpatient (AMB) | payer OTHER, SELFPAY ==
--- NOTE | 2024-05-19 15:56 | A.OFFVIS_ITS ---
Vital Signs 05/19/24 15:59 Height 5 ft 6 in Weight 175 lb BMI 28.2 Intake Visit Reasons: recall colonoscopy Intake Note: This patient presents for an assessment for recall colonoscopy. Patient c/o; reports no complaints. Plate Preparer Required: No Accompanied by: Self / Same As Patient Allergies No Known Allergies Allergy (Mild, Verified 05/19/24 16:00) N/A Medication List - Last Reconciled 05/20/24 by Mack Michel MD aspirin 81 mg PO DAILY atorvastatin 80 mg PO DAILY levothyroxine 150 mcg PO DAILY metoprolol succinate ER 25 mg PO DAILY ticagrelor (Brilinta) 90 mg PO BID HPI HPI recall colonoscopy: Details: 63-year-old male with history of rectal cancer here for surveillance colonoscopy. He had undergone low anterior resection in 2020 after neoadjuvant chemotherapy and radiation. He had a loop ileostomy in place at that time and this was reversed in [facility] in 2021 He denies any new GI complaints at this time. He describes occasional constipation and anal pain. This however has been nothing new since his resection He did have stents placed last November, because of an AR. he has been on anticoagulation with Brilinta since then. He is good oral intake. He denies any persistent chest pain or shortness of breath. He is also being followed closely by Dr. Davenport. [facility] Medical History History of rectal cancer Prediabetes H/O non-ST elevation myocardial infarction (NSTEMI) Coronary artery disease COVID-19 virus infection Blood per rectum Ileostomy in place TRUMAN (acute kidney injury) COVID-19 virus infection History of radiation therapy (~2020) Postoperative ileus (~07/2021) COVID-19 vaccine administered History of chemotherapy (~2020) Port-A-Cath in place Hypercholesterolemia Vitamin D deficiency Rectal cancer (~10/2020) Hypothyroid Prolapsed hemorrhoids Surgical History Status post angioplasty History of coronary artery stent placement History of reversal of ileostomy History of colonoscopy History of hemorrhoidectomy History of colon resection History of flexible sigmoidoscopy History of amputation of finger Family History Father CVD (cardiovascular disease) Mother No problems noted. Social History Household Members: Spouse Housing: House Are you a primary physician assistant primary care to a significant other at home: No Do you presently have visiting nurse or other home services: No Alcohol intake: never Patient Tobacco Use Status: Former Tobacco user Tobacco use type: Cigarette Cigarettes Per Day: 10 Years Smoked: 30 e-Cigarette/Vaping Use: Never Used Second Hand Smoke Exposure: No service: No Current occupational status: employed Cognitive needs: No Hearing needs: No Vision needs: No Review of Systems Const Denies chills and Denies fever(s) Card Denies chest pain, Denies dyspnea and Denies dyspnea on exertion Resp Denies cough, Denies dyspnea and Denies dyspnea on exertion GI Denies hematochezia and Denies change in bowel habits Denies hematuria and Denies difficulty urinating Musc Denies back pain and Denies limited range of motion Neuro Denies focal weakness and Denies convulsions Psych Denies depression and Denies mood swings Physical Exam Vital Signs: BMI result Body Mass Index 28.2 Const General: comfortable and no acute distress Orientation/consciousness: patient oriented x3 Neck Neck: Yes no lymphadenopathy Resp Auscultation: clear to auscultation bilaterally Cardio Rhythm: regular rhythm GI Palpation (GI): Soft to palpation, nontender and no guarding Neuro General: patient oriented x3 Assessment & Plan Assessment & Plan (1) History of rectal cancer: Code(s): Z85.048 - Personal history of other malignant neoplasm of rectum, rectosigmoid junction, and anus Category: Medical Plan: He has a history of anterior resection for rectal cancer. He is here for surveillance. He understands the technique of colonoscopy. He has aware of the risks including but not limited to bleeding and perforation, as well as the benefits and alternatives. He understands and wants to proceed. He is however on anticoagulation with Brilinta for stents placed after he had AR in November,. I will talk to his manager internship Dr. Newton about this and see if this can be held prior to his colonoscopy. Coding Level of Care Code Est Pt Level 3 (43590) Diagnoses History of rectal cancer Z85.048
[2024-05-19 15:59] VITALS: BMI 28.2
== END 2024-05-19 16:13 | disposition home or self-care (01) ==
PROVIDERS: PCP Internal Medicine; Visit Provider Surgery
DX: Z85.048 Personal history of other malignant neoplasm of rectum, rectosigmoid junction, and anus (principal)
CPT/HCPCS: S0285

== ENCOUNTER → 2024-05-19 15:55 | Outpatient (BNVA) | payer OTHER, SELFPAY | PROVIDERS: PCP Internal Medicine; Visit Provider Surgery ==

== ENCOUNTER 2024-06-03 12:26 | Outpatient (REF) | payer OTHER, SELFPAY ==
--- NOTE | ~2024-06-03 | MR_ITS ---
EXAMINATION: MR LUMBAR SPINE WITHOUT CONTRAST CLINICAL INFORMATION: 63-year-old with low back pain, unspecified. Self-reported pain on sides of hips, pain with walking, up to low back. History of rectal CA. COMPARISON: None available. TECHNIQUE: MRI of the lumbar spine was obtained using routine sequences without contrast. FINDINGS: CORONAL ALIGNMENT: Normal. SAGITTAL ALIGNMENT: Normal. LUMBOSACRAL JUNCTION: Normal. There are 5 [id number] lumbar-type vertebral bodies. VERTEBRAL BODIES: Vertebral body heights are well-maintained. DISC SPACES AND ENDPLATES: There is moderate intervertebral disc space height loss at L4-L5 and L5-S1 with loss of intradiscal T2-weighted signal at these levels with mild spondylosis. There is mild disc volume loss at L3-L4 with minor spondylosis and minimal loss of T2-weighted intradiscal signal. Remaining intervertebral disc space heights are well-maintained. There is mild anterior marginal spondylosis at L1-L2 and L2-L3. SPINAL CANAL: No abnormal developmental findings. BONE MARROW: There is a partially imaged the 2.5 cm zone of low T1 signal which is increased in signal on the STIR images consistent with bone marrow edema in the right sacral ala adjacent to the right SI joint. This finding is nonspecific and could be secondary to inflammatory changes such as sacroiliitis, a nondisplaced stress fracture or possibly metastasis. There are fatty marrow changes consistent with fatty marrow replacement at the L5 level and throughout the visualized sacrum and bilateral iliac bones. Correlate for any history of previous radiation therapy to account for these findings. No focally suspicious marrow replacing process or bone marrow edema seen throughout the remainder of the osseous structures. CONUS MEDULLARIS: Terminates at L1. Morphology and signal is normal. INTRADURAL NERVE ROOTS: Within normal limits. L5-S1: There is a central disc herniation with underlying disc bulge and bilateral paravertebral disc osteophyte complex, with slight indentation of the ventral thecal sac without neural impingement. Mild ligamentum flavum thickening is noted with no significant canal stenosis. Minor bilateral facet joint arthrosis without significant neural foraminal stenosis. L4-L5: There is concentric disc bulging, with flattening of the ventral dural sac, with moderate facet joint arthropathy bilaterally without significant central canal stenosis. There is crowding of the subarticular zones bilaterally encroaching on the L5 nerve roots. There is mild right-sided and minimal left-sided foraminal narrowing without neural impingement. L3-L4: There is concentric disc bulging with slight flattening of the ventral dural sac. There is a prominent dorsal fat pad and there is [id number]-[id number] facet joint arthropathy with mild interspinous ligament degeneration. There is no significant canal stenosis. There is minor foraminal narrowing on the right. L2-L3: There is a small right-sided subarticular to inferior foraminal disc protrusion without neural impingement. There is a slightly larger left-sided subarticular to inferior foraminal disc protrusion without neural impingement. There is [id number] facet joint arthrosis bilaterally with slight underlying disc bulging and minimal indentation of the ventral thecal sac without significant central canal stenosis. There is mild narrowing of the right subarticular zone and there are minor degrees of foraminal narrowing, left more than right without neural impingement. L1-L2: Very small bilateral foraminal disc protrusions, left more than right without significant canal stenosis. Mild facet joint arthropathy right more than left. Mild foraminal narrowing on the left. T12-L1: Normal annular contour. No significant facet joint arthrosis, canal or neural foraminal stenosis. PARAVERTEBRAL AND INCLUDED EXTRASPINAL SOFT TISSUES: The visualized paravertebral soft tissues appear grossly unremarkable. There is a partially imaged 1.6 cm probable cortical cyst lateral cortex right kidney and a probable 1.6 cm parapelvic cyst upper pole right kidney. Limited evaluation.?No specific follow up recommended based on the current ACR Best Practice Guidelines. MR/MR lumbar spine wo con IMPRESSION: 1. Discogenic degenerative changes primarily at L4-L5 and L5-S1, with central disc herniation at L5-S1 and multilevel disc bulging, as described above, with multilevel bilateral facet joint arthropathy without significant central canal stenosis. There is crowding of the subarticular zones bilaterally at L4-L5 slightly encroaching on the L5 nerve roots bilaterally. 2. Mild degrees of multilevel neural foraminal narrowing without neural impingement. 3. Marrow edema in the right sacral ala adjacent to the right SI joint which is nonspecific. Differential diagnostic considerations include inflammatory changes such as sacroiliitis or possibly a nondisplaced stress fracture. Given the history of previous rectal CA, metastatic disease cannot be entirely excluded. Correlate clinically and consider follow-up MRI of the sacrum without and with contrast in 3 months to reassess. 4. Fatty marrow replacement at L5 and throughout the visualized sacrum and bilateral iliac bones. Correlate for any history of previous radiation therapy to account for these findings.
== END 2024-06-03 12:27 | disposition home or self-care (01) ==
LOC: HO.MRI 12:26
PROVIDERS: PCP Internal Medicine; Visit Provider Orthopaedic Surgery
DX: M54.50 Low back pain, unspecified (principal); M79.604 Pain in right leg
CPT/HCPCS: 72148

== ENCOUNTER 2024-06-18 10:35 | Day surgery (SDC) | payer OTHER, SELFPAY ==
[2024-06-09 15:24] VITALS: BMI 28.2
[2024-06-18 10:49] VITALS: BP 113/64; PULSE 61; RESP 15; TEMP 36.6; O2SAT 97
--- NOTE | 2024-06-18 11:26 | HO.ANESPROP2 ---
HPI - Anesthesia Eval Consult details Narrative: for colonoscopy [facility] Active Problems Active Problems: All Active Problems Low back pain radiating to right leg (Acute) Right hip pain (Acute) Low back pain (Acute) Impaired glucose tolerance (Acute) Annual physical exam (Acute) Impingement syndrome of left shoulder (Acute) Impingement of right shoulder (Acute) Left shoulder pain (Acute) Bilateral shoulder pain (Acute) Hyponatremia (Acute) History of rectal cancer (Acute) Coronary artery disease (Acute) Prediabetes (Acute) COVID-19 virus infection (Acute) Blood per rectum (Acute) Ileostomy in place (Acute) Postoperative ileus (Acute ~07/2021) Hypercholesterolemia (Acute) Hypothyroid (Acute) Rectal cancer (Acute ~10/2020) Prolapsed hemorrhoids (Acute) Past Medical History Medical History History of rectal cancer Prediabetes H/O non-ST elevation myocardial infarction (NSTEMI) Coronary artery disease Blood per rectum Ileostomy in place COVID-19 virus infection TRUMAN (acute kidney injury) COVID-19 virus infection History of radiation therapy (~2020) Postoperative ileus (~07/2021) COVID-19 vaccine administered History of chemotherapy (~2020) Port-A-Cath in place Hypercholesterolemia Vitamin D deficiency Rectal cancer (~10/2020) Hypothyroid Prolapsed hemorrhoids Family History Family History Father CVD (cardiovascular disease) Mother No problems noted. Family history of problems with anesthesia: No Surgical History Surgical History Hx of cardiac catheterization (~11/2023) Status post angioplasty History of coronary artery stent placement History of reversal of ileostomy History of colonoscopy History of hemorrhoidectomy History of colon resection History of flexible sigmoidoscopy History of amputation of finger History of Problems with Anesthesia: No Social History Social History (Updated 06/09/24 @ 15:33 by Sylvia Guerrero RN) Household Members: Spouse and Significant Other Housing: House Are you a primary primary care coordinator to a significant other at home: No Do you presently have visiting nurse or other home services: No Alcohol intake: never Patient Tobacco Use Status: Former Tobacco user Tobacco use type: Cigarette Cigarettes Per Day: 10 Years Smoked: 30 Smoked in Last 30 Days: No e-Cigarette/Vaping Use: Never Used Second Hand Smoke Exposure: No Use of substances other than those prescribed or required for medical reasons: No Have you been hit, kicked, punched, or otherwise hurt by someone within the past year? If so, by whom?: No Are you DNR?: No Advance Directives: Yes Advance Directives Information Provided: No Advance Directives on File: Yes Advance Directives Date on File: 01/15/21 Recently lost weight without trying: No Nutrition Risks: No Nutritional Risk service: No Current occupational status: employed Cognitive needs: No Hearing needs: No Vision needs: No Meds Allergies Allergy/AdvReac Type Severity Reaction Status Date / Time No Known Allergies Allergy Mild N/A Verified 06/18/24 10:43 Active Medications: Current Medications Lactated Ringer's (Lr) 1,000 mls @ 100 mls/hr IVCONT .Q10H CHRISTINE Exam Height,Weight and Vital Signs: Height 5 ft 6 in Weight 79.379 kg Last Vital Signs Temp 97.8 F 06/18/24 10:49 Pulse 61 06/18/24 10:49 Resp 15 06/18/24 10:49 BP 113/64 06/18/24 10:49 Pulse Ox 97 06/18/24 10:49 O2 Del Method Room Air 06/18/24 10:49 Airway Mallampati Class: II TM Dist: >3cm Neck ROM: Full Denture: Upper and Lower Heart: ok Lungs: ok Assessment and Plan Assessment Anesthesia Assessment: Anesthesia Plan Discussed and Chart Reviewed Final Anesthetic Review Family History of Problems with Anesthesia: No History of Problems with Anesthesia: No NPO: Yes ASA Class: III Final Preanesthetic Review: No Changes in Pt Med Stat, Meds/Allgs Chart Reviewed, Consent Obtained/Reviewed and Anes Risks/Benef Reviewed Patient Risk: Intermediate Procedure Risk: Low Anesthetic Plan Anesthetic Plan: MAC: and Agree w/ Assess. and Plan Disposition: Standard PACU
--- NOTE | 2024-06-18 11:33 | MHC.SHP ---
Pre-Procedural Eval Section A - 24 Hr Update-Section A only Date of Service: 06/18/24 Section B - Complete if H&P > 30 days Chief Complaint: Personal history of other malignant neoplasm Details of Present Illness: hx of rectal cancer, low anterior resection Relevant Social History: None Present Medications: see Short Stay Collaborative assessment Medical History: Significant History (rectal cancer, back pain) Allergies: Allergies Allergy/AdvReac Type Severity Reaction Status Date / Time No Known Allergies Allergy Mild N/A Verified 06/18/24 10:43 Review of Systems Sugical H&P ROS: Negative: Constitution, Cardiovascular, Respiratory, Neurological, Psychiatric, Hem-Onc, Allergic/Immunologic, Gastrointestinal, Genitourinary, Musculoskeletal, Integumentary, Endocrine and Eyes/Ears/Nose/Throat Exam Surgical H&P Exam: Normal: HEENT, Normal: Heart, Normal: Lungs, Normal: Extremities, Normal: Abdomen, Normal: Skin and Normal: Neurological Plan Diagnosis/Plan: Unchanged I have reviewed the history and physical and performed a pertinent physical examination on my patient. No changes have occurred unless specified. Time Spent With Patient Time: Total time managing care of this patient today ____ minutes.
--- NOTE | 2024-06-18 12:02 | P.OP_ITS ---
Operative Note Operative Note Date of Service: 06/18/24 Narrative: Preop diagnosis: History of rectal cancer Postop diagnosis: Small internal external hemorrhoids otherwise normal colonoscopy findings with anastomosis patent Procedure: Colonoscopy Surgeon: Mack Michel MD The patient is a 63-year-old male who has a history of low rectal cancer and had undergone low anterior resection. He is here for surveillance colonoscopy. He understands the technique of the planned procedure as well as the risks, benefits, and alternatives He was brought to the operating room. He was placed in left lateral decubitus position under monitored anesthesia care. A full digital rectal exam was under were no palpable anal canal lesions The tip of the Olympus colonoscope was gently introduced through the anal orifice advanced gently with insufflation all the way to the cecum. The cecum was intubated but the cecum was identified by visualization of the ileocecal valve as well as the appendiceal orifice. The cecal mucosa was unremarkable. The scope was gradually withdrawn with careful examination of the entire colonic mucosa being done with scope withdrawal. The patient had adequate bowel prep so it was unlikely the initial may have missed. The rectum was reached. The a nastomotic site was examined and this appeared to be at about level 7 cm. Some of the kraig were visible. There were no lesions in the area. The anastomosis was patent. There were no lesions or any abnormal mucosa in the area. There was note of some small internal external hemorrhoids although prominent. The scope was then completely withdrawn with desufflation The patient tolerated procedure well. There were no immediate complications I would recommend another colonoscopy with the next 5 years in view of his personal history of rectal cancer.
[2024-06-18 12:09] VITALS: BP 99/61; PULSE 70; RESP 18; TEMP 36.3; O2SAT 96
[2024-06-18 12:24] VITALS: BP 110/58; PULSE 58; RESP 16; O2SAT 96
[2024-06-18 12:39] VITALS: BP 116/58; PULSE 58; RESP 16; TEMP 36.1; O2SAT 97
== END 2024-06-18 13:01 | disposition home or self-care (01) ==
PROVIDERS: PCP Internal Medicine; Visit Provider Surgery
PROC: 0DBE8ZZ Excision of Large Intestine, Via Natural or Artificial Opening Endoscopic (ICD-10-PCS; CPT 45378; principal; 2024-06-18 11:40)
DX: Z12.11 Encounter for screening for malignant neoplasm of colon (principal); K64.8 Other hemorrhoids; K59.00 Constipation, unspecified; Z85.048 Personal history of other malignant neoplasm of rectum, rectosigmoid junction, and anus; Z90.49 Acquired absence of other specified parts of digestive tract; Z92.21 Personal history of antineoplastic chemotherapy; Z92.3 Personal history of irradiation; Z98.0 Intestinal bypass and anastomosis status; R73.03 Prediabetes; I25.10 Atherosclerotic heart disease of native coronary artery without angina pectoris; Z95.5 Presence of coronary angioplasty implant and graft; Z79.01 Long term (current) use of anticoagulants; Z79.82 Long term (current) use of aspirin; Z79.899 Other long term (current) drug therapy; Z87.891 Personal history of nicotine dependence; Z98.890 Other specified postprocedural states
CPT/HCPCS: 45378; J2704

== ENCOUNTER → 2024-06-18 10:35 | Outpatient (BNV) | payer OTHER, SELFPAY | PROVIDERS: PCP Internal Medicine; Visit Provider Surgery | DX: Z85.048 Personal history of other malignant neoplasm of rectum, rectosigmoid junction, and anus (principal); K64.8 Other hemorrhoids | CPT/HCPCS: 45378 ==

== ENCOUNTER 2024-06-22 08:21 | Outpatient (AMB) | payer OTHER, SELFPAY ==
--- NOTE | 2024-06-22 08:26 | MHC.OFFVIS ---
Intake Visit Reasons: OV- MRI Review, Low back pain Intake Note: Flynn culp 63 year old male presents to the office with complaints of progressively worsening low back pain which radiates down the posterior aspect of his right hip into his right leg. The patient states that his symptoms have gotten worse over the last year in spite of continued non operative treatments. Has done physical therapy which aggravated his pain. The patient has failed the last 6 weeks of conservative treatment. He has tried Tylenol and anti-inflammatory medicines which gave him minimal relief. Also reports intermittent weakness in his right leg. He denies any groin pain. Allergies No Known Allergies Allergy (Mild, Verified 06/22/24 08:31) N/A Medication List - Last Reconciled 06/22/24 by Christiano Peng MD aspirin 81 mg PO DAILY atorvastatin 80 mg PO DAILY levothyroxine 150 mcg PO DAILY metoprolol succinate ER 25 mg PO DAILY ticagrelor (Brilinta) 90 mg PO BID [facility] Medical History History of rectal cancer Prediabetes H/O non-ST elevation myocardial infarction (NSTEMI) Coronary artery disease Blood per rectum Ileostomy in place COVID-19 virus infection TRUMAN (acute kidney injury) COVID-19 virus infection History of radiation therapy (~2020) Postoperative ileus (~07/2021) COVID-19 vaccine administered History of chemotherapy (~2020) Port-A-Cath in place Hypercholesterolemia Vitamin D deficiency Rectal cancer (~10/2020) Hypothyroid Prolapsed hemorrhoids Surgical History Hx of cardiac catheterization (~11/2023) Status post angioplasty History of coronary artery stent placement History of reversal of ileostomy History of colonoscopy History of hemorrhoidectomy History of colon resection History of flexible sigmoidoscopy History of amputation of finger Family History Father CVD (cardiovascular disease) Mother No problems noted. Social History Household Members: Spouse and Significant Other Housing: House Are you a primary rn primary care to a significant other at home: No Do you presently have visiting nurse or other home services: No Alcohol intake: never Patient Tobacco Use Status: Former Tobacco user Tobacco use type: Cigarette Cigarettes Per Day: 10 Years Smoked: 30 e-Cigarette/Vaping Use: Never Used Second Hand Smoke Exposure: No Advance Directives Date on File: 01/15/21 service: No Current occupational status: employed Cognitive needs: No Hearing needs: No Vision needs: No Physical Exam Const Other: Well-nourished well-developed very friendly male awake alert and oriented x3 in no acute distress Back/Spine/Pelvis Other: Low back examination shows right-sided paraspinal muscle tenderness, pain with range of motion, positive straight leg raise test on the right 70 degrees Results Reviewed Results Reviewed: MRI of the patient's lumbar spine was performed here at [facility] on 06/03/2024, no reading is yet available - the radiology department was notified Assessment & Plan Assessment & Plan (1) Low back pain radiating to right leg: Code(s): M54.50 - Low back pain, unspecified; M79.604 - Pain in right leg Category: Medical (2) Low back pain: Code(s): M54.50 - Low back pain, unspecified Category: Medical Plan Mr. Juan presents with progressively worsening low back pain which radiates down his right leg possibly due to lumbar stenosis or a disc herniation. Thus, I will refer the patient to the neurosurgery department here at [facility] for further evaluation. He will contact me prior to that appointment should his symptoms worsen in any way. Feel free to call me at any time should questions regarding his orthopedic management arise. I spent 22 minutes in reviewing the patient's records and imaging studies, seeing the patient and documenting in the medical record. Orders: Referrals Neuro Spine Referral M54.50 - Low back pain, unspecified, M79.604 - Pain in right leg Coding Level of Care Code Est Pt Level 3 (88802) Diagnoses Low back pain radiating to right leg M54.50; M79.604 Low back pain M54.50
== END 2024-06-22 08:37 | disposition home or self-care (01) ==
PROVIDERS: PCP Internal Medicine; Visit Provider Orthopaedic Surgery
DX: M54.50 Low back pain, unspecified (principal); M79.604 Pain in right leg
CPT/HCPCS: 99213

== ENCOUNTER → 2024-06-22 08:21 | Outpatient (BNVA) | payer OTHER, SELFPAY | PROVIDERS: PCP Internal Medicine; Visit Provider Orthopaedic Surgery ==

== ENCOUNTER 2024-06-23 10:01 | Outpatient (AMB) | payer OTHER, SELFPAY ==
[2024-06-23 10:45] VITALS: BP 100/62; PULSE 64; BMI 27.7
--- NOTE | 2024-06-23 10:45 | A.OFFVIS_ITS ---
Vital Signs 06/23/24 10:45 Height 5 ft 6 in Weight 171 lb 8.314 oz BMI 27.7 BP 100/62 Blood Pressure Location Lt brachial Position Sitting Pulse 64 Pulse Source Pulse Oximeter Intake Visit Reasons: 4 mth f/up Intake Note: 4 mth f/up- pt is doing fine Lead Welder Required: No Accompanied by: Self / Same As Patient Allergies No Known Allergies Allergy (Mild, Verified 06/22/24 08:31) N/A Medication List - Last Reconciled 06/23/24 by Jony Newton MD aspirin 81 mg PO DAILY atorvastatin 80 mg PO DAILY levothyroxine 150 mcg PO DAILY metoprolol succinate ER 25 mg PO DAILY ticagrelor (Brilinta) 90 mg PO BID HPI Comments Details: Pleasant 63 year gentleman who is here for 1st office visit. He recently presented to [facility] in November 2023 with chest pain. He was exercising and developed some burning sensation in his chest and left arm discomfort. Came to the emergency department and ruled in for NSTEMI and was transferred to [facility]. He underwent cardiac catheterization there where severe OM and RCA stenosis was noted any was treated with 2 drug- eluting stents with intravascular ultrasound guidance. He had moderate LAD and 70% diagonal stenosis which was medically managed. He has been doing well since then and has no chest discomfort. He has been exercising on his own. He has not heard from cardiac rehabilitation yet. He has a former smoker. He is prediabetic. 06/23/2024: He returns for follow-up. He has been doing well. No chest pain or shortness of breath. Blood pressure is mildly low but he has no symptoms. He was advised to increase hydration. [facility] Medical History (Updated 06/23/24 @ 13:23 by Jony Newton MD) History of rectal cancer Prediabetes H/O non-ST elevation myocardial infarction (NSTEMI) Coronary artery disease Blood per rectum Ileostomy in place COVID-19 virus infection TRUMAN (acute kidney injury) COVID-19 virus infection History of radiation therapy (~2020) Postoperative ileus (~07/2021) COVID-19 vaccine administered History of chemotherapy (~2020) Port-A-Cath in place Hypercholesterolemia Vitamin D deficiency Rectal cancer (~10/2020) Hypothyroid Prolapsed hemorrhoids Surgical History Hx of cardiac catheterization (~11/2023) Status post angioplasty History of coronary artery stent placement History of reversal of ileostomy History of colonoscopy History of hemorrhoidectomy History of colon resection History of flexible sigmoidoscopy History of amputation of finger Family History Father CVD (cardiovascular disease) Mother No problems noted. Social History Household Members: Spouse and Significant Other Housing: House Are you a primary lawn care professional to a significant other at home: No Do you presently have visiting nurse or other home services: No Alcohol intake: never Patient Tobacco Use Status: Former Tobacco user Tobacco use type: Cigarette Cigarettes Per Day: 10 Years Smoked: 30 e-Cigarette/Vaping Use: Never Used Second Hand Smoke Exposure: No Advance Directives Date on File: 01/15/21 service: No Current occupational status: employed Cognitive needs: No Hearing needs: No Vision needs: No Review of Systems Const Denies chills, Denies fatigue, Denies fever(s), Denies frequent falls, Denies we akness, Denies weight gain and Denies weight loss ENT Denies dizziness Card Denies chest pain, Denies leg edema, Denies lightheadedness, Denies palpit ations, Denies dyspnea and Denies dyspnea on exertion Resp Denies cough, Denies dyspnea and Denies dyspnea on exertion GI Denies hematochezia Musc Denies abnormal gait, Denies muscle weakness, Denies numbness, Denies radiating pain into limb and Denies tingling Neuro Denies abnormal gait, Denies dizziness, Denies frequent falls, Denies numbness, Denies tingling and Denies weakness Endo Denies fatigue and Denies palpitations Physical Exam Vital Signs: Last Vital Signs Pulse 64 06/23/24 10:45 BP 100/62 06/23/24 10:45 BMI result Body Mass Index 27.7 GENERAL APPEARANCE: in no acute distress, pleasant. NECK: no carotid bruit, no jugular venous distention. SKIN: no suspicious lesions, warm and dry. HEART: no murmurs, regular rate and rhythm. LUNGS: clear to auscultation bilaterally. ABDOMEN: soft, nontender. EXTREMITIES: no edema. PERIPHERAL PULSES: equal. NEUROLOGIC: No gross deficits, AAO X 3 Assessment & Plan Assessment & Plan (1) Coronary artery disease: Comment: November 2023 drug-eluting stent x2 Code(s): I25.10 - Atherosclerotic heart disease of [place] coronary artery without angina pectoris Category: Medical (2) Stable angina: Code(s): I20.89 - Other forms of angina pectoris Category: Medical Plan 63 year gentleman who is here for follow-up. He has background history of rectal cancer with previous surgery with recent colonoscopy which was normal. Had PCI to right coronary artery in the setting of acute coronary syndrome and is currently on aspirin and ticagrelor. Tolerating medications well. No symptoms on follow-up. Blood pressure is little low but he has no symptoms. I have advised him to increase hydration. Follow-up with us in 4-6 months. Thank you for allowing me to participate in the care of your patient. Please feel free to contact me if you have any questions. Coding Level of Care Code Est Pt Level 4 (83410) Diagnoses Coronary artery disease I25.10 Stable angina I20.89
== END 2024-06-23 11:05 | disposition home or self-care (01) ==
PROVIDERS: PCP Internal Medicine; Visit Provider Internal Medicine Cardiovascular Disease
DX: I25.118 Atherosclerotic heart disease of native coronary artery with other forms of angina pectoris (principal)
CPT/HCPCS: 99214

== ENCOUNTER → 2024-06-23 10:01 | Outpatient (BNVA) | payer OTHER, SELFPAY | PROVIDERS: PCP Internal Medicine; Visit Provider Internal Medicine Cardiovascular Disease ==

== ENCOUNTER 2024-07-01 08:39 | Outpatient (AMB) | payer OTHER, SELFPAY ==
--- NOTE | 2024-07-01 08:52 | A.SPINEOV_ITS ---
Intake Visit Reasons: Low back pain Intake Note: Mr. Juan is here today c/o discomfort with his back. Director Of Curriculum And Instruction Required: No Allergies No Known Allergies Allergy (Mild, Verified 07/01/24 09:00) N/A Assessment & Plan Assessment & Plan (1) Low back pain radiating to right leg: Code(s): M54.50 - Low back pain, unspecified; M79.604 - Pain in right leg Category: Medical Plan Dear Dr. Peng, Thank you for referring Flynn to our office today. 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 He comes in today with a chief complaint of low back pain with radiation to his right lower extremity. He states this has been ongoing for the past 5-10 years. He reports that his to primary complaints are a ?cracking/popping feeling in his spine when he moves round after periods of stasis, and a pain in his low back which occasionally will radiate into his bilateral hips and right lower extremity. He reports no inciting incident and feels as though this is just slowly gotten worse over the past several years. He has never been to physical therapy or pain management. He has not as of yet attempted memory care program director or acupuncture. He has tried several vsvw-fjz-[id number] medications, but feels as though they have not been very helpful. He does endorse some intermittent numbness which he reports ?comes and goes throughout the day as he has pain flare-ups. He does not report any significant issue with prolonged walking, but does state that it will occasionally exacerbate his pain. PMH: History of a coronary artery disease with 2 stents placed in November of 2023. Currently on Brilinta for anticoagulation. Also takes daily aspirin. History of bowel cancer with partial bowel resection and previous colostomy bag which has been discontinued. Hyperlipidemia. Hypothyroidism. Social hx: The patient does not smoke, reports no substance use. Medications: Aspirin, atorvastatin, levothyroxine, metoprolol, Brilinta. Allergies: NKDA. Physical exam: The patient has 5/5 strength in his upper and lower extremities. He is able to ambulate well and rises from a seated position without difficulty. No evidence of an antalgic or spastic gait. He has no significant sensational deficits on exam, but does continue to report hypoesthesia in his right lower extremity that waxes/wanes throughout the day. His reflexes are 2+ intact diffusely. (-) straight leg raise bilaterally, (-) Reed's bilaterally, (-) clonus bilaterally. Imaging review: MRI completed here at [facility] shows mild bilateral foraminal stenosis at L3-4 with some bilateral facet hypertrophy, and moderate bilateral foraminal stenosis at L4-5. Small posterior disc bulge noted at L5-S1, does not appear to be causing any significant foraminal or central canal stenosis. X-ray imaging also completed here at [facility] does not appear to show any instability or subluxation of the lumbar spine. Impression: Flynn is a pleasant 63-year-old male who comes in today with a chief complaint of low back pain with some shooting pains into his bilateral hip/right lower extremity for the past several years. He states that this began occurring without inciting incident, and seems to worsen a bit when he walks. 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 He has a somewhat complicated past medical history with a recent myocardial infarction and a history of cancer with partial bowel resection. As of yet, he has not attempted physical therapy or cortisone injections. Given that his stenosis is not too far progressed as of yet I would suggest he attempt a course of physical therapy which I will order for him. If he continues to have back pain after this is complete I encouraged him to reach back out to our office for a subsequent appointment/evaluation and we may consider sending him for cortisone injections in the lumbar spine at L3-4, L4-5. In the meantime I encouraged him to continue following up with Dr. Peng for his shoulder/hip concerns. Thank you for allowing us to care for your patient. The total time spent with this visit with this patient was 45 minutes reviewing history, physical exam, MRI / X-ray imaging review, and implementation of treatment plan or further diagnostic testing Huseyin Chambers MD,PhD [facility] Orders: Orders PT Evaluation and Treatment 07/01/24 M48.00 - Spinal stenosis, site unspecified Coding Level of Care Code New Pt Level 4 (82054) Diagnoses Low back pain radiating to right leg M54.50; M79.234
== END 2024-07-01 09:52 | disposition home or self-care (01) ==
PROVIDERS: PCP Internal Medicine; Referring Provider Orthopaedic Surgery; Visit Provider Physician Assistant
DX: M54.50 Low back pain, unspecified (principal); M79.604 Pain in right leg
CPT/HCPCS: 99204

== ENCOUNTER → 2024-07-01 08:39 | Outpatient (BNVA) | payer OTHER, SELFPAY | PROVIDERS: PCP Internal Medicine; Visit Provider Physician Assistant ==

== ENCOUNTER → 2024-07-05 07:57 | Outpatient (BNVA) | payer OTHER, SELFPAY | PROVIDERS: PCP Internal Medicine; Visit Provider Surgery ==

== ENCOUNTER 2024-09-17 08:42 | Outpatient (AMB) | payer OTHER, SELFPAY ==
[2024-09-17 09:06] VITALS: BP 120/62; PULSE 58; O2SAT 96; BMI 28.3
--- NOTE | 2024-09-17 09:06 | A.OFFPC_ITS ---
Vital Signs 09/17/24 09:06 Height 5 ft 6 in Weight 79.549 kg BMI 28.3 BP 120/62 Blood Pressure Location Lt brachial Position Sitting Pulse 58 Pulse Source Pulse Oximeter Pulse Oximetry (%) 96 Oxygen Delivery Method Room Air Intake Visit Reasons: Coronary artery disease Intake Note: Patient is here to follow up on CAD. Pt decline flu shot today. Private Security Guard Required: No Automation Controls Specialist: Not Required per policy Accompanied by: Self / Same As Patient Allergies No Known Allergies Allergy (Mild, Verified 09/17/24 09:06) N/A Tobacco use date assessed: 09/17/24 Dental Screening Dental Screen Date: 01/28/24 HPI Coronary artery disease HPI Details 63-year-old overweight male with impaire d glucose tolerance hypercholesterolemia hypothyroid rectal cancer coronary artery disease last seen in 01/28/2024. Patient has been seen the spine center for low back pain having radiculopathy radiating to the right leg . MRI showing mild bilateral foraminal stenosis at L3-4 with bilateral facet arthropathy and moderate bilateral foraminal stenosis L4-5 small posterior disc bulge L5-S1. Patient was advised physical therapy For the coronary artery disease patient had 2 stents placed(severe OM and RCA) also has moderate LAD 70% diagonal stenosis medically managed. November 2023 on Brilinta and aspirin. Patient has seen Cardiology in June 23. Meanwhile for the history of rectal cancer had colonoscopy done in June 2024 repeated 5 years. Patient does follow-up with Hematology-Oncology seen in May 2024 continue to be monitored. Echocardiogram done in February showing LV function normal with EF of 60-65%. Aortic valve mildly calcified no aortic stenosis right ventricular size and function normal. [facility] Medical History (Updated 09/17/24 @ 09:48 by Chica Law MD) History of rectal cancer Prediabetes H/O non-ST elevation myocardial infarction (NSTEMI) Coronary artery disease Blood per rectum Ileostomy in place COVID-19 virus infection TRUMAN (acute kidney injury) COVID-19 virus infection History of radiation therapy (~2020) Postoperative ileus (~07/2021) COVID-19 vaccine administered History of chemotherapy (~2020) Port-A-Cath in place Hypercholesterolemia Vitamin D deficiency Rectal cancer (~10/2020) Hypothyroid Prolapsed hemorrhoids Surgical History Hx of cardiac catheterization (~11/2023) Status post angioplasty History of coronary artery stent placement History of reversal of ileostomy History of colonoscopy History of hemorrhoidectomy History of colon resection History of flexible sigmoidoscopy History of amputation of finger Family History Father CVD (cardiovascular disease) Mother No problems noted. Social History Household Members: Spouse and Significant Other Housing: House Are you a primary urgent care nurse practitioner to a significant other at home: No Do you presently have visiting nurse or other home services: No Alcohol intake: never Patient Tobacco Use Status: Former Tobacco user Tobacco use type: Cigarette Cigarettes Per Day: 10 Years Smoked: 30 e-Cigarette/Vaping Use: Never Used Second Hand Smoke Exposure: No Advance Directives Date on File: 01/15/21 service: No Current occupational status: employed Cognitive needs: No Hearing needs: No Vision needs: No Questionnaire Thrive Questionnaire Date Thrive assessed: 12/17/23 AUDIT C Alcohol Use Questionnaire (AUDIT-C) 2. How many drinks containing alcohol do you have on a typical day when you are drinking?: 1 or 2 3. How often do you have six or more drinks on one occasion?: Never Total Score: 0 JERICA-7 AMB Questionnaire JERICA-7 Date JERICA - 7 assessed: 01/28/24 Source: Developed by Drs. Lee Ceron, Loretta Davies, Jose Alejandro Wren and colleagues, with an educational lizbeth from [employer]. Physical exam (Primary Care) Vital Signs: Last Vital Signs Pulse 58 09/17/24 09:06 BP 120/62 09/17/24 09:06 Pulse Ox 96 09/17/24 09:06 Oxygen Delivery Method Room Air 09/17/24 09:06 BMI result Body Mass Index 28.3 Tobacco/Smoking Status: Tobacco use Status Tobacco use date assessed 09/17/24 09/17/24 09:10 Patient Tobacco Use Status Former Tobacco user 09/17/24 09:10 Tobacco use type Cigarette 09/17/24 09:10 e-Cigarette/Vaping Use Never Used 09/17/24 09:10 Thrive Assessment: Date of Thrive Assessment Date Thrive assessed 12/17/23 09/17/24 09:10 Const General: alert; No acute distress Eyes Conjunctivae: conjunctivae normal Resp Auscultation: clear to auscultation bilaterally Cardio Rate: regular rate Rhythm: regular rhythm GI Inspection: Yes normal to inspection Extrem General: Yes normal to inspection and No edema Immunizations pneumoc 20-diana conj-dip cr(PF) 0.5 mL IM syringe Performing Provider: Chica Law MD Performing [facility] [place] [facility] Administered by: Galilea Zuleta CMA on 09/17/24 10:27 Dose Route Admin Location Dispensed Lot Number Expiration Date NDC Gravel Truck Driver 0.5 mL IM Left Deltoid 0.5 mL [id number] 10/10/25 0305-9469-37 [employer] VIS Given Date VIS Provided VIS Publication Date 09/17/24 Single Vaccine 21 Eligibility Eligibility Date Funding Source Not [facility] Eligible 09/17/24 Private Coding Level of Care Code Est Pt Level 4 (73120) Complex EM visit Add On G2211 Diagnoses Low back pain radiating to right leg M54.50; M79.604 Impaired glucose tolerance R73.02 Coronary artery disease involving [place] coronary artery of [place] heart without angina pectoris I25.10 Associated angina: without angina Coronary Disease-Associated Artery/Lesion type: [place] artery [place] vs. transplanted heart: [place] heart Acquired hypothyroidism E03.9 Hypothyroidism type: acquired Hypercholesterolemia E78.00 Rectal cancer C20 Assessment & Plan Assessment & Plan (1) Low back pain radiating to right leg: Code(s): M54.50 - Low back pain, unspecified; M79.604 - Pain in right leg Category: Medical Plan: Patient has seen the neurosurgeon and advised physical therapy (2) Impaired glucose tolerance: Code(s): R73.02 - Impaired glucose tolerance (oral) Category: Medical Plan: Decrease the amount of carbohydrate intake, pasta, bread, rice and potatoes are all sugar and that is aside from all the sweet stuff, remember that fruits are good but they are Sweet also. (3) Coronary artery disease: Comment: November 2023 drug-eluting stent x2 Code(s): I25.10 - Atherosclerotic heart disease of [place] coronary artery without angina pectoris Category: Medical Qualifiers: Associated angina: without angina Coronary Disease-Associated Artery/Lesion type: [place] artery [place] vs. transplanted heart: [place] heart Qualified Code(s): I25.10 - Atherosclerotic heart disease of [place] coronary artery without angina pectoris Plan: Patient follows up with Cardiology. Control the cholesterol, weight, blood pressure, diabetes and on Brilinta continue with aspirin (4) Hypothyroid: Code(s): E03.9 - Hypothyroidism, unspecified Category: Medical Qualifiers: Hypothyroidism type: acquired Qualified Code(s): E03.9 - Hypothyroidis m, unspecified Plan: Continue with thyroid medication (5) Hypercholesterolemia: Code(s): E78.00 - Pure hypercholesterolemia, unspecified Category: Medical Plan: Avoid fried foods, chicken skin, eggs, butter margarine, pastries and meat. Be it pork or beef they have a lot of cholesterol LDL goal of less than 70 and triglyceride of less than 150 (6) Rectal cancer: Onset Date: ~10/2020 Comment: (Adenocarcinoma of rectum dx 10/2020 - s/p chemo/radiation & rectosigmoid resection with loop ileostomy 07/2021 - Rad Onc = Dr. Breann Dawn, Onc = Dr. Davenport, ) Code(s): C20 - Malignant neoplasm of rectum Category: Medical Plan: Patient continue to be monitored by the surgeon and Hematology-Oncology. Last colonoscopy was done in 06/29/2024 Orders: Orders Comprehensive Met. Panel Today R73.02 - Impaired glucose tolerance (oral) Lipid Panel Today E78.00 - Pure hypercholesterolemia, unspecified, R73.02 - Impaired glucose tolerance (oral) Hemoglobin A1c Today R73.02 - Impaired glucose tolerance (oral) Free T4 (Free Thyroxine) Today R73.02 - Impaired glucose tolerance (oral) Thyroid Stimulating Hormone Today R73.02 - Impaired glucose tolerance (oral) Complete Blood Count Auto Diff Today R73.02 - Impaired glucose tolerance (oral) Vitamin B12 and Folate Today R73.02 - Impaired glucose tolerance (oral) Pneumococcal 20 Immunization Today Z23 - Encounter for immunization Medications: New pneumoc 20-diana conj-dip cr(PF) 0.5 mL IM ONCE 0.5 mL 0RF Z23 - Encounter for immunization
== END 2024-09-17 10:33 | disposition home or self-care (01) ==
LOC: HO.HMCH 08:43
PROVIDERS: PCP Internal Medicine; Visit Provider Internal Medicine
DX: M54.50 Low back pain, unspecified (principal); M79.604 Pain in right leg; C20 Malignant neoplasm of rectum; R73.02 Impaired glucose tolerance (oral); I25.10 Atherosclerotic heart disease of native coronary artery without angina pectoris; E03.9 Hypothyroidism, unspecified; E78.00 Pure hypercholesterolemia, unspecified; Z23 Encounter for immunization

== ENCOUNTER → 2024-09-17 08:42 | Outpatient (BNVA) | payer OTHER, SELFPAY | PROVIDERS: PCP Internal Medicine; Visit Provider Internal Medicine | DX: I25.10 Atherosclerotic heart disease of native coronary artery without angina pectoris (principal); M54.50 Low back pain, unspecified; M79.604 Pain in right leg; Z23 Encounter for immunization; R73.02 Impaired glucose tolerance (oral); E03.9 Hypothyroidism, unspecified; E78.00 Pure hypercholesterolemia, unspecified; C20 Malignant neoplasm of rectum; Z79.82 Long term (current) use of aspirin; Z79.899 Other long term (current) drug therapy; Z92.21 Personal history of antineoplastic chemotherapy; Z92.3 Personal history of irradiation | CPT/HCPCS: 90471; 90677 ==

== ENCOUNTER 2024-10-05 09:25 | Outpatient (REF) | payer OTHER, SELFPAY ==
[2024-10-05 09:46] LABS: MANUAL DIFF FLAG NO
[2024-10-05 10:50] LABS: Basophils Percent Auto 0.7 % (0-2); Eosinophils Absolute Auto 0.2 X10*3/uL (0.0-0.4); Eosinophils Percent Auto 3.3 % (0-4); Hematocrit 43.6 % (42.0-52.0); Hemoglobin 14.7 g/dl (14.0-18.0); Imm Gran Abs Auto 0.02 X10*3/uL (0.00-0.03); Imm Gran Pct Auto 0.3 % (0.0-0.4); Lymphocytes Absolute Auto 1.9 X10*3/uL (1.2-4.9); Lymphocytes Percent Auto 31.1 % (20-40); Mean Corpuscular HGB Conc 33.7 g/dl (31.0-36.0); Mean Corpuscular Hemoglobin 30.7 pg (27.0-33.0); Mean Platelet Volume 9.5 fL (9.4-12.4); Monocytes Absolute Auto 0.6 X10*3/uL (0.1-1.2); Monocytes Percent Auto 9.5 % (2-11); Neutrophils Absolute Auto 3.4 x10*3/uL (2.0-8.3); Neutrophils Percent Auto 55.1 % (45-73); Platelet Count 291 X10*3/uL (160-400); Red Blood Count 4.79 X10*6/uL (4.60-5.80); Red Cell Distribution Width 13.3 % (11.0-16.0); White Blood Count 6.1 X10*3/uL (4.8-10.8)
[2024-10-05 11:04] LABS: Estimated Average Glucose 120 mg/dL; Hemoglobin A1C 148.0044 umol/L; Hemoglobin A1c % 5.8 % (<6.0); Total Hemoglobin (HGBA1C) 3720.7095 umol/L
[2024-10-05 11:31] LABS: Alanine Aminotransferase 68 U/L (0-40); Albumin Level 4.3 g/dL (3.5-5.0); Alkaline Phosphatase 85 U/L (39-117); Anion Gap 13 (12-20); Aspartate Amino Transferase 56 U/L (5-37); Bilirubin Total 0.6 mg/dL (0.0-1.0); Blood Urea Nitrogen 21 mg/dL (9-16); Calcium 9.8 mg/dL (8.4-10.2); Carbon Dioxide 26 mmol/L (22-29); Chloride 103 mmol/L (96-108); Cholesterol 184 mg/dL (<200); Estimated Glomerular Filt Rate 56; Glucose Random 110 mg/dL (60-115); HDL Cholesterol 44 mg/dL (>40); LDL Cholesterol Calculated 106 mg/dL (<100); Potassium 4.6 mmol/L (3.3-5.1); Sodium 137 mmol/L (135-145); Total Protein 7.1 g/dL (6.5-8.0); Triglycerides 174 mg/dL (<150)
[2024-10-05 11:32] LABS: Free T4 (Free Thyroxine) 1.05 ng/dL (0.71-1.85); Thyroid Stimulating Hormone 17.62 uIU/mL (0.32-4.0)
[2024-10-05 11:49] LABS: Folate 10.5 ng/mL (> or = 4.0); Vitamin B12 491 pg/mL (200-900)
== END 2024-10-05 09:26 | disposition home or self-care (01) ==
LOC: HO.LAB 09:25
PROVIDERS: PCP Internal Medicine; Visit Provider Internal Medicine
DX: R73.02 Impaired glucose tolerance (oral) (principal); E78.00 Pure hypercholesterolemia, unspecified
CPT/HCPCS: 36415; 80053; 80061; 82607; 82746; 83036; 84439; 84443; 85025

== ENCOUNTER 2025-02-02 09:14 | Outpatient (AMB) | payer OTHER, SELFPAY ==
[2025-02-02 09:29] VITALS: BP 130/78; PULSE 72; TEMP 36.6; O2SAT 98; BMI 28.2
--- NOTE | 2025-02-02 09:29 | MHC.PC.OV ---
Vital Signs 02/02/25 09:29 Height 5 ft 6 in Weight 175 lb BMI 28.2 BP 130/78 Blood Pressure Location Lt brachial Position Sitting Pulse 72 Pulse Source Pulse Oximeter Temp 98 F Temp Source Temporal Artery Scan Pulse Oximetry (%) 98 Oxygen Delivery Method Room Air Intake Visit Reasons: annual exam Allergies No Known Allergies Allergy (Mild, Verified 02/02/25 09:32) N/A Medication List - Last Reconciled 02/02/25 by Chica Law MD aspirin 81 mg PO DAILY atorvastatin 80 mg PO DAILY hydrocortisone acetate (Anusol-HC) 25 mg [place] BID 2 weeks hydrocortisone acetate (Anucort-HC) 25 mg AZ BID PRN levothyroxine 150 mcg PO DAILY menthol-zinc oxide 0.44-20.6 % (Calmoseptine) 1 appl topical QID PRN metoprolol succinate ER 25 mg PO DAILY Tobacco use date assessed: 02/02/25 Dental Screening Dental Screen Date: 02/02/25 Did you have a dental visit in the last 12 months?: No Did you have a dental problem in the last 6 months where you did not have access to dental care?: No Was dental information given to patient?: [facility] History History of rectal cancer Prediabetes H/O non-ST elevation myocardial infarction (NSTEMI) Coronary artery disease Blood per rectum Ileostomy in place COVID-19 virus infection TRUMAN (acute kidney injury) COVID-19 virus infection History of radiation therapy (~2020) Postoperative ileus (~07/2021) COVID-19 vaccine administered History of chemotherapy (~2020) Port-A-Cath in place Hypercholesterolemia Vitamin D deficiency Rectal cancer (~10/2020) Hypothyroid Prolapsed hemorrhoids Surgical History Hx of cardiac catheterization (~11/2023) Status post angioplasty History of coronary artery stent placement History of reversal of ileostomy History of colonoscopy History of hemorrhoidectomy History of colon resection History of flexible sigmoidoscopy History of amputation of finger Family History Father CVD (cardiovascular disease) Mother No problems noted. Social History Household Members: Spouse and Significant Other Housing: House Are you a primary ocular care aide to a significant other at home: No Do you presently have visiting nurse or other home services: No Alcohol intake: never Patient Tobacco Use Status: Former Tobacco user Tobacco use type: Cigarette Cigarettes Per Day: 10 Years Smoked: 30 e-Cigarette/Vaping Use: Never Used Second Hand Smoke Exposure: No Advance Directives Date on File: 01/15/21 service: No Current occupational status: employed Cognitive needs: No Hearing needs: No Vision needs: No Questionnaire PHQ-9 Over the last 2 weeks, how often have you been bothered by any of the following problems? 1. Little interest or pleasure in doing things: not at all 2. Feeling down, depressed, or hopeless: not at all 3. Trouble falling or staying asleep, or sleeping too much: not at all 4. Feeling tired or having little energy: not at all 5. Poor appetite or overeating: not at all 6. Feeling bad about yourself - or that you are a failure or have let yourself or your family down: not at all 7. Trouble concentrating on things, such as reading the newspaper or watching television: not at all 8. Moving or speaking so slowly that other people could have noticed. Or the opposite - being so fidgety or restless that you have been moving around a lot more than usual: not at all 9. Thoughts that you would be better off or of hurting yourself in some way: not at all Total score: 0 Depression Screening Interpretation: Negative Depression Screening Done: Yes 17489 - PHQ-9 Billing: Yes Source: Developed by Drs. Lee Ceron, Loretta Davies, Jose Alejandro Wren and colleagues, with an educational lizbeth from [employer]. Thrive Questionnaire Date Thrive assessed: 02/02/25 I am a: Patient What is your living situation today?: I have a steady place to live Within the past 12 months, did the food you bought not last and you didn't have the money to get more?: I choose not to answer this question Within the past 12 months, did you worry whether your food would run out before you got money to buy more?: Never true Do you have trouble paying for medicines?: No Do you have trouble getting transportation to medical appointments?: No Do you have trouble paying your heating and electricity bill?: No Do you have trouble taking care of your child, family member or friend?: No Do you have trouble with day-to-day activities such as bathing, preparing meals, shopping, managing finances, etc.?: No Are you currently unemployed and looking for a job?: No Are you interested in more education?: No Please select the resources that you would like help with: None Currently or been in a relationship where the following occur: No concerns reported THRIVE Score: 0 AUDIT C Alcohol Use Questionnaire (AUDIT-C) 1. How often do you have a drink containing alcohol?: Never 3. How often do you have six or more drinks on one occasion?: Never Total Score: 0 JERICA-7 AMB Questionnaire JERICA-7 Date JERICA - 7 assessed: 02/02/25 Feeling nervous, anxious, or on edge: 0 = Not at all Not being able to stop or control worryin = Not at all Worrying too much about different things: 0 = Not at all Trouble relaxin = Not at all Being so restless that it is hard to sit still: 0 = Not at all Becoming easily annoyed or irritable: 0 = Not at all Feeling afraid as if something awful might happen: 0 = Not at all Total JERICA-7 score (0-4 normal; 5-9 mild; 10-14 moderate; 15-21 severe): 0 Source: Developed by Drs. Lee Ceron, Loretta Davies, Jose Alejandro Wren and colleagues, with an educational lizbeth from [employer]. JERICA-7 Assessment Billing JERICA-7 Assessment Tool: JERICA-7 Assessment 04102 Review of Systems Const Denies poor appetite and Denies weakness Eyes Denies no additional complaints ENT Reports Normal hearing present, Denies dizziness, Denies nasal congestion, Denies tinnitus and Denies sore throat Card Denies chest pain, Denies syncope, Denies rapid heart rate and Denies dyspnea Resp Denies cough and Denies dyspnea GI Denies change in stool character, Reports constipation, Denies diarrhea, Denies nausea and Denies vomiting Denies dysuria and Denies urinary frequency Neuro Reports Normal hearing present, Denies confusion, Denies dizziness, Denies syncope and Denies weakness Psych Denies confusion Physical exam (Primary Care) Vital Signs: Last Vital Signs Temp 98 F 02/02/25 09:29 Pulse 72 02/02/25 09:29 BP 130/78 02/02/25 09:29 Pulse Ox 98 02/02/25 09:29 Oxygen Delivery Method Room Air 02/02/25 09:29 BMI result Body Mass Index 28.2 Tobacco/Smoking Status: Tobacco use Status Tobacco use date assessed 02/02/25 02/02/25 09:33 Patient Tobacco Use Status Former Tobacco user 02/02/25 09:33 Tobacco use type Cigarette 02/02/25 09:33 e-Cigarette/Vaping Use Never Used 02/02/25 09:33 PHQ-9: PHQ-9 Score PHQ-9: Total score 0 02/02/25 10:00 Depression Screening Interpretation: Negative Thrive Assessment: Date of Thrive Assessment Date Thrive assessed 02/02/25 02/02/25 09:33 Currently or been in a relationship where the following occur: No concerns reported Const General: No confusion Orientation/consciousness: No confusion HENMT Head: Yes normocephalic Ears: external ears normal and TM's normal bilaterally Face and sinus: Yes normal facial exam Mouth: moist mucous membranes Throat: Yes tonsils normal Eyes Conjunctivae: conjunctivae normal Pupils: Equal, round and reactive pupils present and Pupil accommodation reflex normal Direct Ophthalmoscopy: normal light reflex Neck Neck: No lymphadenopathy Thyroid: Thyroid normal Chest Chest palpation & inspection: normal inspection of the chest Resp Effort & Inspection: normal respiratory effort and no audible wheezes Auscultation: clear to auscultation bilaterally, no crackles, no wheezes and lung sounds not diminished Cardio Rate: regular rate Rhythm: regular rhythm Peripheral pulses: radial pulses present and dorsalis pedis present GI Palpation (GI): no masses Auscultation: normal bowel sounds and normoactive bowel sounds Rectal Exam - Male: Yes deferred Skin General skin exam: no rashes or lesions noted Rashes: no rashes Neuro General: No confusion Cranial nerves: Yes Equal, round and reactive pupils present and Yes Normal hearing present Cognition (Neuro): normal cognition Gait exam (Neuro): Normal gait present Motor exam (neuro): 5/5 motor strength present throughout Deep tendon reflexes (DTR's): Right brachioradialis reflex intensity grade: 2+, Left brachioradialis reflex intensity grade: 2+, Right patellar reflex intensity grade: 2+ and Left patellar reflex intensity grade: 2+ Extrem General: No edema Coding Level of Care Code Est Pt Prev Care 40-64y(75578) Diagnoses Annual physical exam Z00.00 Rectal cancer C20 Acquired hypothyroidism E03.9 Hypothyroidism type: acquired Hypercholesterolemia E78.00 Coronary artery disease involving [place] coronary artery of [place] heart without angina pectoris I25.10 Associated angina: without angina Coronary Disease-Associated Artery/Lesion type: [place] artery [place] vs. transplanted heart: [place] heart Impaired glucose tolerance R73.02 Spinal stenosis M48.00 Right hip pain M25.551 Additional Codes JERICA-7 Assessment Billing - JERICA-7 Assessment Tool: JERICA-7 Assessment 63392 ([id number]) PHQ-9 - 48512 - PHQ-9 Billing: Yes ([id number]) Assessment & Plan Assessment & Plan (1) Annual physical exam: Code(s): Z00.00 - Encounter for general adult medical examination without abnormal findings Category: Medical Plan: Patient is advised to eat healthy, keep well hydrated, keep active and have adequate sleep. (2) Rectal cancer: Onset Date: ~10/2020 Comment: (Adenocarcinoma of rectum dx 10/2020 - s/p chemo/radiation & rectosigmoid resection with loop ileostomy 07/2021 - Rad Onc = Dr. Breann Dawn, Onc = Dr. Davenport, ) Code(s): C20 - Malignant neoplasm of rectum Category: Medical Plan: Continue to follow-up with Hematology-Oncology (3) Hypothyroid: Code(s): E03.9 - Hypothyroidism, unspecified Category: Medical Qualifiers: Hypothyroidism type: acquired Qualified Code(s): E03.9 - Hypothyroidism, unspecified Plan: Continue with thyroid medication November 2024 last test in (4) Hypercholesterolemia: Code(s): E78.00 - Pure hypercholesterolemia, unspecified Category: Medical Plan: Avoid fried foods, chicken skin, eggs, butter margarine, pastries and meat. Be it pork or beef they have a lot of cholesterol LDL goal of less than 70 and triglyceride of less than 150 on atorvastatin (5) Coronary artery disease: Comment: November 2023 drug-eluting stent x2 Code(s): I25.10 - Atherosclerotic heart disease of [place] coronary artery without angina pectoris Category: Medical Qualifiers: Associated angina: without angina Coronary Disease-Associated Artery/Lesion type: [place] artery [place] vs. transplanted heart: [place] heart Qualified Code(s): I25.10 - Atherosclerotic heart disease of [place] coronary artery without angina pectoris Plan: Control the cholesterol, weight, blood pressure, on aspirin 81 mg once a day (6) Impaired glucose tolerance: Code(s): R73.02 - Impaired glucose tolerance (oral) Category: Medical Plan: Decrease the amount of carbohydrate intake, pasta, bread, rice and potatoes are all sugar and that is aside from all the sweet stuff, remember that fruits are good but they are Sweet also. (7) Spinal stenosis: Code(s): M48.00 - Spinal stenosis, site unspecified Category: Medical Plan: Continue with present management and keep active (8) Right hip pain: Code(s): M25.551 - Pain in right hip Category: Medical Plan History of Present Illness The patient is a 64-year-old male presenting for an annual physical examination. He has a history of rectal cancer diagnosed in 2020 and currently manages an ileostomy. Additional past medical issues include hypothyroidism, hypercholesterolemia, impaired glucose tolerance, and coronary artery disease. He reports chronic low back pain and hip arthritis, which affects his physical activity. The patient is on atorvastatin for cholesterol management with goals of LDL less than 70 and triglycerides less than 150. Recent lifestyle adjustments include a healthier diet aimed at reducing sugar and junk food intake. He is experiencing exercise-related hip pain, indicating moderate arthritis. Last eye examination was conducted a year prior without dilation. He maintains regular follow-ups in two to three months for cardiology and blood work checks. Current medications include aspirin (lifelong), levothyroxine, atorvastatin, and metoprolol with past use of Brilinta discontinued in November 2024. He denies any symptoms like dizziness, nausea, shortness of breath, or systemic discomfort, and he reports stable bowel movements. Health Maintenance - Influenza and COVID-19 precautions discussed, noting recent surges. - Pneumonia shot status confirmed as up-to-date. - Blood sugar and cholesterol monitoring scheduled in the coming months. - Diet alterations to exclude soda, breads, and junk foods. - Hip arthritis managed through observation, due to medication limitations from renal considerations. Social History - Denies alcohol, cigarette, or recreational drug use. - Exercises limited to weights due to hip pain; avoids walking. - Recent dietary changes to exclude sodas and junk foods. - Father had heart disease, now . Review of Systems - General: Denies fever or systemic discomfort. - Cardiovascular: Denies chest pain or shortness of breath. - Gastrointestinal: Denies swallowing issues, maintains stable bowel movements. - Musculoskeletal: Reports hip pain with walking. - Neurological: Denies dizziness or passing out events. - Ophthalmologic: Denies vision changes or issues with night brightness. - Respiratory: Reports no coughing or respiratory distress. Physical Exam General: Cooperative, overweight, healthy appearing, comfortable, no acute distress and well developed Orientation: Patient oriented x3 Limitations: Chronic low back pain, hip pain with arthritis noted Head: Normal to inspection Ears: Hearing grossly normal bilaterally Nose: Normal external nose present Face and sinus: Normal facial exam Eyes: Appearance normal, both eyes and all related structures Neck: Normal visual inspection and Yes full ROM Respiratory: Normal respiratory effort and able to speak in complete sentences. Clear to auscultation bilaterally Cardiovascular: Regular rate and rhythm. Normal S1 and S2 GI: Normal to inspection. Soft to palpation and nontender Skin: No rashes or lesions noted Neuro: Patient oriented x3 Extremities: Normal to inspection, arthritis in hip noted Results - Labs: Normal blood count and electrolytes, creatinine stable at 1.3, hemoglobin A1c at 5.8. - Liver function tests: Elevated. - Triglycerides: 174. - TSH: Within normal limits as of November 2024. Plan We will focus on continuing the current management approach tailored to each of the patient's chronic conditions. Hypercholesterolemia will be actively managed with atorvastatin, aiming for stricter lipid control given current readings. Ongoing testing for liver function abnormalities will be monitored, and reviews of glucose control will persist with emphasis on dietary management and lifestyle modifications. Given the hip arthritis, advice to avoid NSAIDs is highlighted to avoid potential renal complications. Rectal cancer requires ongoing oncology consultation tracking. Cardiovascular health remains a priority with maintenance of metoprolol and aspirin routines. All vaccinations are current, but vigilance regarding viral infections is reinforced. Patient was informed and verbally consented to the use of an ambient scribe for clinic note documentation during this visit. Discussion Notes We discussed the management of his chronic conditions, emphasizing careful monitoring of cholesterol with atorvastatin with target LDL goals, and the importance of continued lifestyle changes in dietary habits to control impaired glucose tolerance. Risks and benefits of current medication regimens were solidified, specifically considering renal impacts concerning pain management. Follow up in two to three months for cardiology and retesting were advocated to accommodate rising LDL and liver function monitoring. Addressed rectal cancer history with surveillance strategies outlined. Hip arthritis concerns noted, acknowledging physical limitations while avoiding inappropriate medical management due to renal risks. Patient Instructions - Continue prescribed medications: atorvastatin, levothyroxine, metoprolol, aspirin. - Limit consumption of soda, bread, and junk foods. - Schedule follow-up for blood work within two months. - Monitor for any unusual symptoms and report promptly. - Maintain routine cardiology appointments and update personal health monitoring. - Stay updated with vaccinations and take virus precautions seriously. - Consider safe pain management strategies for hip arthritis discomfort, avoiding NSAIDs. - Contact the office for further guidance or unexpected health changes. Orders: Orders Comprehensive Met. Panel 2 Months R73.02 - Impaired glucose tolerance (oral) Complete Blood Count Auto Diff 2 Months I25.10 - Atherosclerotic heart disease of [place] coronary artery without angina pectoris Vitamin B12 and Folate 2 Months I25.10 - Atherosclerotic heart disease of [place] coronary artery without angina pectoris Prostate Specific Antigen Scr 2 Months I25.10 - Atherosclerotic heart disease of [place] coronary artery without angina pectoris Hemoglobin A1c 2 Months R73.02 - Impaired glucose tolerance (oral) Free T4 (Free Thyroxine) 2 Months R73.02 - Impaired glucose tolerance (oral) Lipid Panel 2 Months E78.00 - Pure hypercholesterolemia, unspecified, I25.10 - Atherosclerotic heart disease of [place] coronary artery without angina pectoris Thyroid Stimulating Hormone 2 Months I25.10 - Atherosclerotic heart disease of [place] coronary artery without angina pectoris Carcinoembryonic Antigen 2 Months Z85.048 - Personal history of other malignant neoplasm of rectum, rectosigmoid junction, and anus
--- OUTSIDE RECORDS SUMMARY | 2025-02-02 10:07 | XMS_ITS | Clinical Summary ---
Author Organization [facility] Address [address] [place] [address] Phone Care Team Providers Care Corporate Quality Engineer Name Role Phone Chica Law MD Primary Care Provider [phone] Medications Pramoxine-HC (Hydrocortisone Sai-Pramoxine) 2.5-1 % cream Insert into the rectum 3 times a day 02/27/2021 Active oxyCODONE (ROXICODONE) 5 MG immediate release tablet 08/03/2021 Acti ve levothyroxine (SYNTHROID, LEVOTHROID) 200 MCG tablet 07/19/2021 Active Docusate Sodium (DSS) 100 MG capsule Take 100 mg by mouth twice a day Active dicyclomine (BENTYL) 20 MG tablet Take 20 mg by mouth 4 (four) times a day 03/13/2021 Active capecitabine (XELODA) 500 MG chemo tablet Take 1,500 mg by mouth twice a day Active Active Problems Problem Noted Date Diagnosed Date Hypo-osmolality and hyponatremia 11/16/2021 Malignant neoplasm of rectum 02/12/2021 Social History Tobacco Use Types Packs/Day Years Used Date Smoking Tobacco: Never Assessed Sex and Gender Information Value Date Recorded Sex Assigned at Not on file Legal Sex Male 9:59 AM EDT Gender Identity Not on file Sexual Orientation Not on file Plan of Treatment Health Maintenance Due Date Last Done Comments Pneumococcal Vaccine: Pediat rics (0 to 5 Years) and At-Risk Patients (6 to 64 Years) (1 of 2 - PCV) 1966 Colorectal Cancer Screening: Annual FOBT 2010 Colorectal Cancer Screening: Colonoscopy 2010 Colorectal Cancer Screening: Sigmoidoscopy 2010 Influenza Vaccine (#1) 2024 Hepatitis B Vaccine Aged Out No longe r eligible based on patient's age to complete this topic [place] [id number] COM[employer]EFITS Care Teams Corporate Quality Engineer Relationship Specialty Start Date End Date Chica Law MD [facility] [place] [address] [place], [place] PCP - General Internal Medicine 08/10/21
--- OUTSIDE RECORDS SUMMARY | 2025-02-02 10:07 | XMS_ITS | Continuity of Care Document ---
Author Organization [facility] Address [address] [place] [phone]- Care Team Providers Care Post Closing Specialist Name Role Phone Chica Law MD Primary Care Physician Encounter [facility] Date(s): 12/17/24 - 01/16/25 [facility] [address] [place] [address]- Attending Physician: Cem Cagle Admitting Physician: AdmtrCem Referring Physician: Admtr, Ar8 Encounter Type: Triage Allergies, Adverse Reactions, Alerts No Known Medication Allergies Immunizations Given and Recorded Vaccine Date Status Refusal Reason influenza virus vaccine, inactivated 08/23/22 Give n SARS-CoV-2 (COVID-19) mRNA BNT-162b2 vac 11/20/20 Recorded SARS-CoV-2 (COVID-19) mRNA BNT-162b2 vac 10/27/20 Recorded Medications aspirin 81 mg oral delayed release tablet 81 mg, By Mouth, Daily, # 90 tablet, Refills 0, Tot. Refills 0, Maintenance, 12/03/23 1:54:00 PM EST, Route to Pharmacy Electronically, [facility], Partial fill upon patient request if the prescription is for a schedule II opioid drug., 169, cm, 12/02/23 0:50:00 EST, Height, 78.2, kg, 12/01/23 23:10:00 EST, Dry Weight Start Date: 12/03/23 Status: Ordered Quantity: 90.0 Unit: tablet Repeat number: 1 atorvastatin 80 mg oral tablet = 80 mg, By Mouth, Daily at bedtime, # 90 each, 0 Refills, Maintenance, 12/03/23 1:54:00 PM EST, Tablet, [facility], Partial fill upon patient request if the prescription is for a schedule II opioid drug., 169, cm, 12/02/23 0:50:00 EST, Height, 78.2, kg, 12/01/23 23:10:00 EST, Dry Weight Start Date: 12/03/23 Status: Ordered Quantity: 90.0 Unit: each Repeat number: 1 Brilinta (ticagrelor) 90 mg oral tablet 1 tablet = 90 mg, By Mouth, 2 times a day, # 180 tablet, 0 Refills, Soft Stop, 12/03/23 1:55:00 PM EST, [facility], Partial fill upon patient request if the prescription is for a schedule II opioid drug., 169, cm, 12/02/23 0:50:00 EST, Height, 78.2, kg, 12/01/23 23:10:00 EST, Dry Weight Start Date: 12/03/23 Status: Ordered Quantity: 180.0 Unit: tablet Repeat number: 1 levothyroxine 0.15 mg oral tablet = 150 mcg, By Mouth, Daily in AM, 0 Refills, Maintenance, 12/02/23 12:12:00 AM EST, Partial fill upon patient request if the prescription is for a schedule II opioid drug. Start Date: 12/02/23 Status: Ordered Repeat number: 1 metoprolol 25 mg oral tablet, extended release 25 mg, By Mouth, Daily, take in the morning, # 90 each, Refills 0, Tot. Refills 0, Maintenance, 12/03/23 1:54:00 PM EST, Route to Pharmacy Electronically, [facility], Partial fill upon patient request if the prescription is for a schedule II opioid drug., 169, cm, 12/02/23 0:50:00 EST,Height, 78.2, kg, 12/01/23 23:10:00 EST, Dry Weight Start Date: 12/03/23 Status: Ordered Quantity: 90.0 Unit: each Repeat number: 1 Problem List Condition Confirmation Course Effective Dates Status Health St atus Informant Hypothyroidism Confirmed Active Rectal cancer Confirmed Active Social History Social History Type Response Smoking Status Former smoker, quit more than 30 days ago entered on: 08/09/22 Sex Sex Representation Male (finding) Patient Care team information Care Team Personnel Name: Charlotte Banerjee RN Position: [facility] RN Member Role: Primary Care Nurse Name: Ashish MILLER, Kaykay Zimmerman Position: S RN Member Role: Primary Care Nurse Name: Arabella Rodrigez RN Position: S RN Member Role: Primary Care Nurse Name: Siomara Valencia RN Position: S RN Member Role: Primary Care Nurse Name: Mariana Pierce RN Position: S RN Member Role: Primary Care Nurse Name: Chica Law MD Position: Reference Physician Member Role: PCP Address: [address] [place] [id number] Telecom: Name: rFeddy Chin RN Position: [facility] RN Member Role: Primary Care Nurse Care Team Related Persons Name: ELEUTERIO ESPINO Insurance Providers Guarantor name: [employer] Information #: 1 Payer: BLUE BENEFIT BBA PPO Member Number: NA Policy Number: NA Group Number: [id number]
--- OUTSIDE RECORDS SUMMARY | 2025-02-02 10:07 | XMS_ITS | Continuity of Care Document ---
Author Organization [facility] Address [address] [place] [address]- Care Team Providers Care Sales Service Technician Name Role Phone Chica Law MD Primary Care Physician Encounter [facility] Date(s): 09/18/24 - 01/16/25 [facility] [address] [place] [phone]- Attending Physician: Krishan Burgess MD Admitting Physician: Krishan Burgess MD Referring Physician: Chica Law MD Encounter Type: Pre-OutPatient One Time Allergies, Adverse Reactions, Alerts No Known Medication [...] 1:54:00 PM EST, [facility] Partial fill upon patient request if [...] Refills, Maintenance, 12/03/23 1:54:00 PM EST, Tablet, [facility], Partial fill upon patient request if [...] Refills, Soft Stop, 12/03/23 1:55:00 PM EST, [facility], Partial fill upon patient request [...] 1:54:00 PM EST, Route to Pharmacy Electronically, [facility], Partial fill upon patient request if [...] Team Personnel Name: Charlotte Banerjee RN Position: S RN Member Role: Primary Care Nurse Name: Kaykay Hinojosa RN Position: S RN Member Role: Primary Care Nurse Name: Arabella Rodrigez RN Position: S RN Member Role: Primary Care Nurse Name: Siomara Valencia RN Position: S RN Member Role: Primary Care Nurse Name: Mariana Pierce RN Position: S RN Member Role: Primary Care Nurse Name: Chica Law MD Position: Reference Physician Member Role: PCP Address: [address] [place] [address] Telecom: Name: Freddy Chin RN Position: [facility] RN Member Role: Primary Care Nurse Care Team Related Persons Name: SRINIVAS ELEUTERIO Insurance Providers Guarantor name: SANTAYahir KING [employer] [facility] Information #: 1 Payer: BLUE BENEFIT [employer] PPO Member Number: [id number] Policy Number: NA Group Number: [id number] Health Plan Information #: 2 Payer: BLUE BENEFIT BBA PPO Member Number: [id number] Policy Number: NA Group Number: [id number]
== END 2025-02-02 10:17 | disposition home or self-care (01) ==
LOC: HO.HMCH 09:14
PROVIDERS: PCP Internal Medicine; Visit Provider Internal Medicine
DX: Z00.00 Encounter for general adult medical examination without abnormal findings (principal); C20 Malignant neoplasm of rectum; E03.9 Hypothyroidism, unspecified; E78.00 Pure hypercholesterolemia, unspecified; I25.10 Atherosclerotic heart disease of native coronary artery without angina pectoris; R73.02 Impaired glucose tolerance (oral); M48.00 Spinal stenosis, site unspecified; M25.551 Pain in right hip

== ENCOUNTER → 2025-02-02 09:14 | Outpatient (BNVA) | payer OTHER, SELFPAY | PROVIDERS: PCP Internal Medicine; Visit Provider Internal Medicine | DX: Z00.00 Encounter for general adult medical examination without abnormal findings (principal); C20 Malignant neoplasm of rectum; E03.9 Hypothyroidism, unspecified; E78.00 Pure hypercholesterolemia, unspecified; I25.10 Atherosclerotic heart disease of native coronary artery without angina pectoris; R73.02 Impaired glucose tolerance (oral); M48.00 Spinal stenosis, site unspecified; M25.551 Pain in right hip; Z92.21 Personal history of antineoplastic chemotherapy; Z92.3 Personal history of irradiation | CPT/HCPCS: 96127 ==

== ENCOUNTER 2025-02-09 14:53 | Outpatient (AMB) | payer OTHER, SELFPAY ==
[2025-02-09 15:04] VITALS: BP 130/62; PULSE 57; BMI 28.9
--- NOTE | 2025-02-09 15:04 | MHC.OFFVIS ---
Vital Signs 02/09/25 15:04 Height 5 ft 6 in Weight 179 lb 3.773 oz BMI 28.9 BP 130/62 Blood Pressure Location Lt brachial Position Sitting Pulse 57 Pulse Source Monitor Intake Visit Reasons: 6 m f/u Intake Note: 6 mth f/up Marketing Operations Consultant Required: No Accompanied by: Self / Same As Patient Allergies No Known Allergies Allergy (Mild, Verified 02/02/25 09:32) N/A Medication List - Last Reconciled 02/09/25 by Jony Newton MD aspirin 81 mg PO DAILY atorvastatin 80 mg PO DAILY hydrocortisone acetate (Anusol-HC) [address] BID 2 weeks hydrocortisone acetate (Anucort-HC) [address] BID PRN levothyroxine 150 mcg PO DAILY menthol-zinc oxide 0.44-20.6 % (Calmoseptine) 1 appl topical QID PRN metoprolol succinate ER 25 mg PO DAILY HPI Comments Details: Pleasant 64 year gentleman who is here for 1st office visit. He recently presented to [facility] in November 2023 with chest pain. He was exercising and developed some burning sensation in his chest and left arm discomfort. Came to the emergency department and ruled in for NSTEMI and was transferred to [facility]. He underwent cardiac catheterization there where severe OM and RCA stenosis was noted any was treated with 2 drug-eluting stents with intravascular ultrasound guidance. He had moderate LAD and 70% diagonal stenosis which was medically managed. He has been doing well since then and has no chest discomfort. He has been exercising on his own. He has not heard from cardiac rehabilitation yet. He has a former smoker. He is prediabetic. 06/23/2024: He returns for follow-up. He has been doing well. No chest pain or shortness of breath. Blood pressure is mildly low but he has no symptoms. He was advised to increase hydration. 02/09/2025: He returns for follow-up. Blood pressure is well controlled. No exertional symptoms. No bleeding. He has been taking medications regularly except aspirin which he accidentally stopped for some time but he is back on aspirin at this stage. I have advised him that aspirin is lifelong medication for him and should not be stopped. [facility] Medical History History of rectal cancer Prediabetes H/O non-ST elevation myocardial infarction (NSTEMI) Coronary artery disease Blood per rectum Ileostomy in place COVID-19 virus infection TRUMAN (acute kidney injury) COVID-19 virus infection History of radiation therapy (~2020) Postoperative ileus (~07/2021) COVID-19 vaccine administered History of chemotherapy (~2020) Port-A-Cath in place Hypercholesterolemia Vitamin D deficiency Rectal cancer (~10/2020) Hypothyroid Prolapsed hemorrhoids Surgical History Hx of cardiac catheterization (~11/2023) Status post angioplasty History of coronary artery stent placement History of reversal of ileostomy History of colonoscopy History of hemorrhoidectomy History of colon resection History of flexible sigmoidoscopy History of amputation of finger Family History Father CVD (cardiovascular disease) Mother No problems noted. Social History Household Members: Spouse and Significant Other Housing: House Are you a primary health care social worker to a significant other at home: No Do you presently have visiting nurse or other home services: No Alcohol intake: never Patient Tobacco Use Status: Former Tobacco user Tobacco use type: Cigarette Cigarettes Per Day: 10 Years Smoked: 30 e-Cigarette/Vaping Use: Never Used Second Hand Smoke Exposure: No Advance Directives Date on File: 01/15/21 service: No Current occupational status: employed Cognitive needs: No Hearing needs: No Vision needs: No Review of Systems Const Denies chills, Denies fatigue, Denies fever(s), Denies frequent falls, Denies weakness, Denies weight gain and Denies weight loss ENT Denies dizziness Card Denies chest pain, Denies leg edema, Denies lightheadedness, Denies palpitations, Denies dyspnea and Denies dyspnea on exertion Resp Denies cough, Denies dyspnea and Denies dyspnea on exertion GI Denies hematochezia Musc Denies abnormal gait, Denies muscle weakness, Denies numbness, Denies radiating pain into limb and Denies tingling Neuro Denies abnormal gait, Denies dizziness, Denies frequent falls, Denies numbness, Denies tingling and Denies weakness Endo Denies fatigue and Denies palpitations Physical Exam Vital Signs: Last Vital Signs Pulse 57 02/09/25 15:04 BP 130/62 02/09/25 15:04 BMI result Body Mass Index 28.9 GENERAL APPEARANCE: in no acute distress, pleasant. NECK: no carotid bruit, no jugular venous distention. SKIN: no suspicious lesions, warm and dry. HEART: no murmurs, regular rate and rhythm. LUNGS: clear to auscultation bilaterally. ABDOMEN: soft, nontender. EXTREMITIES: no edema. PERIPHERAL PULSES: equal. NEUROLOGIC: No gross deficits, AAO X 3 Office Procedures EKG Details: Sinus bradycardia 57 beats per minute, inferior infarct, QTC 406 milliseconds. [id number], Complete Assessment & Plan Assessment & Plan (1) Coronary artery disease: Comment: November 2023 drug-eluting stent x2 Code(s): I25.10 - Atherosclerotic heart disease of [place] coronary artery without angina pectoris Category: Medical Qualifiers: Coronary Disease-Associated Artery/Lesion type: [place] artery [place] vs. transplanted heart: [place] heart Associated angina: without angina Qualified Code(s): I25.10 - Atherosclerotic heart disease of [place] coronary artery without angina pectoris (2) Stable angina: Code(s): I20.89 - Other forms of angina pectoris Category: Medical Plan 64 year gentleman who is here for follow-up. He has background history of rectal cancer with previous surgery with recent colonoscopy which was normal. Had PCI to right coronary artery in the setting of acute coronary syndrome and was on aspirin and ticagrelor. He has stopped the ticagrelor after 1 year and is currently on aspirin monotherapy. He has been tolerating it well. No bleeding. Blood pressure is well controlled. Continue atorvastatin 80 mg daily. Yearly lipid panel with LDL target less than 55. Thank you for allowing me to participate in the care of your patient. Please feel free to contact me if you have any questions. Coding Level of Care Code Est Pt Level 4 (95082) Complex EM visit Add On G2211 Diagnoses Coronary artery disease involving [place] coronary artery of [place] heart without angina pectoris I25.10 Coronary Disease-Associated Artery/Lesion type: [place] artery [place] vs. transplanted heart: [place] heart Associated angina: without angina Stable angina I20.89 CPT Codes EKG - CPT: 20828-[id number], Complete ([id number])
--- OUTSIDE RECORDS SUMMARY | 2025-02-09 17:28 | XMS_ITS | Clinical Summary ---
Author Organization [facility] Address [address] [facility] [address] Phone Care Team Providers Care Supervisor Sawmill Name Role Phone Chica Law MD Primary Care Provider [phone] Medications Pramoxine-HC (Hydrocortisone Sai-Pramoxine) 2.5-1 % cream [...] to complete this topic Insurance COMPREHENSIVE BENEFITS COMPREHENSIVE BENEFITS Care Teams Supervisor Sawmill Relationship Specialty Start Date End Date Chica Law MD [facility] [address] [place], [place] PCP - General Internal Medicine 08/10/21
== END 2025-02-09 15:18 | disposition home or self-care (01) ==
LOC: HO.HCS 14:53
PROVIDERS: PCP Internal Medicine; Visit Provider Internal Medicine Cardiovascular Disease
DX: I25.118 Atherosclerotic heart disease of native coronary artery with other forms of angina pectoris (principal); R00.1 Bradycardia, unspecified
CPT/HCPCS: 93010; 99214

== ENCOUNTER → 2025-02-09 14:53 | Outpatient (BNVA) | payer OTHER, SELFPAY | PROVIDERS: PCP Internal Medicine; Visit Provider Internal Medicine Cardiovascular Disease | DX: I25.118 Atherosclerotic heart disease of native coronary artery with other forms of angina pectoris (principal) | CPT/HCPCS: 93005 ==

== ENCOUNTER 2025-03-11 09:59 | Outpatient (REF) | payer OTHER, SELFPAY ==
[2025-03-11 10:24] LABS: MANUAL DIFF FLAG NO
[2025-03-11 10:45] LABS: Basophils Absolute Auto 0.1 X10*3/uL (0.0-0.2); Basophils Percent Auto 0.8 % (0-2); Eosinophils Absolute Auto 0.2 X10*3/uL (0.0-0.4); Hematocrit 43.7 % (42.0-52.0); Hemoglobin 14.8 g/dl (14.0-18.0); Imm Gran Abs Auto 0.02 X10*3/uL (0.00-0.03); Imm Gran Pct Auto 0.3 % (0.0-0.4); Lymphocytes Absolute Auto 1.9 X10*3/uL (1.2-4.9); Lymphocytes Percent Auto 31.8 % (20-40); Mean Corpuscular HGB Conc 33.9 g/dl (31.0-36.0); Mean Corpuscular Hemoglobin 30.6 pg (27.0-33.0); Mean Corpuscular Volume 90.5 fL (80.0-98.0); Mean Platelet Volume 9.3 fL (9.4-12.4); Monocytes Absolute Auto 0.6 X10*3/uL (0.1-1.2); Monocytes Percent Auto 10.4 % (2-11); Neutrophils Absolute Auto 3.1 x10*3/uL (2.0-8.3); Neutrophils Percent Auto 52.7 % (45-73); Platelet Count 255 X10*3/uL (160-400); Red Blood Count 4.83 X10*6/uL (4.60-5.80); Red Cell Distribution Width 13.1 % (11.0-16.0)
--- OUTSIDE RECORDS SUMMARY | 2025-03-11 10:58 | XMS_ITS | Clinical Summary ---
Author Organization [facility] Address [address] [place] [address] Phone Care Team Providers Care Customer Success Representative Name Role Phone Chica Law MD Primary Care Provider [phone] Medications Pramoxine-HC (Hydrocortisone Sai-Pramoxine) 2.5-1 % cream [...] Due Date Last Done Comments Pneumococcal Vaccine: 50+ Ye ars (1 of 2 - PCV) 1980 Colorectal Cancer Screening: Annual FOBT 2010 Colorectal Cancer Screening: Colonoscopy 2010 Colorectal Cancer Screening: Sigmoidoscopy 2010 Influenza Vaccine (Season Ended) 2025 Hepatitis B Vaccine Aged Out No longe r eligible based on patient's age to complete this topic Insurance Comprehensive Benefits Comprehensive Benefits Care Teams Customer Success Representative Relationship Specialty Start Date End Date Chica aLw MD [facility] [place] [address] [place], [place] PCP - General Internal Medicine 08/10/21
[2025-03-11 11:01] LABS: Estimated Average Glucose 114 mg/dL; Hemoglobin A1C 145.4092 umol/L; Hemoglobin A1c % 5.6 % (<6.0); Total Hemoglobin (HGBA1C) 3814.6268 umol/L
[2025-03-11 11:27] LABS: Alanine Aminotransferase 49 U/L (0-40); Albumin Level 4.1 g/dL (3.5-5.0); Alkaline Phosphatase 86 U/L (39-117); Anion Gap 10 (12-20); Aspartate Amino Transferase 48 U/L (5-37); Bilirubin Total 0.7 mg/dL (0.0-1.0); Blood Urea Nitrogen 19 mg/dL (9-16); Calcium 9.5 mg/dL (8.4-10.2); Carbon Dioxide 28 mmol/L (22-29); Chloride 108 mmol/L (96-108); Cholesterol 148 mg/dL (<200); Estimated Glomerular Filt Rate > 60; Glucose Random 111 mg/dL (60-115); HDL Cholesterol 48 mg/dL (>40); LDL Cholesterol Calculated 85 mg/dL (<100); Potassium 4.6 mmol/L (3.3-5.1); Sodium 141 mmol/L (135-145); Total Protein 6.9 g/dL (6.5-8.0); Triglycerides 78 mg/dL (<150)
[2025-03-11 11:43] LABS: Folate 12.6 ng/mL (> or = 4.0); Prostate Specific Antigen Scr 0.12 ng/mL (<0.05-4.0); Vitamin B12 378 pg/mL (200-900)
[2025-03-11 11:45] LABS: Free T4 (Free Thyroxine) 1.03 ng/dL (0.71-1.85); Thyroid Stimulating Hormone 1.95 uIU/mL (0.32-4.0)
== END 2025-03-11 10:00 | disposition home or self-care (01) ==
LOC: HO.LAB 09:59
PROVIDERS: PCP Internal Medicine; Visit Provider Internal Medicine
DX: E03.9 Hypothyroidism, unspecified (principal); I25.10 Atherosclerotic heart disease of native coronary artery without angina pectoris; R73.02 Impaired glucose tolerance (oral); E78.00 Pure hypercholesterolemia, unspecified; Z85.048 Personal history of other malignant neoplasm of rectum, rectosigmoid junction, and anus; Z12.5 Encounter for screening for malignant neoplasm of prostate
CPT/HCPCS: 36415; 80053; 80061; 82378; 82607; 82746; 83036; 84153; 84439; 84443; 85025

== ENCOUNTER 2025-03-17 08:39 | Outpatient (AMB) | payer OTHER, SELFPAY ==
[2025-03-17 08:42] VITALS: BP 112/70; PULSE 60; O2SAT 95; BMI 28.4
--- NOTE | 2025-03-17 08:42 | MHC.PC.OV ---
Vital Signs 03/17/25 08:42 Height 5 ft 6 in Weight 176 lb BMI 28.4 BP 112/70 Blood Pressure Location Lt brachial Position Sitting Pulse 60 Pulse Source Pulse Oximeter Pulse Oximetry (%) 95 Oxygen Delivery Method Room Air Intake Visit Reasons: IGT, Rectal cancer, CAD Allergies No Known Allergies Allergy (Mild, Verified 03/17/25 08:43) N/A Medication List - Last Reconciled 03/17/25 by Chica Law MD aspirin 81 mg PO DAILY atorvastatin 80 mg PO DAILY hydrocortisone acetate (Anusol-HC) 25 mg [place] BID 2 weeks hydrocortisone acetate (Anucort-HC) 25 mg AK BID PRN levothyroxine 150 mcg PO DAILY menthol-zinc oxide 0.44-20.6 % (Calmoseptine) 1 appl topical QID PRN metoprolol succinate ER 25 mg PO DAILY Tobacco use date assessed: 02/02/25 Dental Screening Dental Screen Date: 03/17/25 Did you have a dental visit in the last 12 months?: No Did you have a dental problem in the last 6 months where you did not have access to dental care?: No Was dental information given to patient?: No HPI IGT, Rectal cancer, CAD HPI Details Complains of intermittent right-sided neck pain like the once he felt when he was having heart problems. Patient states that just this just started a few weeks ago and that the Cardiology does not know about this. Patient denies any nausea no vomiting states the neck pain feels like heartburns but not in the chest nor epigastric area. Deny any shortness of breath no cough PFSH Medical History History of rectal cancer Prediabetes H/O non-ST elevation myocardial infarction (NSTEMI) Coronary artery disease Blood per rectum Ileostomy in place COVID-19 virus infection TRUMAN (acute kidney injury) COVID-19 virus infection History of radiation therapy (~2020) Postoperative ileus (~07/2021) COVID-19 vaccine administered History of chemotherapy (~2020) Port-A-Cath in place Hypercholesterolemia Vitamin D deficiency Rectal cancer (~10/2020) Hypothyroid Prolapsed hemorrhoids Surgical History Hx of cardiac catheterization (~11/2023) Status post angioplasty History of coronary artery stent placement History of reversal of ileostomy History of colonoscopy History of hemorrhoidectomy History of colon resection History of flexible sigmoidoscopy History of amputation of finger Family History Father CVD (cardiovascular disease) Mother No problems noted. Social History Household Members: Spouse and Significant Other Housing: House Are you a primary director of patient care to a significant other at home: No Do you presently have visiting nurse or other home services: No Alcohol intake: never Patient Tobacco Use Status: Former Tobacco user Tobacco use type: Cigarette Cigarettes Per Day: 10 Years Smoked: 30 Packs per year/per ci.00 e-Cigarette/Vaping Use: Never Used Second Hand Smoke Exposure: No Advance Directives Date on File: 01/15/21 service: No Current occupational status: employed Cognitive needs: No Hearing needs: No Vision needs: Yes Questionnaire Thrive Questionnaire Date Thrive assessed: 02/02/25 I am a: Patient What is your living situation today?: I have a steady place to live Within the past 12 months, did the food you bought not last and you didn't have the money to get more?: I choose not to answer this question Within the past 12 months, did you worry whether your food would run out before you got money to buy more?: Never true Do you have trouble paying for medicines?: No Do you have trouble getting transportation to medical appointments?: No Do you have trouble paying your heating and electricity bill?: No Do you have trouble taking care of your child, family member or friend?: No Do you have trouble with day-to-day activities such as bathing, preparing meals, shopping, managing finances, etc.?: No Are you currently unemployed and looking for a job?: No Are you interested in more education?: No Please select the resources that you would like help with: None Currently or been in a relationship where the following occur: No concerns reported THRIVE Score: 0 JERICA-7 AMB Questionnaire JERICA-7 Date JERICA - 7 assessed: 02/02/25 Source: Developed by Drs. Lee Ceron, Loretta Davies, Jose Alejandro Wern and colleagues, with an educational lizbeth from [employer]. Physical exam (Primary Care) Vital Signs: Last Vital Signs Pulse 60 03/17/25 08:42 BP 112/70 03/17/25 08:42 Pulse Ox 95 03/17/25 08:42 Oxygen Delivery Method Room Air 03/17/25 08:42 BMI result Body Mass Index 28.4 Tobacco/Smoking Status: Tobacco use Status Tobacco use date assessed 02/02/25 03/17/25 08:46 Patient Tobacco Use Status Former Tobacco user 03/17/25 08:46 Tobacco use type Cigarette 03/17/25 08:46 e-Cigarette/Vaping Use Never Used 03/17/25 08:46 Thrive Assessment: Date of Thrive Assessment Date Thrive assessed 02/02/25 03/17/25 08:46 Currently or been in a relationship where the following occur: No concerns reported Const General: alert; No acute distress Eyes Conjunctivae: conjunctivae normal Resp Auscultation: clear to auscultation bilaterally Cardio Rate: regular rate Rhythm: regular rhythm GI Inspection: Yes normal to inspection Extrem General: Yes normal to inspection and No edema Coding Level of Care Code Est Pt Level 4 (36156) Complex EM visit Add On G2211 Diagnoses Coronary artery disease involving [place] coronary artery of [place] heart without angina pectoris I25.10 Associated angina: without angina Coronary Disease-Associated Artery/Lesion type: [place] artery [place] vs. transplanted heart: [place] heart Acquired hypothyroidism E03.9 Hypothyroidism type: acquired Hypercholesterolemia E78.00 Rectal cancer C20 Ileostomy [address] Z93.2 Impaired glucose tolerance R73.02 LFT elevation R79.89 Neck pain on right side M54.2 Assessment & Plan Assessment & Plan (1) Coronary artery disease: Comment: November 2023 drug-eluting stent x2 Code(s): I25.10 - Atherosclerotic heart disease of [place] coronary artery without angina pectoris Category: Medical Qualifiers: Associated angina: without angina Coronary Disease-Associated Artery/Lesion type: [place] artery [place] vs. transplanted heart: [place] heart Qualified Code(s): I25.10 - Atherosclerotic heart disease of [place] coronary artery without angina pectoris Plan: Control the cholesterol, weight, blood pressure, patient follows up with Cardiology. Continue with lifelong aspirin 81 mg once a day (2) Hypothyroid: Code(s): E03.9 - Hypothyroidism, unspecified Category: Medical Qualifiers: Hypothyroidism type: acquired Qualified Code(s): E03.9 - Hypothyroidism, unspecified Plan: Continue with thyroid medication (3) Hypercholesterolemia: Code(s): E78.00 - Pure hypercholesterolemia, unspecified Category: Medical Plan: Avoid fried foods, chicken skin, eggs, butter margarine, pastries and meat. Be it pork or beef they have a lot of cholesterol LDL goal of 55 and triglyceride of less than 150 patient on atorvastatin 80 mg once a day (4) Rectal cancer: Onset Date: ~10/2020 Comment: (Adenocarcinoma of rectum dx 10/2020 - s/p chemo/radiation & rectosigmoid resection with loop ileostomy 07/2021 - Rad Onc = Dr. Breann Dawn, Onc = Dr. Davenport, ) Code(s): C20 - Malignant neoplasm of rectum Category: Medical Plan: Continue to follow-up with Hematology-Oncology. (5) Ileostomy in place: Code(s): Z93.2 - Ileostomy status Category: Medical Plan: Continue with taking care of the stomach. (6) Impaired glucose tolerance: Code(s): R73.02 - Impaired glucose tolerance (oral) Category: Medical Plan: Decrease the amount of carbohydrate intake, pasta, bread, rice and potatoes are all sugar and that is aside from all the sweet stuff, remember that fruits are good but they are Sweet also. (7) LFT elevation: Code(s): R79.89 - Other specified abnormal findings of blood chemistry Category: Medical (8) Neck pain on right side: Code(s): M54.2 - Cervicalgia Category: Medical Plan History of Present Illness The patient is a 64-year-old male presenting for follow-up on multiple conditions including previously treated rectal cancer, hypercholesterolemia, and coronary artery disease. He underwent a rectal cancer resection in 2019 and has been managing elevated cholesterol levels, currently recording an LDL level of 85 mg/dL. In November 2023, the patient suffered a STEMI, requiring dual stenting due to significant coronary stenosis. He is also being monitored for elevated fasting glucose levels, recorded at 111 mg/dL in March 2025 with normal hemoglobin A1c. His liver function tests were elevated recently; however, a past ultrasound was normal. He denies the typical use of acetaminophen. The patient reports new onset of intermittent right-side neck pain, jacki to previous heart-related discomfort, which is under evaluation before the next cardiology follow-up in six months. Health Maintenance - LDL goal is < 55 mg/dL; patient currently at 85 mg/dL. - Blood glucose monitoring due to recent elevation. - Liver ultrasound is planned to examine elevated hepatic function markers. - Continuous lipid management with atorvastatin and pending new medication addition (Xeria). 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 - Reports diet including a chong, egg bagel, salads, protein shakes, and brown rice. - Engages in weight training for exercise; limited cardiovascular activity due to hip pain. Review of Systems - Cardiovascular: Reports intermittent right-sided neck pain, occasional dyspnea with exertion. - Gastrointestinal: Denies nausea and vomiting. - General: Denies cervical or epigastric chest pain. Physical Exam Results - Labs: LDL 85 mg/dL, fasting glucose 111 mg/dL, normal hemoglobin A1c. - Tests: Elevated liver enzymes from March 2025; ultrasound pending. Plan I plan to address the patient's cholesterol levels by adding ezetimibe to the current atorvastatin regimen, targeting an LDL of under 55 mg/dL. An EKG will be ordered to evaluate recent neck pain resembling previous cardiac symptoms. Continuous assessment of his fasting glucose, despite normal A1c, is ordered in intervening assessments. An ultrasound will investigate the cause of elevated liver enzymes. Although limited by hip discomfort, encouragement of exercise modifications will support overall cardiovascular health. Patient was informed and verbally consented to the use of an ambient scribe for clinic note documentation during this visit. Discussion Notes I discussed with the patient the new regimen for cholesterol management including adding ezetimibe for optimized LDL lowering and the potential side effects such as gastrointestinal symptoms. An EKG was advised to differentiate recent neck pain from cardiac causes. I recommended a three-month follow-up to reassess cholesterol levels with repeat blood work and for monitoring blood glucose levels. The potential need for future liver ultrasound and dietary habits were also outlined. I informed the patient of the signs requiring urgent care and ensured understanding of all discussed management plans. Patient Instructions - Continue atorvastatin and start ezetimibe, monitor for side effects. - Follow-up in three months for cholesterol and glucose re-evaluation. - Expect a call to schedule a liver ultrasound and EKG today. - Monitor new symptoms, seek care if experience worsening chest pain or breathing difficulty. - Maintain regular exercise, avoid excessive sodium, and monitor dietary sugar intake. Orders: Orders US abdomen complete Today R79.89 - Other specified abnormal findings of blood chemistry Lipid Panel 3 Months E78.00 - Pure hypercholesterolemia, unspecified Comprehensive Met. Panel 3 Months E78.00 - Pure hypercholesterolemia, unspecified Hemoglobin A1c 3 Months E78.00 - Pure hypercholesterolemia, unspecified AMB EKG-In Office Today M54.2 - Cervicalgia Medications: New ezetimibe (Zetia) 10 mg PO DAILY 30 tabs 3RF E78.00 - Pure hypercholesterolemia, unspecified
--- OUTSIDE RECORDS SUMMARY | 2025-03-17 08:55 | XMS_ITS | Clinical Summary ---
Author Organization [facility] Address [address] [place] [address] Phone Care Team Providers Care Tracer Powder Blender Name Role Phone Chica Law MD Primary Care Provider [phone] Medications Pramoxine-HC (Hydrocortisone Sai-Pramoxine) 2.5-1 % cream [...] Insurance Comprehensive Benefits Comprehensive Benefits Care Teams Tracer Powder Blender Relationship Specialty Start Date End Date Chica Law MD [facility] [address] [place], [place] PCP - General Internal Medicine 08/10/21
== END 2025-03-17 09:21 | disposition home or self-care (01) ==
LOC: HO.HMCH 08:40
PROVIDERS: PCP Internal Medicine; Visit Provider Internal Medicine
DX: I25.10 Atherosclerotic heart disease of native coronary artery without angina pectoris (principal); C20 Malignant neoplasm of rectum; Z93.2 Ileostomy status; E03.9 Hypothyroidism, unspecified; E78.00 Pure hypercholesterolemia, unspecified; R73.02 Impaired glucose tolerance (oral); R79.89 Other specified abnormal findings of blood chemistry; M54.2 Cervicalgia

== ENCOUNTER → 2025-03-17 08:39 | Outpatient (BNVA) | payer OTHER, SELFPAY | PROVIDERS: PCP Internal Medicine; Visit Provider Internal Medicine | DX: Z13.89 Encounter for screening for other disorder (principal) ==

== ENCOUNTER 2025-04-20 10:45 | Outpatient (AMB) | payer OTHER, SELFPAY ==
--- NOTE | 2025-04-20 10:52 | MHC.OFFVIS ---
Vital Signs 04/20/25 10:58 Height 5 ft 6 in Weight 174 lb BMI 28.1 BP 132/69 Blood Pressure Location Rt brachial Position Sitting Pulse 60 Intake Visit Reasons: rectal pain/ swelling Intake Note: Patient scheduled today's appointment for rectal pain/ swelling. Patient c/o: reports normal BM. Stool color change, currently green. Denies constipation, diarrhea. 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 Required: No Accompanied by: Self / Same As Patient Allergies No Known Allergies Allergy (Mild, Verified 04/20/25 10:57) N/A Medication List - Last Reconciled 04/20/25 by Mack Michel MD aspirin 81 mg PO DAILY atorvastatin 80 mg PO DAILY ezetimibe (Zetia) 10 mg PO DAILY hydrocortisone acetate (Anusol-HC) 25 mg [place] BID 2 weeks hydrocortisone acetate (Anucort-HC) 25 mg [place] BID PRN levothyroxine 150 mcg PO DAILY menthol-zinc oxide 0.44-20.6 % (Calmoseptine) 1 appl topical QID PRN metoprolol succinate ER 25 mg PO DAILY HPI HPI rectal pain/ swelling: Details: He is well known to me for history of rectal cancer had undergone low anterior resection in the past I have been following him in the office over the years He says that for about 3-4 days last week, he felt that there was some swelling inside his anus. He says that at that time, he was having hard small stools. He did not really see significant bleeding but he says that he just felt that there was pain with his bowel movements. He therefore called the office to be evaluated. He says that this has since resolved the past 3 days. [facility] Medical History (Updated 04/20/25 @ 11:08 by Mack Michel MD) Anal pain History of rectal cancer Prediabetes H/O non-ST elevation myocardial infarction (NSTEMI) Coronary artery disease Blood per rectum Ileostomy in place COVID-19 virus infection TRUMAN (acute kidney injury) COVID-19 virus infection History of radiation therapy (~2020) Postoperative ileus (~07/2021) COVID-19 vaccine administered History of chemotherapy (~2020) Port-A-Cath in place Hypercholesterolemia Vitamin D deficiency Rectal cancer (~10/2020) Hypothyroid Prolapsed hemorrhoids Surgical History Hx of cardiac catheterization (~11/2023) Status post angioplasty History of coronary artery stent placement History of reversal of ileostomy History of colonoscopy History of hemorrhoidectomy History of colon resection History of flexible sigmoidoscopy History of amputation of finger Family History Father CVD (cardiovascular disease) Mother No problems noted. Social History Household Members: Spouse and Significant Other Housing: House Are you a primary healthcare liaison to a significant other at home: No Do you presently have visiting nurse or other home services: No Alcohol intake: never Patient Tobacco Use Status: Former Tobacco user Tobacco use type: Cigarette Cigarettes Per Day: 10 Years Smoked: 30 e-Cigarette/Vaping Use: Never Used Second Hand Smoke Exposure: No Advance Directives Date on File: 01/15/21 service: No Current occupational status: employed Cognitive needs: No Hearing needs: No Vision needs: Yes Review of Systems Const Denies chills Card Denies chest pain, Denies dyspnea and Denies dyspnea on exertion Resp Denies cough, Denies dyspnea and Denies dyspnea on exertion GI Details: Had hard stools last week Denies hematochezia Denies hematuria and Denies difficulty urinating Musc Denies back pain and Denies limited range of motion Neuro Denies focal weakness and Denies convulsions Psych Denies depression and Denies mood swings Physical Exam Vital Signs: Last Vital Signs Pulse 60 04/20/25 10:58 BP 132/69 04/20/25 10:58 BMI result Body Mass Index 28.1 Const General: comfortable and no acute distress Resp Effort & Inspection: normal respiratory effort Cardio Rate: regular rate GI Other: Rectal exam shows no perianal lesions, anoscopy was then done Palpation (GI): Soft to palpation Office Procedures Anoscopy He was in kneeling jessie-knife position. The anoscope was gently inserted. A full examination of the anal canal was done. He did have some small internal hemorrhoids that seemed to bleed easily. However, there were no lesions or any induration. There was no fissure or induration. He was able tolerate anoscopy as well as digital exam well [id number] Assessment & Plan Assessment & Plan (1) Anal pain: Code(s): K62.89 - Other specified diseases of anus and rectum Category: Medical Plan: He is in some substance resolved. This was likely secondary to some periods of constipation with hard stools. Anoscopy currently does not reveal any suspicious lesions. He says that he did not have significant pain or tenderness with digital exam and anoscopy I advised him to take some fiber supplements with Metamucil. I told him that he can always come back to the office to be re-evaluated down the line if he has recurrent issues. I assured him about the anoscopy findings. Coding Level of Care Code Est Pt Level 3 (77197) Diagnoses Anal pain K62.89 CPT Codes Details - CPT: 03448-[id number] ([id number])
[2025-04-20 10:58] VITALS: BP 132/69; PULSE 60; BMI 28.1
--- OUTSIDE RECORDS SUMMARY | 2025-04-20 12:14 | XMS_ITS | Clinical Summary ---
Author Organization [facility] Address [address] [place] [address] Phone Care Team Providers Care Client Support Analyst Name Role Phone Chica Law MD Primary Care Provider [phone] Medications Pramoxine-HC (Hydrocortisone Sai-Pramoxine) 2.5-1 % cream [...] Insurance Comprehensive Benefits Comprehensive Benefits Care Teams Client Support Analyst Relationship Specialty Start Date End Date Chica Law MD [facility] [place] [address] [place], [place] PCP - General Internal Medicine 08/10/21
== END 2025-04-20 11:04 | disposition home or self-care (01) ==
LOC: HO.HGS 10:46
PROVIDERS: PCP Internal Medicine; Visit Provider Surgery
DX: K62.89 Other specified diseases of anus and rectum (principal)
CPT/HCPCS: 46600; 99213

== ENCOUNTER → 2025-04-20 10:45 | Outpatient (BNVA) | payer OTHER, SELFPAY | PROVIDERS: PCP Internal Medicine; Visit Provider Surgery | DX: K62.89 Other specified diseases of anus and rectum (principal) | CPT/HCPCS: 46600 ==

== ENCOUNTER 2025-04-29 09:50 | Outpatient (REF) | payer OTHER, SELFPAY ==
--- NOTE | ~2025-04-29 | US_ITS ---
CLINICAL HISTORY: R79.89 - Other specified abnormal findings of blood chemistry US abdomen complete with color Doppler Comparison: Previous relevant studies were not available for comparison at the time of this interpretation. Findings: The visualized pancreas, aorta, and inferior vena cava are unremarkable. Liver normal size and echotexture. Right lobe 16.4 cm length. Septated cyst in the liver near the gallbladder fossa measuring 8 x 8 x 5 mm. Common duct 5.0 mm diameter. Physiologic distention of the gallbladder. No gallstones or sludge. No gallbladder wall thickening. No pericholecystic fluid. No sonographic Sung sign. Main portal vein antegrade. Right kidney normal size, 10.3 cm in length. Normal cortical width and echotexture. Incidental parapelvic cyst midpole measuring 1.5 x 1.8 x 1.1 cm. Complex multi-septated cyst midpole partially exophytic measures 2.8 x 2.2 x 1.7 cm. No nephrolithiasis. No hydronephrosis. Left kidney normal, 10.0 cm in length. Normal cortical width and echotexture. No solid or cystic renal masses. No nephrolithiasis. No hydronephrosis. Spleen measures 9.5 cm. No splenic masses. No ascites. No lymphadenopathy. Impression: 1. Partially exophytic multi-septated cystic mass right kidney needs further workup with MRI of the abdomen with and without contrast renal protocol. If MRI cannot be performed, consider CT. 2. Septated cyst right lobe of the liver. This document has been electronically signed by: Justin Morris MD on 04/29/2025 16:53:50
--- OUTSIDE RECORDS SUMMARY | 2025-04-29 10:04 | XMS_ITS | Clinical Summary ---
Author Organization [facility] Address [address] [place] [address] Phone Care Team Providers Care Producer Assistant Name Role Phone Chica Law MD Primary Care Provider [phone] Medications Pramoxine-HC (Hydrocortisone Sai-Pramoxine) 2.5-1 % cream [...] Insurance Comprehensive Benefits Comprehensive Benefits Care Teams Producer Assistant Relationship Specialty Start Date End Date Chica Law MD [facility] [place] [address] [place], [place] PCP - General Internal Medicine 08/10/21
== END 2025-04-29 09:51 | disposition home or self-care (01) ==
LOC: HO.US 09:50
PROVIDERS: PCP Internal Medicine; Visit Provider Internal Medicine
DX: R79.89 Other specified abnormal findings of blood chemistry (principal)
CPT/HCPCS: 76700

== ENCOUNTER → 2025-04-29 09:51 | Outpatient (BNV) | payer OTHER, SELFPAY | PROVIDERS: PCP Internal Medicine; Visit Provider Radiology Diagnostic Radiology | DX: N28.1 Cyst of kidney, acquired (principal); K76.89 Other specified diseases of liver | CPT/HCPCS: 76700 ==

== ENCOUNTER → 2025-05-25 17:42 | Outpatient (BNV) | payer OTHER, SELFPAY | PROVIDERS: PCP Internal Medicine; Visit Provider Radiology Diagnostic Radiology | DX: N28.1 Cyst of kidney, acquired (principal) | CPT/HCPCS: 74183 ==

== ENCOUNTER 2025-05-25 17:52 | Outpatient (REF) | payer OTHER, SELFPAY ==
--- NOTE | ~2025-05-25 | MR_ITS ---
EXAMINATION: MR ABDOMEN WITHOUT THEN WITH IV CONTRAST HISTORY: Right renal mass on ultrasound. Renal protocol COMPARISON: Correlation is made with an abdominal ultrasound dated 04/29/[address] scans of the abdomen dated 11/14/2019 12/29/1620. TECHNIQUE: Axial in and out of phase T1-weighted gradient echo, axial diffusion weighted, and axial and coronal HASTE T2 with fat saturation images were obtained through the abdomen. Subsequently, fat suppressed axial and coronal T1-weighted images were obtained after the intravenous administration of 8 mL Gadavist. FINDINGS: Liver: There is no loss of signal intensity in the liver on opposed phase imaging to suggest steatosis. There is no enhancing liver mass. The hepatic and portal veins are patent. There is no intrahepatic biliary dilatation. Gallbladder/biliary tree: No gallstones are identified. The common bile duct is normal in caliber. No intraluminal filling defects are identified to suggest choledocholithiasis. Spleen: The spleen is unremarkable. Pancreas: The pancreas is unremarkable. There is no enhancing pancreatic mass. The pancreatic duct is normal in caliber. Adrenals: The adrenal glands are unremarkable. Kidneys: There is a 1.7 x 1.1 x 1.2 cm parapelvic cyst in the interpolar region of the right kidney. There is a 2.7 x 1.7 x 1.6 cm septated cyst at the lower pole of the right kidney corresponding to the abnormality noted on ultrasound. There is no associated contrast enhancement or internal soft tissue component. The left kidney is unremarkable. There is no hydronephrosis. Lymph nodes: There is no retroperitoneal lymphadenopathy in the upper abdomen. Fluid: There is no ascites in the upper abdomen. Visualized bowel: The visualized bowels loops are unremarkable in appearance. Visualized bones: The L5 vertebral body and the sacrum demonstrate fatty marrow replacement, likely related to prior radiation therapy. MR/MR abdomen wo/w con IMPRESSION: 2.7 x 1.7 x 1.6 cm septated cyst at the lower pole of the right kidney corresponding to the abnormality seen on ultrasound. The represents a Bosniak II lesion, not requiring further follow-up. Electronically signed by: Lee Cruz MD 05/26/2025 07:23 AM EDT
== END 2025-05-25 17:53 | disposition home or self-care (01) ==
LOC: HO.MRI 17:52
PROVIDERS: PCP Internal Medicine; Visit Provider Internal Medicine Medical Oncology
DX: N28.89 Other specified disorders of kidney and ureter (principal)
CPT/HCPCS: 74183; A9585

== ENCOUNTER 2025-05-31 09:23 | Outpatient (AMB) | payer OTHER, SELFPAY ==
--- NOTE | 2025-05-31 09:24 | A.OFFPC_ITS ---
Vital Signs 05/31/25 09:25 Height 5 ft 6 in Weight 171 lb 2 oz BMI 27.6 BP 108/60 Blood Pressure Location Lt brachial Position Sitting Pulse 70 Pulse Source Pulse Oximeter Temp 97.3 F Temp Source Temporal Artery Scan Pulse Oximetry (%) 98 Oxygen Delivery Method Room Air Intake Visit Reasons: 3 month f/u Allergies No Known Allergies Allergy (Mild, Verified 05/31/25 09:25) N/A Medication List - Last Reconciled 05/31/25 by Chica Law MD aspirin 81 mg PO DAILY atorvastatin 80 mg PO DAILY ezetimibe (Zetia) 10 mg PO DAILY hydrocortisone acetate (Anusol-HC) 25 mg MS BID 2 weeks hydrocortisone acetate (Anucort-HC) 25 mg MS BID PRN levothyroxine 150 mcg PO DAILY menthol-zinc oxide 0.44-20.6 % (Calmoseptine) 1 appl topical QID PRN metoprolol succinate ER 25 mg PO DAILY psyllium seed (sugar) (Metamucil (sugar) oral powder) 1 tbsp PO DAILY Tobacco use date assessed: 05/31/25 Dental Screening Dental Screen Date: 05/31/25 Did you have a dental visit in the last 12 months?: No Did you have a dental problem in the last 6 months where you did not have access to dental care?: No Was dental information given to patient?: Patient declined [facility] Medical History Anal pain History of rectal cancer Prediabetes H/O non-ST elevation myocardial infarction (NSTEMI) Coronary artery disease Blood per rectum Ileostomy in place COVID-19 virus infection TRUMAN (acute kidney injury) COVID-19 virus infection History of radiation therapy (~2020) Postoperative ileus (~07/2021) COVID-19 vaccine administered History of chemotherapy (~2020) Port-A-Cath in place Hypercholesterolemia Vitamin D deficiency Rectal cancer (~10/2020) Hypothyroid Prolapsed hemorrhoids Surgical History Hx of cardiac catheterization (~11/2023) Status post angioplasty History of coronary artery stent placement History of reversal of ileostomy History of colonoscopy History of hemorrhoidectomy History of colon resection History of flexible sigmoidoscopy History of amputation of finger Family History Father CVD (cardiovascular disease) Mother No problems noted. Social History Household Members: Spouse and Significant Other Housing: House Are you a primary auto care center manager to a significant other at home: No Do you presently have visiting nurse or other home services: No Alcohol intake: never Patient Tobacco Use Status: Former Tobacco user Tobacco use type: Cigarette Years Smoked: 30 e-Cigarette/Vaping Use: Never Used Second Hand Smoke Exposure: No Advance Directives Date on File: 01/15/21 service: No Current occupational status: employed Cognitive needs: No Hearing needs: No Vision needs: Yes Questionnaire PHQ-9 Over the last 2 weeks, how often have you been bothered by any of the following problems? 1. Little interest or pleasure in doing things: not at all 2. Feeling down, depressed, or hopeless: not at all 3. Trouble falling or staying asleep, or sleeping too much: not at all 4. Feeling tired or having little energy: not at all 5. Poor appetite or overeating: not at all 6. Feeling bad about yourself - or that you are a failure or have let yourself or your family down: not at all 7. Trouble concentrating on things, such as reading the newspaper or watching television: not at all 8. Moving or speaking so slowly that other people could have noticed. Or the opposite - being so fidgety or restless that you have been moving around a lot more than usual: not at all 9. Thoughts that you would be better off or of hurting yourself in some way: not at all Total score: 0 Depression Screening Interpretation: Negative Depression Screening Done: Yes Source: Developed by Drs. Lee Ceron, Loretta Davies, Jose Alejandro Wren and colleagues, with an educational lizbeth from [employer]. Thrive Questionnaire Date Thrive assessed: 01/26/25 I am a: Patient What is your living situation today?: I have a steady place to live Within the past 12 months, did the food you bought not last and you didn't have the money to get more?: I choose not to answer this question Within the past 12 months, did you worry whether your food would run out before you got money to buy more?: Never true Do you have trouble paying for medicines?: No Do you have trouble getting transportation to medical appointments?: No Do you have trouble paying your heating and electricity bill?: No Do you have trouble taking care of your child, family member or friend?: No Do you have trouble with day-to-day activities such as bathing, preparing meals, shopping, managing finances, etc.?: No Are you currently unemployed and looking for a job?: No Are you interested in more education?: No Please select the resources that you would like help with: None Currently or been in a relationship where the following occur: No concerns reported THRIVE Score: 0 AUDIT C Alcohol Use Questionnaire (AUDIT-C) 1. How often do you have a drink containing alcohol?: Never 3. How often do you have six or more drinks on one occasion?: Never Total Score: 0 JERICA-7 AMB Questionnaire JERICA-7 Date JERICA - 7 assessed: 02/02/25 Feeling nervous, anxious, or on edge: 0 = Not at all Not being able to stop or control worryin = Not at all Worrying too much about different things: 0 = Not at all Trouble relaxin = Not at all Being so restless that it is hard to sit still: 0 = Not at all Becoming easily annoyed or irritable: 0 = Not at all Feeling afraid as if something awful might happen: 0 = Not at all Total JERICA-7 score (0-4 normal; 5-9 mild; 10-14 moderate; 15-21 severe): 0 Source: Developed by Drs. Lee Ceron, Loretta Davies, Jose Alejandro Wren and colleagues, with an educational lizbeth from [employer]. Physical exam (Primary Care) Vital Signs: Last Vital Signs Temp 97.3 F 05/31/25 09:25 Pulse 70 05/31/25 09:25 BP 108/60 05/31/25 09:25 Pulse Ox 98 05/31/25 09:25 Oxygen Delivery Method Room Air 05/31/25 09:25 BMI result Body Mass Index 27.6 Tobacco/Smoking Status: Tobacco use Status Tobacco use date assessed 05/31/25 05/31/25 09:28 Patient Tobacco Use Status Former Tobacco user 05/31/25 09:28 Tobacco use type Cigarette 05/31/25 09:28 e-Cigarette/Vaping Use Never Used 05/31/25 09:28 PHQ-9: PHQ-9 Score PHQ-9: Total score 0 05/31/25 09:43 Depression Screening Interpretation: Negative Thrive Assessment: Date of Thrive Assessment Date Thrive assessed 01/26/25 05/31/25 09:28 Currently or been in a relationship where the following occur: No concerns reported Const General: alert; No acute distress Eyes Conjunctivae: conjunctivae normal Resp Auscultation: clear to auscultation bilaterally Cardio Rate: regular rate Rhythm: regular rhythm GI Inspection: Yes normal to inspection Extrem General: Yes normal to inspection and No edema Coding Level of Care Code Est Pt Level 4 (24288) Complex EM visit Add On G2211 Diagnoses Coronary artery disease involving [place] coronary artery of [place] heart without angina pectoris I25.10 Associated angina: without angina Coronary Disease-Associated Artery/Lesion type: [place] artery [place] vs. transplanted heart: [place] heart Hypercholesterolemia E78.00 Impaired glucose tolerance R73.02 Acquired hypothyroidism E03.9 Hypothyroidism type: acquired LFT elevation R79.89 Right kidney mass N28.89 Rectal cancer C20 Assessment & Plan Assessment & Plan (1) Coronary artery disease: Comment: November 2023 drug-eluting stent x2 Code(s): I25.10 - Atherosclerotic heart disease of [place] coronary artery without angina pectoris Category: Medical Qualifiers: Associated angina: without angina Coronary Disease-Associated Artery/Lesion type: [place] artery [place] vs. transplanted heart: [place] heart Qualified Code(s): I25.10 - Atherosclerotic heart disease of [place] coronary artery without angina pectoris Plan: Control the cholesterol, weight, blood pressure, presently on aspirin 81 mg once a day (2) Hypercholesterolemia: Code(s): E78.00 - Pure hypercholesterolemia, unspecified Category: Medical Plan: Avoid fried foods, chicken skin, eggs, butter margarine, pastries and meat. Be it pork or beef they have a lot of cholesterol patient takes atorvastatin and Zetia LDL goal of less than 70 and triglyceride of less than 150 (3) Impaired glucose tolerance: Code(s): R73.02 - Impaired glucose tolerance (oral) Category: Medical Plan: Decrease the amount of carbohydrate intake, pasta, bread, rice and potatoes are all sugar and that is aside from all the sweet stuff, remember that fruits are good but they are Sweet also. (4) Hypothyroid: Code(s): E03.9 - Hypothyroidism, unspecified Category: Medical Qualifiers: Hypothyroidism type: acquired Qualified Code(s): E03.9 - Hypothyroidism, unspecified Plan: Continue with thyroid medication (5) LFT elevation: Code(s): R79.89 - Other specified abnormal findings of blood chemistry Category: Medical Plan: This has been chronic and ultrasounds as well as MRI done revealing negative results (6) Right kidney mass: Comment: April 2025Partially exophytic multi-septated cystic mass right kidney needs further workup with MRI of the abdomen with and without contrast renal protocol. If MRI cannot be performed, consider CT. 2. Septated cyst right lobe of the liver. Code(s): N28.89 - Other specified disorders of kidney and ureter Category: Medical Plan: MRI reassuring but will be follow-up with urology (7) Rectal cancer: Onset Date: ~10/2020 Comment: (Adenocarcinoma of rectum dx 10/2020 - s/p chemo/radiation & rectosigmoid resection with loop ileostomy 07/2021 - Rad Onc = Dr. Breann Dawn, Onc = Dr. Davenport, ) Code(s): C20 - Malignant neoplasm of rectum Category: Medical Plan: Continue to follow-up with Hematology-Oncology Plan History of Present Illness The patient is a 64-year-old male presenting for follow-up of multiple chronic conditions including rectal cancer, coronary artery disease, and hypercholesterolemia. The patient has a history of rectal cancer diagnosed in 2019, for which he underwent surgical resection. He follows up regularly with hematology oncology, with the last visit noted in May 2021. His last colonoscopy was performed in 2021, with no new lesions detected. The patient has coronary artery disease and is currently on aspirin 81 mg daily. He has been prescribed atorvastatin and Zetia for hypercholesterolemia, with a target LDL of less than 70 mg/dL. Recent blood work in March 2025 showed an LDL of 85 mg/dL, indicating improvement but not yet at goal. The patient has a history of hypothyroidism and is on thyroid medication. His thyroid function tests remain within normal limits. He also has a history of spinal stenosis and a right kidney cyst, which is being monitored by urology. An abdominal MRI in May 2025 confirmed the presence of the cyst with no further complications noted. The patient was previously experiencing rectal pain attributed to constipation, for which he was advised to increase fiber intake. A recent ulnaroscopy was negative for any lesions. Blood work from May 2021 showed normal blood counts and stable renal function, though liver enzymes have been elevated for several years without progression. His fasting blood sugar was slightly elevated at 106 mg/dL, with a normal hemoglobin A1c in March. Health Maintenance - Colon cancer screening with stool test last performed in 2021 - Regular follow-up with hematology oncology - Monitoring of right kidney cyst by urology - Blood sugar monitoring due to elevated fasting glucose - Cholesterol management with atorvastatin and Zetia - Vaccinations: Up to date with tetanus and pneumonia shots Social History - Diet: Avoids fried foods, pastries, and soda; consumes beef, chicken, cereal, and avocado Review of Systems - Gastrointestinal: Denies constipation currently - Genitourinary: Denies urinary problems Physical Exam Results - Labs: Normal blood count, stable renal function, elevated liver enzymes, fasting blood sugar 106 mg/dL, normal hemoglobin A1c - Imaging: Abdominal MRI showing right kidney cyst, no liver mass, no gallstones Plan The patient will continue with aspirin 81 mg daily for coronary artery disease management. For hypercholesterolemia, the patient is currently on atorvastatin and Zetia, with a goal to reduce LDL to below 70 mg/dL. Given the current LDL level of 85 mg/dL, a switch to rosuvastatin is planned to achieve better control. The patient is advised to maintain a diet low in cholesterol and saturated fats, avoiding fried foods and pastries. Regular monitoring of blood sugar levels is recommended due to the slightly elevated fasting glucose. The patient is encouraged to continue regular follow-ups with urology for the right kidney cyst and with hematology oncology for rectal cancer surveillance. Vaccinations are up to date, and the patient is advised to consider the shingles vaccine available at the pharmacy. Patient was informed and verbally consented to the use of an ambient scribe for clinic note documentation during this visit. Discussion Notes I discussed with the patient the importance of managing cholesterol levels to reduce cardiovascular risk, emphasizing dietary changes and the potential switch to rosuvastatin for better LDL control. We reviewed the elevated liver enzymes and agreed to continue monitoring without immediate intervention, given the stable trend over the years. The patient was informed about the availability of the shingles vaccine at the pharmacy and encouraged to consider it for prevention. Patient Instructions - Continue taking aspirin 81 mg daily. - Follow a low-cholesterol diet, avoiding fried foods and pastries. - Monitor blood sugar levels regularly. - Follow up with urology and hematology oncology as scheduled. - Consider getting the shingles vaccine at the pharmacy. Orders: Orders Lipid Panel 3 Months E78.00 - Pure hypercholesterolemia, unspecified Hemoglobin A1c 3 Months E78.00 - Pure hypercholesterolemia, unspecified Comprehensive Met. Panel 3 Months E78.00 - Pure hypercholesterolemia, unspecified Thyroid Stimulating Hormone 3 Months E78.00 - Pure hypercholesterolemia, unspecified Free T4 (Free Thyroxine) 3 Months E78.00 - Pure hypercholesterolemia, unspecified Medications: New rosuvastatin 40 mg PO DAILY 30 tabs 4RF E78.00 - Pure hypercholesterolemia, unspecified Discontinued atorvastatin Discontinued Reason: Doctor's Order 80 mg PO DAILY 90 tabs 2RF
[2025-05-31 09:25] VITALS: BP 108/60; PULSE 70; TEMP 36.3; O2SAT 98; BMI 27.6
--- OUTSIDE RECORDS SUMMARY | 2025-05-31 09:57 | XMS_ITS | Clinical Summary ---
Author Organization [facility] Address [address] [place] [phone] Phone Care Team Providers Care Fire Investigation Manager Name Role Phone Chica Law MD Primary Care Provider [phone] Allergies No known active allergies Medications levothyroxine (SYNTHROID, LEVOTHROID) 200 MCG tablet Take 200 mcg by mouth every morning. Active capecitabine (XELODA) 500 MG tablet Take 1,500 mg by mouth 2 (two) times a day. Active docusate sodium (COLACE) 100 MG capsule Take 100 mg by mouth 2 (two) times a day. Active hydrocortisone- pramoxine (ANALPRAM-HC) 2.5-1 % rectal cream Place rectally 3 (three) times a day. 30 g 1 1 Active dicyclomine (BENTYL) 20 mg tablet Take 1 tablet (20 mg total) by mouth every 6 (six) hours. 30 tablet 1 1 Active Additional Information Patient not taking.Reported on 03/20/2021 Active Problems Problem Noted Date Diagnosed Date Malignant neoplasm of rectum 02/12/2021 Family History Medical History Relation Comments Cardiovascular disease Father Alzheimer's disease Mother Relation Status Comments Father Mother Social History Tobacco Use Types Packs/Day Years Used Date Smoking Tobacco: Former Cigarettes Smokeless Tobacco: Never Comments:quit 30 years ago Alcohol Use Standard Drinks/Week Comments Never 0 (1 standard drink = 0.6 oz pur e alcohol) Education Answer Date Recorded Are you interested in more education? Not on riley e 03/07/2023 Are you concerned about learning? Not on file 03/07/2023 No 03/07/2023 No 03/07/2023 Digital Access Answer Date Recorded No 04/05/2023 No 04/05/2023 No 04/05/2023 Reliable internet access at home? Not on file 04/05/2023 Device with a working camera? Not on file Sex and Gender Information Value Date Recorded Sex Assigned at Not on file Legal Sex Male 10:21 AM EST Gender Identity Not on file Sexual Orientation Not on file Last Filed Vital Signs Vital Sign Reading Time Taken Comments Blood Pressure 166/85 03/20/2021 10:39 AM EDT Pulse 79 03/20/2021 10:39 AM EDT Temperature 36.7 C (98.1 F) 02/20/2021 11:07 AM EDT Respiratory Rate 18 03/20/2021 10:39 AM EDT Oxygen Saturation 97% 03/20/2021 10:39 AM EDT Inhaled Oxygen Concentration - - Weight 77.7 kg (171 lb 6.4 oz) 03/20/2021 10:39 AM EDT Height 167.6 cm (5' 6 ) 02/13/2021 3:45 PM EDT Body Mass Index 27.66 02/13/2021 3:45 PM EDT Plan of Treatment Health Maintenance Due Date Last Done Comments DEPRESSION SCREENING 1973 SMOKING Hx and SMOKELESS TOBACCO SCREENING 1974 HEPATITIS C SCREENING 1979 HIV ONE-TIME SCREENING (18-6 5 YEARS) 1979 PNEUMOCOCCAL VACCINES (50+ years) (1 of 2 - PCV) 1980 ZOSTER VACCINES (1 of 2) 1980 COLOGUARD 2006 COLONOSCOPY 2006 COLORECTAL CANCER SCREENING 2006 FIT TEST 2006 FOBT 2006 SIGMOIDOSCOPY 2006 VIRTUAL COLONOSCOPY 2006 TSH LEVEL 03/01/2022 03/01/2021 COVID-19 VACCINE (3 - 2023-2 5 season) 2024 11/20/2020, 10/27/2020 LIPID PANEL 03/01/2026 03/01/2021 Adult Td,Tdap Booster 08/13/2029 08/13/2019 , 08/17/2018 RSV VACCINE (1 - 1-dose 75+ series) 2036 HEPATITIS A VACCINES Aged Out No long er eligible based on patient's age to complete this topic HIB VACCINES Aged Out No longer eligi ble based on patient's age to complete this topic MENINGOCOCCAL VACCINES (ACWY) Aged Out No longer eligible based on patient's age to complete this topic MENINGOCOCCAL VACCINES (B) Aged Out N o longer eligible based on patient's age to complete this topic Medical Devices Implanted Type Area Highway Painter Device Identifier Shelf Expiration Date Model / Serial / Lot Port Port Procedures Procedure Name Priority Date/Time Associated Diagnosis Comments LIPID PANEL Routine 03/01/2021 10:49 AM EDT Hypothyroidism, unspecified type TSH Routine 03/01/2021 10:49 AM EDT Hypothyroidism, unspecified type from Last 3 Months or Most Recently Relevant to Health Maintenance Results * (ABNORMAL) TSH (03/01/2021 10:49 AM EDT) TSH 139.00(H) 0.27 - 4.20 uIU/mL [facility] Blood 03/01/2021 10:4 9 AM EDT 03/01/2021 10:50 AM EDT us Chica Law MD LAB BLOOD ORDERABLES Final Re sult [facility] [address] [place] [address] * (ABNORMAL) Lipid panel (03/01/2021 10:49 AM EDT) HDL 44 mg/dL [facility] Comment: Interpretation <40 mg/dL: Low HDL cholesterol (major risk factor for CHD) Greater than or equal to 60 mg/dL: High HDL cholesterol ( negative risk factor for CHD) HDL - cholesterol is affected by a number of factors, e.g. smoking, excerise, hormones, sex and age. CHOLESTEROL 219 0 - 240 mg/dL [facility] TRIGLYCERIDES 378(H) 30 - 160 mg/dL [facility] LDL 99 50 - 129 mg/dL [facility] Comment: LDL levels in terms of risk for coronary heart disease: <100 mg/dL: Optimal 100-129 mg/dL: Near or above optimal 130-159 mg/dL: Borderline high 160-189 mg/dL: High >190 mg/dL: Very High CARDIAC RISK RATIO 5.0 3.4 - 5.0 [facility] Blood 03/01/2021 10:4 9 AM EDT 03/01/2021 10:50 AM EDT Chica Law MD LAB BLOOD ORDERABLES Final Re sult [address] [phone] from Last 3 Months or Most Recently Relevant to Health Maintenance Insurance [employer] [facility] [employer] Care Teams Fire Investigation Manager Relationship Specialty Start Date End Date Chica Law MD [address] [place] [id number] PCP - General Internal Medicine 12/04/20 Additional Source Comments The information contained in this document represents components of the legal health record. It is not the complete legal health record.[facility]
--- OUTSIDE RECORDS SUMMARY | 2025-05-31 09:57 | XMS_ITS | Clinical Summary ---
Author Organization [facility] Address [address] [place] [phone] Phone Care Team Providers Care Terrazzo Finisher Helper Name Role Phone Chica Law MD Primary Care Provider Medications Pramoxine-HC (Hydrocortisone Sai-Pramoxine) 2.5-1 % cream [...] Cancer Screening: Sigmoidoscopy 2010 Influenza Vaccine (#1) 2025 Hepatitis B Vaccine Aged Out No longe r eligible based on patient's age to complete this topic Insurance Comprehensive Benefits Comprehensive Benefits Care Teams Terrazzo Finisher Helper Relationship Specialty Start Date End Date Chica Law MD [facility] [place] [address] [place], [place] PCP - General Internal Medicine 08/10/21
== END 2025-05-31 09:54 | disposition home or self-care (01) ==
LOC: HO.HMCH 09:23
PROVIDERS: PCP Internal Medicine; Visit Provider Internal Medicine
DX: I25.10 Atherosclerotic heart disease of native coronary artery without angina pectoris (principal); E78.00 Pure hypercholesterolemia, unspecified; C20 Malignant neoplasm of rectum; R73.02 Impaired glucose tolerance (oral); E03.9 Hypothyroidism, unspecified; R79.89 Other specified abnormal findings of blood chemistry; N28.89 Other specified disorders of kidney and ureter

== ENCOUNTER 2025-06-14 14:27 | Outpatient (AMB) | payer OTHER, SELFPAY ==
--- NOTE | 2025-06-14 14:29 | A.OFFVIS_ITS ---
Intake Visit Reasons: renal cyst Intake Note: New Patient is present for RENAL CYST Urology Rx:NONE Blood Thinners:ASPRIN Imaging completed: 04/29/25 Nurse Informatics Educator Required: No Accompanied by: Self / Same As Patient Allergies No Known Allergies Allergy (Mild, Verified 06/14/25 14:30) N/A HPI Comments Details: Flynn is a pleasant male. He is a patient of Dr. SMITH. He is seen for the following urologic conditions - renal cyst Discussed imaging findings Imaging cyst Plan yearly surveillance Renal cyst - 06/03 renal ultrasound Incidental parapelvic cyst midpole measuring 1.5 x 1.8 x 1.1 cm. Complex multi-septated cyst midpole partially exophytic measures 2.8 x 2.2 x 1.7 cm - 06/03 renal MRI 2.7 x 1.7 x 1.6 cm septated cyst at the lower pole of the right kidney corresponding to the abnormality noted on ultrasound PFSH Medical History Anal pain History of rectal cancer Prediabetes H/O non-ST elevation myocardial infarction (NSTEMI) Coronary artery disease Blood per rectum Ileostomy in place COVID-19 virus infection TRUMAN (acute kidney injury) COVID-19 virus infection History of radiation therapy (~2020) Postoperative ileus (~07/2021) COVID-19 vaccine administered History of chemotherapy (~2020) Port-A-Cath in place Hypercholesterolemia Vitamin D deficiency Rectal cancer (~10/2020) Hypothyroid Prolapsed hemorrhoids Surgical History Hx of cardiac catheterization (~11/2023) Status post angioplasty History of coronary artery stent placement History of reversal of ileostomy History of colonoscopy History of hemorrhoidectomy History of colon resection History of flexible sigmoidoscopy History of amputation of finger Family History Father CVD (cardiovascular disease) Mother No problems noted. Social History Household Members: Spouse and Significant Other Housing: House Are you a primary manager wound care to a significant other at home: No Do you presently have visiting nurse or other home services: No Alcohol intake: never Patient Tobacco Use Status: Former Tobacco user Tobacco use type: Cigarette Cigarettes Per Day: 10 Years Smoked: 30 e-Cigarette/Vaping Use: Never Used Second Hand Smoke Exposure: No Advance Directives Date on File: 01/15/21 service: No Current occupational status: employed Cognitive needs: No Hearing needs: No Vision needs: Yes Review of Systems Const Denies chills and Denies fever(s) Card Reports no additional complaints and Denies syncope Resp Denies cough GI Denies abdominal pain and Denies heartburn Reports as per HPI and Denies change in libido Neuro Denies syncope Psych Denies change in libido Endo Denies change in libido Physical Exam Const General: cooperative, healthy appearing, comfortable and no acute distress Orientation/consciousness: patient oriented x3 HEENT Face and sinus: Yes normal facial exam Mouth: moist mucous membranes Neck Neck: Yes normal visual inspection, Yes full ROM and Yes trachea midline Chest Chest palpation & inspection: normal inspection of the chest Resp Effort & Inspection: normal respiratory effort, able to speak in complete sentences and no respiratory distress GI Inspection: Yes normal to inspection Back/Spine/Pelvis Cervical Spine: normal cervical lordosis Thoracic/Lumbar Spine: thoracic and lumbar spine normal to inspection Skin General skin exam: no rashes or lesions noted Neuro General: patient oriented x3, gait normal, tone normal and moves all extremities Extrem General: Yes normal to inspection and Yes capillary refill normal Results AMB Urinalysis, Automated UA Leukoctes 0 Isaiah/uL Last Edit by Radha Meng MA on 06/14/25 17:06 UA Nitrite Negative Last Edit by Radha Meng MA on 06/14/25 17:06 UA Urobilinogen 0.2 mg/dL Last Edit by Radha Meng MA on 06/14/25 17:06 UA Protein 0 mg/dL Last Edit by Radha Meng MA on 06/14/25 17:06 UA pH 6.0 Last Edit by Radha Meng MA on 06/14/25 17:06 UA Blood 25 Ganesh/uL Last Edit by Radha Meng MA on 06/14/25 17:06 UA Specific [place] 1.015 Last Edit by Radha Meng MA on 06/14/25 17:06 UA Ketone Negative Last Edit by Radha Meng MA on 06/14/25 17:06 UA Bilirubin 0 mg/dL Last Edit by Radha Meng MA on 06/14/25 17:06 UA Glucose 0 mg/dL Last Edit by Radha Meng MA on 06/14/25 17:06 Results Reviewed Results Reviewed: Laboratory Last Values Urine pH (Auto) 6.0 06/14/25 16:51 Specific [place] (Auto) 1.015 06/14/25 16:51 Urine Protein (Auto) 0 mg/dL 06/14/25 16:51 Glucose (UA)(Auto) 0 mg/dL 06/14/25 16:51 Urine Ketones (Auto) Negative 06/14/25 16:51 Urine Blood (Auto) 25 Ganesh/uL 06/14/25 16:51 Urine Nitrite (Auto) Negative 06/14/25 16:51 Urine Bilirubin (Auto) 0 mg/dL 06/14/25 16:51 Urine Urobilinogen (Auto) 0.2 mg/dL 06/14/25 16:51 Leukocyte Esterase (Auto) 0 Isaiah/uL 06/14/25 16:51 Assessment & Plan Assessment & Plan (1) Complex renal cyst: Code(s): N28.1 - Cyst of kidney, acquired Category: Medical Plan Imaging surveillance Orders: Orders AMB Urinalysis Automated 06/14/25 N28.1 - Cyst of kidney, acquired US renal BI 12 Months N28.1 - Cyst of kidney, acquired Patient Instructions: This note is constructed using voice recognition software. While every effort has been made to ensure accuracy booth cashier errors may have been included. Imaging studies, laboratory and physical exam results were discussed and reviewed in detail. No major barriers to patient understanding were identified. An opportunity to ask questions regarding the treatment plan was provided. All questions were answered. The patient expressed understanding and agreement with the above treatment plan. The patient is aware they should contact our office by phone for worsening of their current condition or the appearance of new urologic symptoms. Compliance is encouraged with any medications and followup testing that is ordered. It is a privilege to participate in the urologic care of your patient. If you have any questions or concerns regarding treatment for the above conditions, or other urologic issues, please do not hesitate to contact me. The office telephone contact is [phone]. Sincerely, Dr Julian Quijano MD, [facility] - Urology Compassionate Specialist Care for the Genitourinary System Coding Level of Care Code New Pt Level 3 (94230) Diagnoses Complex renal cyst N28.1
--- OUTSIDE RECORDS SUMMARY | 2025-06-14 15:07 | XMS_ITS | Clinical Summary ---
Author Organization [facility] Address [address] [place] [address] Phone Care Team Providers Care Distillation Operator Name Role Phone Chica Law MD Primary Care Provider [phone] Medications Pramoxine-HC (Hydrocortisone Sai-Pramoxine) 2.5-1 % cream [...] Insurance Comprehensive Benefits Comprehensive Benefits Care Teams Distillation Operator Relationship Specialty Start Date End Date Chica Law MD [facility] [place] [address] [place], [place] PCP - General Internal Medicine 08/10/21
--- OUTSIDE RECORDS SUMMARY | 2025-06-14 15:07 | XMS_ITS | Clinical Summary ---
Author Organization [facility] Address [address] [place] [address] Phone Care Team Providers Care Radio Division Officer Name Role Phone Thanh Chica Olivier MD Primary Care Provider [phone] Allergies No known active allergies Medications levothyroxine [...] this topic Medical Devices Implanted Type Area Distribution Supervisor Device Identifier Shelf Expiration Date Model / [...] EDT) TSH 139.00(H) 0.27 - 4.20 uIU/mL [facility] Blood 03/01/2021 10:4 9 AM EDT 03/01/2021 10:50 AM EDT us Chica Law MD LAB BLOOD ORDERABLES Final Re sult [facility] [address] [place] [address] * (ABNORMAL) Lipid panel (03/01/2021 10:49 AM EDT) HDL 44 mg/dL [facility] Comment: Interpretation <40 mg/dL: Low HDL cholesterol (major risk factor for CHD) Greater than or equal to 60 mg/dL: High HDL cholesterol ( negative risk factor for CHD) HDL - cholesterol is affected by a number of factors, e.g. smoking, excerise, hormones, sex and age. CHOLESTEROL 219 0 - 240 mg/dL [facility] TRIGLYCERIDES 378(H) 30 - 160 mg/dL [facility] LDL 99 50 - 129 mg/dL [facility] Comment: LDL levels in terms of risk for coronary heart disease: <100 mg/dL: Optimal 100-129 mg/dL: Near or above optimal 130-159 mg/dL: Borderline high 160-189 mg/dL: High >190 mg/dL: Very High CARDIAC RISK RATIO 5.0 3.4 - 5.0 C [facility] Blood 03/01/2021 10:4 9 AM EDT 03/01/2021 10:50 AM EDT Chica Law MD LAB BLOOD ORDERABLES Final Re sult [address] [phone] from Last 3 Months or Most Recently Relevant to Health Maintenance Insurance [employer] B[employer] [facility] [employer] ADMINISTRATORS Care Teams Radio Division Officer Relationship Specialty Start Date End Date Chica Law MD [address] [place] [id number] PCP - General Internal Medicine 12/04/20 Additional Source Comments The information contained in this document represents components of the legal health record. It is not the complete legal health record.[facility]
== END 2025-06-14 15:05 | disposition home or self-care (01) ==
LOC: HO.HUSH 14:27
PROVIDERS: PCP Internal Medicine; Visit Provider Urology
DX: N28.1 Cyst of kidney, acquired (principal)
CPT/HCPCS: 99203

== ENCOUNTER → 2025-06-14 14:27 | Outpatient (BNVA) | payer OTHER, SELFPAY | PROVIDERS: PCP Internal Medicine; Visit Provider Urology | DX: N28.1 Cyst of kidney, acquired (principal) | CPT/HCPCS: 81003 ==

== ENCOUNTER 2025-09-07 09:23 | Outpatient (AMB) | payer OTHER, SELFPAY ==
[2025-09-07 09:30] VITALS: BP 100/60; PULSE 58; BMI 28.5
--- NOTE | 2025-09-07 09:30 | MHC.OFFVIS ---
Vital Signs 09/07/25 09:30 Height 5 ft 6 in Weight 176 lb 5.917 oz BMI 28.5 BP 100/60 Blood Pressure Location Lt brachial Position Sitting Pulse 58 Pulse Source Pulse Oximeter Intake Visit Reasons: 6m follow up Intake Note: 6 mth f/up Mri Supervisor Required: No Accompanied by: Self / Same As Patient Allergies No Known Allergies Allergy (Mild, Verified 06/14/25 14:30) N/A Medication List - Last Reconciled 09/07/25 by Jony Newton MD aspirin 81 mg PO DAILY ezetimibe (Zetia) 10 mg PO DAILY hydrocortisone acetate (Anusol-HC) 25 mg [place] BID 2 weeks hydrocortisone acetate (Anucort-HC) 25 mg [place] BID PRN levothyroxine 150 mcg PO DAILY menthol-zinc oxide 0.44-20.6 % (Calmoseptine) 1 appl topical QID PRN metoprolol succinate ER 25 mg PO DAILY psyllium seed (sugar) (Metamucil (sugar) oral powder) 1 tbsp PO DAILY rosuvastatin 40 mg PO DAILY HPI Comments Details: Pleasant 64 year gentleman who is here for 1st office visit. He recently presented to [facility] in November 2023 with chest pain. He was exercising and developed some burning sensation in his chest and left arm discomfort. Came to the emergency department and ruled in for NSTEMI and was transferred to [facility]. He underwent cardiac catheterization there where severe OM and RCA stenosis was noted any was treated with 2 drug-eluting stents with intravascular ultrasound guidance. He had moderate LAD and 70% diagonal stenosis which was medically managed. He has been doing well since then and has no chest discomfort. He has been exercising on his own. He has not heard from cardiac rehabilitation yet. He has a former smoker. He is prediabetic. 06/23/2024: He returns for follow-up. He has been doing well. No chest pain or shortness of breath. Blood pressure is mildly low but he has no symptoms. He was advised to increase hydration. 02/09/2025: He returns for follow-up. Blood pressure is well controlled. No exertional symptoms. No bleeding. He has been taking medications regularly except aspirin which he accidentally stopped for some time but he is back on aspirin at this stage. I have advised him that aspirin is lifelong medication for him and should not be stopped. 09/07/2025: He is here for follow-up. Continues to be asymptomatic. Blood pressure well controlled. His last LDL cholesterol was 85. He is currently on rosuvastatin 40 mg and ezetimibe 10 mg daily. He is taking baby aspirin. [facility] Medical History Anal pain History of rectal cancer Prediabetes H/O non-ST elevation myocardial infarction (NSTEMI) Coronary artery disease Blood per rectum Ileostomy in place COVID-19 virus infection TRUMAN (acute kidney injury) COVID-19 virus infection History of radiation therapy (~2020) Postoperative ileus (~07/2021) COVID-19 vaccine administered History of chemotherapy (~2020) Port-A-Cath in place Hypercholesterolemia Vitamin D deficiency Rectal cancer (~10/2020) Hypothyroid Prolapsed hemorrhoids Surgical History Hx of cardiac catheterization (~11/2023) Status post angioplasty History of coronary artery stent placement History of reversal of ileostomy History of colonoscopy History of hemorrhoidectomy History of colon resection History of flexible sigmoidoscopy History of amputation of finger Family History Father CVD (cardiovascular disease) Mother No problems noted. Social History Household Members: Spouse and Significant Other Housing: House Are you a primary medicare sales representative to a significant other at home: No Do you presently have visiting nurse or other home services: No Alcohol intake: never Patient Tobacco Use Status: Former Tobacco user Tobacco use type: Cigarette Cigarettes Per Day: 10 Years Smoked: 30 e-Cigarette/Vaping Use: Never Used Second Hand Smoke Exposure: No Advance Directives Date on File: 01/15/21 service: No Current occupational status: employed Cognitive needs: No Hearing needs: No Vision needs: Yes Review of Systems Const Denies chills, Denies fatigue, Denies fever(s), Denies frequent falls, Denies weakness, Denies weight gain and Denies weight loss ENT Denies dizziness Card Denies chest pain, Denies leg edema, Denies lightheadedness, Denies palpitations, Denies dyspnea and Denies dyspnea on exertion Resp Denies cough, Denies dyspnea and Denies dyspnea on exertion GI Denies hematochezia Musc Denies abnormal gait, Denies muscle weakness, Denies numbness, Denies radiating pain into limb and Denies tingling Neuro Denies abnormal gait, Denies dizziness, Denies frequent falls, Denies numbness, Denies tingling and Denies weakness Endo Denies fatigue and Denies palpitations Physical Exam Vital Signs: Last Vital Signs Pulse 58 09/07/25 09:30 BP 100/60 09/07/25 09:30 BMI result Body Mass Index 28.5 GENERAL APPEARANCE: in no acute distress, pleasant. NECK: no carotid bruit, no jugular venous distention. SKIN: no suspicious lesions, warm and dry. HEART: no murmurs, regular rate and rhythm. LUNGS: clear to auscultation bilaterally. ABDOMEN: soft, nontender. EXTREMITIES: no edema. PERIPHERAL PULSES: equal. NEUROLOGIC: No gross deficits, AAO X 3 Assessment & Plan Assessment & Plan (1) Coronary artery disease: Comment: November 2023 drug-eluting stent x2 Code(s): I25.10 - Atherosclerotic heart disease of [place] coronary artery without angina pectoris Category: Medical Qualifiers: Coronary Disease-Associated Artery/Lesion type: [place] artery [place] vs. transplanted heart: [place] heart Associated angina: without angina Qualified Code(s): I25.10 - Atherosclerotic heart disease of [place] coronary artery without angina pectoris (2) Stable angina: Code(s): I20.89 - Other forms of angina pectoris Category: Medical Plan 64 year gentleman who is here for follow-up. He has background history of rectal cancer with previous surgery with colonoscopy over the last year which was normal. He had PCI to right coronary artery in the setting of acute coronary syndrome and was on aspirin and ticagrelor. He has stopped the ticagrelor after 1 year and is currently on aspirin monotherapy. He has been tolerating it well. No bleeding. Blood pressure is well controlled. He is on rosuvastatin 40 mg and ezetimibe. We should repeat fasting lipid panel. Target LDL is less than 55. Thank you for allowing me to participate in the care of your patient. Please feel free to contact me if you have any questions. Coding Level of Care Code Est Pt Level 4 (25058) Diagnoses Coronary artery disease involving [place] coronary artery of [place] heart without angina pectoris I25.10 Coronary Disease-Associated Artery/Lesion type: [place] artery [place] vs. transplanted heart: [place] heart Associated angina: without angina Stable angina I20.89
--- OUTSIDE RECORDS SUMMARY | 2025-09-07 10:52 | XMS_ITS | Encounter Summary ---
Author Organization [facility] Address [address] [place] [address] Phone Care Team Providers Care Color Control Supervisor Name Role Phone Chica Law MD Primary Care Provider [phone] Encounter Details Date Type Department Care Team (Late st Contact Info) Description 12/08/2020 Ancillary Orders [facility],Outside Imaging [address] [place] [address] System, Provider Not In, [facility] [address] [address] Social History Tobacco Use Types Packs/Day Years Used Date Smoking Tobacco: Never Assessed Sex and Gender Information Value Date Recorded Sex Assigned at Not on file Legal Sex Male 10:21 AM EST Gender Identity Not on file Sexual Orientation Not on file documented as of this encounter Plan of Treatment Not on file documented as of this encounter Results * CT Abdomen/Pelvis Outside (No Interpretation) (11/28/2020 12:00 AM EST) Narrative SYSTEMGENERATED, DOCUMENTATION - 12/08/2020 1:14 PM EST This study is for PACS storage only and not for interpretation. us Provider Not In System PhD IMG OUTSIDE IMAGING W /OUT INTERPRETATION Final Result documented in this encounter Visit Diagnoses Not on filedocumented in this encounter Care Teams Color Control Supervisor Relationship Specialty Start Date End Date Chica Law MD [address] [place] [id number] PCP - General Internal Medicine 12/04/20 documented as of this encounter Additional Source Comments The information contained in this document represents components of the legal health record. It is not the complete legal health record.[facility]
--- OUTSIDE RECORDS SUMMARY | 2025-09-07 10:52 | XMS_ITS | Clinical Summary ---
Author Organization [facility] Address [address] [place] [address] Phone Care Team Providers Care Wire Drawing Setter Name Role Phone Chica Law MD Primary Care Provider [phone] Medications Pramoxine-HC (Hydrocortisone Sai-Pramoxine) 2.5-1 % cream [...] Insurance Comprehensive Benefits Comprehensive Benefits Care Teams Wire Drawing Setter Relationship Specialty Start Date End Date Chica Law MD [facility] [place] [place] [address] [place], [place] PCP - General Internal Medicine 08/10/21
--- OUTSIDE RECORDS SUMMARY | 2025-09-07 10:52 | XMS_ITS | Clinical Summary ---
Author Organization [facility] Address [address] [place] [address] Phone Care Team Providers Care Neuropathologist Name Role Phone Chica Law MD Primary Care Provider [phone] Allergies No known active allergies Medications levothyroxine [...] HEPATITIS C SCREENING 1979 HIV ONE-TIME SCREENING (18-65 YEARS) 1979 PNEUMOCOCCAL VACCINES (50+ years) (1 of 2 - PCV) 1980 ZOSTER VACCINES (1 of 2) 1980 COLOGUARD 2006 COLONOSCOPY 2006 COLORECTAL CANCER SCREENING 2006 FIT TEST 2006 FOBT 2006 SIGMOIDOSCOPY 2006 VIRTUAL COLONOSCOPY 2006 TSH LEVEL 03/01/2022 03/01/2021 INFLUENZA VACCINE (#1) 2025 0, 08/19/2019, 08/19/2019, Additional history exists COVID-19 VACCINE ( season) 2025 11/20/2020, 10/27/2020 LIPID PANEL 03/01/2026 03/01/2021 Adult Td,Tdap Booster 08/13/2029 08/13/2019, 10/08/2 018 RSV VACCINE (1 - 1-dose 75+ series) [...] this topic Medical Devices Implanted Type Area Facility Rehab Director Device Identifier Shelf Expiration Date Model / [...] EDT) TSH 139.00(H) 0.27 - 4.20 uIU/mL [facility] Blood 03/01/2021 10:4 9 AM EDT 03/01/2021 10:50 AM EDT Chica Law MD LAB BLOOD ORDERABLES Final Re sult [address] [address] * (ABNORMAL) Lipid panel (03/01/2021 10:49 AM EDT) HDL 44 mg/dL [facility] Comment: Interpretation <40 mg/dL: Low HDL cholesterol (major risk factor for CHD) Greater than or equal to 60 mg/dL: High HDL cholesterol ( negative risk factor for CHD) HDL - cholesterol is affected by a number of factors, e.g. smoking, excerise, hormones, sex and age. CHOLESTEROL 219 0 - 240 mg/dL [facility] TRIGLYCERIDES 378(H) 30 - 160 mg/dL [facility] LDL 99 50 - 129 mg/dL [facility] Comment: LDL levels in terms of risk for coronary heart disease: <100 mg/dL: Optimal 100-129 mg/dL: Near or above optimal 130-159 mg/dL: Borderline high 160-189 mg/dL: High >190 mg/dL: Very High CARDIAC RISK RATIO 5.0 3.4 - 5.0 C [facility] Blood 03/01/2021 10:4 9 AM EDT 03/01/2021 10:50 AM EDT us Chica Law MD LAB BLOOD ORDERABLES Final Re sult [facility] [address] [place] [address] from Last 3 Months or Most Recently Relevant to Health Maintenance Insurance [employer] BENEFITS ADMINISTRATORS [employer] BENEFITS ADMINISTRATORS [employer] BENEFITS ADMINISTRATORS [employer] BENEFITS ADMINISTRATORS [employer]ENEFITS [employer]MINISTRATORS [employer]ENEFITS ADMINISTRATORS [employer] Care Teams Neuropathologist Relationship Specialty Start Date End Date Chica Law MD [address] [place] [address] PCP - General Internal Medicine 12/04/20 Additional Source Comments The information contained in this document represents components of the legal health record. It is not the complete legal health record.[facility]
--- OUTSIDE RECORDS SUMMARY | 2025-09-07 10:53 | XMS_ITS | Encounter Summary ---
Author Organization [facility] Address [address] [place] [address] Phone Care Team Providers Care Rabbit Dresser Name Role Phone Chica Law MD Primary Care Provider [phone] Encounter Details Date Type Department Care Team (Late st Contact Info) Description 12/08/2020 Ancillary Orders [facility],Outside Imaging [address] [place] [address] System, Provider Not In, [facility] [address] [address] Social History Tobacco Use Types Packs/Day Years Used Date Smoking Tobacco: Never Assessed Sex and Gender Information Value Date Recorded Sex Assigned at Not on file Legal Sex Male 10:21 AM EST Gender Identity Not on file Sexual Orientation Not on file documented as of this encounter Plan of Treatment Not on file documented as of this encounter Results * MRI Pelvis (Soft Tissue) Outside (No Interpretation) (11/16/2020 12:00 AM EST) Narrative SYSTEMGENERATED, DOCUMENTATION - 12/08/2020 1:19 PM EST This study is for PACS storage only and not for interpretation. us Provider Not In System PhD IMG OUTSIDE IMAGING W /OUT INTERPRETATION Final Result documented in this encounter Visit Diagnoses Not on filedocumented in this encounter Care Teams Rabbit Dresser Relationship Specialty Start Date End Date Chica Law MD [address] [place] [phone] PCP - General Internal Medicine 12/04/20 documented as of this encounter Additional Source Comments The information contained in this document represents components of the legal health record. It is not the complete legal health record.[facility]
== END 2025-09-07 09:46 | disposition home or self-care (01) ==
LOC: HO.HCS 09:23
PROVIDERS: PCP Internal Medicine; Visit Provider Internal Medicine Cardiovascular Disease
DX: I25.10 Atherosclerotic heart disease of native coronary artery without angina pectoris (principal); I20.89 Other forms of angina pectoris
CPT/HCPCS: 99214

== ENCOUNTER 2025-09-14 09:06 | Outpatient (REF) | payer OTHER, SELFPAY ==
--- OUTSIDE RECORDS SUMMARY | 2025-09-14 09:47 | XMS_ITS | Encounter Summary ---
Author Organization [facility] Address [address] [place] [address] Phone Care Team Providers Care Labor And Employment Paralegal Name Role Phone Chica Law MD Primary Care Provider [phone] Encounter Details Date Type Department Care Team (Late st Contact Info) Description 12/08/2020 Ancillary Orders [facility],Outside Imaging [address] [place] [address] System, Provider Not In, PhD Partners [address] [address] Social History Tobacco Use Types Packs/Day Years [...] on filedocumented in this encounter Care Teams Labor And Employment Paralegal Relationship Specialty Start Date End Date Chica Law MD [address] [place] [id number] PCP - General Internal Medicine 12/04/20 documented as of this encounter Additional Source Comments The information contained in this document represents components of the legal health record. It is not the complete legal health record.[facility]
--- OUTSIDE RECORDS SUMMARY | 2025-09-14 09:47 | XMS_ITS | Clinical Summary ---
Author Organization [facility] Address [address] [place] [address] Phone Care Team Providers Care Fishing Tool Technician Oil Well Name Role Phone Chica Law MD Primary Care Provider [phone] Medications Pramoxine-HC (Hydrocortisone Sai-Pramoxine) 2.5-1 % cream [...] Insurance Comprehensive Benefits Comprehensive Benefits Care Teams Fishing Tool Technician Oil Well Relationship Specialty Start Date End Date Chica Law MD [facility] [place] [address] [place], [place] PCP - General Internal Medicine 08/10/21
--- OUTSIDE RECORDS SUMMARY | 2025-09-14 09:47 | XMS_ITS | Clinical Summary ---
Author Organization [facility] Address [address] [place] [address] Phone Care Team Providers Care Guest Advisor Name Role Phone Chica Law MD Primary Care Provider [phone] Allergies No known active allergies Medications levothyroxine [...] this topic Medical Devices Implanted Type Area Monitoring Engineer Device Identifier Shelf Expiration Date Model / Serial / Lot Port Port Procedures Procedure Name Priority Date/Time Associated Diagnosis Comments LIPID PANEL Routine 03/01/2021 10:49 AM EDT Hypothyroidism, unspecified type THYROID STIMULATING HORMONE (TSH) Routine 03/01/2021 10:49 AM EDT Hypothyroidism, unspecified type from Last 3 Months or Most Recently Relevant to Health Maintenance Results * (ABNORMAL) TSH (03/01/2021 10:49 AM EDT) TSH 139.00(H) 0.27 - 4.20 uIU/mL [facility] Blood 03/01/2021 10:4 9 AM EDT 03/01/2021 10:50 AM EDT Chica Law MD LAB BLOOD BKR ORDERABLES Jasmin l Result [address] [id number] * (ABNORMAL) Lipid panel (03/01/2021 10:49 AM EDT) HDL 44 mg/dL [facility] Comment: Interpretation <40 mg/dL: Low HDL cholesterol (major risk factor for CHD) Greater than or equal to 60 mg/dL: High HDL cholesterol ( negative risk factor for CHD) HDL - cholesterol is affected by a number of factors, e.g. smoking, excerise, hormones, sex and age. CHOLESTEROL 219 0 - 240 mg/dL [facility] TRIGLYCERIDES 378(H) 30 - 160 mg/dL [facility] LDL 99 50 - 129 mg/dL [facility] Comment: LDL levels in terms of risk for coronary heart disease: <100 mg/dL: Optimal 100-129 mg/dL: Near or above optimal 130-159 mg/dL: Borderline high 160-189 mg/dL: High >190 mg/dL: Very High CARDIAC RISK RATIO 5.0 3.4 - 5.0 [facility] Blood 03/01/2021 10:4 9 AM EDT 03/01/2021 10:50 AM EDT us Chica Law MD LAB BLOOD BKR ORDERABLES Jasmin correa Result [facility] [address] [place] [address] from Last 3 Months or Most Recently Relevant to Health Maintenance Insurance [employer]MINISTRATORS [employer] ADMINISTRATORS [employer] ADMIN[employer]RAT[employer] B[employer] ADMINISTRATORS [employer] ADMINISTRAT[employer] B[employer] ADMINISTRATORS [employer] B[employer] ADMINISTRATORS [employer] ADMINISTRATORS [employer] ADMINISTRATORS Care Teams Guest Advisor Relationship Specialty Start Date End Date Chica Law MD [address] [place] [address] PCP - General Internal Medicine 12/04/20 Additional Source Comments The information contained in this document represents components of the legal health record. It is not the complete legal health record.[facility]
--- OUTSIDE RECORDS SUMMARY | 2025-09-14 09:48 | XMS_ITS | Encounter Summary ---
Author Organization [facility] Address [address] [place] [address] Phone Care Team Providers Care Feed Mill Tender Name Role Phone Chica Law MD Primary Care Provider [phone] Encounter Details Date Type Department Care Team (Late st Contact Info) Description 12/08/2020 Ancillary Orders [facility],Outside Imaging [address] [place] [address] System, Provider Not In, PhD Partners [address] [address] Social History Tobacco Use Types Packs/Day Years [...] on filedocumented in this encounter Care Teams Feed Mill Tender Relationship Specialty Start Date End Date Chica Law MD [address] [place] [phone] PCP - General Internal Medicine 12/04/20 documented as of this encounter Additional Source Comments The information contained in this document represents components of the legal health record. It is not the complete legal health record.[facility]
[2025-09-14 10:01] LABS: Total Hemoglobin (HGBA1C) 3678.2307 umol/L
[2025-09-14 10:25] LABS: Alanine Aminotransferase 97 U/L (0-40); Albumin Level 4.2 g/dL (3.5-5.0); Alkaline Phosphatase 115 U/L (39-117); Anion Gap 5 (12-20); Aspartate Amino Transferase 83 U/L (5-37); Blood Urea Nitrogen 25 mg/dL (9-16); Calcium 8.8 mg/dL (8.4-10.2); Carbon Dioxide 29 mmol/L (22-29); Chloride 110 mmol/L (96-108); Cholesterol 122 mg/dL (<200); Estimated Glomerular Filt Rate > 60; HDL Cholesterol 39 mg/dL (>40); Potassium 4.3 mmol/L (3.3-5.1); Sodium 140 mmol/L (135-145); Total Protein 7.0 g/dL (6.5-8.0); Triglycerides 71 mg/dL (<150)
[2025-09-14 10:58] LABS: Free T4 (Free Thyroxine) 0.83 ng/dL (0.71-1.85); Thyroid Stimulating Hormone 7.46 uIU/mL (0.32-4.0)
== END 2025-09-14 09:07 | disposition home or self-care (01) ==
LOC: HO.LAB 09:06
PROVIDERS: PCP Internal Medicine; Visit Provider Internal Medicine
DX: E78.00 Pure hypercholesterolemia, unspecified (principal); Z13.1 Encounter for screening for diabetes mellitus
CPT/HCPCS: 36415; 80053; 80061; 83036; 84439; 84443

== ENCOUNTER 2025-09-22 08:24 | Outpatient (AMB) | payer OTHER, SELFPAY ==
--- NOTE | 2025-09-22 08:27 | MHC.PC.OV ---
Vital Signs 09/22/25 08:28 Height 5 ft 6 in Weight 178 lb BMI 28.7 BP 118/70 Blood Pressure Location Lt brachial Position Sitting Pulse 58 Pulse Source Pulse Oximeter Pulse Oximetry (%) 98 Oxygen Delivery Method Room Air Intake Visit Reasons: cholesterol, CAD Allergies No Known Allergies Allergy (Mild, Verified 09/22/25 08:28) N/A Medication List - Last Reconciled 09/22/25 by Chica Law MD aspirin 81 mg PO DAILY ezetimibe (Zetia) 10 mg PO DAILY hydrocortisone 2.5% (Proctosol HC) 1 appl IN BID-QID PRN hydrocortisone acetate (Anucort-HC) 25 mg IN BID PRN levothyroxine Take 1 tablet q.day except for Friday to take 2 tablets. orally; menthol-zinc oxide 0.44-20.6 % (Calmoseptine) 1 appl topical QID PRN metoprolol succinate ER 25 mg PO DAILY psyllium seed (sugar) (Metamucil (sugar) oral powder) 1 tbsp PO DAILY rosuvastatin 40 mg PO DAILY Tobacco use date assessed: 05/31/25 Dental Screening Dental Screen Date: 05/31/25 [facility] Medical History Anal pain History of rectal cancer Prediabetes H/O non-ST elevation myocardial infarction (NSTEMI) Coronary artery disease Blood per rectum Ileostomy in place COVID-19 virus infection TRUMAN (acute kidney injury) COVID-19 virus infection History of radiation therapy (~2020) Postoperative ileus (~07/2021) COVID-19 vaccine administered History of chemotherapy (~2020) Port-A-Cath in place Hypercholesterolemia Vitamin D deficiency Rectal cancer (~10/2020) Hypothyroid Prolapsed hemorrhoids Surgical History Hx of cardiac catheterization (~11/2023) Status post angioplasty History of coronary artery stent placement History of reversal of ileostomy History of colonoscopy History of hemorrhoidectomy History of colon resection History of flexible sigmoidoscopy History of amputation of finger Family History Father CVD (cardiovascular disease) Mother No problems noted. Social History Household Members: Spouse and Significant Other Housing: House Are you a primary home care chaplain to a significant other at home: No Do you presently have visiting nurse or other home services: No Alcohol intake: never Patient Tobacco Use Status: Former Tobacco user Tobacco use type: Cigarette Cigarettes Per Day: 10 Years Smoked: 30 Packs per year/per ci.00 e-Cigarette/Vaping Use: Never Used Second Hand Smoke Exposure: No Advance Directives Date on File: 01/15/21 service: No Current occupational status: employed Cognitive needs: No Hearing needs: No Vision needs: Yes Questionnaire PHQ-9 Over the last 2 weeks, how often have you been bothered by any of the following problems? 1. Little interest or pleasure in doing things: not at all 2. Feeling down, depressed, or hopeless: not at all 3. Trouble falling or staying asleep, or sleeping too much: not at all 4. Feeling tired or having little energy: not at all 5. Poor appetite or overeating: not at all 6. Feeling bad about yourself - or that you are a failure or have let yourself or your family down: not at all 7. Trouble concentrating on things, such as reading the newspaper or watching television: not at all 8. Moving or speaking so slowly that other people could have noticed. Or the opposite - being so fidgety or restless that you have been moving around a lot more than usual: not at all 9. Thoughts that you would be better off or of hurting yourself in some way: not at all Total score: 0 Depression Screening Interpretation: Negative Depression Screening Done: Yes Source: Developed by Drs. Lee Ceron, Loretta Davies, Jose Alejandro Wren and colleagues, with an educational lizbeth from [employer]. Thrive Questionnaire Date Thrive assessed: 01/26/25 I am a: Patient What is your living situation today?: I have a steady place to live Within the past 12 months, did the food you bought not last and you didn't have the money to get more?: I choose not to answer this question Within the past 12 months, did you worry whether your food would run out before you got money to buy more?: Never true Do you have trouble paying for medicines?: No Do you have trouble getting transportation to medical appointments?: No Do you have trouble paying your heating and electricity bill?: No Do you have trouble taking care of your child, family member or friend?: No Do you have trouble with day-to-day activities such as bathing, preparing meals, shopping, managing finances, etc.?: No Are you currently unemployed and looking for a job?: No Are you interested in more education?: No Please select the resources that you would like help with: None Currently or been in a relationship where the following occur: No concerns reported THRIVE Score: 0 JERICA-7 AMB Questionnaire JERICA-7 Date JERICA - 7 assessed: 02/02/25 Source: Developed by Drs. Lee Ceron, Loretta Davies, Jose Alejandro Wren and colleagues, with an educational lizbeth from [employer]. Physical exam (Primary Care) Vital Signs: Last Vital Signs Pulse 58 09/22/25 08:28 BP 118/70 09/22/25 08:28 Pulse Ox 98 09/22/25 08:28 Oxygen Delivery Method Room Air 09/22/25 08:28 BMI result Body Mass Index 28.7 Tobacco/Smoking Status: Tobacco use Status Tobacco use date assessed 05/31/25 09/22/25 08:35 Patient Tobacco Use Status Former Tobacco user 09/22/25 08:35 Tobacco use type Cigarette 09/22/25 08:35 e-Cigarette/Vaping Use Never Used 09/22/25 08:35 PHQ-9: PHQ-9 Score PHQ-9: Total score 0 09/22/25 12:27 Depression Screening Interpretation: Negative Thrive Assessment: Date of Thrive Assessment Date Thrive assessed 01/26/25 09/22/25 08:35 Currently or been in a relationship where the following occur: No concerns reported Const General: alert; No acute distress Eyes Conjunctivae: conjunctivae normal Resp Auscultation: clear to auscultation bilaterally Cardio Rate: regular rate Rhythm: regular rhythm GI Inspection: Yes normal to inspection Extrem General: Yes normal to inspection and No edema Office Procedures Flu Questionnaire Does the patient have a severe egg allergy?: No Does the patient have severe life threatening allergies?: No Does the patient have a fever or illness today?: No Has the patient ever had Guillain-[place] Syndrome?: No Has the patient ever had any past reaction to a flu shot?: No Immunizations Fluarix [id number] (PF) 45 mcg (15 mcg x 3)/0.5 mL IM syringe Performing Provider: Chica Law MD [facility] Administered by: Galilea Zuleta CMA on 09/22/25 08:36 Dose Route Admin Location Dispensed Lot Number Expiration Date NDC Pack Out Operator 0.5 mL IM Left Deltoid 0.5 mL [id number] 05/09/26 [id number] [employer] VIS Given Date VIS Provided VIS Publication Date 09/22/25 Single Vaccine 24 Eligibility Eligibility Date Funding Source Not [facility] Eligible 09/22/25 Private Coding Level of Care Code Est Pt Level 4 (26553) Complex EM visit Add On G2211 Diagnoses Impaired glucose tolerance R73.02 Acquired hypothyroidism E03.9 Hypothyroidism type: acquired Hypercholesterolemia E78.00 Coronary artery disease involving [place] coronary artery of [place] heart without angina pectoris I25.10 Associated angina: without angina Coronary Disease-Associated Artery/Lesion type: [place] artery [place] vs. transplanted heart: [place] heart LFT elevation R79.89 Complex renal cyst N28.1 Rectal cancer C20 Spinal stenosis M48.00 Assessment & Plan Assessment & Plan (1) Impaired glucose tolerance: Code(s): R73.02 - Impaired glucose tolerance (oral) Category: Medical Plan: Decrease the amount of carbohydrate intake, pasta, bread, rice and potatoes are all sugar and that is aside from all the sweet stuff, remember that fruits are good but they are Sweet also. (2) Hypothyroid: Code(s): E03.9 - Hypothyroidism, unspecified Category: Medical Qualifiers: Hypothyroidism type: acquired Qualified Code(s): E03.9 - Hypothyroidism, unspecified Plan: need repeat blood work in 2 months (3) Hypercholesterolemia: Code(s): E78.00 - Pure hypercholesterolemia, unspecified Category: Medical Plan: Avoid fried foods, chicken skin, eggs, butter margarine, pastries and meat. Be it pork or beef they have a lot of cholesterol cardiology has seen the patient and goal of less than 55 LDL (4) Coronary artery disease: Comment: November 2023 drug-eluting stent x2 Code(s): I25.10 - Atherosclerotic heart disease of [place] coronary artery without angina pectoris Category: Medical Qualifiers: Associated angina: without angina Coronary Disease-Associated Artery/Lesion type: [place] artery [place] vs. transplanted heart: [place] heart Qualified Code(s): I25.10 - Atherosclerotic heart disease of [place] coronary artery without angina pectoris Plan: Control the cholesterol, weight, blood pressure, continuing with aspirin (5) LFT elevation: Code(s): R79.89 - Other specified abnormal findings of blood chemistry Category: Medical Plan: Continuing to monitor ultrasound has been done negative. (6) Complex renal cyst: Code(s): N28.1 - Cyst of kidney, acquired Category: Medical Plan: Patient has seen Urology and will be under surveillance (7) Rectal cancer: Onset Date: ~10/2020 Comment: (Adenocarcinoma of rectum dx 10/2020 - s/p chemo/radiation & rectosigmoid resection with loop ileostomy 07/2021 - Rad Onc = Dr. Breann Dawn, Onc = Dr. Davenport, ) Code(s): C20 - Malignant neoplasm of rectum Category: Medical Plan: Colonoscopy up-to-date continue with monitoring. (8) Spinal stenosis: Code(s): M48.00 - Spinal stenosis, site unspecified Category: Medical Plan History of Present Illness The patient is a 64-year-old overweight male presenting for a follow-up visit. His medical history is significant for rectal cancer in 2019, hypothyroidism, hypercholesterolemia, coronary artery disease, impaired glucose tolerance, and lumbar spinal stenosis. The last visit was in May 2025, and his last colonoscopy was in June 2024. He had a 6-month follow-up with cardiology in August 2029 where the target LDL was set at 55. He also has been seen by urology for a renal cyst and was advised for yearly surveillance. Last blood work from May 30 revealed a normal blood count and electrolytes, with a renal function of 1.20 and a hemoglobin A1c of 6.0. His LDL cholesterol was 69, and he had an elevated liver function and elevated thyroid level. An ultrasound in April showed a normal liver but incidentally found a complex renal cyst. Health Maintenance - Colonoscopy: Last performed in June 2024, patient is up to date. - Renal cyst: Under yearly surveillance with urology. - Hypercholesterolemia management: Follows with cardiology with a target LDL of less than 55. - Coronary artery disease: Continues aspirin for an unspecified indication. Social History - The patient is noted to be overweight. Review of Systems - Rectal: Patient was counseled to report if the rectal area becomes a problem. Physical Exam Results - Last blood work (May 30): - Blood count: Normal. - Electrolytes: Normal. - Renal function: 1.20. - Hemoglobin A1c: 6.0. - Liver function: Elevated. - Cholesterol: LDL of 69. - Thyroid: Elevated. - Ultrasound (April): Liver normal, incidental finding of a complex renal cyst. - Colonoscopy (June 2024): Completed and up to date. Plan Patient was informed and verbally consented to the use of an ambient scribe for clinic note documentation during this visit. 1. Impaired Glucose Tolerance The plan is to repeat blood work in 2 months for monitoring. 2. Hypercholesterolemia The patient has been seen by cardiology, and the goal is an LDL of less than 55. A prescription for rosuvastatin will be sent to the pharmacy. 3. Coronary Artery Disease The plan is to continue aspirin and monitor. 4. Complex Renal Cyst An ultrasound has been done, and the patient has seen urology. The patient will remain under surveillance as per urology's recommendation. 5. History Of Rectal Cancer The patient's colonoscopy is up to date, and the plan is to continue monitoring. The patient was advised to send a message via the patient portal if the rectal area becomes a problem. Discussion Notes I reviewed the patient's medications, including rosuvastatin, metoprolol, thyroid medication, aspirin, and Zetia. To ensure the patient has an adequate supply, I will send a new prescription for rosuvastatin to his [facility] pharmacy. I advised the patient that he could use the office's patient portal to send a message if the rectal area becomes a problem in the future. Patient Instructions - Get repeat blood work in 2 months. - Continue taking your aspirin as directed. - Continue to monitor for any new problems or symptoms. - A prescription for rosuvastatin will be sent to your [facility] pharmacy. - Contact us through the patient portal if you have any problems with your rectal area. - Follow up for yearly surveillance of your renal cyst as recommended by the urologist. Orders: Orders Influenza [id number] Immunization Today Z23 - Encounter for immunization Hemoglobin A1c 3 Months I25.10 - Atherosclerotic heart disease of [place] coronary artery without angina pectoris Comprehensive Met. Panel 3 Months I25.10 - Atherosclerotic heart disease of [place] coronary artery without angina pectoris Free T4 (Free Thyroxine) 3 Months I25.10 - Atherosclerotic heart disease of [place] coronary artery without angina pectoris Complete Blood Count Auto Diff 3 Months I25.10 - Atherosclerotic heart disease of [place] coronary artery without angina pectoris Lipid Panel 3 Months E78.00 - Pure hypercholesterolemia, unspecified, I25.10 - Atherosclerotic heart disease of [place] coronary artery without angina pectoris Thyroid Stimulating Hormone 3 Months I25.10 - Atherosclerotic heart disease of [place] coronary artery without angina pectoris Medications: New hydrocortisone 2.5% (Proctosol HC) 1 appl IN BID-QID PRN 30 grams 0RF hemorrhoids I25.10 - Atherosclerotic heart disease of [place] coronary artery without angina pectoris Refilled rosuvastatin 40 mg PO DAILY 90 tabs 4RF E78.00 - Pure hypercholesterolemia, unspecified
[2025-09-22 08:28] VITALS: BP 118/70; PULSE 58; O2SAT 98; BMI 28.7
--- OUTSIDE RECORDS SUMMARY | 2025-09-22 08:46 | XMS_ITS | Clinical Summary ---
Author Organization [facility] Address [address] [place] [address] Phone Care Team Providers Care Drop Hammer Mechanic Name Role Phone Chica Law MD Primary Care Provider [phone] Medications Pramoxine-HC (Hydrocortisone Sai-Pramoxine) 2.5-1 % cream [...] Insurance Comprehensive Benefits Comprehensive Benefits Care Teams Drop Hammer Mechanic Relationship Specialty Start Date End Date Chica Law MD [facility] [place] [address] [place], [place] PCP - General Internal Medicine 08/10/21
--- OUTSIDE RECORDS SUMMARY | 2025-09-22 08:46 | XMS_ITS | Clinical Summary ---
Author Organization [facility] Address [address] [place] [address] Phone Care Team Providers Care Online Tutor Name Role Phone Chica Law MD Primary Care Provider [phone] Allergies No known active allergies Medications levothyroxine [...] on patient's age to complete this topic IPV VACCINES Aged Out No longer eligi ble based on patient's age to complete this topic MENINGOCOCCAL VACCINES (ACWY) Aged Out No longer eligible based on patient's age to complete this topic MENINGOCOCCAL VACCINES (B) Aged Out N o longer eligible based on patient's age to complete this topic Medical Devices Implanted Type Area Game Engineer Device Identifier Shelf Expiration Date Model [...] EDT) TSH 139.00(H) 0.27 - 4.20 uIU/mL [facility] Blood 03/01/2021 10:4 9 AM EDT 03/01/2021 10:50 AM EDT Chica Law MD LAB BLOOD BKR ORDERABLES Jasmin l Result [address] [address] * (ABNORMAL) Lipid panel (03/01/2021 10:49 AM EDT) HDL 44 mg/dL [facility] Comment: Interpretation <40 mg/dL: Low HDL cholesterol (major risk factor for CHD) Greater than or equal to 60 mg/dL: High HDL cholesterol ( negative risk factor for CHD) HDL - cholesterol is affected by a number of factors, e.g. smoking, excerise, hormones, sex and age. CHOLESTEROL 219 0 - 240 mg/dL [facility] TRIGLYCERIDES 378(H) 30 - 160 mg/dL [facility] LDL 99 50 - 129 mg/dL [facility] Comment: LDL levels in terms of risk for coronary heart disease: <100 mg/dL: Optimal 100-129 mg/dL: Near or above optimal 130-159 mg/dL: Borderline high 160-189 mg/dL: High >190 mg/dL: Very High CARDIAC RISK RATIO 5.0 3.4 - 5.0 C [facility] Blood 03/01/2021 10:4 9 AM EDT 03/01/2021 10:50 AM EDT us Chica Law MD LAB BLOOD BKR ORDERABLES Jasmin correa Result [facility] [address] [place] [address] from Last 3 Months or Most Recently Relevant to Health Maintenance Insurance [employer]AT[employer]MINISTRAT[employer] AD[employer]RATORS [employer] B[employer]AT[employer]AT[employer] Care Teams Online Tutor Relationship Specialty Start Date End Date Chica Law MD [address] [place] [phone] PCP - General Internal Medicine 12/04/20 Additional Source Comments The information contained in this document represents components of the legal health record. It is not the complete legal health record.[facility]
--- OUTSIDE RECORDS SUMMARY | 2025-09-22 08:46 | XMS_ITS | Encounter Summary ---
Author Organization [facility] Address [address] [place] [address] Phone Care Team Providers Care Systems Mgr Name Role Phone Chica Law MD Primary Care Provider [phone] Encounter Details Date Type Department Care Team (Late st Contact Info) Description 12/08/2020 Ancillary Orders [facility],Outside Imaging [address] [place] [address] System, Provider Not In, PhD Partners [address] [address] Social History Tobacco Use Types Packs/Day Years [...] on filedocumented in this encounter Care Teams Systems Mgr Relationship Specialty Start Date End Date Chica Law MD [address] [place] [phone] PCP - General Internal Medicine 12/04/20 documented as of this encounter Additional Source Comments The information contained in this document represents components of the legal health record. It is not the complete legal health record.[facility]
--- OUTSIDE RECORDS SUMMARY | 2025-09-22 08:46 | XMS_ITS | Encounter Summary ---
Author Organization [facility] Address [address] [place] [address] Phone Care Team Providers Care Supervisor Border Department Name Role Phone Chica Law MD Primary Care Provider [phone] Encounter Details Date Type Department Care Team (Late st Contact Info) Description 12/08/2020 Ancillary Orders [facility],Outside Imaging [address] [place] [address] System, Provider Not In, [facility] [address] [address] Social History Tobacco Use Types Packs/Day Years [...] on filedocumented in this encounter Care Teams Supervisor Border Department Relationship Specialty Start Date End Date Chica Law MD [address] [place] [id number] PCP - General Internal Medicine 12/04/20 documented as of this encounter Additional Source Comments The information contained in this document represents components of the legal health record. It is not the complete legal health record.[facility]
== END 2025-09-22 09:05 | disposition home or self-care (01) ==
LOC: HO.HMCH 08:25
PROVIDERS: PCP Internal Medicine; Visit Provider Internal Medicine
DX: R73.02 Impaired glucose tolerance (oral) (principal); E03.9 Hypothyroidism, unspecified; E78.00 Pure hypercholesterolemia, unspecified; I25.10 Atherosclerotic heart disease of native coronary artery without angina pectoris; R79.89 Other specified abnormal findings of blood chemistry; N28.1 Cyst of kidney, acquired; C20 Malignant neoplasm of rectum; M48.00 Spinal stenosis, site unspecified; Z23 Encounter for immunization

== ENCOUNTER → 2025-09-22 08:24 | Outpatient (BNVA) | payer OTHER, SELFPAY | PROVIDERS: PCP Internal Medicine; Visit Provider Internal Medicine | DX: Z23 Encounter for immunization (principal); R73.02 Impaired glucose tolerance (oral); E03.9 Hypothyroidism, unspecified; E78.00 Pure hypercholesterolemia, unspecified; I25.10 Atherosclerotic heart disease of native coronary artery without angina pectoris; R79.89 Other specified abnormal findings of blood chemistry; N28.1 Cyst of kidney, acquired; M48.00 Spinal stenosis, site unspecified; C20 Malignant neoplasm of rectum | CPT/HCPCS: 90471; 90656; 96127 ==